=== PATIENT | male | born 1940 | race Caucasian/White ===

== ENCOUNTER 2019-03-02 20:55 | Observation (INO) | payer MEDICARE ==
[2019-03-02] MEDS ORDERED: SODIUM CHLORIDE 0.9% 1,000 ML IV STA (21:12)
--- NOTE | 2019-03-02 21:14 | ED ---
General Adult HPI - General Chief complaint: Syncope Stated complaint: Near Syncope Time Seen by Provider: 03/02/19 21:12 Source: patient Mode of arrival: EMS Limitations: no limitations - History of Present Illness Initial comments: Mr Francois is a pleasant 78-year-old gentleman who presents to the emergency department today for evaluation of near-syncope. Patient reports that he's been in his usual state of health yesterday evening drinking well he was inside and air conditioning today, this evening he decided to go outside to clean his barbecue grill. He reports he started to complain his barbecue grill and he got very lightheaded. He thought that he would walk back and side to sit down but upon reaching the door he felt much better do not feel lightheaded and decided to walk back to his barbecue grill. Patient states that he once again began feeling really lightheaded he didn't feel that he can make it to the door to get inside so he stepped reports his grass thinking that it would be safer to fall into the grass and to follow on concrete. Patient reports he then became very weak and felt the ground he did not lose consciousness. Patient reports that he laid on the ground for a short while and felt better laying down. At which time he was able to get back up and contact his family advised him he needed to come to the ER for evaluation. Patient denies any chest pain palpitations or shortness of breath. Patient reports he been standing for some period of time when this happened. It did not happen immediately upon standing. He does not have a history of syncopal events in the past. - Related Data Home Medications Medication Instructions Recorded Confirmed Vitamin B Complex 1 cap PO DAILY 04/15/14 03/02/19 glipiZIDE XL [Glucotrol XL] 5 mg PO BID 04/15/14 03/02/19 Aspirin 162 mg PO DAILY 03/02/19 03/02/19 Atenolol [Tenormin] 25 mg PO HS 03/02/19 03/02/19 Atorvastatin Calcium [Lipitor] 20 mg PO HS 03/02/19 03/02/19 Cholecalciferol (Vitamin D3) 2,000 unit PO DAILY 03/02/19 03/02/19 [Vitamin D3] Fish Oil/Dha/Epa [Fish Oil 1,200 1 cap PO DAILY 03/02/19 03/02/19 mg Fish Oil] Losartan [Cozaar] 50 mg PO DAILY 03/02/19 03/02/19 Pioglitazone [Actos] 45 mg PO DAILY 03/02/19 03/02/19 amLODIPine [Norvasc] 5 mg PO DAILY 03/02/19 03/02/19 Allergies Allergy/AdvReac Type Severity Reaction Status Date / Time metformin AdvReac Diarrhea Verified 03/02/19 23:07 Review of Systems ROS Statement: Those systems with pertinent positive or pertinent negative responses have been documented in the HPI. ROS Other: All systems not noted in ROS Statement are negative. Past Medical History Past Medical History: Coronary Artery Disease (CAD), Diabetes Mellitus, Hyperlipidemia, Hypertension History of Any Multi-Drug Resistant Organisms: None Reported Past Surgical History: Heart Catheterization With Stent, Hernia Repair Additional Past Surgical History / Comment(s): endarectomy Date of Last Stent Placement:: 2010 Past Psychological History: No Psychological Hx Reported Smoking Status: Former smoker Past Alcohol Use History: Occasional Past Drug Use History: None Reported - Past Family History Father Additional Family Medical History / Comment(s): aortic anyserusm Mother Additional Family Medical History / Comment(s): Brain anyrusm General Exam - General Exam Comments Initial Comments: Physical Exam GENERAL: Patient is well-developed and well-nourished. Patient is nontoxic and well- hydrated and is in no distress. HENT: Normocephalic, Atraumatic. EYES: PERRL, EOMI PULMONARY: Unlabored respirations. No audible rales rhonchi or wheezing was noted. CARDIOVASCULAR: Blowing holosystolic murmur ABDOMEN: Soft and nontender with normal bowel sounds. SKIN: Skin is clear with no lesions or rashes and otherwise unremarkable. : Deferred NEUROLOGIC: Patient is alert and oriented x3. Moving all extremities spontaneously MUSCULOSKELETAL: Normal extremities with adequate strength and full range of motion. No lower extremity swelling or edema. No calf tenderness. PSYCHIATRIC: Normal psychiatric evaluation Limitations: no limitations Course Vital Signs 03/02/19 03/02/19 21:06 22:36 Temperature 98.0 F 97.8 F Pulse Rate 62 64 Respiratory 20 20 Rate Blood Pressure 163/80 150/73 O2 Sat by Pulse 95 95 Oximetry EKG Findings - EKG Comments: EKG Findings:: EKG was obtained due to complaint of near-syncope, EKG obtained at 2118, rate is 66 rhythm is sinus is an incomplete right branch of block, WI 164, QRS 108, QTC is [address] elevations or depressions no evidence of acute ischemia or infarction Medical Decision Making - Medical Decision Making Patient was seen and evaluated history was obtained from the patient and my bedside This is a 78-year-old gentleman who presents with a near syncopal or possible syncopal episode given that he felt as though he was going to pass out and then ended up laying on the ground. Patient no injuries Physical exam patient does have a blowing holosystolic murmur and reports he's never told he had aortic stenosis in the past except Labs resulted with mild anemia, kidney function troponin negative Results were discussed with patient, at this time I recommend the patient be admitted to the hospital for further evaluation by cardiology patient and family are agreeable to this. Patient will be admitted to Dr Freeman per PCP preference - Lab Data Result diagrams: 03/02/19 21:05 03/02/19 21:05 Lab Results 03/02/19 03/02/19 03/02/19 Range/Units 21:05 21:05 21:05 WBC 4.7 (3.8-10.6) k/uL RBC 3.67 L (4.30-5.90) m/uL Hgb 11.1 L (13.0-17.5) gm/dL Hct 33.8 L (39.0-53.0) % MCV 92.3 (80.0-100.0) fL MCH 30.2 (25.0-35.0) pg MCHC 32.7 (31.0-37.0) g/dL RDW 15.7 H (11.5-15.5) % Plt Count 154 (150-450) k/uL Neutrophils % 68 % Lymphocytes % 17 % Monocytes % 7 % Eosinophils % 4 % Basophils % 0 % Neutrophils # 3.2 (1.3-7.7) k/uL Lymphocytes # 0.8 L (1.0-4.8) k/uL Monocytes # 0.3 (0-1.0) k/uL Eosinophils # 0.2 (0-0.7) k/uL Basophils # 0.0 (0-0.2) k/uL Hypochromasia Slight PT 12.0 (9.0-12.0) sec INR 1.1 (<1.2) APTT 28.1 (22.0-30.0) sec Sodium 141 (137-145) mmol/L Potassium 4.3 (3.5-5.1) mmol/L Chloride 103 (98-107) mmol/L Carbon Dioxide 30 (22-30) mmol/L Anion Gap 8 mmol/L BUN 26 H (9-20) mg/dL Creatinine 1.08 (0.66-1.25) mg/dL Est GFR (CKD-EPI)AfAm 77 (>60 ml/min/1.73 sqM) Est GFR (CKD-EPI)NonAf 66 (>60 ml/min/1.73 sqM) Glucose 111 H (74-99) mg/dL Calcium 9.3 (8.4-10.2) mg/dL Magnesium 1.6 (1.6-2.3) mg/dL Total Bilirubin 0.5 (0.2-1.3) mg/dL AST 17 (17-59) U/L ALT 19 L (21-72) U/L Alkaline Phosphatase 39 (38-126) U/L Troponin I (0.000-0.034) ng/mL Total Protein 7.0 (6.3-8.2) g/dL Albumin 4.3 (3.5-5.0) g/dL Urine Color Urine Appearance (Clear) Urine pH (5.0-8.0) Ur Specific [place] (1.001-1.035) Urine Protein (Negative) Urine Glucose (UA) (Negative) Urine Ketones (Negative) Urine Blood (Negative) Urine Nitrite (Negative) Urine Bilirubin (Negative) Urine Urobilinogen (<2.0) mg/dL Ur Leukocyte Esterase (Negative) 03/02/19 03/02/19 Range/Units 21:05 21:50 WBC (3.8-10.6) k/uL RBC (4.30-5.90) m/uL Hgb (13.0-17.5) gm/dL Hct (39.0-53.0) % MCV (80.0-100.0) fL MCH (25.0-35.0) pg MCHC (31.0-37.0) g/dL RDW (11.5-15.5) % Plt Count (150-450) k/uL Neutrophils % % Lymphocytes % % Monocytes % % Eosinophils % % Basophils % % Neutrophils # (1.3-7.7) k/uL Lymphocytes # (1.0-4.8) k/uL Monocytes # (0-1.0) k/uL Eosinophils # (0-0.7) k/uL Basophils # (0-0.2) k/uL Hypochromasia PT (9.0-12.0) sec INR (<1.2) APTT (22.0-30.0) sec Sodium (137-145) mmol/L Potassium (3.5-5.1) mmol/L Chloride (98-107) mmol/L Carbon Dioxide (22-30) mmol/L Anion Gap mmol/L BUN (9-20) mg/dL Creatinine (0.66-1.25) mg/dL Est GFR (CKD-EPI)AfAm (>60 ml/min/1.73 sqM) Est GFR (CKD-EPI)NonAf (>60 ml/min/1.73 sqM) Glucose (74-99) mg/dL Calcium (8.4-10.2) mg/dL Magnesium (1.6-2.3) mg/dL Total Bilirubin (0.2-1.3) mg/dL AST (17-59) U/L ALT (21-72) U/L Alkaline Phosphatase (38-126) U/L Troponin I <0.012 (0.000-0.034) ng/mL Total Protein (6.3-8.2) g/dL Albumin (3.5-5.0) g/dL Urine Color Yellow Urine Appearance Clear (Clear) Urine pH 6.5 (5.0-8.0) Ur Specific [place] 1.011 (1.001-1.035) Urine Protein Negative (Negative) Urine Glucose (UA) Negative (Negative) Urine Ketones Negative (Negative) Urine Blood Negative (Negative) Urine Nitrite Negative (Negative) Urine Bilirubin Negative (Negative) Urine Urobilinogen <2.0 (<2.0) mg/dL Ur Leukocyte Esterase Negative (Negative) Disposition Clinical Impression: Syncope, Systolic murmur Disposition: ADMITTED IP TO THIS HOSP Condition: Stable
[2019-03-02 21:32] LABS: Basophils % (A) 0 %; Eosinophils # (A) 0.2 k/uL (0-0.7); Eosinophils % (A) 4 %; HCT 33.8 % (39.0-53.0); HGB 11.1 gm/dL (13.0-17.5); Hypochromasia Slight; Lymphocytes # (A) 0.8 k/uL (1.0-4.8); Lymphocytes % (A) 17 %; MCH 30.2 pg (25.0-35.0); MCHC 32.7 g/dL (31.0-37.0); MCV 92.3 fL (80.0-100.0); Mean Platelet Volume 7.7; Monocytes # (A) 0.3 k/uL (0-1.0); Monocytes % (A) 7 %; Neutrophils # (A) 3.2 k/uL (1.3-7.7); Neutrophils % (A) 68 %; Platelet Count 154 k/uL (150-450); RBC 3.67 m/uL (4.30-5.90); RDW 15.7 % (11.5-15.5); WBC 4.7 k/uL (3.8-10.6)
[2019-03-02 21:40] LABS: INR 1.1 (<1.2); Partial Thromboplastin Time 28.1 sec (22.0-30.0)
[2019-03-02 21:43] LABS: Albumin 4.3 g/dL (3.5-5.0); Calcium 9.3 mg/dL (8.4-10.2); Magnesium 1.6 mg/dL (1.6-2.3); Potassium 4.3 mmol/L (3.5-5.1); Total Bilirubin 0.5 mg/dL (0.2-1.3)
--- NOTE | 2019-03-02 21:55 | XR ---
EXAMINATION TYPE: XR chest 2V DATE OF EXAM: 03/02/2019 COMPARISON: 04/15/2014 HISTORY: Syncope TECHNIQUE: Frontal and lateral views of the chest are obtained. FINDINGS: Heart and mediastinum are normal. There is some coarsening of interstitial markings. Costo phrenic angles are clear. There are chest leads. Bony thorax appears intact. IMPRESSION: Mild pulmonary interstitial edema is new compared to old exam and could relate to acute mild heart failure or interstitial pneumonia. Normal heart.
[2019-03-02] MEDS ORDERED: NALOXONE 0.4 MG/ML 1 ML VIAL IV PRN (22:09)
[2019-03-02 22:30] LABS: Appearance,Urine Clear (Clear); Bilirubin,Urine Negative (Negative); Blood,Urine Negative (Negative); Color,Urine Yellow; Glucose,Urine (UA) Negative (Negative); Ketones,Urine Negative (Negative); Leukocyte Esterase,Urine Negative (Negative); Nitrite,Urine Negative (Negative); PH, Urine 6.5 (5.0-8.0); Protein,Urine Negative (Negative); Specific Gravity,Urine 1.011 (1.001-1.035); Urobilinogen,Urine <2.0 mg/dL (<2.0)
[2019-03-02] MEDS: SODIUM CHLORIDE 0.9% 1,000 ML IV SCH (23:03)
[2019-03-02] MEDS ORDERED: ATORVASTATIN 20 MG TAB PO SCH (23:30)
[2019-03-02] MEDS ORDERED: ATENOLOL 25 MG TAB PO SCH (23:30)
[2019-03-03 07:29] LABS: Glucose,Whole Blood 133 mg/dL (75-99)
[2019-03-03] MEDS ORDERED: NON-FORMULARY DRUG (Fish Oil/Dha/Epa [Fish Oil 1,200 Mg Fish Oil] 1 CAP) PO SCH (09:00)
[2019-03-03 12:00] LABS: Glucose,Whole Blood 137 mg/dL (75-99)
--- NOTE | 2019-03-03 12:59 | P.CRDCN ---
History of Present Illness Consult date: 03/03/19 Consult reason: sycope (Near syncope, aortic stenosis) Chief complaint: Near syncope History of present illness: This is a 78-year-old male patient of Dr. STACY Castillo with past medical history of coronary artery disease status post stenting most recently done in 2010, hypertension, hyperlipidemia, diabetes mellitus type 2, bilateral carotid endarterectomies. 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 He walked away was going to rest for a few minutes and went back to finish his job but the dizziness returned and was worsening ended up feeling quite lightheaded and falling over to the left side was unable to keep his balance and fell down into the grass. He denies any injury, no loss of consciousness, no chest pain, no shortness of breath. Patient denies having any nausea vomiting or diarrhea. Patient states he was outside yesterday but he was not significantly active and did not feel it was very hot out. He does not drink very much fluids in the way of water. He did drink a few cups of coffee yesterday. Patient came into [facility] emergency center for evaluation and was subsequently placed in the observation unit. Through the night patient had runs of ventricular tachycardia up to 11 beats. Patient was asymptomatic. EKG reveals sinus mechanism with incomplete right bundle branch block. Echocardiogram reveals EF of 55-60% Laboratory studies: Hemoglobin 11.1, platelets 154, creatinine 1.08, BUN 26, blood sugar 111. Troponin negative on 2 draws. Urinalysis negative. Chest x-ray shows mild pulmonary interstitial edema which is new. Could correlate to heart failure or interstitial pneumonia. Normal heart. Review Of Systems: Constitutional: No fever, no chills, no night sweats. No weight change. No weakness, fatigue or lethargy. No daytime sleepiness. EENT: No headache. No blurred vision or double vision, no loss of vision. No loss of Hearing, no ringing in the ears, no dizziness. No nasal drainage or congestion. No epistaxis. No sore throat. Lungs: No shortness of breath, cough, no sputum production. No wheezing. Cardiovascular: No chest pain, no lower extremity edema. No palpitations. No paroxysmal nocturnal dyspnea. No orthopnea. Reports lightheadedness reports dizziness. No syncopal episodes. Abdominal: No abdominal pain. No nausea, vomiting. No diarrhea. No constipation. No bloody or tarry stools.. No loss of appetite. Genitourinary: No dysuria, increased frequency, urgency. No urinary retention. Musculoskeletal: No myalgias. No muscle weakness, no gait dysfunction, no frequent falls. No back pain. No neck pain. Integumentary: No wounds, no lesions. No rash or pruritus. No unusual bruising. No change in hair or nails. Neurologic: No aphasia. No facial droop. No change in mentation. No head injury. No headache. No paralysis. No paresthesia. Psychiatric: No depression. No anxiety. No mood swings. Endocrine: No abnormal blood sugars. No weight change. No excessive sweating or thirst. No cold intolerance. No weight change. Gen: This is a 78-year-old male. He is resting but appears to be comfortable and in no acute distress. HEENT: Head is atraumatic, normocephalic. Pupils equal, round. Sclerae is anicteric. NECK: Supple. No JVD. No lymphadenopathy. No thyromegaly. LUNGS: Clear to auscultation. No wheezes or rhonchi. No intercostal retract ions. HEART: Regular rate and rhythm. Soft systolic murmur. ABDOMEN: Soft. Bowel sounds are present. No masses. No tenderness. EXTREMITIES: No pedal edema. No calf tenderness. NEUROLOGICAL: Patient is awake, alert and oriented x3. Cranial nerves 2 through 12 are grossly intact. Assessment: Near syncopal episode rule out arrhythmia as patient had episodes of V. tach during the night Hypertension Hyperlipidemia Diabetes mellitus type 2 Plan: Continue cardiac monitoring. Obtain 2-D echocardiogram and Doppler study to assess cardiac structure and function. Check TSH and lipid profile. Check orthostatic vital signs. Continue aspirin 162 mg daily, atenolol 25 mg at bedtime, Norvasc 5 mg daily, Lipitor 20 g at bedtime, losartan 50 g daily. Further recommendations to follow based upon clinical course. Thank you kindly for this consultation. Nurse practitioner note has been reviewed, I agree with documented findings and plan of care. Patient was seen and examined. Past Medical History Past Medical History: Coronary Artery Disease (CAD), Diabetes Mellitus, Hyperlipidemia, Hypertension History of Any Multi-Drug Resistant Organisms: None Reported Past Surgical History: Heart Catheterization With Stent, Hernia Repair Additional Past Surgical History / Comment(s): endarectomy Past Anesthesia/Blood Transfusion Reactions: No Reported Reaction Date of Last Stent Placement:: 2010 Past Psychological History: No Psychological Hx Reported Smoking Status: Former smoker Past Alcohol Use History: Occasional Past Drug Use History: None Reported - Past Family History Father Additional Family Medical History / Comment(s): aortic anyserusm Mother Additional Family Medical History / Comment(s): Brain anyrusm Medications and Allergies Home Medications Medication Instructions Recorded Confirmed Type Vitamin B Complex 1 cap PO DAILY 04/15/14 03/02/19 History glipiZIDE XL [Glucotrol XL] 5 mg PO BID 04/15/14 03/02/19 History Aspirin 162 mg PO DAILY 03/02/19 03/02/19 History Atenolol [Tenormin] 25 mg PO HS 03/02/19 03/02/19 History Atorvastatin Calcium [Lipitor] 20 mg PO HS 03/02/19 03/02/19 History Cholecalciferol (Vitamin D3) 2,000 unit PO DAILY 03/02/19 03/02/19 History [Vitamin D3] Fish Oil/Dha/Epa [Fish Oil 1,200 1 cap PO DAILY 03/02/19 03/02/19 History mg Fish Oil] Losartan [Cozaar] 50 mg PO DAILY 03/02/19 03/02/19 History Pioglitazone [Actos] 45 mg PO DAILY 03/02/19 03/02/19 History amLODIPine [Norvasc] 5 mg PO DAILY 03/02/19 03/02/19 History Allergies Allergy/AdvReac Type Severity Reaction Status Date / Time metformin AdvReac Diarrhea Verified 03/02/19 23:07 Physical Exam Vitals: Vital Signs Temp Pulse Pulse Resp BP BP BP 03/03/19 12:23 03/03/19 12:22 170/70 03/03/19 12:00 97.2 F L 57 L 17 155/73 03/03/19 08:00 60 17 03/03/19 07:36 97.7 F 60 17 136/67 03/03/19 03:40 18 03/03/19 03:39 97.5 F L 58 L 18 132/66 03/03/19 00:00 18 03/02/19 23:03 97.4 F L 68 18 163/67 03/02/19 22:36 97.8 F 64 20 150/73 03/02/19 21:06 98.0 F 62 20 163/80 BP BP Pulse Ox 03/03/19 12:23 185/73 03/03/19 12:22 177/69 03/03/19 12:00 95 03/03/19 08:00 03/03/19 07:36 98 03/03/19 03:40 03/03/19 03:39 97 03/03/19 00:00 03/02/19 23:03 94 L 03/02/19 22:36 95 03/02/19 21:06 95 Intake and Output 03/02/19 03/03/19 03/03/19 22:59 06:59 14:59 Intake Total 1000 Output Total 300 Balance 1000 -300 Intake: Amount of Fluid Infused ( 1000 ml) Output: Urine 300 Other: Voiding Method Toilet # Voids 1 1 Weight 95.254 kg Results 03/02/19 21:05 03/02/19 21:05 Cardiac Enzymes 03/02/19 03/02/19 03/03/19 Range/Units 21:05 21:05 03:30 AST 17 (17-59) U/L Troponin I <0.012 <0.012 (0.000-0.034) ng/mL 03/03/19 Range/Units 08:48 AST (17-59) U/L Troponin I <0.012 (0.000-0.034) ng/mL Coagulation 03/02/19 Range/Units 21:05 PT 12.0 (9.0-12.0) sec APTT 28.1 (22.0-30.0) sec CBC 03/02/19 Range/Units 21:05 WBC 4.7 (3.8-10.6) k/uL RBC 3.67 L (4.30-5.90) m/uL Hgb 11.1 L (13.0-17.5) gm/dL Hct 33.8 L (39.0-53.0) % Plt Count 154 (150-450) k/uL Comprehensive Metabolic Panel 03/02/19 Range/Units 21:05 Sodium 141 (137-145) mmol/L Potassium 4.3 (3.5-5.1) mmol/L Chloride 103 (98-107) mmol/L Carbon Dioxide 30 (22-30) mmol/L BUN 26 H (9-20) mg/dL Creatinine 1.08 (0.66-1.25) mg/dL Glucose 111 H (74-99) mg/dL Calcium 9.3 (8.4-10.2) mg/dL AST 17 (17-59) U/L ALT 19 L (21-72) U/L Alkaline Phosphatase 39 (38-126) U/L Total Protein 7.0 (6.3-8.2) g/dL Albumin 4.3 (3.5-5.0) g/dL Current Medications Generic Name Dose Route Start Last Admin Trade Name Freq PRN Reason Stop Dose Admin Amlodipine Besylate 5 mg 03/03/19 09:00 Norvasc PO DAILY [facility] Aspirin 162 mg 03/03/19 09:00 Aspirin PO DAILY [facility] Atenolol 25 mg 03/02/19 23:30 03/02/19 23:43 Tenormin PO 25 mg HS AYLA Administration Atorvastatin Calcium 20 mg 03/02/19 23:30 03/02/19 23:43 Lipitor PO 20 mg HS AYLA Administration Cholecalciferol 2,000 unit 03/03/19 09:00 Vitamin D3 (25 Mcg = 1000 Iu) PO DAILY [facility] Glipizide 2.5 mg 03/03/19 09:00 Glucotrol PO BID [facility] Sodium Chloride 1,000 mls @ 75 mls/hr 03/02/19 22:15 03/02/19 23:03 Saline 0.9% IV Not Given .[id number] [facility] Losartan Potassium 50 mg 03/03/19 09:00 Cozaar PO DAILY [facility] Multivit/Ca Carb/B Cmplx/FA/Prenat 1 each 03/03/19 09:00 Nephrocaps PO DAILY [facility] Naloxone HCl 0.2 mg 03/02/19 22:09 Narcan IV Q2M PRN Opioid Reversal Pioglitazone HCl 45 mg 03/03/19 09:00 Actos PO DAILY [facility] Intake and Output 03/02/19 03/03/19 03/03/19 22:59 06:59 14:59 Intake Total 1000 Output Total 300 Balance 1000 -300 Intake: Amount of Fluid Infused ( 1000 ml) Output: Urine 300 Other: Voiding Method Toilet # Voids 1 1 Weight 95.254 kg 03/02/19 21:05 03/02/19 21:05
[2019-03-03] MEDS: CHOLECALCIFEROL 1,000 UNIT TAB PO SCH (13:06)
[2019-03-03] MEDS: PIOGLITAZONE 45 MG TAB PO SCH (13:06)
[2019-03-03] MEDS: FOLIC ACID-VIT B COMPLEX-VIT C 1 CAP PO SCH (13:06)
[2019-03-03] MEDS: LOSARTAN 50 MG TAB PO SCH (13:07)
[2019-03-03] MEDS: amLODIPine 5 MG TAB PO SCH (13:07)
[2019-03-03] MEDS: ASPIRIN 81 MG PO SCH (13:07)
[2019-03-03] MEDS: SODIUM CHLORIDE 0.9% 1,000 ML IV SCH (13:10)
--- NOTE | 2019-03-03 13:19 | ECHOF ---
Referral Reason:syncope, aortic stenosis MEASUREMENTS -------- HEIGHT: 175.3 cm WEIGHT: 95.3 kg BP: 136/67 IVSd: 0.8 cm (0.6 - 1.1) LVIDd: 5.2 cm (3.9 - 5.3) LVPWd: 1.1 cm (0.6 - 1.1) IVSs: 1.5 cm LVIDs: 3.3 cm LVPWs: 1.4 cm RVIDd: 4.3 cm (< 3.3) LAESV Index (A-L): 41.61 ml/m Ao Diam: 3.5 cm (2.0 - 3.7) LA Diam: 4.4 cm (2.7 - 3.8) AV Cusp: 2.1 cm (1.5 - 2.6) AV maxP.49 mmHg AV meanP.86 mmHg RAP: 5.00 mmHg RVSP: 44.48 mmHg FINDINGS -------- Sinus rhythm. This was a technically difficult study with suboptimal parasternal views. The left ventricular size is normal. Left ventricular wall thickness is normal. Overall left vent ricular systolic function is normal with, an EF between 65 - 70 %. Left ventricular fillimg pressur e cannot be estimated due to severe mitral annular calcification. The right ventricle is mildly enlarged. LA is severely dilated >40 ml/m2 The right atrial size is normal. Interatrial and interventricular septum intact. There is moderate aortic valve sclerosis. There is no evidence of aortic regurgitation. There is mild aortic stenosis present. Peak/mean gradient across the Aortic Valve is 21.49mmHg / 10.86mmHg. The mitral valve leaflets are moderately thickened. Severe mitral annular calcification present. Moderate mitral regurgitation is present. Kali-[id number] mitral stenosis. Mild tricuspid regurgitation present. There is mild to moderate pulmonary hypertension. The right ventricular systolic pressure, as measured by Doppler, is 44.48mmHg. There is no pulmonic regurgitation present. The aortic root size is normal. The inferior vena cava is mildly dilated. There is no pericardial effusion. Lumason used CONCLUSIONS -------- 1. Sinus rhythm. 2. This was a technically difficult study with suboptimal parasternal views. 3. The left ventricular size is normal. 4. Left ventricular wall thickness is normal. 5. Overall left ventricular systolic function is normal with, an EF between 65 - 70 %. 6. Left ventricular fillimg pressure cannot be estimated due to severe mitral annular calcification. 7. The right ventricle is mildly enlarged. 8. LA is severely dilated >40 ml/m2 9. The right atrial size is normal. 10. Lumason used 11. Interatrial and interventricular septum intact. 12. There is moderate aortic valve sclerosis. 13. There is no evidence of aortic regurgitation. 14. There is mild aortic stenosis present. 15. Peak/mean gradient across the Aortic Valve is 21.49mmHg / 10.86mmHg. 16. The mitral valve leaflets are moderately thickened. 17. Severe mitral annular calcification present. 18. Moderate mitral regurgitation is present. 19. Uhtz-pt-[id number] mitral stenosis. 20. Mild tricuspid regurgitation present. 21. There is mild to moderate pulmonary hypertension. 22. The right ventricular systolic pressure, as measured by Doppler, is 44.48mmHg. 23. There is no pulmonic regurgitation present. 24. The aortic root size is normal. 25. The inferior vena cava is mildly dilated. 26. There is no pericardial effusion. RELOCATION COUNSELOR: Taylor Santos RDCS
[2019-03-03] MEDS: CARVEDILOL 3.125 MG TAB PO SCH (16:29)
[2019-03-03] MEDS: ATORVASTATIN 20 MG TAB PO SCH (16:29)
[2019-03-03 16:30] LABS: Glucose,Whole Blood 210 mg/dL (75-99)
--- NOTE | 2019-03-03 16:42 | P.HPIM ---
History of Present Illness H&P Date: 03/03/19 Chief Complaint: Dizzy History of presenting complaint: This is a pleasant [address] Víctor Echols. Chronic stable medical conditions include coronary artery disease with stent, diabetes, hyperlipidemia, hypertension. 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 It was not too warm. It was there for about 20 minutes. [place] a bit d julio. Decided to go back in the house. And felt better came back to the grill. Had a repeat episode where he felt severely dizzy. Patient went down on the grass. Never passed out. There were 3 ladies Around the corner was 1. EMS was called out. Denied any chest pain or palpitations. No headache or change in vision. No incontinence. Patient is noted to assess some ectopics on the EKG. Admitted for the same. Cardiology was consulted. Review of systems: GEN.: Tired EYES: None HEENT: None NECK: None RESPIRATORY: None CARDIOVASCULAR: None GASTROINTESTINAL: None GENITOURINARY: None MUSCULOSKELETAL: Some pain in the joints LYMPHATICS: None HEMATOLOGICAL: None PSYCHIATRY: None NEUROLOGICAL: [As above Social history: Patient stop smoking and 96, drinks about average of 2 beers a week. . Retired Family history: Aortic aneurysm Physical examination: VITAL SIGNS: 98, 62, 20, 163/80, 95% room air GENERAL: BMI 31, laying in bed a bit tired, . EYES: Pupils equal. Conjunctiva normal. HEENT: External appearance of nose and ears normal, oral cavity grossly normal. NECK: JVD not raised; masses not palpable. HEART: First and second heart sounds are normal; no edema. LUNGS: Respiratory rate normal; clear to auscultation. ABDOMEN: Soft, nontender, liver spleen not palpable, no masses palpable. PSYCH: Alert and oriented x3; mood and affect normal. NEUROLOGICAL: Cranial nerves grossly intact; no facial asymmetry, power and s ensation grossly intact. 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 Telemetry reported some ectopics Chest x-ray film personally reviewed by me-questionable maybe chronic infiltrate on the right side 2-D echo-shows moderate aortic valve sclerosis, moderate pulmonary hypertension EF 65-70% Assessment: -This is a patient with 2 episodes of dizziness with near syncope, with patient tachycardia following down but never passed out. Telemetry he showing some PVCs. Underlying arrhythmia niece to be ruled out. Specially V. tach patient will be washed on telemetry. Cardiology was consulted. -Coronary artery disease with prior history of stent -Diabetes mellitus type 2 on oral hypoglycemic -Hyperlipidemia -Essential hypertension Plan: Cardiology cardiology was consulted. Patient put on telemetry. 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 Home me dications resumed. Care was discussed the patient . Questions were answered. No clinical evidence for pneumonia and no symptoms. Past Medical History Past Medical History: Coronary Artery Disease (CAD), Diabetes Mellitus, Hyperlipidemia, Hypertension History of Any Multi-Drug Resistant Organisms: None Reported Past Surgical History: Heart Catheterization With Stent, Hernia Repair Additional Past Surgical History / Comment(s): endarectomy Past Anesthesia/Blood Transfusion Reactions: No Reported Reaction Date of Last Stent Placement:: 2010 Past Psychological History: No Psychological Hx Reported Smoking Status: Former smoker Past Alcohol Use History: Occasional Past Drug Use History: None Reported - Past Family History Father Additional Family Medical History / Comment(s): aortic anyserusm Mother Additional Family Medical History / Comment(s): Brain anyrusm Medications and Allergies Home Medications Medication Instructions Recorded Confirmed Type Vitamin B Complex 1 cap PO DAILY 04/15/14 03/02/19 History glipiZIDE XL [Glucotrol XL] 5 mg PO BID 04/15/14 03/02/19 History Aspirin 162 mg PO DAILY 03/02/19 03/02/19 History Atenolol [Tenormin] 25 mg PO HS 03/02/19 03/02/19 History Atorvastatin Calcium [Lipitor] 20 mg PO HS 03/02/19 03/02/19 History Cholecalciferol (Vitamin D3) 2,000 unit PO DAILY 03/02/19 03/02/19 History [Vitamin D3] Fish Oil/Dha/Epa [Fish Oil 1,200 1 cap PO DAILY 03/02/19 03/02/19 History mg Fish Oil] Losartan [Cozaar] 50 mg PO DAILY 03/02/19 03/02/19 History Pioglitazone [Actos] 45 mg PO DAILY 03/02/19 03/02/19 History amLODIPine [Norvasc] 5 mg PO DAILY 03/02/19 03/02/19 History Allergies Allergy/AdvReac Type Severity Reaction Status Date / Time metformin AdvReac Diarrhea Verified 03/02/19 23:07 Physical Exam Vitals: Vital Signs Temp Pulse Pulse Resp BP BP BP 03/03/19 12:23 03/03/19 12:22 170/70 03/03/19 12:00 97.2 F L 57 L 17 155/73 03/03/19 08:00 60 17 03/03/19 07:36 97.7 F 60 17 136/67 03/03/19 03:40 18 03/03/19 03:39 97.5 F L 58 L 18 132/66 03/03/19 00:00 18 03/02/19 23:03 97.4 F L 68 18 163/67 03/02/19 22:36 97.8 F 64 20 150/73 03/02/19 21:06 98.0 F 62 20 163/80 BP BP Pulse Ox 03/03/19 12:23 185/73 03/03/19 12:22 177/69 03/03/19 12:00 95 03/03/19 08:00 03/03/19 07:36 98 03/03/19 03:40 03/03/19 03:39 97 03/03/19 00:00 03/02/19 23:03 94 L 03/02/19 22:36 95 03/02/19 21:06 95 Intake and Output 03/03/19 03/03/19 03/03/19 06:59 14:59 22:59 Output Total 1400 Balance -1400 Output: Urine 1400 Other: Voiding Method Toilet # Voids 1 4 Results CBC & Chem 7: 03/02/19 21:05 03/02/19 21:05 Labs: Abnormal Lab Results - Last 24 Hours (Table) 03/02/19 03/02/19 03/03/19 Range/Units 21:05 21:05 07:28 RBC 3.67 L (4.30-5.90) m/uL Hgb 11.1 L (13.0-17.5) gm/dL Hct 33.8 L (39.0-53.0) % RDW 15.7 H (11.5-15.5) % Lymphocytes # 0.8 L (1.0-4.8) k/uL BUN 26 H (9-20) mg/dL Glucose 111 H (74-99) mg/dL POC Glucose (mg/dL) 133 H (75-99) mg/dL ALT 19 L (21-72) U/L 03/03/19 Range/Units 11:59 RBC (4.30-5.90) m/uL Hgb (13.0-17.5) gm/dL Hct (39.0-53.0) % RDW (11.5-15.5) % Lymphocytes # (1.0-4.8) k/uL BUN (9-20) mg/dL Glucose (74-99) mg/dL POC Glucose (mg/dL) 137 H (75-99) mg/dL ALT (21-72) U/L Thrombosis Risk Factor Assmnt - Choose All That Apply Each Risk Factor Represents 3 Points: Age 75 years or older Thrombosis Risk Factor Assessment Total Risk Factor Score: 3 Thrombosis Risk Factor Assessment Level: Moderate Risk
[2019-03-03 19:49] LABS: Glucose,Whole Blood 159 mg/dL (75-99)
[2019-03-03] MEDS ORDERED: ACETAMINOPHEN TAB 325 MG TAB PO PRN (19:53)
[2019-03-04 06:58] LABS: Glucose,Whole Blood 129 mg/dL (75-99)
[2019-03-04] MEDS: ATORVASTATIN 20 MG TAB PO SCH (08:09)
[2019-03-04] MEDS: FOLIC ACID-VIT B COMPLEX-VIT C 1 CAP PO SCH (08:09)
[2019-03-04] MEDS: CHOLECALCIFEROL 1,000 UNIT TAB PO SCH (08:09)
[2019-03-04] MEDS: LOSARTAN 50 MG TAB PO SCH (08:09)
[2019-03-04] MEDS: CARVEDILOL 3.125 MG TAB PO SCH (08:10)
[2019-03-04] MEDS: amLODIPine 5 MG TAB PO SCH (08:10)
[2019-03-04] MEDS: ASPIRIN 81 MG PO SCH (08:10)
[2019-03-04] MEDS: PIOGLITAZONE 45 MG TAB PO SCH (08:10)
--- NOTE | 2019-03-04 11:41 | P.PN ---
Subjective Progress Note Date: 03/04/19 This is a 78-year-old male patient of Dr. STACY Castillo with past medical history of coronary artery disease status post stenting most recently done in 2010, hypertension, hyperlipidemia, diabetes mellitus type 2, bilateral carotid endarterectomies. 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 He walked away was going to rest for a few minutes and went back to finish his job but the dizziness returned and was worsening ended up feeling quite lightheaded and falling over to the left side was unable to keep his balance and fell down into the grass. He denies any injury, no loss of consciousness, no chest pain, no shortness of breath. Patient denies having any nausea vomiting or diarrhea. Patient states he was outside yesterday but he was not significantly active and did not feel it was very hot out. He does not drink very much fluids in the way of water. He did drink a few cups of coffee yesterday. Patient came into [facility] emergency center for evaluation and was subsequently placed in the observation unit. Through the night patient had runs of ventricular tachycardia up to 11 beats. Patient was asymptomatic. EKG reveals sinus mechanism with incomplete right bundle branch block. Echocardiogram reveals EF of 55-60% Laboratory studies: Hemoglobin 11.1, platelets 154, creatinine 1.08, BUN 26, blood sugar 111. Troponin negative on 2 draws. Urinalysis negative. Chest x-ray shows mild pulmonary interstitial edema which is new. Could correlate to heart failure or interstitial pneumonia. Normal heart. 03/04: The patient states that he has been ambulating in the hallway with no syncopal or lightheadedness dizziness symptoms. He denies any chest pain. No shortness of breath. Patient did not have any runs of V. tach during the night but occasional PVCs. Heart rate in the 60s, blood pressure 142/69, pulse ox 95% on room air. TSH 3.5-0, proBNP 1330. The patient is agreeable for discharge and follow-up with Dr. STACY Castillo on to see her Tuesday of this week. Gen: This is a 78-year-old male. He is resting in chair and in no acute distress. HEENT: Head is atraumatic, normocephalic. Pupils equal, round. Sclerae is anicteric. NECK: Supple. No JVD. No lymphadenopathy. No thyromegaly. LUNGS: Clear to auscultation. No wheezes or rhonchi. No intercostal retractions. HEART: Regular rate and rhythm. Soft systolic murmur. ABDOMEN: Soft. Bowel sounds are present. No masses. No tenderness. EXTREMITIES: No pedal edema. No calf tenderness. NEUROLOGICAL: Patient is awake, alert and oriented x3. Cranial nerves 2 through 12 are grossly intact. Assessment: Near syncopal episode rule out arrhythmia as patient had episodes of V. tach during the night Hypertension Hyperlipidemia Diabetes mellitus type 2 Plan: Continue aspirin 162 mg daily, Norvasc 5 mg daily, Lipitor 20 g at bedtime, l osartan 50 g daily. Atenolol changed to Coreg 3.125 mg twice daily. Patient is cleared for discharge from cardiology with recommendations to follow- up with Dr. STACY Castillo on Tuesday or Tuesday of this week. Patient instructed to call Tuesday morning for appointment scheduling. Thank you kindly for this consultation. Nurse practitioner note has been reviewed, I agree with documented findings and plan of care. Patient was seen and examined. Objective - Vital Signs Vital signs: Vital Signs Temp 98 F 03/04/19 08:17 Pulse 64 03/04/19 08:17 Resp 16 03/04/19 08:17 BP 142/69 03/04/19 08:17 Pulse Ox 95 03/04/19 08:17 Intake & Output 03/03/19 03/04/19 03/04/19 18:59 06:59 18:59 Intake Total 240 Output Total 1400 Balance -1400 240 Intake: Oral 240 Output: Urine 1400 Other: Voiding Method Toilet Toilet Toilet # Voids 4 1 1 - Labs CBC & Chem 7: 03/02/19 21:05 03/02/19 21:05 Labs: Abnormal Lab Results - Last 24 Hours (Table) 03/03/19 03/03/19 03/03/19 Range/Units 11:59 16:28 19:48 POC Glucose (mg/dL) 137 H 210 H 159 H (75-99) mg/dL 03/04/19 Range/Units 06:57 POC Glucose (mg/dL) 129 H (75-99) mg/dL
--- NOTE | 2019-03-04 11:55 | P.CRDCN ---
History of Present Illness History of present illness: Patient is doing well. No more dizzy spells. No more arrhythmias He had a few runs of nonsustained ventricular tachycardia He was admitted with dizziness and presyncope I changed his medication to carvedilol 3.125 mg twice a day. Blood pressure was elevated in the hospital Other medications continue unchanged Blood pressure 142/69 mmHg Normal TSH normal cardiac enzymes normal electrolytes He may go home today and follow with Dr. Castillo within the next 2-3 days for an ischemia evaluation for nonsustained ventricular tachycardia Past Medical History Past Medical History: Coronary Artery Disease (CAD), Diabetes Mellitus, Hyperlipidemia, Hypertension History of Any Multi-Drug Resistant Organisms: None Reported Past Surgical History: Heart Catheterization With Stent, Hernia Repair Additional Past Surgical History / Comment(s): endarectomy Past Anesthesia/Blood Transfusion Reactions: No Reported Reaction Date of Last Stent Placement:: 2010 Past Psychological History: No Psychological Hx Reported Smoking Status: Former smoker Past Alcohol Use History: Occasional Past Drug Use History: None Reported - Past Family History Father Additional Family Medical History / Comment(s): aortic anyserusm Mother Additional Family Medical History / Comment(s): Brain anyrusm Medications and Allergies Home Medications Medication Instructions Recorded Confirmed Type Vitamin B Complex 1 cap PO DAILY 04/15/14 03/02/19 History glipiZIDE XL [Glucotrol XL] 5 mg PO BID 04/15/14 03/02/19 History Aspirin 162 mg PO DAILY 03/02/19 03/02/19 History Atorvastatin Calcium [Lipitor] 20 mg PO HS 03/02/19 03/02/19 History Cholecalciferol (Vitamin D3) 2,000 unit PO DAILY 03/02/19 03/02/19 History [Vitamin D3] Fish Oil/Dha/Epa [Fish Oil 1,200 1 cap PO DAILY 03/02/19 03/02/19 History mg Fish Oil] Losartan [Cozaar] 50 mg PO DAILY 03/02/19 03/02/19 History Pioglitazone [Actos] 45 mg PO DAILY 03/02/19 03/02/19 History amLODIPine [Norvasc] 5 mg PO DAILY 03/02/19 03/02/19 History Carvedilol [Coreg] 3.125 mg PO BID-W/MEALS #60 tab 03/04/19 Rx Allergies Allergy/AdvReac Type Severity Reaction Status Date / Time metformin AdvReac Diarrhea Verified 03/02/19 23:07 Physical Exam Vitals: Vital Signs Temp Pulse Resp BP BP BP BP 03/04/19 08:17 98 F 64 16 142/69 03/04/19 07:56 64 18 03/04/19 04:00 97.3 F L 64 18 154/66 03/04/19 03:22 18 03/04/19 00:00 18 03/03/19 23:53 97.1 F L 65 18 152/67 03/03/19 20:00 18 03/03/19 18:56 97.5 F L 55 L 18 133/64 03/03/19 16:00 97.9 F 60 16 130/62 03/03/19 12:23 185/73 03/03/19 12:22 170/70 177/69 03/03/19 12:00 97.2 F L 57 L 17 155/73 Pulse Ox 03/04/19 08:17 95 03/04/19 07:56 03/04/19 04:00 95 03/04/19 03:22 03/04/19 00:00 03/03/19 23:53 92 L 03/03/19 20:00 03/03/19 18:56 96 03/03/19 16:00 96 03/03/19 12:23 03/03/19 12:22 03/03/19 12:00 95 Intake and Output 03/03/19 03/04/19 03/04/19 22:59 06:59 14:59 Intake Total 240 Balance 240 Intake: Oral 240 Other: Voiding Method Toilet Toilet Toilet # Voids 1 1 Results 03/02/19 21:05 03/02/19 21:05 Current Medications Generic Name Dose Route Start Last Admin Trade Name Freq PRN Reason Stop Dose Admin Acetaminophen 650 mg 03/03/19 19:53 Tylenol Tab PO Q4HR PRN Fever and/ or Mild Pain Amlodipine Besylate 5 mg 03/03/19 09:00 03/04/19 08:10 Norvasc PO 5 mg DAILY AYLA Administration Aspirin 162 mg 03/03/19 09:00 03/04/19 08:10 Aspirin PO 162 mg DAILY AYLA Administration Atorvastatin Calcium 20 mg 03/03/19 15:45 03/04/19 08:09 Lipitor PO 20 mg DAILY AYLA Administration Carvedilol 3.125 mg 03/03/19 17:30 03/04/19 08:10 Coreg PO 3.125 mg BID-W/MEALS AYLA Administration Cholecalciferol 2,000 unit 03/03/19 09:00 03/04/19 08:09 Vitamin D3 (25 Mcg = 1000 Iu) PO 2,000 unit DAILY AYLA Administration Glipizide 2.5 mg 03/03/19 09:00 03/04/19 08:09 Glucotrol PO 2.5 mg BID AYLA Administration Losartan Potassium 50 mg 03/03/19 09:00 03/04/19 08:09 Cozaar PO 50 mg DAILY AYLA Administration Multivit/Ca Carb/B Cmplx/FA/Prenat 1 each 03/03/19 09:00 03/04/19 08:09 Nephrocaps PO 1 each DAILY AYLA Administration Naloxone HCl 0.2 mg 03/02/19 22:09 Narcan IV Q2M PRN Opioid Reversal Pioglitazone HCl 45 mg 03/03/19 09:00 03/04/19 08:10 Actos PO 45 mg DAILY AYLA Administration Intake and Output 03/03/19 03/04/19 03/04/19 22:59 06:59 14:59 Intake Total 240 Balance 240 Intake: Oral 240 Other: Voiding Method Toilet Toilet Toilet # Voids 1 1 03/02/19 21:05 03/02/19 21:05
[2019-03-04 11:57] LABS: Glucose,Whole Blood 150 mg/dL (75-99)
[2019-03-04 12:33] VITALS: BP 137/70; PULSE 50; RESP 17; TEMP 97.4
--- NOTE | 2019-03-04 22:27 | P.DS ---
Providers Date of admission: 03/02/19 22:09 Expected date of discharge: 03/04/19 Attending physician: Cosme Freeman Consults: 03/02/19 22:09 Consult Physician Urgent Consulting Provider: [facility] Consult Reason/Comments: syncope, aortic stenosis Do you want consulting provider notified?: Yes Primary care physician: [facility]: Chief Complaint: Dizzy History of presenting complaint: This is a pleasant [address] Víctor Echols. Chronic stable medical conditions include coronary artery disease with stent, diabetes, hyperlipidemia, hypertension. 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 It was not too warm. It was there for about 20 minutes. [place] a bit dizzy. Decided to go back in the house. And felt better came back to the grill. Had a repeat episode where he felt severely dizzy. Patient went down on the grass. Never passed out. There were 3 ladies Around the corner was 1. EMS was called out. Denied any chest pain or palpitations. No headache or change in vision. No incontinence. Patient is noted to assess some ectopics on the EKG. Admitted for the same. Cardiology was consulted. Patient had some nonsustained V. tach. No further episodes. Did well overnight. Seen by Dr. Leyva. Denise to be discharged. Patient to follow-up with his cartilages next week. Patient up and about Consultation: Dr. Aquiles Quan from cardiology Physical examination: VITAL SIGNS: 97.4, 50, 17, 137/70, 37% room air GENERAL: BMI 31, laying in bed comfortable. EYES: Pupils equal. Conjunctiva normal. HEENT: External appearance of nose and ears normal, oral cavity grossly normal. NECK: JVD not raised; masses not palpable. HEART: First and second heart sounds are normal; no edema. LUNGS: Respiratory rate normal; clear to auscultation. ABDOMEN: Soft, nontender, liver spleen not palpable, no masses palpable. PSYCH: Alert and oriented x3; mood and affect normal. 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 Telemetry reported some ectopics Chest x-ray film personally reviewed by me-questionable maybe chronic infiltrate on the right side 2-D echo-shows moderate aortic valve sclerosis, moderate pulmonary hypertension EF 65-70% TSH normal Assessment: -. near syncope, possibly from nonsustained V. tach -Coronary artery disease with prior history of stent -Diabetes mellitus type 2 on oral hypoglycemic -Hyperlipidemia -Essential hypertension disposition: Home Patient Condition at Discharge: Stable Plan - Discharge Summary New Discharge Prescriptions: New Carvedilol [Coreg] 3.125 mg PO BID-W/MEALS #60 tab Continue Vitamin B Complex 1 cap PO DAILY glipiZIDE XL [Glucotrol XL] 5 mg PO BID Cholecalciferol (Vitamin D3) [Vitamin D3] 2,000 unit PO DAILY Aspirin 162 mg PO DAILY amLODIPine [Norvasc] 5 mg PO DAILY Pioglitazone [Actos] 45 mg PO DAILY Losartan [Cozaar] 50 mg PO DAILY Atorvastatin Calcium [Lipitor] 20 mg PO HS Fish Oil/Dha/Epa [Fish Oil 1,200 mg Fish Oil] 1 cap PO DAILY Discontinued Atenolol [Tenormin] 25 mg PO HS Discharge Medication List Vitamin B Complex 1 cap PO DAILY 04/15/14 [History] glipiZIDE XL [Glucotrol XL] 5 mg PO BID 04/15/14 [History] Aspirin 162 mg PO DAILY 03/02/19 [History] Atorvastatin Calcium [Lipitor] 20 mg PO HS 03/02/19 [History] Cholecalciferol (Vitamin D3) [Vitamin D3] 2,000 unit PO DAILY 03/02/19 [History] Fish Oil/Dha/Epa [Fish Oil 1,200 mg Fish Oil] 1 cap PO DAILY 03/02/19 [History] Losartan [Cozaar] 50 mg PO DAILY 03/02/19 [History] Pioglitazone [Actos] 45 mg PO DAILY 03/02/19 [History] amLODIPine [Norvasc] 5 mg PO DAILY 03/02/19 [History] Carvedilol [Coreg] 3.125 mg PO BID-W/MEALS #60 tab 03/04/19 [Rx] Follow up Appointment(s)/Referral(s): Veronica Castillo MD [STAFF PHYSICIAN] - 1-2 Days (Call Tuesday morning for an appointment.) Víctor Allen MD [Primary Care Provider] - 1-2 days (please call for appointment date and time,office is closed at this time) Patient Instructions/Handouts: Near Syncope (DC), Dizziness (GEN) Activity/Diet/Wound Care/Special Instructions: Fall precautions Discharge Disposition: HOME SELF-CARE
== END 2019-03-04 14:07 | disposition home or self-care (01) ==
LOC: EC 20:55 → 1SOBS 22:09
PROVIDERS: ADMIT Hospitalist; ATTEND Hospitalist
DX: R55 Syncope and collapse (principal); R42 Dizziness and giddiness; I47.2 Ventricular tachycardia; I08.3 Combined rheumatic disorders of mitral, aortic and tricuspid valves; I27.20 Pulmonary hypertension, unspecified; I25.10 Atherosclerotic heart disease of native coronary artery without angina pectoris; I10 Essential (primary) hypertension; E11.9 Type 2 diabetes mellitus without complications; D64.9 Anemia, unspecified; I45.10 Unspecified right bundle-branch block; E78.5 Hyperlipidemia, unspecified; Z79.82 Long term (current) use of aspirin; Z79.84 Long term (current) use of oral hypoglycemic drugs; Z79.899 Other long term (current) drug therapy; Z88.8 Allergy status to other drugs, medicaments and biological substances; Z95.5 Presence of coronary angioplasty implant and graft; Z87.891 Personal history of nicotine dependence; Z82.49 Family history of ischemic heart disease and other diseases of the circulatory system
CPT/HCPCS: 96360; 99285; 36415; 93005; 83880; 80053; 84443; 83735; 84484 ×2; 85025; 85610; 85730; 81003; 71046; G0378 ×3; C8929; Q9950; 93306

== ENCOUNTER 2019-03-21 06:19 | Day surgery (SDC) | payer MEDICARE ==
[2019-03-15 12:23] VITALS: BMI 31.3
[2019-03-21] MEDS ORDERED: ATORVASTATIN 80 MG TAB PO STA (06:22)
[2019-03-21] MEDS ORDERED: ALPRAZolam 0.25 MG TAB PO PRN (06:22)
[2019-03-21] MEDS ORDERED: ASPIRIN 325 MG TAB PO STA (06:22)
[2019-03-21] MEDS ORDERED: NITROGLYCERIN SL TABS 0.4 MG TAB SUBLINGUAL PRN ×2 (06:22→08:45)
[2019-03-21] MEDS ORDERED: ALPRAZolam 0.5 MG TAB PO PRN (06:22)
[2019-03-21] MEDS ORDERED: SODIUM CHLORIDE 0.9% 1,000 ML in EMPTY BAG 1 BAG IV ONE (06:22)
[2019-03-21 06:54] LABS: Glucose,Whole Blood 167 mg/dL (75-99)
[2019-03-21] MEDS ORDERED: LIDOCAINE 1% INJ 10MG/ML (20 ML MDV) ONE (07:12)
[2019-03-21] MEDS ORDERED: VERAPAMIL 2.5 MG/ML 2 ML AMP ONE (07:12)
[2019-03-21] MEDS ORDERED: MIDAZOLAM (PF) 2 MG/2 ML VIAL IV ONE (07:38)
[2019-03-21] MEDS ORDERED: LIDOCAINE 1% INJ 10MG/ML (20 ML MDV) SQ ONE (07:43)
[2019-03-21] MEDS ORDERED: HEPARIN SODIUM 1,000 UN/ML (10ML VL) ONE (07:43)
[2019-03-21] MEDS ORDERED: VERAPAMIL SYRINGE (5 MG/10 ML) INTRAARTER ONE (07:45)
[2019-03-21] MEDS ORDERED: BIVALIRUDIN BOLUS 250 MG/50 ML IV ONE (08:03)
[2019-03-21] MEDS ORDERED: BIVALIRUDIN 250 MG in SODIUM CHLORIDE 0.9% 50 ML IV ONE (08:04)
[2019-03-21] MEDS ORDERED: IOPAMIDOL-370 100ML BTL INJ ONE ×2 (08:12→08:30)
[2019-03-21] MEDS: NITROGLYCERIN 1000MCG/10ML SYRINGE IV ONE ×2 (08:21→08:28)
[2019-03-21] MEDS ORDERED: CLOPIDOGREL 75 MG TAB ONE (08:31)
[2019-03-21] MEDS ORDERED: CLOPIDOGREL 75 MG TAB PO ONE (08:34)
[2019-03-21] MEDS ORDERED: ZOLPIDEM 5 MG TAB PO PRN (08:45)
[2019-03-21] MEDS ORDERED: ATROPINE SULFATE 0.1 MG/ML 10ML SYRINGE IV PRN (08:45)
[2019-03-21] MEDS ORDERED: MAG HYDROX/AL HYDROX/SIMETH 30 ML CUP PO PRN (08:45)
[2019-03-21] MEDS ORDERED: RX INFO: IV CONTRAST WAS GIVEN 1 EACH MISC MISCELLANE PRN (08:45)
[2019-03-21] MEDS ORDERED: NON-FORMULARY DRUG (Fish Oil/Dha/Epa [Fish Oil 1,200 Mg Fish Oil] 1 CAP) PO SCH (09:00)
[2019-03-21] MEDS ORDERED: PIOGLITAZONE 45 MG TAB PO SCH (09:00)
[2019-03-21] MEDS ORDERED: NON-FORMULARY DRUG (Vitamin B Complex [Vitamin B Complex] 1 CAP) PO SCH (09:00)
[2019-03-21] MEDS ORDERED: glipiZIDE 5 MG TAB PO SCH (09:00)
[2019-03-21] MEDS ORDERED: LOSARTAN 50 MG TAB PO SCH (09:00)
[2019-03-21] MEDS ORDERED: amLODIPine 5 MG TAB PO SCH (09:00)
[2019-03-21] MEDS: SODIUM CHLORIDE 0.9% 1,000 ML IV SCH ×2 (10:12→23:21)
[2019-03-21] MEDS: CHOLECALCIFEROL 1,000 UNIT TAB PO SCH (10:56)
--- NOTE | 2019-03-21 11:39 | CC ---
CARDIAC CATHETERIZATION REPORT DATE OF SERVICE: 03/21/2019 PROCEDURE: 1. Left heart catheterization and coronary angiography. 2. PTCA and stenting of mid and distal RCA with a drug-eluting stent. PERFORMED BY: Dr. Shayna Castillo. Moderate conscious sedation time was 51 minutes. Patient was administered Versed. His oxygen saturation, hemodynamics and EKG were monitored closely. CLINICAL INFORMATION: Mr. Anthony Francois is a 78-year-old gentleman, history of type 2 diabetes, hypertension, hyperlipidemia, CAD with previous stenting of RCA and circumflex. His last stenting was of the RCA in 2010. Because of symptoms of chest discomfort and episode of syncope which was thought to be ischemic based syncope, he was advised cardiac catheterization. Rationale, risks, benefits, and options were explained. PROCEDURE NOTE: Under local anesthesia and strict aseptic precautions, a 6-T[place] introducer was placed in the right radial artery. The JR4 and JL4 catheters were used to do coronary angiography. The JL4 was somewhat short. I used a Gomez catheter to check LV pressures. LV gram was not performed. Patient had a significant stenosis in the mid RCA and distal RCA of about 80% and 70% respectively. The mid lesion was within the previous stented segment and proximal to it. He was advised intervention that was performed expeditiously. CARDIAC CATHETERIZATION FINDINGS: The left end-diastolic pressure was 13 mmHg without any gradient across the aortic valve. CORONARY ANGIOGRAPHY: RIGHT CORONARY ARTERY: Large dominant vessel that was stented in the midportion in the past. The mid segment has 80% lesion which is located before the previous stented segment and also within the stented segment. Distally before bifurcation, there is another eccentric 70% stenosis best seen in a cranial projection. The branches of RCA are free of significant disease. LEFT MAIN CORONARY ARTERY: Short patent disease-free vessel that bifurcates into LAD and circumflex. LEFT ANTERIOR DESCENDING CORONARY ARTERY: Good caliber vessel, runs all the way to the apex. It gives off septal and diagonal branches. No significant disease. LEFT POSTERIOR CIRCUMFLEX CORONARY ARTERY: This is a nondominant vessel, had a previous stent in the mid to distal portion in 1995. The stented segment is patent but proximal to it, there is about a 70% stenosis eccentric in nature. Left ventriculogram was not performed. FINAL IMPRESSION: This patient has a restenotic lesion in the mid RCA, a new lesion in the distal RCA which is a dominant vessel and a 70% lesion in the circumflex marginal which is proximal to the previous stented segment. LAD is free of significant disease. Filling pressures are normal and there is no gradient across the aortic valve. PCI PROCEDURE DETAILS: I used an ART 3.5 guide catheter to cannulate the right coronary artery. A run-through wire was used to cross the lesion. Wire was kept distally. The distal area was stented with a 2.5 caliber 12 mm Xience drug-eluting stent. The same balloon was used to pre-dilate the mid lesion. I then deployed 18 mm long 2.75 caliber Xience stent in the mid segment of RCA. This was again postdilated with a 3.0 caliber 12 mm NC Trek balloon. Excellent angiographic result without complication was achieved. Patient did not have significant symptoms or EKG changes. Excellent result was achieved. The sheath was taken out. A TR band applied as per protocol. Saturation in the fingers of the right hand was 91% same as baseline. Excellent angiographic result was achieved. Results were discussed with the patient and family. I expect he will be discharged tomorrow if he remains stable. MMODL / IJN: [id number] /
[2019-03-21 16:38] LABS: Glucose,Whole Blood 116 mg/dL (75-99)
[2019-03-21] MEDS: glipiZIDE 5 MG TAB PO SCH (17:09)
[2019-03-21] MEDS: CARVEDILOL 3.125 MG TAB PO SCH (17:10)
[2019-03-21 20:44] LABS: Glucose,Whole Blood 155 mg/dL (75-99)
[2019-03-22 06:04] LABS: Glucose,Whole Blood 149 mg/dL (75-99)
[2019-03-22] MEDS: CARVEDILOL 3.125 MG TAB PO SCH (06:30)
[2019-03-22] MEDS: glipiZIDE 5 MG TAB PO SCH (06:30)
[2019-03-22 06:48] LABS: Anisocytosis Slight; Basophils % (A) 0 %; Eosinophils # (A) 0.3 k/uL (0-0.7); Eosinophils % (A) 5 %; HCT 36.4 % (39.0-53.0); HGB 11.6 gm/dL (13.0-17.5); Hypochromasia Slight; Lymphocytes # (A) 0.8 k/uL (1.0-4.8); Lymphocytes % (A) 14 %; MCH 30.3 pg (25.0-35.0); MCHC 31.9 g/dL (31.0-37.0); MCV 94.9 fL (80.0-100.0); Mean Platelet Volume 7.6; Monocytes # (A) 0.3 k/uL (0-1.0); Monocytes % (A) 5 %; Neutrophils # (A) 4.1 k/uL (1.3-7.7); Neutrophils % (A) 74 %; Platelet Count 174 k/uL (150-450); RBC 3.84 m/uL (4.30-5.90); RDW 16.9 % (11.5-15.5); WBC 5.6 k/uL (3.8-10.6)
[2019-03-22 06:54] LABS: Calcium 9.7 mg/dL (8.4-10.2); Potassium 4.4 mmol/L (3.5-5.1)
[2019-03-22 08:55] VITALS: BP 134/61; PULSE 59; RESP 18; TEMP 97.9
[2019-03-22] MEDS: CHOLECALCIFEROL 1,000 UNIT TAB PO SCH (08:55)
[2019-03-22] MEDS ORDERED: PIOGLITAZONE 15 MG TAB PO SCH (09:00)
[2019-03-22] MEDS ORDERED: amLODIPine 5 MG TAB PO SCH (09:00)
[2019-03-22] MEDS ORDERED: CLOPIDOGREL 75 MG TAB PO SCH (09:00)
[2019-03-22] MEDS ORDERED: LOSARTAN 50 MG TAB PO SCH (09:00)
[2019-03-22] MEDS ORDERED: ASPIRIN 81 MG PO SCH (09:00)
--- NOTE | 2019-03-22 11:06 | DS ---
DISCHARGE SUMMARY DATE OF ADMISSION: 03/21/2019 DATE OF DISCHARGE: 03/22/2019 DIAGNOSES: 1. Unstable angina. 2. Hypertension. 3. Type 2 diabetes. 4. Hyperlipidemia. PROCEDURES PERFORMED: Left heart catheterization and coronary angiography. I performed PTCA and stenting of 2 areas in the RCA with a drug-eluting stent with excellent result. CLINICAL: Mr. Anthony Francois was admitted to the hospital for cardiac cath because of an episode of syncope with concern that he may be having short runs of nonsustained VT related to ischemia. Cardiac cath revealed two areas of disease in RCA. This was addressed with stenting with excellent angiographic result. Postprocedure course was uneventful. He is doing well. Right radial site is clean and dry with a good pulse. Vitals are stable. His EKG is unremarkable. It reveals a sinus rhythm without any acute changes. LABORATORY DATA: Revealed normal renal function and no other significant abnormalities. Blood pressure is 130/70, pulse rate is 64 per minute. No JVD or carotid bruit. S1, S2 heard normally, short systolic murmur noted. Lungs are clear. Abdomen and lower extremity exam unchanged. Plan is to discharge the patient. I gave him discharge instructions regarding activity, diet and medications. He understands all details and will follow through and I will see him on Tuesday in the office, to call me sooner for a question, concern, or problem. MMODL / IJN: [id number] /
[2019-03-22] MEDS ORDERED: ATORVASTATIN 80 MG TAB PO SCH (21:00)
== END 2019-03-22 11:42 | disposition home or self-care (01) ==
LOC: CATHCVL 06:19 → 3SCARD 08:31 → CATHCVL 03-22 11:42
PROVIDERS: ATTEND Internal Medicine Interventional Cardiology
DX: I25.110 Atherosclerotic heart disease of native coronary artery with unstable angina pectoris (principal); T82.855A Stenosis of coronary artery stent, initial encounter; I10 Essential (primary) hypertension; E78.5 Hyperlipidemia, unspecified; E11.9 Type 2 diabetes mellitus without complications; Z95.5 Presence of coronary angioplasty implant and graft; E78.00 Pure hypercholesterolemia, unspecified; I77.9 Disorder of arteries and arterioles, unspecified; Z79.84 Long term (current) use of oral hypoglycemic drugs; Z79.82 Long term (current) use of aspirin; Z79.899 Other long term (current) drug therapy; Z88.8 Allergy status to other drugs, medicaments and biological substances
CPT/HCPCS: 93458; 80048; 85025; C9600; C1887; C1725; C1769 ×2; C1874; C1894; J2001; J0583; Q9967; J2250

== ENCOUNTER → 2019-04-09 | Outpatient (CLI) | payer MEDICARE ==
[2019-04-09 08:42] LABS: HCT 35.3 % (39.0-53.0); HGB 11.5 gm/dL (13.0-17.5); MCH 30.1 pg (25.0-35.0); MCHC 32.6 g/dL (31.0-37.0); MCV 92.4 fL (80.0-100.0); Mean Platelet Volume 8.5; Platelet Count 136 k/uL (150-450); RBC 3.82 m/uL (4.30-5.90); RDW 15.5 % (11.5-15.5); WBC 5.2 k/uL (3.8-10.6)
[2019-04-09 09:10] LABS: Magnesium 1.5 mg/dL (1.6-2.3); Potassium 4.2 mmol/L (3.5-5.1)
== END ==
LOC: LABPAT 08:28
PROVIDERS: ATTEND Internal Medicine Interventional Cardiology
DX: Z01.812 Encounter for preprocedural laboratory examination (principal); I25.10 Atherosclerotic heart disease of native coronary artery without angina pectoris
CPT/HCPCS: 36415; 80051; 82565; 82947; 83735; 84520; 85027

== ENCOUNTER 2019-04-16 09:24 | Day surgery (SDC) | payer MEDICARE ==
[~2019-04-16 09:24] MED LIST: ALPRAZolam 0.25 MG TAB PO PRN; ALPRAZolam 0.5 MG TAB PO PRN; ASPIRIN 325 MG TAB PO STA; ATORVASTATIN 80 MG TAB PO STA; NITROGLYCERIN SL TABS 0.4 MG TAB SUBLINGUAL PRN; SODIUM CHLORIDE 0.9% 1,000 ML in EMPTY BAG 1 BAG IV ONE
[2019-04-16 09:56] LABS: Glucose,Whole Blood 169 mg/dL (75-99)
[2019-04-16] MEDS: MIDAZOLAM (PF) 2 MG/2 ML VIAL IV ONE ×2 (11:06→11:21)
[2019-04-16] MEDS ORDERED: LIDOCAINE 1% INJ 10MG/ML (20 ML MDV) SQ ONE (11:21)
[2019-04-16] MEDS: VERAPAMIL SYRINGE (5 MG/10 ML) INTRAARTER ONE ×3 (11:27→12:25)
[2019-04-16] MEDS ORDERED: BIVALIRUDIN BOLUS 250 MG/50 ML IV ONE (11:36)
[2019-04-16] MEDS ORDERED: BIVALIRUDIN 250 MG in SODIUM CHLORIDE 0.9% 50 ML IV ONE (11:37)
[2019-04-16] MEDS: NITROGLYCERIN 1000MCG/10ML SYRINGE INTRACORON ONE ×2 (11:38→12:21)
[2019-04-16] MEDS ORDERED: IOPAMIDOL-370 100ML BTL INJ ONE ×2 (11:59→12:26)
[2019-04-16] MEDS ORDERED: CLOPIDOGREL 75 MG TAB PO ONE (12:31)
[2019-04-16] MEDS ORDERED: RX INFO: IV CONTRAST WAS GIVEN 1 EACH MISC MISCELLANE PRN (12:41)
[2019-04-16] MEDS ORDERED: ZOLPIDEM 5 MG TAB PO PRN (12:41)
[2019-04-16] MEDS ORDERED: ATROPINE SULFATE 0.1 MG/ML 10ML SYRINGE IV PRN (12:41)
[2019-04-16] MEDS ORDERED: MAG HYDROX/AL HYDROX/SIMETH 30 ML CUP PO PRN (12:41)
[2019-04-16] MEDS ORDERED: amLODIPine 5 MG TAB PO STA (15:15)
[2019-04-16] MEDS ORDERED: NITROGLYCERIN SL TABS 0.4 MG TAB SUBLINGUAL STA (15:18)
[2019-04-16] MEDS ORDERED: amLODIPine 5 MG TAB ONE (15:18)
[2019-04-16] MEDS ORDERED: LOSARTAN 50 MG TAB PO STA (16:11)
[2019-04-16] MEDS: SODIUM CHLORIDE 0.9% 1,000 ML IV SCH (18:00)
[2019-04-16] MEDS: glipiZIDE 5 MG TAB PO SCH (18:00)
[2019-04-16] MEDS: CARVEDILOL 3.125 MG TAB PO SCH (18:00)
[2019-04-16 18:01] LABS: Glucose,Whole Blood 264 mg/dL (75-99)
[2019-04-16 18:17] VITALS: BMI 30.4
--- NOTE | 2019-04-16 19:04 | PTCA ---
PERCUTANEOUSTRANS CORORONARY ANGIOGRAPHY DATE OF SERVICE: 04/16/2019 PROCEDURE: Percutaneous transluminal coronary angioplasty and stenting of mid circumflex coronary artery. A technically difficult procedure because of extreme angulation of circumflex vessel coming off from the left main. PERFORMED BY: Dr. Shayna Castillo. Moderate conscious sedation time was 67 minutes. Patient was administered Versed. His oxygen saturation, hemodynamics and EKG were monitored closely. CLINICAL INFORMATION: Mr. Anthony Francois is a 78-year-old gentleman with a known history of CAD who underwent stenting of RCA and circumflex way back in 1995 and has had multiple interventions of the RCA. As recently as March 21 of this year I performed stenting of RCA in the distal and mid portion with excellent results. He was advised to come back for elective PCI of circumflex in the mid portion, which was a nondominant circumflex with a 75% to 80% stenosis, eccentric in nature. Risks, benefits, options and rationale were explained. PROCEDURE NOTE: Under local anesthesia and strict aseptic precautions, a 6-Estonian introducer was placed in the right radial artery. I used a standard right Sly catheter and performed selective coronary angiography of the RCA and noted that the previously stented RCA was widely patent with excellent flow. I then turned my attention to the left system. I used a JL4 guide catheter and a run-through wire. I was unable to get the wire into the circumflex because of more than 90-degree angulation of the circumflex as it came off from the left main. I tried a Voda 3.5 and Voda 4.0. After multiple attempts with a Voda 3.5 and a very steep curve on the wire, I was able to get into the LAD. It took some time to be able to achieve this. Patient received Angiomax bolus and infusion. He was already on aspirin and Plavix and he received additional 225 mg of Plavix orally. I used a 2.5 caliber 15 mm long NC Trek to pre-dilate the lesion at 12 atmospheres. Patient did not have chest pain or EKG changes. I then deployed a 2.5 caliber 15 mm long Xience stent at 11 atmospheres. Excellent angiographic result without complication was achieved. The sheath was taken out and TR band applied as per protocol. Saturation in the fingers of the right hand was 94%. Results were discussed with the patient and family. He will be discharged tomorrow if he remains stable. MMODL / IJN: [id number] /
[2019-04-16] MEDS ORDERED: ATORVASTATIN 80 MG TAB PO SCH (21:00)
[2019-04-16] MEDS ORDERED: amLODIPine 5 MG TAB PO SCH (21:00)
[2019-04-16 21:11] LABS: Glucose,Whole Blood 229 mg/dL (75-99)
[2019-04-17] MEDS: SODIUM CHLORIDE 0.9% 1,000 ML IV SCH (05:13)
[2019-04-17 06:07] LABS: Glucose,Whole Blood 133 mg/dL (75-99)
[2019-04-17] MEDS: CARVEDILOL 3.125 MG TAB PO SCH (06:50)
[2019-04-17] MEDS: glipiZIDE 5 MG TAB PO SCH (06:50)
[2019-04-17 07:33] LABS: Basophils % (A) 0 %; Eosinophils # (A) 0.3 k/uL (0-0.7); Eosinophils % (A) 6 %; HCT 31.1 % (39.0-53.0); HGB 10.2 gm/dL (13.0-17.5); Lymphocytes # (A) 0.5 k/uL (1.0-4.8); Lymphocytes % (A) 11 %; MCH 30.2 pg (25.0-35.0); MCHC 32.8 g/dL (31.0-37.0); MCV 92.2 fL (80.0-100.0); Mean Platelet Volume 7.4; Monocytes # (A) 0.3 k/uL (0-1.0); Monocytes % (A) 6 %; Neutrophils # (A) 3.3 k/uL (1.3-7.7); Neutrophils % (A) 74 %; Platelet Count 125 k/uL (150-450); RBC 3.37 m/uL (4.30-5.90); RDW 15.7 % (11.5-15.5); WBC 4.5 k/uL (3.8-10.6)
[2019-04-17 07:53] LABS: Calcium 8.9 mg/dL (8.4-10.2); Potassium 4.4 mmol/L (3.5-5.1)
--- NOTE | 2019-04-17 08:00 | DS ---
DISCHARGE SUMMARY DATE OF ADMISSION: 04/16/2019. DATE OF DISCHARGE: 04/17/2019. DIAGNOSES: 1. Unstable angina. 2. Hypertension. 3. Type 2 diabetes. 4. Hyperlipidemia. 5. Coronary artery disease with history of multivessel PCI. 6. Status post right carotid endarterectomy. Mr. Francois was admitted to the hospital yesterday for elective PCI of circumflex. About 3 weeks ago, he underwent stenting of mid and distal RCA with a good result. He has had previous stenting of circumflex performed in 1995. He underwent coronary angiography from the right radial approach and noted that the RCA was widely patent that was stented 3 weeks ago. I performed stenting of the circumflex in the proximal/midportion of circumflex marginal with a drug-eluting stent. Excellent angiographic result was achieved. This was a technically difficult procedure with the acute angulation of circumflex as it came off from the left main. This morning he is doing well asymptomatic, ambulating. Blood pressure is 118/70, pulse rate is about 66 per minute. No JVD or carotid bruit. S1, S2 heard normally, short systolic murmur is audible at the base unchanged. Lungs are clear. Abdomen and lower extremities exam is unchanged. Right radial site is clean and dry with a good pulse. He will be discharged today and I will see him in the office on . Discharge instructions regarding activity, diet, medications, specifically dual antiplatelet therapy, statins and beta blockers were given. I will see the patient in the office this . MMODL / IJN: [id number] /
[2019-04-17 08:26] VITALS: BP 134/65; PULSE 69; RESP 16; TEMP 97.7
[2019-04-17] MEDS ORDERED: NON-FORMULARY DRUG (Fish Oil/Dha/Epa [Fish Oil 1,200 Mg Fish Oil] 1 CAP) PO SCH (09:00)
[2019-04-17] MEDS ORDERED: ALLOPURINOL 100 MG TAB PO SCH (09:00)
[2019-04-17] MEDS ORDERED: CLOPIDOGREL 75 MG TAB PO SCH (09:00)
[2019-04-17] MEDS ORDERED: PIOGLITAZONE 15 MG TAB PO SCH (09:00)
[2019-04-17] MEDS ORDERED: NON-FORMULARY DRUG (Vitamin B Complex [Vitamin B Complex] 1 CAP) PO SCH (09:00)
[2019-04-17] MEDS ORDERED: LOSARTAN 50 MG TAB PO SCH (09:00)
[2019-04-17] MEDS ORDERED: CHOLECALCIFEROL 1,000 UNIT TAB PO SCH (09:00)
[2019-04-17] MEDS ORDERED: ASPIRIN 81 MG PO SCH (09:00)
== END 2019-04-17 08:45 | disposition home or self-care (01) ==
LOC: CATHCVL 09:24 → 3SCARD 16:56 → CATHCVL 04-17 08:45
PROVIDERS: ATTEND Internal Medicine Interventional Cardiology
DX: I25.110 Atherosclerotic heart disease of native coronary artery with unstable angina pectoris (principal); I10 Essential (primary) hypertension; Z72.0 Tobacco use; E78.5 Hyperlipidemia, unspecified; E78.00 Pure hypercholesterolemia, unspecified; E11.9 Type 2 diabetes mellitus without complications; Z95.5 Presence of coronary angioplasty implant and graft; Z79.84 Long term (current) use of oral hypoglycemic drugs; Z79.02 Long term (current) use of antithrombotics/antiplatelets; Z79.82 Long term (current) use of aspirin; Z79.899 Other long term (current) drug therapy; Z88.8 Allergy status to other drugs, medicaments and biological substances
CPT/HCPCS: 80048; 85025; C9600; C1769 ×7; C1887 ×3; C1725; C1894 ×3; C1874; J2001; J0583; Q9967; J2250

== ENCOUNTER 2019-04-19 19:00 | Emergency (ER) | payer MEDICARE ==
[2019-04-19] MEDS ORDERED: IBUPROFEN 600 MG TAB PO STA (19:26)
[2019-04-19] MEDS ORDERED: ACETAMINOPHEN TAB 500 MG TAB PO STA (19:26)
[2019-04-19] MEDS ORDERED: SODIUM CHLORIDE 0.9% 1,000 ML IV STA ×2 (19:26)
--- NOTE | 2019-04-19 19:28 | ED ---
Dizziness HPI - General Chief Complaint: Dizziness Stated Complaint: Dizziness Time Seen by Provider: 04/19/19 19:26 Source: patient, RN notes reviewed, old records reviewed Mode of arrival: ambulatory Limitations: no limitations - History of Present Illness Initial Comments: This is a 78-year-old male the ER for evaluation. Patient resents today for e valuation of dizziness and weakness. Patient is 4 days out of stent placement, he has been doing okay at home until today with follow-up he felt very dizzy lightheaded. Patient admits to some mildly diminished appetite but no chest pain or shortness of breath currently. No recent cough or congestion, denies any new rashes no dysuria no nausea vomiting or diarrhea. Patient is noted to have fever today MD Complaint: dizziness, lightheadedness -: hour(s) Timing: gradual onset Description: lightheadedness History of Same: No History of Trauma: No Severity: moderate Improves With: nothing Worsens With: movement, exertion Associated Symptoms: weakness - Related Data Home Medications Medication Instructions Recorded Confirmed Vitamin B Complex 1 cap PO DAILY 04/15/14 04/19/19 Aspirin 81 mg PO DAILY 03/02/19 04/19/19 Cholecalciferol (Vitamin D3) 2,000 unit PO DAILY 03/02/19 04/19/19 [Vitamin D3] Fish Oil/Dha/Epa [Fish Oil 1,200 1 cap PO DAILY 03/02/19 04/19/19 mg Fish Oil] Losartan [Cozaar] 50 mg PO DAILY 03/02/19 04/19/19 amLODIPine [Norvasc] 5 mg PO HS 03/02/19 04/19/19 Allopurinol [Zyloprim] 100 mg PO DAILY 04/05/19 04/19/19 Atorvastatin [Lipitor] 40 mg PO HS 04/05/19 04/19/19 glipiZIDE [Glucotrol] 5 mg PO AC-BID 04/05/19 04/19/19 Previous Rx's Medication Instructions Recorded Carvedilol [Coreg] 3.125 mg PO BID-W/MEALS #60 tab 03/04/19 Clopidogrel [Plavix] 75 mg PO DAILY #90 tab 03/22/19 Pioglitazone [Actos] 15 mg PO DAILY #90 tab 03/22/19 Allergies Allergy/AdvReac Type Severity Reaction Status Date / Time metformin AdvReac Diarrhea Verified 04/19/19 19:56 Review of Systems ROS Statement: Those systems with pertinent positive or pertinent negative responses have been documented in the HPI. ROS Other: All systems not noted in ROS Statement are negative. Past Medical History Past Medical History: Coronary Artery Disease (CAD), Diabetes Mellitus, Hyperlipidemia, Hypertension Additional Past Medical History / Comment(s): gout History of Any Multi-Drug Resistant Organisms: None Reported Past Surgical History: Heart Catheterization With Stent, Hernia Repair Additional Past Surgical History / Comment(s): ROZ CAROTID ENDARTERECTOMY,ROZ CATARACTS. COLONOSCOPY. Stent x3 Past Anesthesia/Blood Transfusion Reactions: No Reported Reaction Date of Last Stent Placement:: 03/21/19 Past Psychological History: No Psychological Hx Reported Smoking Status: Former smoker Past Alcohol Use History: Occasional Past Drug Use History: None Reported - Past Family History Father Additional Family Medical History / Comment(s): aortic anyserusm Mother Additional Family Medical History / Comment(s): Brain anyrusm General Exam Limitations: no limitations General appearance: alert, in no apparent distress Head exam: Present: atraumatic, normocephalic, normal inspection Eye exam: Present: normal appearance, PERRL, EOMI. Absent: scleral icterus, conjunctival injection, periorbital swelling ENT exam: Present: normal exam, mucous membranes moist Neck exam: Present: normal inspection. Absent: tenderness, meningismus, lymphadenopathy Respiratory exam: Present: normal lung sounds bilaterally. Absent: respiratory distress, wheezes, rales, rhonchi, stridor Cardiovascular Exam: Present: regular rate, normal rhythm, normal heart sounds. Absent: systolic murmur, diastolic murmur, rubs, gallop, clicks GI/Abdominal exam: Present: soft, normal bowel sounds. Absent: distended, tenderness, guarding, rebound, rigid Extremities exam: Present: normal inspection, full ROM, normal capillary refill. Absent: tenderness, pedal edema, joint swelling, calf tenderness Back exam: Present: normal inspection Neurological exam: Present: alert, oriented X3, CN II-XII intact Psychiatric exam: Present: normal affect, normal mood Skin exam: Present: warm, dry, intact, normal color. Absent: rash Course Vital Signs 04/19/19 04/19/19 04/19/19 19:12 19:30 19:45 Temperature 101.2 F H 101.9 F H 101.9 F H Pulse Rate 91 91 81 Respiratory 18 20 18 Rate Blood Pressure 153/72 154/81 145/74 O2 Sat by Pulse 94 L 95 95 Oximetry 04/19/19 04/19/19 04/19/19 20:00 20:15 20:53 Temperature 101.5 F H 99.7 F H 99.4 F Pulse Rate 91 74 71 Respiratory 18 16 16 Rate Blood Pressure 153/81 147/71 145/71 O2 Sat by Pulse 95 96 95 Oximetry 04/19/19 21:33 Temperature 98.4 F Pulse Rate 74 Respiratory 16 Rate Blood Pressure 119/69 O2 Sat by Pulse 94 L Oximetry - Reevaluation(s) Reevaluation #1: 04/19/19 19:28 Medical record is reviewed Reevaluation #2: 04/19/19 20:45 Patient symptoms are significantly improved here in the ER with hydration fever control fevers negative currently. Reevaluation #3: 04/19/19 20:45 Patient given IV antibiotics here in the ER. Patient now is in hospital at this time we'll await blood culture results at home Reevaluation #4: 04/19/19 21:02 Lab values are reviewed, patient does have mildly elevated troponin 0.6 history of recent stent placement, no chest pain no shortness of breath. Spoke with Dr. Inman regarding troponin elevation, patient without chest pain or shortness of breath, Dr. Inman not concerned. Okay for patient to follow-up EKG Findings - EKG Comments: EKG Findings:: EKG shows sinus rhythm rate of 82, MA 174, QRS 106, QTc 467 Medical Decision Making - Medical Decision Making 78 male the ER for evaluation patient presents today for evaluation of fever weakness and dizziness. No specific source of fever is found currently. Patient given a few days of antibiotics to await blood cultures. Patient does not want stay in the hospital for IV antibiotics for evaluation currently. Patient will be discharged home - Lab Data Result diagrams: 04/19/19 20:05 04/19/19 20:05 Lab Results 04/19/19 04/19/19 04/19/19 Range/Units 20:05 20:05 20:05 WBC 4.5 (3.8-10.6) k/uL RBC 3.70 L (4.30-5.90) m/uL Hgb 11.2 L (13.0-17.5) gm/dL Hct 33.8 L (39.0-53.0) % MCV 91.4 (80.0-100.0) fL MCH 30.3 (25.0-35.0) pg MCHC 33.1 (31.0-37.0) g/dL RDW 16.8 H (11.5-15.5) % Plt Count 135 L (150-450) k/uL Neutrophils % 84 % Lymphocytes % 8 % Monocytes % 6 % Eosinophils % 1 % Basophils % 0 % Neutrophils # 3.8 (1.3-7.7) k/uL Lymphocytes # 0.4 L (1.0-4.8) k/uL Monocytes # 0.3 (0-1.0) k/uL Eosinophils # 0.0 (0-0.7) k/uL Basophils # 0.0 (0-0.2) k/uL Anisocytosis Slight PT (9.0-12.0) sec INR (<1.2) APTT (22.0-30.0) sec Sodium 140 (137-145) mmol/L Potassium 4.0 (3.5-5.1) mmol/L Chloride 103 (98-107) mmol/L Carbon Dioxide 24 (22-30) mmol/L Anion Gap 13 mmol/L BUN 25 H (9-20) mg/dL Creatinine 1.20 (0.66-1.25) mg/dL Est GFR (CKD-EPI)AfAm 68 (>60 ml/min/1.73 sqM) Est GFR (CKD-EPI)NonAf 59 (>60 ml/min/1.73 sqM) Glucose 109 H (74-99) mg/dL Plasma Lactic Acid Riccardo 1.1 (0.7-2.0) mmol/L Calcium 9.7 (8.4-10.2) mg/dL Phosphorus 2.9 (2.5-4.5) mg/dL Magnesium 1.4 L (1.6-2.3) mg/dL Total Bilirubin 1.0 (0.2-1.3) mg/dL AST 34 (17-59) U/L ALT 39 (21-72) U/L Alkaline Phosphatase 45 (38-126) U/L Creatine Kinase 160 (55-170) U/L Troponin I (0.000-0.034) ng/mL Total Protein 7.8 (6.3-8.2) g/dL Albumin 4.7 (3.5-5.0) g/dL Urine Color Urine Appearance (Clear) Urine pH (5.0-8.0) Ur Specific Llewellyn (1.001-1.035) Urine Protein (Negative) Urine Glucose (UA) (Negative) Urine Ketones (Negative) Urine Blood (Negative) Urine Nitrite (Negative) Urine Bilirubin (Negative) Urine Urobilinogen (<2.0) mg/dL Ur Leukocyte Esterase (Negative) 04/19/19 04/19/19 04/19/19 Range/Units 20:05 20:05 20:05 WBC (3.8-10.6) k/uL RBC (4.30-5.90) m/uL Hgb (13.0-17.5) gm/dL Hct (39.0-53.0) % MCV (80.0-100.0) fL MCH (25.0-35.0) pg MCHC (31.0-37.0) g/dL RDW (11.5-15.5) % Plt Count (150-450) k/uL Neutrophils % % Lymphocytes % % Monocytes % % Eosinophils % % Basophils % % Neutrophils # (1.3-7.7) k/uL Lymphocytes # (1.0-4.8) k/uL Monocytes # (0-1.0) k/uL Eosinophils # (0-0.7) k/uL Basophils # (0-0.2) k/uL Anisocytosis PT 12.0 (9.0-12.0) sec INR 1.2 H (<1.2) APTT 29.2 (22.0-30.0) sec Sodium (137-145) mmol/L Potassium (3.5-5.1) mmol/L Chloride (98-107) mmol/L Carbon Dioxide (22-30) mmol/L Anion Gap mmol/L BUN (9-20) mg/dL Creatinine (0.66-1.25) mg/dL Est GFR (CKD-EPI)AfAm (>60 ml/min/1.73 sqM) Est GFR (CKD-EPI)NonAf (>60 ml/min/1.73 sqM) Glucose (74-99) mg/dL Plasma Lactic Acid Riccardo (0.7-2.0) mmol/L Calcium (8.4-10.2) mg/dL Phosphorus (2.5-4.5) mg/dL Magnesium (1.6-2.3) mg/dL Total Bilirubin (0.2-1.3) mg/dL AST (17-59) U/L ALT (21-72) U/L Alkaline Phosphatase (38-126) U/L Creatine Kinase (55-170) U/L Troponin I 0.630 H* (0.000-0.034) ng/mL Total Protein (6.3-8.2) g/dL Albumin (3.5-5.0) g/dL Urine Color Yellow Urine Appearance Clear (Clear) Urine pH 7.5 (5.0-8.0) Ur Specific Llewellyn 1.020 (1.001-1.035) Urine Protein Trace H (Negative) Urine Glucose (UA) Negative (Negative) Urine Ketones Negative (Negative) Urine Blood Negative (Negative) Urine Nitrite Negative (Negative) Urine Bilirubin Negative (Negative) Urine Urobilinogen 2.0 (<2.0) mg/dL Ur Leukocyte Esterase Negative (Negative) - Radiology Data Radiology results: report reviewed (Chest x-rays negative for acute disease), image reviewed Disposition Clinical Impression: Febrile illness Disposition: HOME SELF-CARE Condition: Fair Instructions (If sedation given, give patient instructions): Fever in Adults (ED) Is patient prescribed a controlled substance at d/c from ED?: No Referrals: Víctor Allen MD [Primary Care Provider] - 1-2 days
[2019-04-19 20:30] LABS: Anisocytosis Slight; Basophils % (A) 0 %; Eosinophils % (A) 1 %; HCT 33.8 % (39.0-53.0); HGB 11.2 gm/dL (13.0-17.5); Lymphocytes # (A) 0.4 k/uL (1.0-4.8); Lymphocytes % (A) 8 %; MCH 30.3 pg (25.0-35.0); MCHC 33.1 g/dL (31.0-37.0); MCV 91.4 fL (80.0-100.0); Mean Platelet Volume 8.1; Monocytes # (A) 0.3 k/uL (0-1.0); Monocytes % (A) 6 %; Neutrophils # (A) 3.8 k/uL (1.3-7.7); Neutrophils % (A) 84 %; Platelet Count 135 k/uL (150-450); RDW 16.8 % (11.5-15.5); WBC 4.5 k/uL (3.8-10.6)
[2019-04-19 20:34] LABS: Appearance,Urine Clear (Clear); Bilirubin,Urine Negative (Negative); Blood,Urine Negative (Negative); Color,Urine Yellow; Glucose,Urine (UA) Negative (Negative); Ketones,Urine Negative (Negative); Leukocyte Esterase,Urine Negative (Negative); Nitrite,Urine Negative (Negative); PH, Urine 7.5 (5.0-8.0); Protein,Urine Trace (Negative)
--- NOTE | 2019-04-19 20:35 | XR ---
EXAMINATION TYPE: XR chest 2V DATE OF EXAM: 04/19/2019 COMPARISON: 03/02/2019 HISTORY: Dizziness and weakness TECHNIQUE: Frontal and lateral views of the chest are obtained. FINDINGS: Heart is normal. Lungs are clear of infiltrate. Facet aorta is atheromatous. There are nayeli st leads. There are no hilar masses. Bony thorax is intact. There is some pleural scarring at the lung apices. IMPRESSION: No active cardiopulmonary disease. No change.
[2019-04-19 20:38] LABS: Albumin 4.7 g/dL (3.5-5.0); Calcium 9.7 mg/dL (8.4-10.2); Magnesium 1.4 mg/dL (1.6-2.3); Phosphorus 2.9 mg/dL (2.5-4.5); Total Protein 7.8 g/dL (6.3-8.2)
[2019-04-19 20:40] LABS: INR 1.2 (<1.2); Partial Thromboplastin Time 29.2 sec (22.0-30.0)
[2019-04-19] MEDS ORDERED: CEPHALEXIN 500MG STARTER PACK 4 CAP BTL PO STA (20:42)
[2019-04-19] MEDS ORDERED: cefTRIAXone IN SWFI 1,000 MG/10 ML SYRINGE IVP STA (20:42)
[2019-04-19] MEDS ORDERED: MAGNESIUM OXIDE 400 MG TAB PO STA (20:42)
[2019-04-19 20:53] VITALS: RESP 16
[2019-04-19 21:34] VITALS: BP 119/69; PULSE 74; TEMP 98.4
== END 2019-04-19 21:30 | disposition home or self-care (01) ==
LOC: EC 19:00
DX: R50.9 Fever, unspecified (principal); R53.1 Weakness; R42 Dizziness and giddiness; R63.8 Other symptoms and signs concerning food and fluid intake; I25.10 Atherosclerotic heart disease of native coronary artery without angina pectoris; E11.9 Type 2 diabetes mellitus without complications; E78.5 Hyperlipidemia, unspecified; I10 Essential (primary) hypertension; M10.9 Gout, unspecified; Z87.891 Personal history of nicotine dependence; Z88.8 Allergy status to other drugs, medicaments and biological substances; Z79.82 Long term (current) use of aspirin; Z79.84 Long term (current) use of oral hypoglycemic drugs; Z79.899 Other long term (current) drug therapy; Z95.5 Presence of coronary angioplasty implant and graft; Z82.0 Family history of epilepsy and other diseases of the nervous system
CPT/HCPCS: 36415; 80053; 82550; 83605; 83735; 84100; 84484; 85025; 85610; 85730; 81003; 87040; 87086; 71046; 99284; 96374; 96361; J0696

== ENCOUNTER 2019-04-21 18:01 | Inpatient (IN) | payer MEDICARE ==
--- NOTE | 2019-04-21 18:47 | ED ---
General Adult HPI - General Chief complaint: Fever Stated complaint: fever Time Seen by Provider: 04/21/19 18:10 Source: patient, RN notes reviewed, old records reviewed Mode of arrival: wheelchair Limitations: no limitations - History of Present Illness Initial comments: 78-year-old male patient past medical history significant for coronary artery disease, status post stent placement on 04/16 presents to ED with chief complaint of chills. Patient was seen on 04/19 for the same complaints, at that time had a negative workup and was discharged. Patient was reportedly administered Rocephin and Keflex. Patient returns to ER today with the same complaints. Denies any pain. Denies any chest pain shortness of breath abdominal pain, nausea vomiting diarrhea. Patient states that he feels as if he is persistently cold, he then puts on more clothing and then he starts to run a fever. Denies other complaints. Systemic: Pt denies fatigue, rash. Pt denies weakness, night sweats, weight loss. Neuro: Pt denies headache, visual disturbances, syncope or pre-syncope. HEENT: Pt denies ocular discharge or irritation, otalgia, rhinorrhea, pharyngitis or notable lymphadenopathy. Cardiopulmonary: Pt denies chest pain, SOB, heart palpitations, dyspnea on exertion. Abdominal/GI: Pt denies abdominal pain, n/v/d. : Pt denies dysuria, burning w/ urination, frequency/urgency. Denies new onset urinary or bowel incontinence. MSK: Pt denies myalgia, loss of strength or function in extremities. Neuro: Pt denies new onset weakness, paresthesias. - Related Data Home Medications Medication Instructions Recorded Confirmed Vitamin B Complex 1 cap PO DAILY 04/15/14 04/21/19 Aspirin 81 mg PO DAILY 03/02/19 04/21/19 Cholecalciferol (Vitamin D3) 2,000 unit PO DAILY 03/02/19 04/21/19 [Vitamin D3] Fish Oil/Dha/Epa [Fish Oil 1,200 1 cap PO DAILY 03/02/19 04/21/19 mg Fish Oil] Losartan [Cozaar] 50 mg PO DAILY 03/02/19 04/21/19 amLODIPine [Norvasc] 5 mg PO HS 03/02/19 04/21/19 Allopurinol [Zyloprim] 100 mg PO DAILY 04/05/19 04/21/19 Atorvastatin [Lipitor] 40 mg PO HS 04/05/19 04/21/19 glipiZIDE [Glucotrol] 5 mg PO AC-BID 04/05/19 04/21/19 Cephalexin [Keflex] 500 mg PO QID 04/21/19 04/21/19 Previous Rx's Medication Instructions Recorded Carvedilol [Coreg] 3.125 mg PO BID-W/MEALS #60 tab 03/04/19 Clopidogrel [Plavix] 75 mg PO DAILY #90 tab 03/22/19 Pioglitazone [Actos] 15 mg PO DAILY #90 tab 03/22/19 Allergies Allergy/AdvReac Type Severity Reaction Status Date / Time metformin AdvReac Diarrhea Verified 04/21/19 18:46 Review of Systems ROS Statement: Those systems with pertinent positive or pertinent negative responses have been documented in the HPI. ROS Other: All systems not noted in ROS Statement are negative. Past Medical History Past Medical History: Coronary Artery Disease (CAD), Diabetes Mellitus, Hyperlipidemia, Hypertension Additional Past Medical History / Comment(s): gout History of Any Multi-Drug Resistant Organisms: None Reported Past Surgical History: Heart Catheterization With Stent, Hernia Repair Additional Past Surgical History / Comment(s): ROZ CAROTID ENDARTERECTOMY,ROZ CATARACTS. COLONOSCOPY. Stent x3 Past Anesthesia/Blood Transfusion Reactions: No Reported Reaction Date of Last Stent Placement:: 03/21/19 Past Psychological History: No Psychological Hx Reported Smoking Status: Former smoker Past Alcohol Use History: Occasional Past Drug Use History: None Reported - Past Family History Father Additional Family Medical History / Comment(s): aortic anyserusm Mother Additional Family Medical History / Comment(s): Brain anyrusm General Exam - General Exam Comments Initial Comments: Constitutional: NAD, AOX3, Pt has pleasant affect. HEENT: NC/AT, trachea midline, neck supple, no lymphadenopathy. Posterior pharynx non erythematous, without exudates. External ears appear normal, without discharge. Mucous membranes moist. Eyes PERRLA, EOM intact. There is no scleral icterus. No pallor noted. Cardiopulmonary: RRR, no murmurs, rubs or gallops, no JVD noted. Lungs CTAB in anterior and posterior bhandari. No peripheral edema. Abdominal exam: Abdomen soft and non-distended. Abdomen non-tender to palpation in all 4 quadrants. Bowel sounds active in LLQ. No hepatosplenomegaly. No ecchymosis Neuro: CN II-XII grossly intact. No nuchal rigidity. No raccon eyes, no wood sign, no hemotympanum. No cervical spinal tenderness. MSK: No posterior calf tenderness bilaterally, homans sign negative bilaterally. Posterior tibialis and radial pulse +2 bilaterally. Sensation intact in upper and lower extremities. Full active ROM in upper and lower extremities, 5/5 stregnth. Limitations: no limitations Course Vital Signs 04/21/19 04/21/19 18:05 20:23 Temperature 97.8 F Pulse Rate 81 86 Respiratory 20 18 Rate Blood Pressure 156/68 153/91 O2 Sat by Pulse 97 98 Oximetry Medical Decision Making - Medical Decision Making 78-year-old male patient past medical history significant for coronary artery disease, status post stent placement on 04/16 presents to ED with chief complaint of chills. Patient was seen on 04/19 for the same complaints, at that time had a negative workup and was discharged. Patient was reportedly administered Rocephin and Keflex. Patient returns to ER today with the same complaints. Denies any pain. Denies any chest pain shortness of breath abdominal pain, nausea vomiting diarrhea. Patient states that he feels as if he is persistently cold, he then puts on more clothing and then he starts to run a fever. Denies other complaints. Patient vital signs stable, afebrile. Physical exam did not display acute pathology. Laboratory investigations revealed neutropenia 2.6 about history. Coagulation studies a normal limits. Blood chemistries noncompressive. Troponin 0.394, trending down, likely secondary to stent placement. Patient experiencing any chest pain. UA negative. Chest could not be acute process. EKG not concerning for acute ischemia. Patient will be started on broad-spectrum antibiotics, admitted for further evaluation. Troponins will be trended. Case discussed with Dr. Traore. - Lab Data Result diagrams: 04/21/19 18:45 04/21/19 18:45 Lab Results 04/21/19 04/21/19 04/21/19 Range/Units 18:45 18:45 18:45 WBC 2.6 L (3.8-10.6) k/uL RBC 3.92 L (4.30-5.90) m/uL Hgb 11.7 L (13.0-17.5) gm/dL Hct 35.3 L (39.0-53.0) % MCV 90.0 (80.0-100.0) fL MCH 29.8 (25.0-35.0) pg MCHC 33.1 (31.0-37.0) g/dL RDW 17.1 H (11.5-15.5) % Plt Count 108 L (150-450) k/uL Neutrophils % 83 % Lymphocytes % 10 % Monocytes % 4 % Eosinophils % 1 % Basophils % 0 % Neutrophils # 2.2 (1.3-7.7) k/uL Lymphocytes # 0.3 L (1.0-4.8) k/uL Monocytes # 0.1 (0-1.0) k/uL Eosinophils # 0.0 (0-0.7) k/uL Basophils # 0.0 (0-0.2) k/uL Anisocytosis Slight PT (9.0-12.0) sec INR (<1.2) APTT (22.0-30.0) sec Sodium 137 (137-145) mmol/L Potassium 3.9 (3.5-5.1) mmol/L Chloride 102 (98-107) mmol/L Carbon Dioxide 25 (22-30) mmol/L Anion Gap 10 mmol/L BUN 25 H (9-20) mg/dL Creatinine 1.21 (0.66-1.25) mg/dL Est GFR (CKD-EPI)AfAm 67 (>60 ml/min/1.73 sqM) Est GFR (CKD-EPI)NonAf 58 (>60 ml/min/1.73 sqM) Glucose 121 H (74-99) mg/dL Plasma Lactic Acid Riccardo 1.3 (0.7-2.0) mmol/L Calcium 9.2 (8.4-10.2) mg/dL Total Bilirubin 1.2 (0.2-1.3) mg/dL AST 55 (17-59) U/L ALT 47 (21-72) U/L Alkaline Phosphatase 47 (38-126) U/L Troponin I (0.000-0.034) ng/mL Total Protein 7.7 (6.3-8.2) g/dL Albumin 4.5 (3.5-5.0) g/dL Urine Color Urine Appearance (Clear) Urine pH (5.0-8.0) Ur Specific Nicasio (1.001-1.035) Urine Protein (Negative) Urine Glucose (UA) (Negative) Urine Ketones (Negative) Urine Blood (Negative) Urine Nitrite (Negative) Urine Bilirubin (Negative) Urine Urobilinogen (<2.0) mg/dL Ur Leukocyte Esterase (Negative) Urine RBC (0-5) /hpf Urine WBC (0-5) /hpf Ur Squamous Epith Cells (0-4) /hpf Urine Mucus (None) /hpf 04/21/19 04/21/19 04/21/19 Range/Units 18:45 18:45 18:56 WBC (3.8-10.6) k/uL RBC (4.30-5.90) m/uL Hgb (13.0-17.5) gm/dL Hct (39.0-53.0) % MCV (80.0-100.0) fL MCH (25.0-35.0) pg MCHC (31.0-37.0) g/dL RDW (11.5-15.5) % Plt Count (150-450) k/uL Neutrophils % % Lymphocytes % % Monocytes % % Eosinophils % % Basophils % % Neutrophils # (1.3-7.7) k/uL Lymphocytes # (1.0-4.8) k/uL Monocytes # (0-1.0) k/uL Eosinophils # (0-0.7) k/uL Basophils # (0-0.2) k/uL Anisocytosis PT 11.5 (9.0-12.0) sec INR 1.1 (<1.2) APTT 29.7 (22.0-30.0) sec Sodium (137-145) mmol/L Potassium (3.5-5.1) mmol/L Chloride (98-107) mmol/L Carbon Dioxide (22-30) mmol/L Anion Gap mmol/L BUN (9-20) mg/dL Creatinine (0.66-1.25) mg/dL Est GFR (CKD-EPI)AfAm (>60 ml/min/1.73 sqM) Est GFR (CKD-EPI)NonAf (>60 ml/min/1.73 sqM) Glucose (74-99) mg/dL Plasma Lactic Acid Riccardo (0.7-2.0) mmol/L Calcium (8.4-10.2) mg/dL Total Bilirubin (0.2-1.3) mg/dL AST (17-59) U/L ALT (21-72) U/L Alkaline Phosphatase (38-126) U/L Troponin I 0.394 H* (0.000-0.034) ng/mL Total Protein (6.3-8.2) g/dL Albumin (3.5-5.0) g/dL Urine Color Yellow Urine Appearance Cloudy (Clear) Urine pH 5.5 (5.0-8.0) Ur Specific Nicasio 1.020 (1.001-1.035) Urine Protein 1+ H (Negative) Urine Glucose (UA) Negative (Negative) Urine Ketones Negative (Negative) Urine Blood Small H (Negative) Urine Nitrite Negative (Negative) Urine Bilirubin Negative (Negative) Urine Urobilinogen <2.0 (<2.0) mg/dL Ur Leukocyte Esterase Negative (Negative) Urine RBC 3 (0-5) /hpf Urine WBC 4 (0-5) /hpf Ur Squamous Epith Cells <1 (0-4) /hpf Urine Mucus Rare H (None) /hpf - EKG Data -: EKG Interpreted by Me (and Dr. Traore ) EKG Comments: Ventricular rate 81, OK interval 172, QRS 108, QTC is QTC 388/450. Normal sensation, including liberal matchbox, borderline EKG. Disposition Clinical Impression: Febrile neutropenia Disposition: ADMITTED IP TO THIS HOSP Condition: Serious Is patient prescribed a controlled substance at d/c from ED?: No Referrals: Víctor Allen MD [Primary Care Provider] - 1-2 days
[2019-04-21 19:09] LABS: Appearance,Urine Cloudy (Clear); Bilirubin,Urine Negative (Negative); Blood,Urine Small (Negative); Color,Urine Yellow; Glucose,Urine (UA) Negative (Negative); Ketones,Urine Negative (Negative); Leukocyte Esterase,Urine Negative (Negative); Mucus,Urine Rare /hpf; Nitrite,Urine Negative (Negative); PH, Urine 5.5 (5.0-8.0); Protein,Urine 1+ (Negative); RBC,Urine 3 /hpf (0-5); Squamous Epithelial Cell,Urine <1 /hpf (0-4); Urobilinogen,Urine <2.0 mg/dL (<2.0); WBC,Urine 4 /hpf (0-5)
[2019-04-21 19:10] LABS: Anisocytosis Slight; Basophils % (A) 0 %; Eosinophils % (A) 1 %; HCT 35.3 % (39.0-53.0); HGB 11.7 gm/dL (13.0-17.5); Lymphocytes # (A) 0.3 k/uL (1.0-4.8); Lymphocytes % (A) 10 %; MCH 29.8 pg (25.0-35.0); MCHC 33.1 g/dL (31.0-37.0); Mean Platelet Volume 7.8; Monocytes # (A) 0.1 k/uL (0-1.0); Monocytes % (A) 4 %; Neutrophils # (A) 2.2 k/uL (1.3-7.7); Neutrophils % (A) 83 %; Platelet Count 108 k/uL (150-450); RBC 3.92 m/uL (4.30-5.90); RDW 17.1 % (11.5-15.5); WBC 2.6 k/uL (3.8-10.6)
[2019-04-21 19:14] LABS: INR 1.1 (<1.2); Partial Thromboplastin Time 29.7 sec (22.0-30.0); Prothrombin Time 11.5 sec (9.0-12.0)
[2019-04-21 19:18] LABS: Albumin 4.5 g/dL (3.5-5.0); Calcium 9.2 mg/dL (8.4-10.2); Potassium 3.9 mmol/L (3.5-5.1); Total Bilirubin 1.2 mg/dL (0.2-1.3); Total Protein 7.7 g/dL (6.3-8.2)
[2019-04-21] MEDS ORDERED: PIPERACILLIN-TAZOBACTAM 3.375 GM in SODIUM CHLORIDE 0.9% 100 ML IVPB STA (20:45)
[2019-04-21] MEDS ORDERED: NITROGLYCERIN SL TABS 0.4 MG TAB SUBLINGUAL PRN (20:46)
--- NOTE | 2019-04-21 21:51 | XR ---
EXAMINATION TYPE: XR chest 2V DATE OF EXAM: 04/21/2019 COMPARISON: Chest radiograph 04/19/2019 HISTORY: Fever TECHNIQUE: Frontal and lateral views of the chest are obtained. FINDINGS: There is no focal air space opacity, pleural effusion, or pneumothorax seen. The cardiac silhouette size is within normal limits. The osseous structures are intact. IMPRESSION: No acute cardiopulmonary process.
[2019-04-22] MEDS: PIPERACILLIN-TAZOBACTAM 3.375 GM in SODIUM CHLORIDE 0.9% 100 ML IVPB SCH ×3 (05:12→20:14)
[2019-04-22 06:48] LABS: Cholesterol 110 mg/dL (<200); HDL Cholesterol 20 mg/dL (40-60); LDL Cholesterol,Calculated 53 mg/dL (0-99); Triglycerides 186 mg/dL (<150)
[2019-04-22] MEDS ORDERED: ASPIRIN 325 MG TAB PO SCH (09:00)
[2019-04-22] MEDS: CLOPIDOGREL 75 MG TAB PO SCH (11:51)
[2019-04-22] MEDS: LOSARTAN 50 MG TAB PO SCH (11:51)
[2019-04-22] MEDS: CARVEDILOL 3.125 MG TAB PO SCH ×2 (11:51→17:30)
[2019-04-22 12:22] LABS: Anisocytosis Slight; HCT 29.4 % (39.0-53.0); MCHC 33.9 g/dL (31.0-37.0); MCV 91.5 fL (80.0-100.0); Mean Platelet Volume 8.6; RBC 3.21 m/uL (4.30-5.90); RDW 16.6 % (11.5-15.5); WBC 2.1 k/uL (3.8-10.6)
[2019-04-22 12:35] LABS: Calcium 8.6 mg/dL (8.4-10.2); Potassium 3.7 mmol/L (3.5-5.1)
[2019-04-22 12:36] LABS: Platelet Count 95 k/uL (150-450)
[2019-04-22] MEDS: PIOGLITAZONE 15 MG TAB PO SCH (12:36)
[2019-04-22 12:41] LABS: Band Neutrophils % 11 %; Lymphocytes # (M) 0.19 k/uL (1.0-4.8); Monocytes # (M) 0.32 k/uL (0-1.0); Myelocytes # (M) 0.02 k/uL (0); Myelocytes % 1 %; Neutrophils % (M) 64 %; Nucleated Red Blood Cells 0 /100 WBC (0-0); Total Cells Counted 100
[2019-04-22] MEDS ORDERED: CEPHALEXIN 500 MG CAP PO SCH (13:00)
[2019-04-22] MEDS: glipiZIDE 5 MG TAB PO SCH (17:30)
[2019-04-22] MEDS: amLODIPine 5 MG TAB PO SCH (20:14)
[2019-04-22] MEDS: ATORVASTATIN 40 MG TAB PO SCH (20:14)
--- NOTE | 2019-04-22 20:29 | P.HPIM ---
History of Present Illness H&P Date: 04/22/19 Chief Complaint: Fever chills History of presenting complaint: This is a very pleasant 78-year-old patient of Dr. Víctor Echols. Chronic stable medical conditions include diabetes, hypertension, hyperlipidemia, gout. Just over a week ago patient had a stent/coronary placement Dr. STACY Castillo. Patient presented with started having fevers at home recorded up to 102. Patient's even got a new thermometer to check of the same. Patient denies any respiratory symptoms. The access site in the right wrist is healing well. No urinary symptoms. Patient is feeling weak tired rundown and decided to come in. Patient was empirically put on IV Zosyn. An infectious workup was initiated. Patient's had no documented fever in the hospital. Review of systems: GEN.: Fever weak and tired EYES: None HEENT: None NECK: None RESPIRATORY: None CARDIOVASCULAR: None GASTROINTESTINAL: None GENITOURINARY: None MUSCULOSKELETAL: None LYMPHATICS: None HEMATOLOGICAL: None PSYCHIATRY: None NEUROLOGICAL: None Social history: Smoked a pack a day for 40 years stopped in 1995. Alcohol occasionally. . Family history: Aortic aneurysm Physical examination: VITAL SIGNS: 97.8, 81, 20, 156/68, 97% room air GENERAL: BMI 31.1, laying in bed a bit tired. EYES: Pupils equal. Conjunctiva normal. HEENT: External appearance of nose and ears normal, oral cavity grossly normal. NECK: JVD not raised; masses not palpable. HEART: First and second heart sounds are normal; no edema. LUNGS: Respiratory rate normal; clear to auscultation. ABDOMEN: Soft, nontender, liver spleen not palpable, no masses palpable. PSYCH: Alert and oriented x3; mood and affect normal. NEUROLOGICAL: Cranial nerves grossly intact; no facial asymmetry, power and sensation grossly intact. LYMPHATICS: No lymph nodes palpable in the axilla and neck INVESTIGATIONS, reviewed in the clinical context: White count 2.6, hemoglobin 11.7, platelets 108, decreased lymphocytes 0.3 Troponin 0.3, 0.3, 0.3 Bun 25 creatinine 1.21 UA SHEENT protein 1+ otherwise negative EKG tracing personally reviewed by me-unremarkable sinus rhythm Chest x-ray film personally reviewed by me-no obvious infiltrates Assessment: -This is a patient who presents with fevers from home. None documented here. Patient does not have any respiratory urinary symptoms. No evidence of infection of the cardiac catheterization access site on the right wrist. She did have a headache catheterization week ago patient may have been having bacteremia. -Mild pancytopenia, with leukopenia in the setting of fever need to rule out underlying bone marrow abnormality/early bone marrow disorder -We will check for viral teeters including Francisco-Negron virus and cytomegalovirus. -Diabetes mellitus type 2 -Essential hypertension -Hyperlipidemia line- -Coronary artery disease with stent a week ago Plan: Patient empirically put on IV Zosyn. Blood cultures are pending. Hematology consult was done. We'll send off serology for EBV and CMV. Care was discussed with the patient. Questions were answered. ID and hematology were also consulted. Care was discussed at length with the patient. Questions were answered. Past Medical History Past Medical History: Coronary Artery Disease (CAD), Diabetes Mellitus, Hyperlipidemia, Hypertension Additional Past Medical History / Comment(s): gout History of Any Multi-Drug Resistant Organisms: None Reported Past Surgical History: Heart Catheterization With Stent, Hernia Repair Additional Past Surgical History / Comment(s): ROZ CAROTID ENDARTERECTOMY,ROZ CATARACTS. COLONOSCOPY. Stent x3 Past Anesthesia/Blood Transfusion Reactions: No Reported Reaction Date of Last Stent Placement:: 04/16/2019 Past Psychological History: No Psychological Hx Reported Smoking Status: Former smoker Past Alcohol Use History: Occasional Additional Past Alcohol Use History / Comment(s): QUIT SMOKING IN 1995, smoked 1ppd from teens Past Drug Use History: None Reported - Past Family History Father Additional Family Medical History / Comment(s): aortic anyserusm Mother Additional Family Medical History / Comment(s): Brain anyrusm Medications and Allergies Home Medications Medication Instructions Recorded Confirmed Type Vitamin B Complex 1 cap PO DAILY 04/15/14 04/21/19 History Aspirin 81 mg PO DAILY 03/02/19 04/21/19 History Cholecalciferol (Vitamin D3) 2,000 unit PO DAILY 03/02/19 04/21/19 History [Vitamin D3] Fish Oil/Dha/Epa [Fish Oil 1,200 1 cap PO DAILY 03/02/19 04/21/19 History mg Fish Oil] Losartan [Cozaar] 50 mg PO DAILY 03/02/19 04/21/19 History amLODIPine [Norvasc] 5 mg PO HS 03/02/19 04/21/19 History Carvedilol [Coreg] 3.125 mg PO BID-W/MEALS #60 tab 03/04/19 04/21/19 Rx Clopidogrel [Plavix] 75 mg PO DAILY #90 tab 03/22/19 04/21/19 Rx Pioglitazone [Actos] 15 mg PO DAILY #90 tab 03/22/19 04/21/19 Rx Allopurinol [Zyloprim] 100 mg PO DAILY 04/05/19 04/21/19 History Atorvastatin [Lipitor] 40 mg PO HS 04/05/19 04/21/19 History glipiZIDE [Glucotrol] 5 mg PO AC-BID 04/05/19 04/21/19 History Cephalexin [Keflex] 500 mg PO QID 04/21/19 04/21/19 History Allergies Allergy/AdvReac Type Severity Reaction Status Date / Time metformin AdvReac Diarrhea Verified 04/21/19 18:46 Physical Exam Vitals: Vital Signs Temp Pulse Pulse Resp BP BP Pulse Ox 04/22/19 09:26 98.4 F 75 18 135/64 96 04/22/19 04:00 98.2 F 74 16 130/63 94 L 04/22/19 03:18 18 04/22/19 00:00 98.4 F 74 16 135/61 98 04/21/19 22:58 98.4 F 74 18 132/60 97 04/21/19 22:15 97.8 F 82 16 122/70 98 04/21/19 22:14 97.8 F 82 16 122/70 98 04/21/19 20:23 86 18 153/91 98 04/21/19 18:05 97.8 F 81 20 156/68 97 Intake and Output 04/21/19 04/22/19 04/22/19 22:59 06:59 14:59 Intake Total 300 240 Balance 300 240 Intake: Intake, IV Titration 200 Amount Piperacillin-Tazobactam 3 200 .375 gm In Sodium Chloride 0.9% 100 ml @ 200 mls/hr IVPB ONCE STA Rx#:[id number] Oral 100 240 Other: Voiding Method Toilet Urinal # Voids 1 Weight 95.254 kg 95.5 kg Results CBC & Chem 7: 04/22/19 06:19 04/22/19 06:19 Labs: Abnormal Lab Results - Last 24 Hours (Table) 04/21/19 04/21/19 04/21/19 Range/Units 18:45 18:45 18:45 WBC 2.6 L (3.8-10.6) k/uL RBC 3.92 L (4.30-5.90) m/uL Hgb 11.7 L (13.0-17.5) gm/dL Hct 35.3 L (39.0-53.0) % RDW 17.1 H (11.5-15.5) % Plt Count 108 L (150-450) k/uL Lymphocytes # 0.3 L (1.0-4.8) k/uL BUN 25 H (9-20) mg/dL Glucose 121 H (74-99) mg/dL Troponin I 0.394 H* (0.000-0.034) ng/mL Triglycerides (<150) mg/dL HDL Cholesterol (40-60) mg/dL Urine Protein (Negative) Urine Blood (Negative) Urine Mucus (None) /hpf 04/21/19 04/22/19 04/22/19 Range/Units 18:56 01:08 06:19 WBC (3.8-10.6) k/uL RBC (4.30-5.90) m/uL Hgb (13.0-17.5) gm/dL Hct (39.0-53.0) % RDW (11.5-15.5) % Plt Count (150-450) k/uL Lymphocytes # (1.0-4.8) k/uL BUN (9-20) mg/dL Glucose (74-99) mg/dL Troponin I 0.387 H* 0.341 H* (0.000-0.034) ng/mL Triglycerides (<150) mg/dL HDL Cholesterol (40-60) mg/dL Urine Protein 1+ H (Negative) Urine Blood Small H (Negative) Urine Mucus Rare H (None) /hpf 04/22/19 Range/Units 06:19 WBC (3.8-10.6) k/uL RBC (4.30-5.90) m/uL Hgb (13.0-17.5) gm/dL Hct (39.0-53.0) % RDW (11.5-15.5) % Plt Count (150-450) k/uL Lymphocytes # (1.0-4.8) k/uL BUN (9-20) mg/dL Glucose (74-99) mg/dL Troponin I (0.000-0.034) ng/mL Triglycerides 186 H (<150) mg/dL HDL Cholesterol 20 L (40-60) mg/dL Urine Protein (Negative) Urine Blood (Negative) Urine Mucus (None) /hpf Microbiology - Last 24 Hours (Table) 04/21/19 18:56 Urine Culture - Preliminary Urine,Clean Catch Thrombosis Risk Factor Assmnt - Choose All That Apply Any of the Below Risk Factors Present?: Yes Each Factor Represents 1 point: Obesity (BMI >25), Swollen legs (current) Other Risk Factors: Yes Each Risk Factor Represents 3 Points: Age 75 years or older Other congenital or acquired thrombophilia - If yes, enter type in comment: No Thrombosis Risk Factor Assessment Total Risk Factor Score: 5 Thrombosis Risk Factor Assessment Level: High Risk
--- NOTE | 2019-04-23 00:14 | CONS ---
CONSULTATION CHIEF COMPLAINT: Coronary artery disease. HISTORY OF PRESENT ILLNESS: This is a 78-year-old gentleman with history of coronary artery disease status post multivessel angioplasty, most recent one was on 04/16/2019 when he had stenting of the circumflex coronary artery. He presented to hospital. He thought that he had fever at home, came to the ER and in the ER did not really have any fever documented. The patient was in the emergency room on April 19 and at that time, he was given Rocephin and was sent home. He comes back in with symptoms of fever and is admitted to hospital. The main problem is that he has pancytopenia with a drop in his white cell count, platelet count and even the RBC count had gradually come down. The only new medication he is on Plavix. It is unclear if this is in relation to that. At the time of my evaluation, patient appears comfortable at rest and is free of symptoms. His EKG shows sinus rhythm with nonspecific ST-T wave changes. He had troponins that are mildly elevated at 0.3, 0.3 and 0.3 and creatinine is mildly elevated at 1.2. The troponin could be due from the recent angioplasty. The patient does not have any acute coronary syndrome. PAST MEDICAL HISTORY: Significant for coronary artery disease, status post multivessel angioplasty, hypertension, diabetes, dyslipidemia. CURRENT MEDICATIONS: Include Glucotrol, Norvasc, Actos, Cozaar, Plavix, Keflex, Coreg, Lipitor aspirin and Zyloprim. ALLERGIES: TO METFORMIN. FAMILY HISTORY: Negative for premature coronary artery disease. SOCIAL HISTORY: Negative for current smoking, EtOH abuse, or drug abuse. REVIEW OF SYSTEMS: HEENT is unremarkable. CARDIAC as described above. RESPIRATORY: Negative. GASTROINTESTINAL: Negative. GENITOURINARY: Negative. ALLERGY/IMMUNOLOGY: Negative. SKIN: Unremarkable. ENDOCRINE: Unremarkable. DERM: Negative. CONSTITUTIONAL negative. ONCOLOGICAL negative. Rest of the system review is not relevant. EXAM: Comfortable at rest. Vital signs are stable. There is no jugular venous distention. Carotid upstroke is normal. There is no bruit. Chest exam reveals good air entry bilaterally. Heart exam reveals first and second heart sounds. No gallop. No murmur. No rub. Abdomen is soft, nontender. Exam of extremities did not reveal any edema. Peripheral pulses are felt. LABS: Labs are abnormal as described above. ASSESSMENT: 1. Coronary artery disease status post multivessel angioplasty. 2. Pancytopenia, primarily leukopenia and thrombocytopenia. 3. Hypertension. 4. Diabetes. PLAN: I will ask Dr. Schmidt to evaluate the patient as the white cell count continues to drop. It was 4.5, 3 days ago and it is down to 2.1. If it is related to Plavix, then we might have to switch him to Brilinta. MMENL / IJN: [id number] /
[2019-04-23] MEDS: PIPERACILLIN-TAZOBACTAM 3.375 GM in SODIUM CHLORIDE 0.9% 100 ML IVPB SCH ×3 (05:34→20:34)
[2019-04-23 06:23] LABS: Anisocytosis Slight; HCT 27.3 % (39.0-53.0); HGB 9.3 gm/dL (13.0-17.5); MCH 30.6 pg (25.0-35.0); Mean Platelet Volume 9.2; RBC 3.03 m/uL (4.30-5.90); RDW 16.1 % (11.5-15.5); WBC 2.3 k/uL (3.8-10.6)
[2019-04-23 06:27] LABS: Platelet Count 81 k/uL (150-450)
[2019-04-23 06:41] LABS: Calcium 8.6 mg/dL (8.4-10.2); Potassium 3.7 mmol/L (3.5-5.1)
[2019-04-23] MEDS: CARVEDILOL 3.125 MG TAB PO SCH ×2 (06:41→17:39)
[2019-04-23] MEDS: glipiZIDE 5 MG TAB PO SCH ×2 (06:41→17:39)
[2019-04-23 06:47] LABS: Band Neutrophils % 2 %; Lymphocytes # (M) 0.44 k/uL (1.0-4.8); Monocytes # (M) 0.44 k/uL (0-1.0); Neutrophils % (M) 60 %; Nucleated Red Blood Cells 0 /100 WBC (0-0); Total Cells Counted 100
--- NOTE | 2019-04-23 08:48 | P.CONS ---
History of Present Illness - Reason for Consult Consult date: 04/22/19 Fever Requesting physician: Cosme Freeman - Chief Complaint Fever of 10 2F x one day - History of Present Illness Patient is a 78-year-old male who recently did have a cardiac catheter through the right wrist approach would a week ago patient did have stent placed and did well for the last 2 days the patient started feeling weak and lethargic no energy and he did have a fever of 102F at home, for the patient presented to [facility] ER the patient currently denies having any URI symptoms or any chest pain or shortness of breath very minimal cough or sputum no nausea no vomiting or abdominal pain had no diarrhea no urinary symptoms currently with no pain swelling at the right wrist area no leg swelling or any joint swelling patient subsequently was evaluated by the ER physician he did have a UA that was negative to 6 was negative for any consolidation patient did have mild leukopenia patient was started on Zosyn and admitted to the hospital infectious disease was consulted for further recommendation regarding his fever and antibiotic therapy Review of Systems Positive points has been mentioned in HPI rest of the systems are negative Past Medical History Past Medical History: Coronary Artery Disease (CAD), Diabetes Mellitus, Hyperlipidemia, Hypertension Additional Past Medical History / Comment(s): gout History of Any Multi-Drug Resistant Organisms: None Reported Past Surgical History: Heart Catheterization With Stent, Hernia Repair Additional Past Surgical History / Comment(s): ROZ CAROTID ENDARTERECTOMY,ROZ CATARACTS. COLONOSCOPY. Stent x3 Past Anesthesia/Blood Transfusion Reactions: No Reported Reaction Date of Last Stent Placement:: 04/16/2019 Past Psychological History: No Psychological Hx Reported Smoking Status: Former smoker Past Alcohol Use History: Occasional Additional Past Alcohol Use History / Comment(s): QUIT SMOKING IN 1995, smoked 1ppd from teens Past Drug Use History: None Reported - Past Family History Father Additional Family Medical History / Comment(s): aortic anyserusm Mother Additional Family Medical History / Comment(s): Brain anyrusm Medications and Allergies Home Medications Medication Instructions Recorded Confirmed Type Vitamin B Complex 1 cap PO DAILY 04/15/14 04/21/19 History Aspirin 81 mg PO DAILY 03/02/19 04/21/19 History Cholecalciferol (Vitamin D3) 2,000 unit PO DAILY 03/02/19 04/21/19 History [Vitamin D3] Fish Oil/Dha/Epa [Fish Oil 1,200 1 cap PO DAILY 03/02/19 04/21/19 History mg Fish Oil] Losartan [Cozaar] 50 mg PO DAILY 03/02/19 04/21/19 History amLODIPine [Norvasc] 5 mg PO HS 03/02/19 04/21/19 History Carvedilol [Coreg] 3.125 mg PO BID-W/MEALS #60 tab 03/04/19 04/21/19 Rx Clopidogrel [Plavix] 75 mg PO DAILY #90 tab 03/22/19 04/21/19 Rx Pioglitazone [Actos] 15 mg PO DAILY #90 tab 03/22/19 04/21/19 Rx Allopurinol [Zyloprim] 100 mg PO DAILY 04/05/19 04/21/19 History Atorvastatin [Lipitor] 40 mg PO HS 04/05/19 04/21/19 History glipiZIDE [Glucotrol] 5 mg PO AC-BID 04/05/19 04/21/19 History Cephalexin [Keflex] 500 mg PO QID 04/21/19 04/21/19 History Allergies Allergy/AdvReac Type Severity Reaction Status Date / Time metformin AdvReac Diarrhea Verified 04/21/19 18:46 Physical Exam Vitals: Vital Signs Temp Pulse Pulse Resp BP BP Pulse Ox 04/22/19 12:00 98.3 F 74 20 133/58 96 04/22/19 09:26 98.4 F 75 18 135/64 96 04/22/19 04:00 98.2 F 74 16 130/63 94 L 04/22/19 03:18 18 04/22/19 00:00 98.4 F 74 16 135/61 98 04/21/19 22:58 98.4 F 74 18 132/60 97 04/21/19 22:15 97.8 F 82 16 122/70 98 04/21/19 22:14 97.8 F 82 16 122/70 98 04/21/19 20:23 86 18 153/91 98 04/21/19 18:05 97.8 F 81 20 156/68 97 Intake and Output 04/21/19 04/22/19 04/22/19 22:59 06:59 14:59 Intake Total 300 1140 Balance 300 1140 Intake: Intake, IV Titration 200 Amount Piperacillin-Tazobactam 3 200 .375 gm In Sodium Chloride 0.9% 100 ml @ 200 mls/hr IVPB ONCE STA Rx#:[id number] Oral 100 1140 Other: Voiding Method Toilet Toilet Urinal # Voids 1 1 Weight 95.254 kg 95.5 kg GENERAL DESCRIPTION: Elderly male lying in bed, no distress. No tachypnea or accessory muscle of respiration use. HEENT: Shows Pallor , no scleral icterus. Oral mucous membrane is dry. No pharyngeal erythema or thrush NECK: Trachea central, no thyromegaly. LUNGS: Unlabored breathing. Clear to auscultation anteriorly. No wheeze or crackle. HEART: S1, S2, regular rate and rhythm. No loud murmur ABDOMEN: Soft, no tenderness , guarding or rigidity, no organomegaly EXTREMITIES: No edema of feet. SKIN: No rash, no masses palpable. NEUROLOGICAL: The patient is awake, alert, oriented x3, mood and affect normal. Results CBC & Chem 7: 04/23/19 05:59 04/23/19 05:59 Labs: Abnormal Lab Results - Last 24 Hours (Table) 04/21/19 04/21/19 04/21/19 Range/Units 18:45 18:45 18:45 WBC 2.6 L (3.8-10.6) k/uL RBC 3.92 L (4.30-5.90) m/uL Hgb 11.7 L (13.0-17.5) gm/dL Hct 35.3 L (39.0-53.0) % RDW 17.1 H (11.5-15.5) % Plt Count 108 L (150-450) k/uL Lymphocytes # 0.3 L (1.0-4.8) k/uL Lymphocytes # (Manual) (1.0-4.8) k/uL Myelocytes # (Manual) (0) k/uL BUN 25 H (9-20) mg/dL Glucose 121 H (74-99) mg/dL Troponin I 0.394 H* (0.000-0.034) ng/mL Triglycerides (<150) mg/dL HDL Cholesterol (40-60) mg/dL Urine Protein (Negative) Urine Blood (Negative) Urine Mucus (None) /hpf 04/21/19 04/22/19 04/22/19 Range/Units 18:56 01:08 06:19 WBC (3.8-10.6) k/uL RBC (4.30-5.90) m/uL Hgb (13.0-17.5) gm/dL Hct (39.0-53.0) % RDW (11.5-15.5) % Plt Count (150-450) k/uL Lymphocytes # (1.0-4.8) k/uL Lymphocytes # (Manual) (1.0-4.8) k/uL Myelocytes # (Manual) (0) k/uL BUN (9-20) mg/dL Glucose (74-99) mg/dL Troponin I 0.387 H* 0.341 H* (0.000-0.034) ng/mL Triglycerides (<150) mg/dL HDL Cholesterol (40-60) mg/dL Urine Protein 1+ H (Negative) Urine Blood Small H (Negative) Urine Mucus Rare H (None) /hpf 04/22/19 04/22/19 04/22/19 Range/Units 06:19 06:19 06:19 WBC 2.1 L (3.8-10.6) k/uL RBC 3.21 L (4.30-5.90) m/uL Hgb 10.0 L D (13.0-17.5) gm/dL Hct 29.4 L (39.0-53.0) % RDW 16.6 H (11.5-15.5) % Plt Count 95 L (150-450) k/uL Lymphocytes # (1.0-4.8) k/uL Lymphocytes # (Manual) 0.19 L (1.0-4.8) k/uL Myelocytes # (Manual) 0.02 H (0) k/uL BUN 24 H (9-20) mg/dL Glucose 72 L (74-99) mg/dL Troponin I (0.000-0.034) ng/mL Triglycerides 186 H (<150) mg/dL HDL Cholesterol 20 L (40-60) mg/dL Urine Protein (Negative) Urine Blood (Negative) Urine Mucus (None) /hpf Microbiology - Last 24 Hours (Table) 04/21/19 18:56 Urine Culture - Preliminary Urine,Clean Catch Assessment and Plan Assessment: 1-patient with a fever of 102F at home in this patient currently with no other localizing signs and symptoms of infection the patient her right wrist currently with no evidence of any cellulitis with concern for possible viral syndrome or could be related to underlying hematological disorder as the patient did have evidence of pancytopenia, with clinical suspicion is low for underlying jaun terial infection (1) Febrile illness Current Visit: No Status: Acute Code(s): R50.9 - FEVER, UNSPECIFIED SNOMED Code(s): 750189397 Plan: 1-we will obtain parvovirus serology, EBV and see me has already been requested by primary 2-await hematology evaluation 3-continue with the empiric Zosyn until the cultures are finalized we will follow on clinical condition and culture to further adjust medication if needed Thank you for this consultation will follow this patient along with you Time with Patient: Greater than 30
[2019-04-23] MEDS ORDERED: NON-FORMULARY DRUG (Fish Oil/Dha/Epa [Fish Oil 1,200 Mg Fish Oil] 1 CAP) PO SCH (09:00)
[2019-04-23] MEDS ORDERED: NON-FORMULARY DRUG (Vitamin B Complex [Vitamin B Complex] 1 CAP) PO SCH (09:00)
[2019-04-23] MEDS: LOSARTAN 50 MG TAB PO SCH (09:55)
[2019-04-23] MEDS: ASPIRIN 81 MG PO SCH (09:55)
[2019-04-23] MEDS: PIOGLITAZONE 15 MG TAB PO SCH (09:55)
[2019-04-23] MEDS: CLOPIDOGREL 75 MG TAB PO SCH (09:55)
[2019-04-23] MEDS: CHOLECALCIFEROL 1,000 UNIT TAB PO SCH (09:55)
[2019-04-23] MEDS: ALLOPURINOL 100 MG TAB PO SCH (10:10)
--- NOTE | 2019-04-23 11:05 | P.CONS ---
History of Present Illness - Reason for Consult Consult date: 04/23/19 Pancytopenia - History of Present Illness The patient is a 78-year-old white male with multiple medical problems. He was in the hospital on 04/16/19 when he had cardiac catheterization with stent placement. He subsequently developed fever at home of 102, with associated weakness and dizziness. He was seen in the emergency room for the same complains on 04/19/19 and discharged on Keflex after receiving IV Rocephin. On this presentation he was noted to have low WBC in the 2000 range, as well as slightly low platelet counts in the 120-1:30 range. He was therefore admitted further management. WBC persisted in the 2000 range, platelets dropping further to 98. Consult was therefore placed for further evaluation and recommendations. Review of labs indicates that the drop in WBC is new this admission. Was normal on 04/19/19. He has had mild anemia previously, in 11-12 range. Platelet counts have been mildly low in the 130 range from 04/09/19 onwards, but not before. He denied any prior history of blood related problems of malignancy. No history of any case of alcohol use of chronic liver disease. He is on allopurinol now for several months. Review of Systems Constitutional: Reports chills, Reports fever Eyes: denies blurred vision, denies pain Ears: deny: decreased hearing, ear discharge, earache, tinnitus Ears, nose, mouth and throat: Denies headache, Denies sore throat Cardiovascular: Reports as per HPI, Reports dyspnea on exertion Respiratory: Reports dyspnea Gastrointestinal: Denies abdominal pain, Denies diarrhea, Denies nausea, Denies vomiting Genitourinary: Reports as per HPI Musculoskeletal: Denies myalgias Integumentary: Denies pruritus, Denies rash Neurological: Reports weakness, Denies numbness Psychiatric: Denies anxiety, Denies depression Endocrine: Denies fatigue, Denies weight change Hematologic/Lymphatic: Reports as per HPI Past Medical History Past Medical History: Coronary Artery Disease (CAD), Diabetes Mellitus, Hype rlipidemia, Hypertension Additional Past Medical History / Comment(s): gout History of Any Multi-Drug Resistant Organisms: None Reported Past Surgical History: Heart Catheterization With Stent, Hernia Repair Additional Past Surgical History / Comment(s): ROZ CAROTID ENDARTERECTOMY,ROZ CATARACTS. COLONOSCOPY. Stent x3 Past Anesthesia/Blood Transfusion Reactions: No Reported Reaction Date of Last Stent Placement:: 04/16/2019 Past Psychological History: No Psychological Hx Reported Smoking Status: Former smoker Past Alcohol Use History: Occasional Additional Past Alcohol Use History / Comment(s): QUIT SMOKING IN 1995, smoked 1ppd from teens Past Drug Use History: None Reported - Past Family History Father Additional Family Medical History / Comment(s): aortic anyserusm Mother Additional Family Medical History / Comment(s): Brain anyrusm Medications and Allergies Home Medications Medication Instructions Recorded Confirmed Type Vitamin B Complex 1 cap PO DAILY 04/15/14 04/21/19 History Aspirin 81 mg PO DAILY 03/02/19 04/21/19 History Cholecalciferol (Vitamin D3) 2,000 unit PO DAILY 03/02/19 04/21/19 History [Vitamin D3] Fish Oil/Dha/Epa [Fish Oil 1,200 1 cap PO DAILY 03/02/19 04/21/19 History mg Fish Oil] Losartan [Cozaar] 50 mg PO DAILY 03/02/19 04/21/19 History amLODIPine [Norvasc] 5 mg PO HS 03/02/19 04/21/19 History Carvedilol [Coreg] 3.125 mg PO BID-W/MEALS #60 tab 03/04/19 04/21/19 Rx Clopidogrel [Plavix] 75 mg PO DAILY #90 tab 03/22/19 04/21/19 Rx Pioglitazone [Actos] 15 mg PO DAILY #90 tab 03/22/19 04/21/19 Rx Allopurinol [Zyloprim] 100 mg PO DAILY 04/05/19 04/21/19 History Atorvastatin [Lipitor] 40 mg PO HS 04/05/19 04/21/19 History glipiZIDE [Glucotrol] 5 mg PO AC-BID 04/05/19 04/21/19 History Cephalexin [Keflex] 500 mg PO QID 04/21/19 04/21/19 History Allergies Allergy/AdvReac Type Severity Reaction Status Date / Time metformin AdvReac Diarrhea Verified 04/21/19 18:46 Physical Exam Vitals: Vital Signs Temp Pulse Pulse Resp BP BP Pulse Ox 04/22/19 20:00 99.4 F 76 18 129/67 95 04/22/19 15:51 98.3 F 77 18 127/60 96 04/22/19 12:00 98.3 F 74 20 133/58 96 04/22/19 09:26 98.4 F 75 18 135/64 96 04/22/19 04:00 98.2 F 74 16 130/63 94 L 04/22/19 03:18 18 04/22/19 00:00 98.4 F 74 16 135/61 98 04/21/19 22:58 98.4 F 74 18 132/60 97 04/21/19 22:15 97.8 F 82 16 122/70 98 04/21/19 22:14 97.8 F 82 16 122/70 98 Intake and Output 04/22/19 04/22/19 04/22/19 06:59 14:59 22:59 Intake Total 300 1140 240 Output Total 200 Balance 300 1140 40 Intake: Intake, IV Titration 200 Amount Piperacillin-Tazobactam 3 200 .375 gm In Sodium Chloride 0.9% 100 ml @ 200 mls/hr IVPB ONCE STA Rx#:[id number] Oral 100 1140 240 Output: Urine 200 Other: Voiding Method Toilet Toilet Toilet Urinal # Voids 1 1 Weight 95.5 kg - Constitutional General appearance: no acute distress - EENT Eyes: EOMI, PERRLA ENT: hearing grossly normal, normal oropharynx - Neck Neck: no lymphadenopathy Thyroid: bilateral: normal size - Respiratory Respiratory: bilateral: CTA - Cardiovascular Rhythm: regular Heart sounds: normal: S1, S2 - Gastrointestinal General gastrointestinal: normal bowel sounds, soft - Integumentary Integumentary: normal - Neurologic Neurologic: CNII-XII intact - Musculoskeletal Musculoskeletal: strength equal bilaterally - Psychiatric Psychiatric: A&O x's 3, appropriate affect Results CBC & Chem 7: 04/23/19 05:59 04/23/19 05:59 Labs: Abnormal Lab Results - Last 24 Hours (Table) 04/22/19 04/22/19 04/22/19 Range/Units 01:08 06:19 06:19 WBC (3.8-10.6) k/uL RBC (4.30-5.90) m/uL Hgb (13.0-17.5) gm/dL Hct (39.0-53.0) % RDW (11.5-15.5) % Plt Count (150-450) k/uL Lymphocytes # (Manual) (1.0-4.8) k/uL Myelocytes # (Manual) (0) k/uL BUN (9-20) mg/dL Glucose (74-99) mg/dL Troponin I 0.387 H* 0.341 H* (0.000-0.034) ng/mL Triglycerides 186 H (<150) mg/dL HDL Cholesterol 20 L (40-60) mg/dL 04/22/19 04/22/19 Range/Units 06:19 06:19 WBC 2.1 L (3.8-10.6) k/uL RBC 3.21 L (4.30-5.90) m/uL Hgb 10.0 L D (13.0-17.5) gm/dL Hct 29.4 L (39.0-53.0) % RDW 16.6 H (11.5-15.5) % Plt Count 95 L (150-450) k/uL Lymphocytes # (Manual) 0.19 L (1.0-4.8) k/uL Myelocytes # (Manual) 0.02 H (0) k/uL BUN 24 H (9-20) mg/dL Glucose 72 L (74-99) mg/dL Troponin I (0.000-0.034) ng/mL Triglycerides (<150) mg/dL HDL Cholesterol (40-60) mg/dL Microbiology - Last 24 Hours (Table) 04/21/19 18:45 Blood Culture - Preliminary Blood No Growth after 24 hours 04/21/19 18:56 Urine Culture - Preliminary Urine,Clean Catch Comments: Echocardiogram report reviewed from 03/09. Ejection fraction normal. The atrial enlargement noted. At least moderate mitral regurg, with [id number] mitral stenosis. Mild aortic stenosis Chest x-ray: report reviewed Assessment and Plan (1) Pancytopenia Narrative/Plan: This is new and has developed fairly acutely. The patient has had a mild anemia somewhat chronically with some drop noted this admission. However the low WBC and platelets are a new finding for him. Given the acuity of this finding developing, as well as his symptoms of fever, marrow suppression by infection, likely viral is most probable. Medication effect from beta-lactam, specifically Keflex is also possibility. The patient did have some mild pancytopenia prior to starting Keflex, but that can occur in someone on allopurinol. - Therefore at this time a primary bone marrow disease is less likely. - Pancytopenia workup will be ordered, including ultrasound of the liver and spleen to rule out occult liver disease - All counts are in a safe range in no acute intervention is required to increase counts - Case discussed in detail with cardiology. There concern was if this finding could be due to his new cardiac meds, specifically Plavix after his recent stent placement, as well as increase in his Lipitor. Those would not be typically associated with blood abnormalities. Therefore at this time there is no indication to modify his cardiac regimen. Current Visit: Yes Status: Acute Code(s): D61.818 - OTHER PANCYTOPENIA SNOMED Code(s): 035581107 (2) Febrile neutropenia Narrative/Plan: The patient technically does not have febrile neutropenia as his ANC is greater than 1000. He has been afebrile since his hospitalization. The patient is on antibiotics. Defer to ID and admitting service for further management Current Visit: Yes Status: Acute Code(s): D70.9 - NEUTROPENIA, UNSPECIFIED; R50.81 - FEVER PRESENTING WITH CONDITIONS CLASSIFIED ELSEWHERE SNOMED Code(s): 541104465 (3) Coronary artery disease Narrative/Plan: The patient is status post recent stent placement and is on Plavix. As long as platelet counts are above 50,000, anti-platelet therapy can be continued Current Visit: Yes Status: Acute Code(s): I25.10 - ATHSCL HEART DISEASE OF [place] CORONARY ARTERY W/O ANG PCTRS SNOMED Code(s): 12036627 Plan: From our standpoint the patient can be discharged whenever felt to be stable for the same by the admitting service and ID. We will follow-up as an outpatient. If counts are not recovering within a few weeks, or deteriorating, a bone marrow will be performed as an outpatient
[2019-04-23 11:20] LABS: Reticulocyte % 1.2 % (0.5-2.0)
--- NOTE | 2019-04-23 11:44 | PN ---
PROGRESS NOTE This is a 78-year-old gentleman who was admitted to hospital with fever and pancytopenia. He has had recent multiple angioplasties and is currently on aspirin and Plavix. He is tolerating them well and there are no issues. [employer] Consultant had been consulted because of the progressively worsening white cell count and thrombocytopenia. This morning the platelet count had dropped to 81 from 95 yesterday[address] I have asked Dr[address] Schmidt the lens grinder to see the patient, which he did yesterday and he felt that his Plavix is not responsible for the pancytopenia and he had no issues with discontinuing the aspirin and Plavix. It is unclear if the patient has an infection or not. She is currently receiving Zosyn. There is an ID doctor and hospitalist currently managing these issues. From cardiac standpoint patient is doing well. The patient is currently on aspirin, Norvasc, Lipitor, Coreg, Plavix, Cozaar. ALLERGIC TO METFORMIN. EXAM: Comfortable at rest. Vital signs are stable. Chest exam reveals good air entry bilaterally. Heart exam reveals first and second heart sounds. No gallop. Exam of extremities did not reveal any edema. Peripheral pulses are felt. ASSESSMENT: 1. Coronary artery disease, status post angioplasty. 2. Pancytopenia. PLAN: Continue current cardiac medications. [employer] Consultant on board for the issues with the counts. MMODL / IJN: [id number] /
--- NOTE | 2019-04-23 15:03 | P.PN ---
Progress Note - Text Progress Note Date: 04/23/19 Chief Complaint: Fever chills Interval history: This is a very pleasant 78-year-old patient of Dr. Víctor Echols. Chronic stable medical conditions include diabetes, hypertension, hyperlipidemia, gout. Just over a week ago patient had a stent/coronary placement Dr. STACY Castillo. Patient presented with started having fevers at home recorded up to 102. Patient's even got a new thermometer to check of the same. Patient denies any respiratory symptoms. The access site in the right wrist is healing well. No urinary symptoms. Patient is feeling weak tired rundown and decided to come in. Patient was empirically put on IV Zosyn. An infectious workup was initiated. Patient's had no documented fever in the hospital. Today-remains afebrile. Feels well. On IV Zosyn. Seen by hematology. Not for any further intervention at the present time. and family the bedside Review of systems: Was done for constitutional, cardiovascular, GI, pulmonary. relevant finding as above Active Medications Allopurinol (Zyloprim) 100 mg PO DAILY [facility] Last Admin: 04/23/19 10:10 Dose: 100 mg Documented by: Amlodipine Besylate (Norvasc) 5 mg PO HS [facility] Last Admin: 04/22/19 20:14 Dose: 5 mg Documented by: Aspirin (Aspirin) 81 mg PO DAILY [facility] Last Admin: 04/23/19 09:55 Dose: 81 mg Documented by: Atorvastatin Calcium (Lipitor) 40 mg PO HS [facility] Last Admin: 04/22/19 20:14 Dose: 40 mg Documented by: Carvedilol (Coreg) 3.125 mg PO BID-W/MEALS [facility] Last Admin: 04/23/19 06:41 Dose: 3.125 mg Documented by: Cholecalciferol (Vitamin D3 (25 Mcg = 1000 Iu)) 2,000 unit PO DAILY [facility] Last Admin: 04/23/19 09:55 Dose: 2,000 unit Documented by: Clopidogrel Bisulfate (Plavix) 75 mg PO DAILY [facility] Last Admin: 04/23/19 09:55 Dose: 75 mg Documented by: Glipizide (Glucotrol) 5 mg PO AC-BID [facility] Last Admin: 04/23/19 06:41 Dose: 5 mg Documented by: Piperacillin Sod/Tazobactam (Sod 3.375 gm/ Sodium Chloride) 100 mls @ 25 mls/hr IVPB Q8H [facility] Last Admin: 04/23/19 14:44 Dose: 25 mls/hr Documented by: Losartan Potassium (Cozaar) 50 mg PO DAILY [facility] Last Admin: 04/23/19 09:55 Dose: 50 mg Documented by: Nitroglycerin (Nitrostat) 0.4 mg SUBLINGUAL Q5M PRN PRN Reason: Chest Pain Pioglitazone HCl (Actos) 15 mg PO DAILY [facility] Last Admin: 04/23/19 09:55 Dose: 15 mg Documented by: Physical examination: VITAL SIGNS: 98, 67, 18, 120/57, 94% room air GENERAL: Sitting up in a chair, looking comfortable. EYES: Pupils equal. Conjunctiva normal. HEENT: External appearance of nose and ears normal, oral cavity grossly normal. NECK: JVD not raised; masses not palpable. HEART: First and second heart sounds are normal; no edema. LUNGS: Respiratory rate normal; clear to auscultation. ABDOMEN: Soft, nontender, liver spleen not palpable, no masses palpable. PSYCH: Alert and oriented x3; mood and affect normal. INVESTIGATIONS, reviewed in the clinical context: White count 2.3 hemoglobin 9.3 platelets 81 Admission tests: White count 2.6, hemoglobin 11.7, platelets 108, decreased lymphocytes 0.3 Troponin 0.3, 0.3, 0.3 Bun 25 creatinine 1.21 UA SHEENT protein 1+ otherwise negative EKG tracing personally reviewed by me-unremarkable sinus rhythm Chest x-ray film personally reviewed by me-no obvious infiltrates Assessment: -This is a patient who presents with fevers from home. None documented here. Patient does not have any respiratory urinary symptoms. No evidence of infection of the cardiac catheterization access site on the right wrist. She did have a headache catheterization week ago patient may have been having bacteremia. -Mild pancytopenia, with leukopenia in the setting of fever need to rule out underlying bone marrow abnormality/early bone marrow disorder -We will check for viral teeters including Francisco-Negron virus and cytomegalovirus. -Diabetes mellitus type 2 -Essential hypertension -Hyperlipidemia line- -Coronary artery disease with stent a week ago Plan: Patient clinically looking better. Per hematology no further interventions present time. We'll make sure patient's cultures are negative by tomorrow and if okay with ID we'll discharge patient home tomorrow. Discussed with the patient and family.
[2019-04-23] MEDS: ATORVASTATIN 40 MG TAB PO SCH (20:34)
[2019-04-23] MEDS: amLODIPine 5 MG TAB PO SCH (20:34)
--- NOTE | 2019-04-24 03:08 | PN ---
PROGRESS NOTE DATE OF SERVICE: 04/23/2019 REASON FOR FOLLOWUP: Fever. INTERVAL HISTORY: The patient is currently afebrile. The patient has been breathing comfortably. Denies having any chest pain or shortness of breath. Very minimal cough. No nausea, no vomiting. No abdominal pain, no diarrhea. PHYSICAL EXAMINATION: Blood pressure is 106/55 with a pulse of 73, temperature 98.5. He is 95% on room air. General description is an elderly male up in the bed in no distress. Respiratory system: Unlabored breathing, clear to auscultation anteriorly. Heart S1, S2. Regular rate and rhythm. Abdomen soft, no tenderness. Extremities reveal no edema of the feet. LAB: Hemoglobin 9.8, white count 2.3. BUN of 23, creatinine 1.08. DIAGNOSTIC IMPRESSION AND PLAN: Patient admitted to the hospital with a fever. We will wait for the viral workup. So far culture has been negative. On empiric Zosyn. Family at the bedside. Questions were answered. MMODL / IJN: [id number] /
[2019-04-24] MEDS: glipiZIDE 5 MG TAB PO SCH (05:18)
[2019-04-24] MEDS: CARVEDILOL 3.125 MG TAB PO SCH (05:18)
[2019-04-24] MEDS: PIPERACILLIN-TAZOBACTAM 3.375 GM in SODIUM CHLORIDE 0.9% 100 ML IVPB SCH (05:18)
[2019-04-24 06:00] LABS: Anisocytosis Slight; Basophils % (A) 0 %; Eosinophils # (A) 0.1 k/uL (0-0.7); Eosinophils % (A) 5 %; HCT 28.6 % (39.0-53.0); HGB 9.4 gm/dL (13.0-17.5); Lymphocytes # (A) 0.5 k/uL (1.0-4.8); Lymphocytes % (A) 18 %; MCH 29.9 pg (25.0-35.0); MCHC 32.9 g/dL (31.0-37.0); MCV 90.7 fL (80.0-100.0); Mean Platelet Volume 9.1; Monocytes # (A) 0.2 k/uL (0-1.0); Monocytes % (A) 9 %; Neutrophils # (A) 1.7 k/uL (1.3-7.7); Neutrophils % (A) 64 %; RBC 3.15 m/uL (4.30-5.90); WBC 2.7 k/uL (3.8-10.6)
[2019-04-24 06:04] LABS: Platelet Count 90 k/uL (150-450)
--- NOTE | 2019-04-24 08:25 | US ---
EXAMINATION TYPE: US abdomen limited DATE OF EXAM: 04/24/2019 COMPARISON: NONE CLINICAL HISTORY: 78-year-old male Pancytopenia, possible chronic liver disease, . TECHNIQUE: Multiple sonographic images of the right upper quadrant are obtained. FINDINGS: EXAM MEASUREMENTS: Liver Length: 15.3 cm Gallbladder Wall: 0.6 mm CBD: 0.5 cm Right Kidney: 11.8 x 5.7 x 4.7 cm Spleen: 13.6 cm Pancreas: visualized portions wnl. Suboptimal visualization of the pancreatic tail secondary to shad owing from bowel gas. Liver: Normal size with overall homogeneous appearance. No focal lesion seen. Gallbladder: multiple stones with shadowing. There is no abnormal distention, wall thickening, or pe richolecystic fluid. Evidence for sonographic Rojas's sign: No CBD: wnl Right Kidney: lower pole cyst measures 3.7 x 3.2 x 3.4 cm. Spleen: 13.6 cm, upper limits of normal in size. IMPRESSION: 1. Cholelithiasis without ancillary findings of acute cholecystitis. 2. No biliary ductal dilatation. 3. Overall homogeneous ultrasound appearance of the liver. 4. Borderline sized spleen at 13.6 cm.
[2019-04-24 08:38] VITALS: RESP 16
[2019-04-24] MEDS: ALLOPURINOL 100 MG TAB PO SCH (09:30)
[2019-04-24] MEDS: CLOPIDOGREL 75 MG TAB PO SCH (09:30)
[2019-04-24] MEDS: LOSARTAN 50 MG TAB PO SCH (09:31)
[2019-04-24] MEDS: CHOLECALCIFEROL 1,000 UNIT TAB PO SCH (09:31)
[2019-04-24] MEDS: PIOGLITAZONE 15 MG TAB PO SCH (09:31)
[2019-04-24] MEDS: ASPIRIN 81 MG PO SCH (09:32)
[2019-04-24 12:03] LABS: Iron Saturation 15.65 (15.00-50.00); Protein, Total 5.4 g/dL (6.2-8.2); Rheumatoid Factor 8 IU/mL (0-15)
[2019-04-24 12:56] LABS: EBV-EA (IgG) <0.2 AI; EBV-EBNA(IgG) >8.0 AI
[2019-04-24 13:14] VITALS: BP 114/58; PULSE 54; TEMP 97.4
--- NOTE | 2019-04-24 14:55 | P.PN ---
Subjective Progress Note Date: 04/24/19 This is a 78-year-old gentleman admitted to the hospital with fever and pancytopenia. He had recent multiple angioplasties and is currently on dual antiplatelet therapy in the form of aspirin and Plavix. He's tolerating them well and there are no issues. Hematology consultation was requested because of progressively worsening white blood cell count and thrombocytopenia. This mornings platelet count is 90, hemoglobin is 9.4. Overall the patient states he feels well, no complaints this morning. Hemodynamically he is stable. Objective - Vital Signs Vital signs: Vital Signs Temp 97.4 F L 04/24/19 12:35 Pulse 54 L 04/24/19 12:35 Resp 16 04/24/19 12:35 BP 114/58 04/24/19 12:35 Pulse Ox 97 04/24/19 12:35 Intake & Output 04/23/19 04/24/19 04/24/19 18:59 06:59 18:59 Intake Total 1030 330 Output Total 400 800 500 Balance 630 -800 -170 Weight 93.3 kg Intake: IV 100 Piperacillin-Tazobactam 3 100 .375 gm In Sodium Chloride 0.9% 100 ml @ 25 mls/hr IVPB Q8H AYLA Rx#: [id number] Intake, IV Titration 100 Amount Piperacillin-Tazobactam 3 100 .375 gm In Sodium Chloride 0.9% 100 ml @ 25 mls/hr IVPB Q8H AYLA Rx#: [id number] Oral 930 230 Output: Urine 400 800 500 Other: # Voids 1 - Exam PHYSICAL EXAMINATION: GENERAL: 78-year-old gentleman in no acute distress at the time of my examination HEENT: Head is atraumatic, normocephalic. Pupils equal, round. Sclera anicteric. Conjunctiva are clear. Mucous membranes of the mouth are moist. Neck is supple. There is no elevated jugular venous pressure. No carotid bruit is heard. HEART EXAMINATION: [eart S1, S2 normal. No murmur or gallop heard.] CHEST EXAMINATION:[Lungs are clear to auscultation and precussion. No chest wall tenderness is noted on palpation or with deep breathing.] ABDOMEN: [Soft, nontender. Bowel sounds are heard. No organomegaly noted] EXTREMITIES:[2+ peripheral pulses with no evidence of peripheral edema and no calf tenderness noted] NEUROLOGIC [atient is awake, alert and oriented 3 . - Labs CBC & Chem 7: 04/24/19 05:37 04/23/19 05:59 Labs: Abnormal Lab Results - Last 24 Hours (Table) 04/21/19 04/22/19 04/24/19 Range/Units 18:45 06:19 05:37 WBC (3.8-10.6) k/uL RBC (4.30-5.90) m/uL Hgb (13.0-17.5) gm/dL Hct (39.0-53.0) % RDW (11.5-15.5) % Plt Count (150-450) k/uL Lymphocytes # (1.0-4.8) k/uL Iron 41 L (65-175) ug/dL Total Protein (PEP) 5.4 L (6.2-8.2) g/dL Procalcitonin 0.18 H (0.02-0.09) ng/mL Free [place] LC, Quant 3.41 H (0.33-1.94) mg/dL EBV Capsid Ag IgG Intrp POSITIVE H (NEGATIVE) EBV Nuc Ag IgG Interp POSITIVE H (NEGATIVE) 04/24/19 Range/Units 05:37 WBC 2.7 L (3.8-10.6) k/uL RBC 3.15 L (4.30-5.90) m/uL Hgb 9.4 L (13.0-17.5) gm/dL Hct 28.6 L (39.0-53.0) % RDW 16.0 H (11.5-15.5) % Plt Count 90 L (150-450) k/uL Lymphocytes # 0.5 L (1.0-4.8) k/uL Iron (65-175) ug/dL Total Protein (PEP) (6.2-8.2) g/dL Procalcitonin (0.02-0.09) ng/mL Free [place] LC, Quant (0.33-1.94) mg/dL EBV Capsid Ag IgG Intrp (NEGATIVE) EBV Nuc Ag IgG Interp (NEGATIVE) Microbiology - Last 24 Hours (Table) 04/21/19 18:45 Blood Culture - Preliminary Blood No Growth after 48 hours Assessment and Plan Plan: Assessment and plan #1 fevers #2 pancytopenia with leukopenia #3 recent stent placements #4 hyperlipidemia #5 diabetes #6 hypertension Plan From cardiology's perspective, we will recommend to continue the patient on the dual antiplatelet therapy along with the rest of the medications. DNP note has been reviewed, I agree with a documented findings and plan of care. Patient was seen and examined.
--- NOTE | 2019-04-24 16:03 | PN ---
PROGRESS NOTE DATE OF SERVICE: 04/24/2019. REASON FOR FOLLOWUP: Fever, possible viral syndrome. INTERVAL HISTORY: The patient is currently afebrile. The patient has been breathing comfortably. The patient denies having any chest pain or shortness of breath or cough. No nausea, vomiting, abdominal pain or any diarrhea. PHYSICAL EXAMINATION: Blood pressure is 114/58 with a pulse of 54, temperature 97.4. He is 97% on room air. General description is an elderly male up in the chair in no distress. RESPIRATORY SYSTEM: Unlabored breathing. Clear to auscultation. No wheeze or crackle. HEART: S1, S2. Regular rate and rhythm. ABDOMEN: Soft. No tenderness. LABS: Hemoglobin 9.4, white count 2.7. So far viral serology has come back negative. DIAGNOSTIC IMPRESSION AND PLAN: Patient with fever, possibly viral syndrome. The patient has been afebrile throughout his hospital stay here, with all cultures negative. No need for any systemic antibiotic therapy. Questions and concerns were answered. MMODL / IJN: [id number] /
--- NOTE | 2019-04-25 00:09 | P.DS ---
Providers Date of admission: 04/24/19 10:39 Expected date of discharge: 04/25/19 Attending physician: Cosme Freeman Consults: 04/21/19 20:46 Consult Physician Urgent Consulting Provider: Desmond Kerr Consult Reason/Comments: recent stent placement, elevated troponin, febrile neutropenia Do you want consulting provider notified?: Yes 04/21/19 20:50 Consult Physician Urgent Consulting Provider: Naveen Pineda Consult Reason/Comments: pyrexia, recent PCI, neutropenia Do you want consulting provider notified?: Yes, Notify in am 04/22/19 13:08 Consult Physician Urgent Consulting Provider: King Schmidt Consult Reason/Comments: neutropenia and thrombocytopenia, new to patient Do you want consulting provider notified?: Yes Primary care physician: Víctor Allen [facility] Course: Chief Complaint: Fever chills Hospital course: This is a very pleasant 78-year-old patient of Dr. Víctor Echols. Chronic stable medical conditions include diabetes, hypertension, hyperlipidemia, gout. Just over a week ago patient had a stent/coronary placement Dr. STACY Castillo. Patient presented with started having fevers at home recorded up to 102. Patient's even got a new thermometer to check of the same. Patient denies any respiratory symptoms. The access site in the right wrist is healing well. No urinary symptoms. Patient is feeling weak tired rundown and decided to come in. Patient was empirically put on IV Zosyn. An infectious workup was initiated. Patient's had no documented fever in the hospital. Infection workup came back to be negative. Discussed with Dr. Baker today from ID. We'll complete a short course of antibiotic. Patient also seen by Dr. Schmidt from hematology. No further workup at the present time. Abdominal ultrasound did show gallstones and borderline splenomegaly. Patient had no abdominal pain. Results were discussed with the patient. Otherwise patient doing well back to his baseline. Follow with Dr. Schmidt in the office. Discussion and discharge planning more than 35 minutes Consultation: Dr. Boston from ID Dr. Tan from cardiology Dr. Schmidt from hematology Physical examination: VITAL SIGNS: 97.4, 54, 16, 114/58, 97% room air GENERAL: Sitting up in a chair, comfortable. EYES: Pupils equal. Conjunctiva normal. HEENT: External appearance of nose and ears normal, oral cavity grossly normal. NECK: JVD not raised; masses not palpable. HEART: First and second heart sounds are normal; no edema. LUNGS: Respiratory rate normal; clear to auscultation. ABDOMEN: Soft, nontender, liver spleen not palpable, no masses palpable. PSYCH: Alert and oriented x3; mood and affect normal. INVESTIGATIONS, reviewed in the clinical context: White count 2.7 hemoglobin 9.4 platelets 90 Admission tests: White count 2.6, hemoglobin 11.7, platelets 108, decreased lymphocytes 0.3 Troponin 0.3, 0.3, 0.3 Bun 25 creatinine 1.21 UA SHEENT protein 1+ otherwise negative EKG tracing personally reviewed by me-unremarkable sinus rhythm Chest x-ray film personally reviewed by me-no obvious infiltrates EBV IgG antibody positive CMV both IgM and IgG negative Assessment: -Fever possibly viral with no other cause of present determined. -Mild pancytopenia, for further outpatient workup -Diabetes mellitus type 2 -Essential hypertension -Hyperlipidemia line- -Coronary artery disease with stent a week ago Disposition: Home Patient Condition at Discharge: Stable Plan - Discharge Summary New Discharge Prescriptions: New Amoxicillin/Potassium Clav [Augmentin 875-125 Tablet] 1 tab PO BID 3 Days #6 tab Continue Vitamin B Complex 1 cap PO DAILY Cholecalciferol (Vitamin D3) [Vitamin D3] 2,000 unit PO DAILY Aspirin 81 mg PO DAILY amLODIPine [Norvasc] 5 mg PO HS Losartan [Cozaar] 50 mg PO DAILY Fish Oil/Dha/Epa [Fish Oil 1,200 mg Fish Oil] 1 cap PO DAILY Carvedilol [Coreg] 3.125 mg PO BID-W/MEALS #60 tab Pioglitazone [Actos] 15 mg PO DAILY #90 tab Clopidogrel [Plavix] 75 mg PO DAILY #90 tab Atorvastatin [Lipitor] 40 mg PO HS Allopurinol [Zyloprim] 100 mg PO DAILY glipiZIDE [Glucotrol] 5 mg PO AC-BID Discontinued Cephalexin [Keflex] 500 mg PO QID Discharge Medication List Vitamin B Complex 1 cap PO DAILY 04/15/14 [History] Aspirin 81 mg PO DAILY 03/02/19 [History] Cholecalciferol (Vitamin D3) [Vitamin D3] 2,000 unit PO DAILY 03/02/19 [History] Fish Oil/Dha/Epa [Fish Oil 1,200 mg Fish Oil] 1 cap PO DAILY 03/02/19 [History] Losartan [Cozaar] 50 mg PO DAILY 03/02/19 [History] amLODIPine [Norvasc] 5 mg PO HS 03/02/19 [History] Carvedilol [Coreg] 3.125 mg PO BID-W/MEALS #60 tab 03/04/19 [Rx] Clopidogrel [Plavix] 75 mg PO DAILY #90 tab 03/22/19 [Rx] Pioglitazone [Actos] 15 mg PO DAILY #90 tab 03/22/19 [Rx] Allopurinol [Zyloprim] 100 mg PO DAILY 04/05/19 [History] Atorvastatin [Lipitor] 40 mg PO HS 04/05/19 [History] glipiZIDE [Glucotrol] 5 mg PO AC-BID 04/05/19 [History] Amoxicillin/Potassium Clav [Augmentin 875-125 Tablet] 1 tab PO BID 3 Days #6 tab 04/24/19 [Rx] Follow up Appointment(s)/Referral(s): King Schmidt MD [STAFF PHYSICIAN] - 2 Weeks (Blood doctor, please repeat blood work and follow up with Dr. Schmidt outpatient. Office will call to schedule.) Veronica Castillo MD [STAFF PHYSICIAN] - 05/02/19 9:30 am Víctor Allen MD [Primary Care Provider] - 04/25/19 8:15 am (Please keep previous follow up appointment. ) Ambulatory/Diagnostic Orders: Complete Blood Count w/diff [LAB.AMB] Time Frame: 3 Days, Location: None Selected Comprehensive Metabolic Panel [LAB.AMB] Time Frame: 3 Days, Location: None Selected Patient Instructions/Handouts: Chest Pain (DC), Neutropenia (DC) Discharge Disposition: HOME SELF-CARE
[2019-04-25 14:14] LABS: Albumin 2.97 g/dL (3.80-4.90); Gamma Globulin 0.71 g/dL (0.70-1.50)
[2019-04-26 10:16] LABS: Parvovirus B-19 IgG Antibodies 0.43 INDEX (<=0.90); Parvovirus B-19 IgM Antibodies 0.2 INDEX (<=0.90)
== END 2019-04-24 14:39 | disposition home or self-care (01) | DRG 866 ==
LOC: EC 18:01 → 3SCARD 20:50 → OBSVTOIN 04-24 10:39
PROVIDERS: ADMIT Hospitalist; ATTEND Hospitalist
DX: B34.9 Viral infection, unspecified (principal); D61.818 Other pancytopenia; E11.9 Type 2 diabetes mellitus without complications; R16.1 Splenomegaly, not elsewhere classified; E78.5 Hyperlipidemia, unspecified; I10 Essential (primary) hypertension; I25.10 Atherosclerotic heart disease of native coronary artery without angina pectoris; K80.20 Calculus of gallbladder without cholecystitis without obstruction; M10.9 Gout, unspecified; Z79.02 Long term (current) use of antithrombotics/antiplatelets; Z79.82 Long term (current) use of aspirin; Z79.84 Long term (current) use of oral hypoglycemic drugs; Z79.899 Other long term (current) drug therapy; Z87.891 Personal history of nicotine dependence; Z88.8 Allergy status to other drugs, medicaments and biological substances; Z95.5 Presence of coronary angioplasty implant and graft; Z98.42 Cataract extraction status, left eye; Z98.41 Cataract extraction status, right eye; Z96.1 Presence of intraocular lens; Z82.49 Family history of ischemic heart disease and other diseases of the circulatory system
CPT/HCPCS: 36415; 71046; 76705; 80048; 80053; 80061; 81001; 82607; 82728; 82747; 83540; 83550; 83605; 83883; 83921; 84145; 84165; 84484; 85025; 85045; 85610; 85652; 85730; 86038; 86334; 86431; 86644; 86645; 86663; 86664; 86665; 86747; 87040; 87086; 93005; 96365; 99285

== ENCOUNTER → 2019-05-18 | Outpatient (CLI) | payer MEDICARE ==
--- NOTE | 2019-05-18 10:16 | US ---
EXAMINATION TYPE: US abdomen complete DATE OF EXAM: 05/18/2019 COMPARISON: NONE CLINICAL HISTORY: D50.0 Anemia, R10.13 Abd pain. abn BUN and creat, no symptoms EXAM MEASUREMENTS: Liver Length: 16.1 cm Gallbladder Wall: 0.2 cm CBD: 0.5 cm Spleen: 13.5 cm Right Kidney: 10.9 x 4.4 x 5.6 cm Left Kidney: 13.7 x 4.0 x 6.0 cm Pancreas: wnl in its visualized portions. Liver: wnl Gallbladder: multiple stones with no wall thickening Evidence for sonographic Rojas's sign: no CBD: wnl Spleen: wnl Right Kidney: 3.7cm inferior pole cyst , there is increased through transmission, imperceptible wall , appearance is anechoic Left Kidney: wnl Upper IVC: wnl Abd Aorta: wnl The liver is homogenous. The intrahepatic portion of the IVC and proximal abdominal aorta are within normal limits. There are gallstones, multiple echogenic foci within the gallbladder dependent porti on. Common bile duct is unremarkable. The visualized portions of the pancreas are homogenous. The s pleen is enlarged. Kidneys show normal cortical medullary differentiation and are free of hydronephr osis. IMPRESSION: Splenomegaly. Cholelithiasis. Simple cyst inferior pole right kidney.
== END | disposition home or self-care (01) ==
LOC: RADUSMAIN 07:43
PROVIDERS: ATTEND Internal Medicine Hematology & Oncology
DX: K80.20 Calculus of gallbladder without cholecystitis without obstruction (principal); N20.0 Calculus of kidney; R16.1 Splenomegaly, not elsewhere classified; Z88.8 Allergy status to other drugs, medicaments and biological substances; D50.0 Iron deficiency anemia secondary to blood loss (chronic)
CPT/HCPCS: 76700

== ENCOUNTER 2019-10-05 08:33 | Inpatient (IN) | payer MEDICARE ==
[2019-10-05] MEDS ORDERED: SODIUM CHLORIDE 0.9% 1,000 ML IV STA (09:07)
--- NOTE | 2019-10-05 09:15 | ED ---
General Adult HPI - General Chief complaint: Nausea/Vomiting/Diarrhea Stated complaint: V/N/D Time Seen by Provider: 10/05/19 08:45 Source: patient, family, RN notes reviewed, old records reviewed Mode of arrival: wheelchair Limitations: no limitations - History of Present Illness Initial comments: This is a 79-year-old male who presents emergency Department with a past medical history significant for Clostridium difficile. Patient states this occurred in June and he hasn't had any issues since. Patient comes in today because he started having diarrhea about a week ago and he states it has not gotten any better over the week. Patient states a few days ago he was having quite a bit of suprapubic abdominal pain but he no longer is having the pain. Patient denies any fever chills. Patient denies any nausea or vomiting. Patient denies any chest pain difficulty breathing. Patient denies any blood in the stool. Patient states in some ways this is very similar to the C. diff he had before. - Related Data Home Medications Medication Instructions Recorded Confirmed Vitamin B Complex 1 cap PO DAILY 04/15/14 10/05/19 Aspirin 81 mg PO DAILY 03/02/19 10/05/19 Cholecalciferol (Vitamin D3) 2,000 unit PO DAILY 03/02/19 10/05/19 [Vitamin D3] Fish Oil/Dha/Epa [Fish Oil 1,200 1 cap PO DAILY 03/02/19 10/05/19 mg Fish Oil] Losartan [Cozaar] 50 mg PO DAILY 03/02/19 10/05/19 amLODIPine [Norvasc] 5 mg PO HS 03/02/19 10/05/19 Allopurinol [Zyloprim] 100 mg PO DAILY 04/05/19 10/05/19 Atorvastatin [Lipitor] 40 mg PO HS 04/05/19 10/05/19 L.acidoph,Paracasei, B.lactis 1 cap PO DAILY 10/05/19 10/05/19 [Probiotic] Pioglitazone [Actos] 45 mg PO DAILY 10/05/19 10/05/19 Ticagrelor [Brilinta] 90 mg PO BID 10/05/19 10/05/19 glipiZIDE XL [Glucotrol Xl] 5 mg PO BID 10/05/19 10/05/19 Previous Rx's Medication Instructions Recorded Carvedilol [Coreg] 3.125 mg PO BID-W/MEALS #60 tab 03/04/19 Allergies Allergy/AdvReac Type Severity Reaction Status Date / Time metformin AdvReac Diarrhea Verified 10/05/19 09:58 Review of Systems ROS Statement: Those systems with pertinent positive or pertinent negative responses have been documented in the HPI. ROS Other: All systems not noted in ROS Statement are negative. Past Medical History Past Medical History: Coronary Artery Disease (CAD), Diabetes Mellitus, Hyperlipidemia, Hypertension Additional Past Medical History / Comment(s): gout History of Any Multi-Drug Resistant Organisms: C-DIFF Date of last positivie culture/infection: stool MDRO Source:: 06/2019 Past Surgical History: Heart Catheterization With Stent, Hernia Repair Additional Past Surgical History / Comment(s): ROZ CAROTID ENDARTERECTOMY,ROZ CATARACTS. COLONOSCOPY. Stent x3 Past Anesthesia/Blood Transfusion Reactions: No Reported Reaction Date of Last Stent Placement:: 04/16/2019 Past Psychological History: No Psychological Hx Reported Smoking Status: Former smoker Past Alcohol Use History: Occasional Past Drug Use History: None Reported - Past Family History Father Additional Family Medical History / Comment(s): aortic anyserusm Mother Additional Family Medical History / Comment(s): Brain anyrusm General Exam - General Exam Comments Initial Comments: GENERAL: Patient is well-developed and well-nourished. Patient is nontoxic and well- hydrated and is in mild distress. ENT: Neck is soft and supple. No significant lymphadenopathy is noted. Oropharynx is clear. Moist mucous membranes. Neck has full range of motion without eliciting any pain. EYES: The sclera were anicteric and conjunctiva were pink and moist. Extraocular movements were intact and pupils were equal round and reactive to light. Eyelids were unremarkable. PULMONARY: Unlabored respirations. Good breath sounds bilaterally. No audible rales rhonchi or wheezing was noted. CARDIOVASCULAR: There is a regular rate and rhythm without any murmurs gallops or rubs. ABDOMEN: Soft and nontender with normal bowel sounds. SKIN: Skin is clear with no lesions or rashes and otherwise unremarkable. NEUROLOGIC: Patient is alert and oriented x3. Cranial nerves II through XII are grossly intact. Motor and sensory are also intact. Normal speech, volume and content. Symmetrical smile. MUSCULOSKELETAL: Normal extremities with adequate strength and full range of motion. No lower extremity swelling or edema. No calf tenderness. LYMPHATICS: No significant lymphadenopathy is noted PSYCHIATRIC: Normal psychiatric evaluation. Limitations: no limitations Course Vital Signs 10/05/19 08:44 Temperature 98 F Pulse Rate 67 Respiratory 18 Rate Blood Pressure 125/64 O2 Sat by Pulse 98 Oximetry Medical Decision Making - Lab Data Result diagrams: 10/05/19 09:15 10/05/19 09:15 Lab Results 10/05/19 10/05/19 Range/Units 09:15 09:15 WBC 12.5 H (3.8-10.6) k/uL RBC 3.71 L (4.30-5.90) m/uL Hgb 11.0 L (13.0-17.5) gm/dL Hct 33.7 L (39.0-53.0) % MCV 90.9 (80.0-100.0) fL MCH 29.6 (25.0-35.0) pg MCHC 32.6 (31.0-37.0) g/dL RDW 14.9 (11.5-15.5) % Plt Count 201 (150-450) k/uL Neutrophils % 90 % Lymphocytes % 4 % Monocytes % 4 % Eosinophils % 0 % Basophils % 0 % Neutrophils # 11.2 H (1.3-7.7) k/uL Lymphocytes # 0.4 L (1.0-4.8) k/uL Monocytes # 0.5 (0-1.0) k/uL Eosinophils # 0.0 (0-0.7) k/uL Basophils # 0.0 (0-0.2) k/uL Sodium 135 L (137-145) mmol/L Potassium 3.4 L (3.5-5.1) mmol/L Chloride 102 (98-107) mmol/L Carbon Dioxide 19 L (22-30) mmol/L Anion Gap 14 mmol/L BUN 37 H (9-20) mg/dL Creatinine 2.18 H (0.66-1.25) mg/dL Est GFR (CKD-EPI)AfAm 33 (>60 ml/min/1.73 sqM) Est GFR (CKD-EPI)NonAf 28 (>60 ml/min/1.73 sqM) Glucose 63 L (74-99) mg/dL Calcium 8.7 (8.4-10.2) mg/dL Total Bilirubin 1.0 (0.2-1.3) mg/dL AST 24 (17-59) U/L ALT 18 (4-49) U/L Alkaline Phosphatase 45 (38-126) U/L Total Protein 6.5 (6.3-8.2) g/dL Albumin 3.7 (3.5-5.0) g/dL Amylase 35 (30-110) U/L Lipase 50 (23-300) U/L Disposition Clinical Impression: Diarrhea, Renal insufficiency Disposition: ADMITTED IP TO THIS HOSP Referrals: Víctor Allen MD [Primary Care Provider] - 1-2 days Time of Disposition: 11:27
[2019-10-05 09:28] LABS: Basophils % (A) 0 %; Eosinophils % (A) 0 %; HCT 33.7 % (39.0-53.0); Lymphocytes # (A) 0.4 k/uL (1.0-4.8); Lymphocytes % (A) 4 %; MCH 29.6 pg (25.0-35.0); MCHC 32.6 g/dL (31.0-37.0); MCV 90.9 fL (80.0-100.0); Mean Platelet Volume 8.8; Monocytes # (A) 0.5 k/uL (0-1.0); Monocytes % (A) 4 %; Neutrophils # (A) 11.2 k/uL (1.3-7.7); Neutrophils % (A) 90 %; Platelet Count 201 k/uL (150-450); RBC 3.71 m/uL (4.30-5.90); RDW 14.9 % (11.5-15.5); WBC 12.5 k/uL (3.8-10.6)
[2019-10-05 09:40] LABS: Albumin 3.7 g/dL (3.5-5.0); Calcium 8.7 mg/dL (8.4-10.2); Potassium 3.4 mmol/L (3.5-5.1); Total Protein 6.5 g/dL (6.3-8.2)
--- NOTE | 2019-10-05 09:46 | XR ---
EXAMINATION TYPE: XR KUB DATE OF EXAM: 10/05/2019 9:41 AM CLINICAL HISTORY: Abdominal pain TECHNIQUE: Single upright image of the abdomen is obtained. COMPARISON: None. FINDINGS: Multiple air-fluid levels are seen within mildly dilated small bowel loops measuring up to 3.1 cm. Air is seen within the colon. Lung bases are well aerated. Levoscoliosis of lumbar spine is s een with diffuse osseous demineralization. No pneumoperitoneum. IMPRESSION: Air-fluid levels within very mildly dilated small bowel. Small bowel ileus or early small bowel obstr uction could be considered.
[2019-10-05] MEDS ORDERED: SODIUM CHLORIDE 0.9% 1,000 ML IV ONE (11:27)
[2019-10-05] MEDS ORDERED: DIPHENOX-ATROP 2.5-0.025 MG 1 EACH TAB PO PRN (11:28)
[2019-10-05] MEDS ORDERED: DIPHENOX-ATROP 2.5-0.025 MG 1 EACH TAB PO STA (11:28)
[2019-10-05 11:35] LABS: Appearance,Urine Clear (Clear); Bilirubin,Urine Negative (Negative); Blood,Urine Negative (Negative); Color,Urine Yellow; Glucose,Urine (UA) Negative (Negative); Ketones,Urine Negative (Negative); Leukocyte Esterase,Urine Negative (Negative); Nitrite,Urine Negative (Negative); Protein,Urine Trace (Negative); Urobilinogen,Urine <2.0 mg/dL (<2.0)
[2019-10-05 13:33] LABS: Glucose,Whole Blood 57 mg/dL (75-99)
[2019-10-05 15:17] LABS: Glucose,Whole Blood 124 mg/dL (75-99)
[2019-10-05 17:36] LABS: Glucose,Whole Blood 72 mg/dL (75-99)
[2019-10-05] MEDS: IOPAMIDOL CONTRAST (ORAL USE) VIAL PO PRN ×2 (18:12→19:15)
[2019-10-05] MEDS: D5W WITH KCL 20 MEQ/L 1,000 ML IV SCH (18:25)
--- NOTE | 2019-10-05 18:41 | XR ---
EXAMINATION TYPE: XR chest 1V portable DATE OF EXAM: 10/05/2019 COMPARISON: 04/21/2019 HISTORY: Chest pain TECHNIQUE: FINDINGS: Heart and mediastinum are normal. Lungs are clear. Diaphragm is normal. Bony thorax is inta ct. Pulmonary vascularity is normal. Thoracic aorta is atheromatous. IMPRESSION: No active cardiopulmonary disease. Normal heart. No change.
[2019-10-05] MEDS ORDERED: ALPRAZolam 0.25 MG TAB PO PRN (18:58)
[2019-10-05] MEDS ORDERED: HYDROcodone/APAP 5-325MG 1 EACH TAB PO PRN (18:58)
[2019-10-05] MEDS ORDERED: ACETAMINOPHEN TAB 500 MG TAB PO PRN (18:58)
[2019-10-05 20:47] LABS: Glucose,Whole Blood 106 mg/dL (75-99)
--- NOTE | 2019-10-05 20:49 | CT ---
EXAMINATION TYPE: CT abdomen pelvis wo con DATE OF EXAM: 10/05/2019 COMPARISON: None HISTORY: abdominal pain CT DLP: 769.8 mGycm Automated exposure control for dose reduction was used. Multiple axial sections were obtained from the diaphragm to the floor the pelvis with oral contrast o nly. Lung bases are clear. There is no pleural effusion. Liver spleen pancreas appear normal. Bile ducts are not dilated. There are small calcified gallstones . Stomach is intact. There is no adrenal mass. Kidneys have normal size and contour. There is no hydron ephrosis. There is no retroperitoneal adenopathy. Bladder distends smoothly. There is no inguinal her oscar. There are multiple sigmoid diverticula. There is mild fat stranding around the proximal sigmoid colon . Appendix is partly seen and appears normal. There is no evidence of a bowel obstruction. There is f luid in the large bowel down to the rectum. There is no ascites. There is no sign of free air. There are spondylotic changes in the lumbar spine. There is no compression fracture. Bony pelvis is i ntact. IMPRESSION: There are some inflammatory changes in the proximal sigmoid colon consistent with mild diverticulitis . Large bowel fluid levels consistent with diarrhea. Inflammatory
[2019-10-05] MEDS: HEPARIN SODIUM,PORCINE 5,000 UNIT/ML 1 ML VIAL SQ SCH (21:11)
[2019-10-05] MEDS: amLODIPine 5 MG TAB PO SCH (21:11)
[2019-10-05] MEDS: TICAGRELOR 90 MG TAB PO SCH (21:11)
--- NOTE | 2019-10-05 21:11 | HP ---
HISTORY AND PHYSICAL DATE OF SERVICE: 10/05/2019 CHIEF COMPLAINT: Abdominal pain and diarrhea. HISTORY OF PRESENT ILLNESS: This 79-year-old gentleman with a past medical history of multiple medical problems such as history of CAD, history of diabetes, hypertension, history of gout, C difficile colitis, history of CAD/stent being followed by Dr. Allen in the outpatient setting, not feeling well over the past 1 week. The patient had multiple episodes of diarrhea, up to 4-5 times moderate quantity. The patient also had abdominal cramping especially in the lower part and the patient came to [facility] and was admitted for further evaluation and treatment. Creatinine is elevated indicating acute renal failure. A plain x-ray abdomen which was done in the ER which was reviewed by me showed air-fluid levels with possibly ileus. There is no history of fever, rigors. No history of headache, loss of consciousness or seizures. No chest pain, palpitations, hematochezia or melena at this time. PAST MEDICAL HISTORY: History of CAD, diabetes, hypertension, gout disease, C difficile, diarrhea. MEDICATIONS: 1. Vitamin B complex 1 p.o. daily. 2. Brilinta 90 mg b.i.d. 3. Actos 45 mg. 4. Probiotic 1 p.o. daily. 5. Norvasc 5 mg q.h.s. 6. Cozaar 50 mg p.o. daily. 7. Fish oil 1 p.o. daily. 8. Vitamin D3 2000 daily. 9. Coreg 3.125 p.o. b.i.d. 10.Lipitor 40 mg at bedtime. 11.Aspirin 81 mg p.o. daily. 12.Glucotrol 5 mg p.o. b.i.d. 13.Zyloprim 100 mg p.o. daily. ALLERGIES: METFORMIN. FAMILY HISTORY: History of aortic aneurysm in the family. SOCIAL HISTORY: Previous history of smoking. Occasional alcohol intake. REVIEW OF SYSTEMS: ENT: No diminished vision. No diminished hearing. CARDIOVASCULAR: No angina or palpitations. RESPIRATION as mentioned earlier. GASTROINTESTINAL: As mentioned earlier. no dysuria. Nervous system: No numbness or weakness. ALLERGY/IMMUNOLOGY: No asthma or hayfever. MUSCULOSKELETAL as mentioned earlier. HEMATOLOGY: No history of anemia. ENDOCRINE: History of diabetes and hypothyroidism. CONSTITUTIONAL: As mentioned earlier. DERMATOLOGY: Negative. RHEUMATOLOGY: As mentioned earlier. PSYCHIATRIC: As mentioned earlier. PHYSICAL EXAMINATION: Alert and oriented times three. Pulse 74, blood pressure 140/69, respirations 16, temperature 97.8, pulse ox 97% on room air. HEENT: Conjunctivae normal. Oral mucosa moist. Neck is no jugular venous distention. No carotid bruit. No lymph node enlargement. Cardiovascular system: S1, S2 muffled. No S3, no S4. RESPIRATORY: Breath sounds diminished in the bases. A few rhonchi. No crackles. ABDOMEN: Soft, nontender. No mass palpable. LEGS: No edema. No swelling. NERVOUS SYSTEM: Higher functions as mentioned earlier. Moves all 4 limbs. No focal motor or sensory deficits. LYMPHATICS: No lymph nodes palpable in the neck, axillae or groin. SKIN: No ulcer, rash or bleeding. JOINTS: No active deforming arthropathy. ABDOMEN: Soft mild diffuse discomfort. Bowel sounds present. LAB STUDIES: WBC 12.2, hemoglobin 11. Sodium 130. Potassium 4.5, creatinine 2.18, glucose 63 and 57. ASSESSMENT: 1. Subacute diarrhea with severe dehydration. Possibly infective in origin. 2. Acute renal failure with acute prerenal renal failure and tubular necrosis. 3. Hyponatremia. 4. Hypokalemia. 5. Mild metabolic acidosis. 6. Hypoglycemia possibly from diminished p.o. intake. 7. Increased WBC. 8. Anemia, normocytic. 9. Ileus abdominal ileus, possibly secondary to diarrhea. 10.History of coronary artery disease. 11.Diabetes mellitus type 2. 12.Hypertension. 13.History of gout. 14.History of C difficile colitis. 15.History of coronary artery disease, stent. 16.History of bilateral carotid endarterectomy and bilateral cataracts. 17.Remote history of nicotine dependence. 18.FULL CODE with instructions. RECOMMENDATIONS AND DISCUSSION: This 79-year-old gentleman who presented with multiple complex medical issues, we will monitor the patient closely, continue the current medications, management and symptomatic treatment. Because of intensity of diarrhea at this time, I recommend n.p.o. except medications and continue to monitor and once the diarrhea is controlled, we will advance the diet. Gastroenterology consultation. Otherwise, continue the IV fluids. Monitor creatinine closely. Continue the medications. Avoid nephrotoxic medications. Monitor lytes closely. The patient also had hypoglycemia. I recommend IV fluids and D5 water with 20 mEq KCl at 200 mL/hour. Otherwise, overall prognosis guarded. DVT prophylaxis. Incentive spirometry. Discussed with the patient and family at the bedside, the son and further recommendations to follow. CAROLEE / IJN: [id number] /
[2019-10-06 07:04] LABS: Basophils % (A) 0 %; Eosinophils # (A) 0.1 k/uL (0-0.7); Eosinophils % (A) 1 %; HCT 29.9 % (39.0-53.0); HGB 9.8 gm/dL (13.0-17.5); Lymphocytes # (A) 0.4 k/uL (1.0-4.8); Lymphocytes % (A) 5 %; MCH 29.9 pg (25.0-35.0); MCHC 32.9 g/dL (31.0-37.0); Mean Platelet Volume 8.3; Monocytes # (A) 0.4 k/uL (0-1.0); Monocytes % (A) 4 %; Neutrophils % (A) 87 %; Platelet Count 186 k/uL (150-450); RBC 3.29 m/uL (4.30-5.90); RDW 14.8 % (11.5-15.5); WBC 8.1 k/uL (3.8-10.6)
[2019-10-06 07:15] LABS: Calcium 8.2 mg/dL (8.4-10.2); Potassium 3.5 mmol/L (3.5-5.1)
[2019-10-06 07:18] LABS: Glucose,Whole Blood 132 mg/dL (75-99)
[2019-10-06] MEDS ORDERED: NON FORMULARY DRUG (Vitamin B Complex [Vitamin B Complex] 1 CAP) PO SCH (09:00)
[2019-10-06] MEDS: LOSARTAN 50 MG TAB PO SCH (09:04)
[2019-10-06] MEDS: HEPARIN SODIUM,PORCINE 5,000 UNIT/ML 1 ML VIAL SQ SCH ×2 (09:04→20:42)
[2019-10-06] MEDS: PANTOPRAZOLE 40 MG TABLET PO SCH (09:05)
[2019-10-06] MEDS: ASPIRIN 81 MG PO SCH (09:05)
[2019-10-06] MEDS: ALLOPURINOL 100 MG TAB PO SCH (09:05)
[2019-10-06] MEDS: D5W WITH KCL 20 MEQ/L 1,000 ML IV SCH ×2 (09:05→17:45)
[2019-10-06] MEDS: TICAGRELOR 90 MG TAB PO SCH ×2 (09:05→20:42)
[2019-10-06] MEDS: CARVEDILOL 3.125 MG TAB PO SCH ×2 (09:05→17:45)
[2019-10-06] MEDS: LACTOBACILLUS ACIDOPH & BULGAR 1 EACH PACKET PO SCH (09:05)
[2019-10-06 11:28] LABS: Glucose,Whole Blood 159 mg/dL (75-99)
[2019-10-06] MEDS: metroNIDAZOLE-NS PMX 500 MG in SALINE 1 100ML.BAG IVPB SCH ×2 (18:36→23:29)
[2019-10-06] MEDS: LEVOFLOXACIN 500MG-D5W PMX 500 MG in DEXTROSE/WATER 1 100ML.BAG IVPB SCH (20:24)
[2019-10-06 20:39] LABS: Glucose,Whole Blood 144 mg/dL (75-99)
[2019-10-06] MEDS: amLODIPine 5 MG TAB PO SCH (20:42)
--- NOTE | 2019-10-07 00:25 | PN ---
PROGRESS NOTE DATE OF SERVICE: 10/06/2019 This 79-year-old gentleman admitted with acute diarrhea, also had abdominal discomfort also. Patient had multiple episodes of moderate to severe large amount of stools yesterday. The patient also had multiple evaluations including showed anemia and some renal failure possibly secondary to dehydration. Stool lactoferrin was positive. Stool Giardia and Cryptosporidium spores also was negative. The patient also underwent a CT scan of the abdomen and pelvis which showed some inflammatory changes in the proximal sigmoid colon consistent with mild diverticulitis with large bowel fluid levels are consistent with diarrhea. The patient being closely monitored at this time. There is no history of fever, rigors or chills. No history of headache, loss of consciousness, seizures. PAST MEDICAL HISTORY: Noted. CURRENT MEDICATIONS: Reviewed and include: 1. Tylenol p.r.n. 2. Coffeen 5 mg p.r.n. 3. Zyloprim 100 mg daily. 4. Xanax 0.25 t.i.d. 5. Norvasc 5 mg daily. 6. Aspirin 81 mg. 7. Coreg 3.125 b.i.d. 8. Lomotil. 9. Heparin 5000 subcu b.i.d. 10.Lactinex 1 p.o. b.i.d. 11.Cozaar 50 mg. 12.Protonix 40 mg. 13.Brilinta. PHYSICAL EXAMINATION: Patient is alert, oriented x3. Pulse is 69. Blood pressure 170/64, respirations 16, temperature 97.8, pulse ox 97% on room air. HEENT: Conjunctivae normal. Oral mucosa moist. NECK is no jugular venous distention. No carotid bruit. No lymph node enlargement. Cardiovascular system: S1, S2 muffled. RESPIRATORY: Breath sounds diminished in the bases. No rhonchi. No crackles. ABDOMEN: Soft. Mild diffuse discomfort on palpation. Mild distention also present. LEGS: No edema. No swelling. NERVOUS SYSTEM: Higher functions as mentioned earlier. Moves all four limbs. No focal motor or sensory deficits. LYMPHATICS: No lymph nodes palpable in the neck, axilla or groin. SKIN: No ulcer, rashes or bleeding. JOINTS: No active deforming arthropathy. LABS: WBC 8.2, hemoglobin 9.8, sodium 132. Stool lactoferrin is positive. ASSESSMENT: 1. Subacute diarrhea with severe dehydration, possibly infective in origin. 2. Mild sigmoid of proximal sigmoid diverticulitis. 3. Acute renal failure with acute tubular necrosis secondary to prerenal factors. 4. Hyponatremia, hypovolemic. 5. Hypokalemia. 6. Mild metabolic acidosis present on admission. 7. Hypoglycemia possibly from diminished p.o. intake. 8. Increased WBC. 9. Anemia, normocytic. 10.Abdominal ileus, possibly secondary to diarrhea. 11.History of coronary artery disease. 12.History of coronary artery disease. 13.Diabetes mellitus type 2. 14.Hypertension. 15.History of gout. 16.History of C difficile colitis. 17.History of coronary artery disease/stent. 18.History of bilateral carotid endarterectomies and bilateral cataracts. 19.Remote history of nicotine dependence. 20.FULL CODE with instructions. RECOMMENDATIONS AND DISCUSSION: In this 79-year-old gentleman who presented with multiple complex medical issues, we will monitor the patient closely, continue the current medications, management and symptomatic treatment. The patient continues to have diarrhea at this time. The initial testing is negative. I would recommend course of Levaquin and Flagyl. Otherwise, we will consult Gastroenterology also because of the lack of diarrhea. Add Questran to the current regimen. Continue to monitor. Prognosis guarded. Further recommendations to follow. MMODL / IJN: [id number] /
[2019-10-07] MEDS: D5W WITH KCL 20 MEQ/L 1,000 ML IV SCH ×2 (04:28→17:58)
[2019-10-07 07:00] LABS: Glucose,Whole Blood 177 mg/dL (75-99)
[2019-10-07 07:01] LABS: Basophils % (A) 0 %; Eosinophils % (A) 0 %; HCT 28.8 % (39.0-53.0); HGB 9.4 gm/dL (13.0-17.5); Lymphocytes # (A) 0.4 k/uL (1.0-4.8); Lymphocytes % (A) 4 %; MCH 29.6 pg (25.0-35.0); MCHC 32.6 g/dL (31.0-37.0); MCV 90.9 fL (80.0-100.0); Mean Platelet Volume 8.1; Monocytes # (A) 0.4 k/uL (0-1.0); Monocytes % (A) 4 %; Neutrophils # (A) 9.1 k/uL (1.3-7.7); Neutrophils % (A) 90 %; Platelet Count 187 k/uL (150-450); RBC 3.17 m/uL (4.30-5.90); RDW 14.6 % (11.5-15.5); WBC 10.1 k/uL (3.8-10.6)
[2019-10-07 07:16] LABS: Calcium 8.3 mg/dL (8.4-10.2)
[2019-10-07] MEDS: metroNIDAZOLE-NS PMX 500 MG in SALINE 1 100ML.BAG IVPB SCH ×2 (09:07→17:59)
[2019-10-07] MEDS: CHOLESTYRAMINE (WITH SUGAR) 4 GM PACKET PO SCH ×3 (09:07→17:59)
[2019-10-07] MEDS: HEPARIN SODIUM,PORCINE 5,000 UNIT/ML 1 ML VIAL SQ SCH ×2 (09:08→22:14)
[2019-10-07] MEDS: ALLOPURINOL 100 MG TAB PO SCH (09:08)
[2019-10-07] MEDS: LACTOBACILLUS ACIDOPH & BULGAR 1 EACH PACKET PO SCH (09:08)
[2019-10-07] MEDS: CARVEDILOL 3.125 MG TAB PO SCH ×2 (09:08→17:58)
[2019-10-07] MEDS: LOSARTAN 50 MG TAB PO SCH (09:08)
[2019-10-07] MEDS: TICAGRELOR 90 MG TAB PO SCH ×2 (09:08→22:15)
[2019-10-07] MEDS: PANTOPRAZOLE 40 MG TABLET PO SCH (09:08)
[2019-10-07] MEDS: ASPIRIN 81 MG PO SCH (09:08)
[2019-10-07 11:46] LABS: Glucose,Whole Blood 188 mg/dL (75-99)
--- NOTE | 2019-10-07 16:59 | PN ---
PROGRESS NOTE DATE OF SERVICE: 10/07/2019 This 79-year-old gentleman admitted with subacute diarrhea also had possible sigmoid diverticulitis. The patient is being closely monitored. Patient is still having multiple episodes of diarrhea. The patient has been followed by Dr. Pryor, gastroenterology. PAST MEDICAL HISTORY: Reviewed. REVIEW OF SYSTEMS: CARDIOVASCULAR SYSTEM: No angina. RESPIRATORY: As mentioned earlier. GI: As mentioned earlier. : No dysuria. NERVOUS SYSTEM: No numbness or weakness. ALLERGY: No asthma, hay fever. MUSCULOSKELETAL: As mentioned earlier. HEMATOLOGY: No history of anemia. ENDOCRINE: As mentioned earlier. NEPHROLOGY: As mentioned earlier. CURRENT MEDICATIONS: 1. Tylenol p.r.n. 2. Medanales 5 mg q.6h p.r.n. 3. Zyloprim 100 mg p.o. daily. 4. Xanax 0.5 t.i.d. 5. Norvasc 5 mg p.o. at bedtime. 6. Aspirin 81 mg daily. 7. Coreg 3.125 mg b.i.d. 8. Questran 4 g p.o. t.i.d. 9. Lomotil. 10.Heparin b.i.d. 11.Lactinex 1 tablet p.o. with breakfast. 12.Levaquin 500 mg IV daily. 13.Cozaar 50 mg p.o. 14.Flagyl 500 mg IV q.8h. 15.Protonix. 16.Brilinta 90 mg p.o. b.i.d. PHYSICAL EXAMINATION: Patient is alert, oriented x3. Pulse 65, blood pressure 130/70, respirations 16, temperature 98.1, pulse ox 97% on room air. HEENT: Conjunctivae normal. Oral mucosa moist. NECK: No jugular venous distention. No lymph node enlargement. CARDIOVASCULAR: S1, S2. RESPIRATORY: Diminished breath sounds at the bases. A few scattered rhonchi, no crackles. ABDOMEN: Soft. Mild diffuse discomfort. No guarding, no rigidity. No masses palpable. LEGS: No edema, no swelling. NERVOUS SYSTEM: No focal deficits. LAB STUDIES: WBC 10.2, hemoglobin 9.4, sodium 132, potassium 4, creatinine is 1.35. ASSESSMENT: 1. Subacute diarrhea with severe dehydration, possibly infective in origin. 2. Mild proximal sigmoid diverticulitis. 3. Acute renal failure from acute tubular necrosis and prerenal factors. 4. Hyponatremia, hypovolemic. 5. Hypokalemia. 6. Mild metabolic acidosis, present on admission. 7. Hypoglycemia possibly secondary to diminished p.o. intake. 8. Increased WBC. 9. Anemia, normocytic. 10.Abdominal ileus, possibly secondary to diarrhea. 11.History of coronary artery disease. 12.Diabetes mellitus type 2. 13.Hypertension. 14.History of gout. 15.History of Clostridium difficile colitis. 16.History of coronary artery disease, stent. 17.History of bilateral carotid endarterectomies and bilateral cataracts. 18.Remote history of nicotine dependence. 19.FULL CODE. RECOMMENDATIONS AND DISCUSSION: This 79-year-old gentleman who presented with multiple complex medical issues, we will monitor the patient closely, continue the current management and symptomatic treatment. Otherwise, continue the empiric antibiotics. The patient is currently on clear liquids. We will continue to monitor. If the patient is not feeling better consider endoscopies by Dr. Pryor. Otherwise, prognosis guarded. Further recommendations to follow. MMODL / IJN: [id number] /
[2019-10-07 17:13] LABS: Glucose,Whole Blood 151 mg/dL (75-99)
--- NOTE | 2019-10-07 18:42 | P.CONS ---
History of Present Illness - Reason for Consult Consult date: 10/07/19 Diarrhea Requesting physician: Zulema Maxwell - Chief Complaint Diarrhea - History of Present Illness 79-year-old male with a medical history significant for hypertension, diabetes mellitus, hyperlipidemia and coronary artery disease status post stent placement in the past and currently on anticoagulation therapy as well as a previous episode of Clostridium difficile colitis presents to the hospital with complaints of diarrhea. The patient previously had been diagnosed with Clostridium difficile colitis in 06/2019. He reports treatment with vancomycin 250 mg for which she was compliant with therapy and had improvement in his diarrhea. He states that he has had approximately 1 week of loose bowel movements. The patient reports multiple frequent loose bowel movements daily, more than he could count, with associated urgency with bowel movements. He denies any hematochezia or melena. The patient had associated lower abdominal cramping with the episode. Denies any fevers, chills, nausea or vomiting. His last colonoscopy was approximately 8 years ago at which time he reports polyps were removed. He had been scheduled for repeat colonoscopy in 06/2019 however this was postponed as the patient had coronary artery stent placement in 03/2019 and has to remain on anticoagulation therapy. Laboratory evaluation on presentation significant for hemoglobin stable at 9.4 from 9.8, WBC 10.1, platelet count 187,000, total bilirubin 1, alkaline phosphatase 45, AST 24 and ALT 18 with EIA testing for Clostridium difficile negative and stool testing for lactoferrin positive computed tomography scan of the abdomen with changes suggestive of mild diverticulitis with fluid levels consistent with diarrhea. Review of Systems REVIEW OF SYSTEMS: CONSTITUTIONAL: Denies any fevers, chills, weight change or fatigue. CARDIOVASCULAR: Denies any chest pain, palpitations high or low blood pressures RESPIRATORY: Denies any shortness of breath, hemoptysis or cough. GENITOURINARY: No dysuria or hematuria. MUSCULOSKELETAL: No weakness reported. SKIN: Denies any new rashes or lesions, jaundice or pallor. PSYCHIATRIC: Denies any depression or anxiety. NEUROLOGY: Denies headache, denies any new focal deficits. EARS/NOSE/THROAT: No recent hearing change, congestion, nasal discharge or sore throat. EYES: No pain in eyes, discharge or change in vision. GASTROINTESTINAL: As per HPI. Past Medical History Past Medical History: Coronary Artery Disease (CAD), Diabetes Mellitus, Hyperlipidemia, Hypertension Additional Past Medical History / Comment(s): gout History of Any Multi-Drug Resistant Organisms: C-DIFF Year Discovered:: stool MDRO Source:: 06/2019 Past Surgical History: Heart Catheterization With Stent, Hernia Repair Additional Past Surgical History / Comment(s): ROZ CAROTID ENDARTERECTOMY,ROZ CATARACTS. COLONOSCOPY. Stent x3 Past Anesthesia/Blood Transfusion Reactions: No Reported Reaction Date of Last Stent Placement:: 04/16/2019 Past Psychological History: No Psychological Hx Reported Smoking Status: Former smoker Past Alcohol Use History: Occasional Additional Past Alcohol Use History / Comment(s): QUIT SMOKING IN 1995, smoked 1ppd from teens Past Drug Use History: None Reported - Past Family History Father Additional Family Medical History / Comment(s): aortic anyserusm Mother Additional Family Medical History / Comment(s): Brain anyrusm Medications and Allergies Home Medications Medication Instructions Recorded Confirmed Type Vitamin B Complex 1 cap PO DAILY 04/15/14 10/05/19 History Aspirin 81 mg PO DAILY 03/02/19 10/05/19 History Cholecalciferol (Vitamin D3) 2,000 unit PO DAILY 03/02/19 10/05/19 History [Vitamin D3] Fish Oil/Dha/Epa [Fish Oil 1,200 1 cap PO DAILY 03/02/19 10/05/19 History mg Fish Oil] Losartan [Cozaar] 50 mg PO DAILY 03/02/19 10/05/19 History amLODIPine [Norvasc] 5 mg PO HS 03/02/19 10/05/19 History Carvedilol [Coreg] 3.125 mg PO BID-W/MEALS #60 tab 03/04/19 10/05/19 Rx Allopurinol [Zyloprim] 100 mg PO DAILY 04/05/19 10/05/19 History Atorvastatin [Lipitor] 40 mg PO HS 04/05/19 10/05/19 History L.acidoph,Paracasei, B.lactis 1 cap PO DAILY 10/05/19 10/05/19 History [Probiotic] Pioglitazone [Actos] 45 mg PO DAILY 10/05/19 10/05/19 History Ticagrelor [Brilinta] 90 mg PO BID 10/05/19 10/05/19 History glipiZIDE XL [Glucotrol Xl] 5 mg PO BID 10/05/19 10/05/19 History Allergies Allergy/AdvReac Type Severity Reaction Status Date / Time metformin AdvReac Diarrhea Verified 10/05/19 09:58 Physical Exam Vitals: Vital Signs Temp Pulse Pulse Resp BP BP Pulse Ox 10/07/19 08:05 97 16 10/07/19 07:00 98.4 F 97 16 128/64 97 10/07/19 02:13 98.0 F 80 18 129/67 97 10/06/19 19:43 98.2 F 73 16 132/61 96 10/06/19 15:00 97.8 F 69 16 117/65 97 Intake and Output 10/06/19 10/07/19 10/07/19 22:59 06:59 14:59 Intake Total 0 Balance 0 Intake: Oral 0 Other: Voiding Method Toilet # Voids 2 # Bowel Movements 4 On physical examination, patient appears comfortable in no apparent distress. HEAD: Normocephalic, atraumatic. EYES: No scleral icterus. No conjunctival injection. MOUTH: No lesions, tongue midline. NECK: Trachea midline, no gross abnormalities. CHEST: Clear to auscultation with no wheezing or rhonchi appreciated. HEART: Regular rate and rhythm. ABDOMEN: Soft, nontender to palpation. Bowel sounds are positive. No organomegaly. No guarding or rigidity. EXTREMITIES: No pedal edema. SKIN: No rashes, no jaundice. NEUROLOGIC: Alert and oriented x3. No focal deficits. Results CBC & Chem 7: 10/07/19 05:42 10/07/19 05:42 Labs: Abnormal Lab Results - Last 24 Hours (Table) 10/05/19 10/06/19 10/06/19 Range/Units 21:22 11:23 20:38 RBC (4.30-5.90) m/uL Hgb (13.0-17.5) gm/dL Hct (39.0-53.0) % Neutrophils # (1.3-7.7) k/uL Lymphocytes # (1.0-4.8) k/uL Sodium (137-145) mmol/L Carbon Dioxide (22-30) mmol/L BUN (9-20) mg/dL Creatinine (0.66-1.25) mg/dL Glucose (74-99) mg/dL POC Glucose (mg/dL) 159 H 144 H (75-99) mg/dL Calcium (8.4-10.2) mg/dL Stool Lactoferrin POSITIVE H (NEGATIVE) 10/07/19 10/07/19 10/07/19 Range/Units 05:42 05:42 06:59 RBC 3.17 L (4.30-5.90) m/uL Hgb 9.4 L (13.0-17.5) gm/dL Hct 28.8 L (39.0-53.0) % Neutrophils # 9.1 H (1.3-7.7) k/uL Lymphocytes # 0.4 L (1.0-4.8) k/uL Sodium 132 L (137-145) mmol/L Carbon Dioxide 20 L (22-30) mmol/L BUN 23 H (9-20) mg/dL Creatinine 1.35 H (0.66-1.25) mg/dL Glucose 149 H (74-99) mg/dL POC Glucose (mg/dL) 177 H (75-99) mg/dL Calcium 8.3 L (8.4-10.2) mg/dL Stool Lactoferrin (NEGATIVE) Assessment and Plan (1) Diarrhea Narrative/Plan: Pleasant 79-year-old male who presented to the hospital with complaints of frequent loose bowel movements and abdominal cramping. He has a history of Clostridium difficile colitis treated in 06/2019. EIA testing for C. diff toxin was negative. Lactoferrin was found to be positive. No significant leukocytosis. He had been reporting frequent loose bowel movements with urgency without blood per rectum or melena. He had no problems since receiving treat ment with vancomycin in June. Last colonoscopy 8 years ago significant for polypectomy, he had been scheduled for colonoscopy which was postponed due to anticoagulation therapy in the setting of cardiac stent placement in March 2019. Computed tomography scan of the abdomen was essentially negative, however there was some inflammation in the sigmoid colon suggestive of mild diverticulitis. Currently on antibiotic therapy. Unknown etiology, may be related to viral or bacterial gastroenteritis, diverticulitis, dietary intolerances, functional bowel disorder, or other etiology. Current Visit: Yes Status: Acute Code(s): R19.7 - DIARRHEA, UNSPECIFIED SNOMED Code(s): 94175646 (2) History of adenomatous polyp of colon Current Visit: Yes Status: Acute Code(s): Z86.010 - PERSONAL HISTORY OF COLONIC POLYPS SNOMED Code(s): 327753265 (3) History of Clostridium difficile colitis Current Visit: Yes Status: Acute Code(s): Z86.19 - PERSONAL HISTORY OF OTHER INFECTIOUS AND PARASITIC DISEASES SNOMED Code(s): 743827512 Plan: Supportive care Clear liquid diet initiated, advance to low fiber/low lactose diet as tolerated PCR for Clostridium difficile ordered EIA for Clostridium difficile toxin negative Continue probiotic Continue cholestyramine Continue Lomotil as needed for diarrhea Stool studies reviewed Continue antibiotic therapy with levofloxacin and Flagyl Patient will need colonoscopy in the outpatient setting once anticoagulation therapy can be safely held Thank you for allowing us to participate in the care of the patient we will continue to follow
[2019-10-07 20:13] LABS: Glucose,Whole Blood 210 mg/dL (75-99)
[2019-10-07] MEDS: LEVOFLOXACIN 500MG-D5W PMX 500 MG in DEXTROSE/WATER 1 100ML.BAG IVPB SCH (20:24)
[2019-10-07] MEDS: amLODIPine 5 MG TAB PO SCH (22:15)
[2019-10-08] MEDS: metroNIDAZOLE-NS PMX 500 MG in SALINE 1 100ML.BAG IVPB SCH ×3 (00:42→16:49)
[2019-10-08] MEDS: D5W WITH KCL 20 MEQ/L 1,000 ML IV SCH ×3 (05:15→17:30)
[2019-10-08 06:59] LABS: Glucose,Whole Blood 204 mg/dL (75-99)
[2019-10-08 07:43] LABS: Basophils % (A) 0 %; Eosinophils # (A) 0.1 k/uL (0-0.7); Eosinophils % (A) 1 %; HCT 29.7 % (39.0-53.0); HGB 9.6 gm/dL (13.0-17.5); Lymphocytes # (A) 0.4 k/uL (1.0-4.8); Lymphocytes % (A) 6 %; MCH 29.5 pg (25.0-35.0); MCHC 32.5 g/dL (31.0-37.0); MCV 90.9 fL (80.0-100.0); Mean Platelet Volume 7.9; Monocytes # (A) 0.2 k/uL (0-1.0); Monocytes % (A) 4 %; Neutrophils # (A) 5.3 k/uL (1.3-7.7); Neutrophils % (A) 87 %; Platelet Count 193 k/uL (150-450); RBC 3.26 m/uL (4.30-5.90); RDW 14.6 % (11.5-15.5); WBC 6.1 k/uL (3.8-10.6)
[2019-10-08 08:09] LABS: Calcium 8.7 mg/dL (8.4-10.2); Potassium 4.3 mmol/L (3.5-5.1)
[2019-10-08] MEDS: TICAGRELOR 90 MG TAB PO SCH ×2 (09:14→22:25)
[2019-10-08] MEDS: ASPIRIN 81 MG PO SCH (09:14)
[2019-10-08] MEDS: PANTOPRAZOLE 40 MG TABLET PO SCH (09:14)
[2019-10-08] MEDS: CARVEDILOL 3.125 MG TAB PO SCH ×2 (09:14→16:49)
[2019-10-08] MEDS: ALLOPURINOL 100 MG TAB PO SCH (09:14)
[2019-10-08] MEDS: LACTOBACILLUS ACIDOPH & BULGAR 1 EACH PACKET PO SCH (09:15)
[2019-10-08] MEDS: HEPARIN SODIUM,PORCINE 5,000 UNIT/ML 1 ML VIAL SQ SCH ×2 (09:15→22:25)
[2019-10-08] MEDS: LOSARTAN 50 MG TAB PO SCH (09:15)
[2019-10-08] MEDS: CHOLESTYRAMINE (WITH SUGAR) 4 GM PACKET PO SCH ×3 (10:47→18:55)
[2019-10-08 12:05] LABS: Glucose,Whole Blood 201 mg/dL (75-99)
[2019-10-08 17:02] LABS: Glucose,Whole Blood 206 mg/dL (75-99)
--- NOTE | 2019-10-08 17:11 | PN ---
PROGRESS NOTE DATE OF SERVICE: 10/08/2019 The patient is a 79-year-old pleasant white male with history of recurrent C diff colitis, admitted to the hospital because of acute onset of severe diarrhea of one week duration. He was having about 7-8 loose watery bowel movements daily with no blood or mucus in the stool, had cramping lower abdominal discomfort and rectal urgency. He had C difficile colitis on 3 different occasions starting from April of 2019 to June of 2019, treated with vancomycin and follows with Dr. Pineda. During this hospitalization, initial C difficile toxin was negative. However, C diff for PCR was reported as positive and, hence, Dr. Pineda has been consulted who will be evaluating the patient soon. In the meantime, patient is feeling better. He has had only one bowel movement today and he has no abdominal pain. PHYSICAL EXAMINATION: Appears comfortable, no apparent distress. Vital signs are stable. Blood pressure is 104/61, pulse 62, temperature 98.1. HEENT: Examination unremarkable. Conjunctivae are pink, sclerae anicteric. Oral cavity no lesions. No JVD or lymph node enlargement. CHEST: Clear to auscultation. HEART: Regular rate and rhythm. ABDOMEN: Soft. Bowel sounds are positive. No organomegaly. EXTREMITIES: No pedal edema. SKIN: No rashes. NEURO: He is alert and oriented x3. No focal deficits. LABS: From today WBC 6.1, hemoglobin 9.6, platelets normal. Basic metabolic panel is within normal limits. Stool C difficile toxin was negative, but C diff PCR was positive. IMPRESSION: History of recurrent Clostridium difficile colitis with documented 3 episodes late part of last year, was treated with vancomycin and did well, now has recurrent diarrhea for the last 1 week duration. Initial C difficile toxin is negative, but C diff on PCR was positive. Presently on Flagyl as well as Questran and this morning the diarrhea has significantly improved. In fact, he had only one bowel movement today. Presently Dr. Pineda has been consulted also to evaluate this further. Last colonoscopy was 8 years ago. RECOMMENDATIONS: 1. Continue with Questran. 2. Continue with Flagyl for now. 3. We will await recommendations from Dr. Pineda. 4. Since the diarrhea has improved, we will not plan on any endoscopic intervention at this time, but I did suggest to the patient that since his last colonoscopy was 8 years ago, we will consider doing this on outpatient basis. Will follow with you closely. Thank you for this consultation. MMODL / IJN: [id number] /
[2019-10-08] MEDS: INSULIN ASPART (NovoLOG) 100 UNIT/ML VIAL SQ SCH ×2 (17:30→22:25)
[2019-10-08] MEDS: VANCOMYCIN ORAL SOLUTION 250 MG/5 ML BOTTLE PO SCH (18:55)
[2019-10-08] MEDS: LEVOFLOXACIN 500MG-D5W PMX 500 MG in DEXTROSE/WATER 1 100ML.BAG IVPB SCH (19:41)
[2019-10-08 19:59] VITALS: RESP 18
[2019-10-08 20:30] LABS: Glucose,Whole Blood 184 mg/dL (75-99)
--- NOTE | 2019-10-08 21:35 | PN ---
PROGRESS NOTE DATE OF SERVICE: 10/08/2019 This 79-year-old gentleman who was admitted with subacute diarrhea is on empiric antibiotics also. No chest pain. No palpitations. No fever. Dr. Pryor is following the patient closely. No chest pain. No palpitations. No fever. On exam alert, oriented x3. Dr. Pineda is following the patient for history of C difficile. The most recent Clostridium difficile is positive. PAST MEDICAL HISTORY: Past medical history is reviewed. EXAM: Alert and oriented x3. The pulse is 62. Blood pressure 118/50, respirations 16, temperature 97.2, pulse ox 98% on room air. HEENT: Conjunctivae normal. NECK: No JVD. CARDIOVASCULAR: S1, S2 muffled. RESPIRATORY SYSTEM: Breath sounds diminished at the bases. A few scattered rhonchi and crackles. ABDOMEN is soft, nontender. LEGS are no edema. No swelling. CENTRAL NERVOUS SYSTEM: No focal deficits. LABS: WBC 6.2, hemoglobin 9.6, sodium 135. ASSESSMENT: 1. Subacute diarrhea with severe dehydration, possibly infective and acute C difficile colitis. 2. Mild proximal sigmoid diverticulitis. 3. Acute renal failure from acute tubular necrosis and prerenal factors and dehydration. 4. Hyponatremia, hypovolemic. 5. Hypokalemia. 6. Mild metabolic acidosis present on admission. 7. Hypoglycemia possibly secondary to diminished p.o. intake. 8. Increased WBC. 9. Anemia, normocytic. 10.Abdominal ileus, possibly secondary to diarrhea. 11.History of coronary artery disease. 12.Diabetes mellitus type 2. 13.Hypertension. 14.History of gout. 15.History of C difficile colitis. 16.History of coronary artery disease/stent. 17.History of bilateral carotid endarterectomies and bilateral cataracts. 18.Remote history of nicotine dependence. 19.FULL CODE. RECOMMENDATIONS AND DISCUSSION: Recommend to continue current medication, continue with symptomatic treatment. Otherwise, at this time, I would repeat labs and continue with current medications. I would also recommend add the addition of vancomycin to the current regimen. Further recommendations to follow. MMODL / IJN: [id number] /
[2019-10-08] MEDS: amLODIPine 5 MG TAB PO SCH (22:25)
--- NOTE | 2019-10-08 23:44 | P.CONS ---
History of Present Illness - Reason for Consult Consult date: 10/08/19 C. diff colitis Requesting physician: Mindy Adam - Chief Complaint Diarrhea 1 week - History of Present Illness Patient is a 79-year-old male with a past medical history significant for C. diff colitis in this patient presented to the hospital on 10/05/2019 with chief complaints of diarrhea of one week duration, patient currently does not episode of C. diff was back in June though I do not see any documentation in his electronic medical record and the last time I saw him was back in April or fever which was thought to be related to viral syndrome and no antibiotics were given to the patient, patient denies any exposure to antibiotics on the [facility] 2 months, he started having diarrhea about a week ago and did have 7-8 episodes of loose stools per day. Denies having any blood or mucus in the stools no significant abdominal pain and some nausea but no vomiting denies high-grade fever with these symptoms the patient presented to hospital on a rrival to the ER the patient was afebrile and remained to be afebrile he did have elevated white count [id number] on admission subsequently normalized CT of abdominal pelvis was done with teachers mild changes of diverticulitis sigmoid colon area, patient stool lactoferrin was positive, stool for C. diff colitis that was negative the patient has been treated with the Flagyl and Levaquin Questran and Lomotil, patient stool for C. diff PCR came back positive today, vancomycin was added infection disease was consulted for further management of his antibiotic therapy Review of Systems Positive point has been mentioned in the HPI rest of the systems are negative Past Medical History Past Medical History: Coronary Artery Disease (CAD), Diabetes Mellitus, Hyperlipidemia, Hypertension Additional Past Medical History / Comment(s): gout History of Any Multi-Drug Resistant Organisms: C-DIFF Year Discovered:: stool MDRO Source:: 06/2019 Past Surgical History: Heart Catheterization With Stent, Hernia Repair Additional Past Surgical History / Comment(s): ROZ CAROTID ENDARTERECTOMY,ROZ CATARACTS. COLONOSCOPY. Stent x3 Past Anesthesia/Blood Transfusion Reactions: No Reported Reaction Date of Last Stent Placement:: 04/16/2019 Past Psychological History: No Psychological Hx Reported Smoking Status: Former smoker Past Alcohol Use History: Occasional Additional Past Alcohol Use History / Comment(s): QUIT SMOKING IN 1995, smoked 1 ppd from teens Past Drug Use History: None Reported - Past Family History Father Additional Family Medical History / Comment(s): aortic anyserusm Mother Additional Family Medical History / Comment(s): Brain anyrusm Medications and Allergies Home Medications Medication Instructions Recorded Confirmed Type Vitamin B Complex 1 cap PO DAILY 04/15/14 10/05/19 History Aspirin 81 mg PO DAILY 03/02/19 10/05/19 History Cholecalciferol (Vitamin D3) 2,000 unit PO DAILY 03/02/19 10/05/19 History [Vitamin D3] Fish Oil/Dha/Epa [Fish Oil 1,200 1 cap PO DAILY 03/02/19 10/05/19 History mg Fish Oil] Losartan [Cozaar] 50 mg PO DAILY 03/02/19 10/05/19 History amLODIPine [Norvasc] 5 mg PO HS 03/02/19 10/05/19 History Carvedilol [Coreg] 3.125 mg PO BID-W/MEALS #60 tab 03/04/19 10/05/19 Rx Allopurinol [Zyloprim] 100 mg PO DAILY 04/05/19 10/05/19 History Atorvastatin [Lipitor] 40 mg PO HS 04/05/19 10/05/19 History L.acidoph,Paracasei, B.lactis 1 cap PO DAILY 10/05/19 10/05/19 History [Probiotic] Pioglitazone [Actos] 45 mg PO DAILY 10/05/19 10/05/19 History Ticagrelor [Brilinta] 90 mg PO BID 10/05/19 10/05/19 History glipiZIDE XL [Glucotrol Xl] 5 mg PO BID 10/05/19 10/05/19 History Allergies Allergy/AdvReac Type Severity Reaction Status Date / Time metformin AdvReac Diarrhea Verified 10/05/19 09:58 Physical Exam Vitals: Vital Signs Temp Pulse Resp BP Pulse Ox 10/08/19 15:00 97.6 F 62 16 118/56 98 10/08/19 07:00 97.6 F 60 16 104/61 98 10/08/19 02:15 98.2 F 66 18 118/72 97 10/07/19 20:29 97.7 F 61 18 106/63 98 Intake and Output 10/08/19 10/08/19 10/08/19 06:59 14:59 22:59 Intake Total 800 Balance 800 Intake: IV 800 D5w with KCl 20 Meq/l 1, 800 000 ml @ 100 mls/hr IV . Q10H [facility] Rx#:[id number] GENERAL DESCRIPTION: Elderly male up in the chair, no distress. No tachypnea or accessory muscle of respiration use. HEENT: Shows Pallor , no scleral icterus. Oral mucous membrane is dry. No pharyngeal erythema or thrush NECK: Trachea central, no thyromegaly. LUNGS: Unlabored breathing. Clear to auscultation anteriorly. No wheeze or crackle. HEART: S1, S2, regular rate and rhythm. No loud murmur ABDOMEN: Soft, no tenderness , guarding or rigidity, no organomegaly EXTREMITIES: No edema of feet. SKIN: No rash, no masses palpable. NEUROLOGICAL: The patient is awake, alert, oriented x3, mood and affect normal. Results CBC & Chem 7: 10/08/19 07:07 10/08/19 07:07 Labs: Abnormal Lab Results - Last 24 Hours (Table) 10/07/19 10/07/19 10/08/19 Range/Units 17:10 20:11 06:54 RBC (4.30-5.90) m/uL Hgb (13.0-17.5) gm/dL Hct (39.0-53.0) % Lymphocytes # (1.0-4.8) k/uL Sodium (137-145) mmol/L Carbon Dioxide (22-30) mmol/L Glucose (74-99) mg/dL POC Glucose (mg/dL) 151 H 210 H 204 H (75-99) mg/dL 10/08/19 10/08/19 10/08/19 Range/Units 07:07 07:07 12:02 RBC 3.26 L (4.30-5.90) m/uL Hgb 9.6 L (13.0-17.5) gm/dL Hct 29.7 L (39.0-53.0) % Lymphocytes # 0.4 L (1.0-4.8) k/uL Sodium 135 L (137-145) mmol/L Carbon Dioxide 21 L (22-30) mmol/L Glucose 185 H (74-99) mg/dL POC Glucose (mg/dL) 201 H (75-99) mg/dL 10/08/19 Range/Units 16:57 RBC (4.30-5.90) m/uL Hgb (13.0-17.5) gm/dL Hct (39.0-53.0) % Lymphocytes # (1.0-4.8) k/uL Sodium (137-145) mmol/L Carbon Dioxide (22-30) mmol/L Glucose (74-99) mg/dL POC Glucose (mg/dL) 206 H (75-99) mg/dL Microbiology - Last 24 Hours (Table) 10/05/19 21:22 Stool Culture - Preliminary Stool Assessment and Plan Assessment: 1-patient presented to the hospital with significant diarrhea or vomiting. Patient in this patient who did have a history of C. diff colitis, likely representing C. diff colitis clinically doubt diverticulitis in this patient with no fever or abdominal pain (1) C. difficile colitis Current Visit: Yes Status: Acute Code(s): A04.72 - ENTEROCOLITIS D/T CLOSTRIDIUM DIFFICILE, NOT SPCF RECUR SNOMED Code(s): 121418768 Plan: 1-discontinue Levaquin and Flagyl and Lomotil 2-vancomycin 250 by mouth every 6 hours and Questran to continue 3-gentle IV fluid 4-advised to increase his probiotic and yogurt intake We will follow on clinical condition and cultures to further adjust medication if needed Thank you for this consultation will follow this patient with you Time with Patient: Greater than 30
[2019-10-09] MEDS: VANCOMYCIN ORAL SOLUTION 250 MG/5 ML BOTTLE PO SCH ×3 (00:51→12:10)
[2019-10-09] MEDS: D5W WITH KCL 20 MEQ/L 1,000 ML IV SCH ×2 (05:00→05:02)
[2019-10-09 07:33] LABS: Glucose,Whole Blood 197 mg/dL (75-99)
[2019-10-09 07:34] LABS: Basophils % (A) 0 %; Eosinophils # (A) 0.1 k/uL (0-0.7); Eosinophils % (A) 1 %; HCT 33.5 % (39.0-53.0); HGB 10.8 gm/dL (13.0-17.5); Hypochromasia Slight; Lymphocytes # (A) 0.4 k/uL (1.0-4.8); Lymphocytes % (A) 6 %; MCH 29.5 pg (25.0-35.0); MCHC 32.2 g/dL (31.0-37.0); MCV 91.8 fL (80.0-100.0); Mean Platelet Volume 7.9; Monocytes # (A) 0.2 k/uL (0-1.0); Monocytes % (A) 4 %; Neutrophils # (A) 5.4 k/uL (1.3-7.7); Neutrophils % (A) 86 %; Platelet Count 239 k/uL (150-450); RBC 3.65 m/uL (4.30-5.90); RDW 14.5 % (11.5-15.5); WBC 6.2 k/uL (3.8-10.6)
[2019-10-09] MEDS: PANTOPRAZOLE 40 MG TABLET PO SCH (07:48)
[2019-10-09] MEDS: INSULIN ASPART (NovoLOG) 100 UNIT/ML VIAL SQ SCH ×2 (07:48→12:10)
[2019-10-09] MEDS: CARVEDILOL 3.125 MG TAB PO SCH (07:48)
[2019-10-09] MEDS: LACTOBACILLUS ACIDOPH & BULGAR 1 EACH PACKET PO SCH (07:48)
[2019-10-09 07:55] LABS: Calcium 9.2 mg/dL (8.4-10.2); Potassium 4.6 mmol/L (3.5-5.1)
[2019-10-09] MEDS: CHOLESTYRAMINE (WITH SUGAR) 4 GM PACKET PO SCH (09:11)
[2019-10-09] MEDS: ALLOPURINOL 100 MG TAB PO SCH (09:11)
[2019-10-09] MEDS: TICAGRELOR 90 MG TAB PO SCH (09:12)
[2019-10-09] MEDS: LOSARTAN 50 MG TAB PO SCH (09:12)
[2019-10-09] MEDS: ASPIRIN 81 MG PO SCH (09:12)
[2019-10-09] MEDS: HEPARIN SODIUM,PORCINE 5,000 UNIT/ML 1 ML VIAL SQ SCH (09:14)
[2019-10-09 10:17] VITALS: BP 131/70; PULSE 61; TEMP 97.5
[2019-10-09 11:47] LABS: Glucose,Whole Blood 230 mg/dL (75-99)
--- NOTE | 2019-10-09 16:21 | PN ---
PROGRESS NOTE DATE OF SERVICE: 10/09/2019. REASON FOR FOLLOWUP: Diarrhea, likely C difficile colitis. INTERVAL HISTORY: The patient is currently afebrile, has been breathing comfortably. Patient's diarrhea frequency has decreased and slightly forming up. No new abdominal pain. No nausea, no vomiting. No chest pain, shortness of breath or cough. Overall feeling better. PHYSICAL EXAMINATION: Blood pressure 131/70 with a pulse of 61, temperature 97.5. He is 97% on room air General description is an elderly male up in the chair in no distress. RESPIRATORY SYSTEM: Unlabored breathing. Clear to auscultation anteriorly. HEART: S1, S2. Regular rate and rhythm. ABDOMEN: Soft. No tenderness. LABS: Hemoglobin is 10.8, white count 6.2, BUN of 13, creatinine 1.01. DIAGNOSTIC IMPRESSION AND PLAN: Patient admitted to hospital with significant diarrhea with stool for Clostridium difficile positive, likely representing active Clostridium difficile colitis. Patient clinically responded to oral vancomycin; to continue. Avoid Questran at the same time. Patient has been advised to increase his probiotic and yogurt intake with close outpatient followup. Prescription sent to the pharmacy. MMODL / CELINAN: [id number] /
--- NOTE | 2019-10-09 17:12 | PN ---
PROGRESS NOTE DATE OF DICTATION: 10/09/2019 The patient is a 79-year-old pleasant white male admitted to the hospital with acute onset of diarrhea for the last 3 days' duration. C difficile toxin was negative, but C difficile PCR was positive. He was started on vancomycin yesterday by Dr. Pineda and remains on Questran. He feels much better. No more diarrhea. He had one bowel movement today. Feeling much better. PHYSICAL EXAMINATION: Appears comfortable. No apparent distress. VITAL SIGNS: Stable. Blood pressure is 132/70, pulse rate 61, temperature 97.5. HEENT examination unremarkable. Conjunctivae pink. Sclerae anicteric. Oral cavity no lesions. NECK: No JVD or lymph node enlargement. CHEST: Clear to auscultation. HEART: Regular rate and rhythm. ABDOMEN: Soft. Bowel sounds are positive. No organomegaly. EXTREMITIES: No pedal edema. SKIN: No rashes. NEUROLOGIC: Alert and oriented x3. No focal deficits. LABS: Labs from today show WBC 6.2, hemoglobin 10.8, platelets normal. Basic metabolic panel is within normal limits. IMPRESSION: Acute recurrent Clostridium difficile colitis, this being the fourth episode, on oral vancomycin and Questran and doing much better. RECOMMENDATIONS: 1. Continue with oral vancomycin 250 mg 4 times daily. 2. Continue Questran 1 packet twice daily. 3. Recommend a stool transplant at this time and will discuss with Dr. Pineda. 4. Thank you for this consultation. MMODL / IJN: [id number] /
--- NOTE | 2019-10-10 09:02 | P.DS ---
Providers Date of admission: 10/05/19 11:28 Expected date of discharge: 10/09/19 Attending physician: Cosme Freeman Consults: 10/06/19 18:03 Consult Physician Routine Consulting Provider: Jama Pryor Consult Reason/Comments: diarrhea Do you want consulting provider notified?: Yes 10/08/19 10:56 Consult Physician Routine Consulting Provider: Naveen Pineda Consult Reason/Comments: diarrhea, hx of C-diff, detected cdiff PCR, known to pt Do you want consulting provider notified?: Yes [facility] Course: Final diagnosis Subacute diarrhea with severe dehydration, possibly infective and acute C. difficile colitis Mild proximal sigmoid diverticulitis Acute renal failure from acute tubular necrosis and prerenal factors and dehydration Hyponatremia, hypovolemic hypokalemia mild metabolic acidosis on a present on admission Hypoglycemia possibly secondary to diminished by mouth intake Increased WBC anemia, normocytic abdominal ileus, possibly secondary to diarrhea history of coronary artery disease Diabetes mellitus type 2 Hypertension History of gout History of C. difficile colitis History of coronary artery disease/stent History of bilateral carotid endarterectomies and bilateral cataracts Remote history of nicotine dependence Full code Discharge disposition Patient is being discharged in a stable condition with guarded prognosis to home and will follow-up with Dr. Allen in the outpatient setting upon discharge. Patient will also be following up with Dr. Pineda in the wound clinic in 1-2 weeks. Patient will follow-up with GI Dr. Adam in about 4 weeks. Patient will continue on a short course of oral antibiotics in the form of vancomycin for the next 2 weeks. Total time taken is 35 minutes. History of present illness This is a 79-year-old female who was recently admitted with subacute diarrhea was being closely monitored. Patient C. diff PCR was found to be positive and patient was started on vancomycin with improvement in diarrhea. Patient will continue with this in the outpatient setting for 2 weeks. Patient will be following up with Dr. Allen upon discharge along with Dr. Pineda in the outpatient setting in 1-2 weeks. Currently patient's condition is stable and is ready for discharge today. No reports of chest pain, shortness of breath, or palpitations. Patient is afebrile. Patient is tolerating diet with no reports of nausea or vomiting. Patient would like to go home today. On exam vital signs are stable. Temp is 97.9 F, pulse is 75, respirations are 18, blood pressure is 119/72, oxygen saturation is 98% on room air. Cardio S1, S2 are muffled. Respiratory system shows diminished breath sounds at the bases with no wheezing or rhonchi noted. Abdomen is soft and nontender. Nervous system shows no focal deficits. Please refer to medication reconciliation sheet for a list of medications. Patient Condition at Discharge: Stable Plan - Discharge Summary New Discharge Prescriptions: New Cholestyramine (with Sugar) [Questran Packet] 4 gm PO TID BETWEEN MEALS #21 packet Vancomycin Oral Solution 250 mg PO Q6HR #240 ml Pantoprazole [Protonix] 40 mg PO AC-BRKFST 7 Days #7 tablet. Continue Vitamin B Complex 1 cap PO DAILY Cholecalciferol (Vitamin D3) [Vitamin D3] 2,000 unit PO DAILY Aspirin 81 mg PO DAILY amLODIPine [Norvasc] 5 mg PO HS Losartan [Cozaar] 50 mg PO DAILY Fish Oil/Dha/Epa [Fish Oil 1,200 mg Fish Oil] 1 cap PO DAILY Carvedilol [Coreg] 3.125 mg PO BID-W/MEALS #60 tab Atorvastatin [Lipitor] 40 mg PO HS Allopurinol [Zyloprim] 100 mg PO DAILY Ticagrelor [Brilinta] 90 mg PO BID Pioglitazone [Actos] 45 mg PO DAILY glipiZIDE XL [Glucotrol XL] 5 mg PO BID L.acidoph,Paracasei, B.lactis [Probiotic] 1 cap PO DAILY Discharge Medication List Vitamin B Complex 1 cap PO DAILY 04/15/14 [History] Aspirin 81 mg PO DAILY 03/02/19 [History] Cholecalciferol (Vitamin D3) [Vitamin D3] 2,000 unit PO DAILY 03/02/19 [History] Fish Oil/Dha/Epa [Fish Oil 1,200 mg Fish Oil] 1 cap PO DAILY 03/02/19 [History] Losartan [Cozaar] 50 mg PO DAILY 03/02/19 [History] amLODIPine [Norvasc] 5 mg PO HS 03/02/19 [History] Carvedilol [Coreg] 3.125 mg PO BID-W/MEALS #60 tab 03/04/19 [Rx] Allopurinol [Zyloprim] 100 mg PO DAILY 04/05/19 [History] Atorvastatin [Lipitor] 40 mg PO HS 04/05/19 [History] L.acidoph,Paracasei, B.lactis [Probiotic] 1 cap PO DAILY 10/05/19 [History] Pioglitazone [Actos] 45 mg PO DAILY 10/05/19 [History] Ticagrelor [Brilinta] 90 mg PO BID 10/05/19 [History] glipiZIDE XL [Glucotrol XL] 5 mg PO BID 10/05/19 [History] Cholestyramine (with Sugar) [Questran Packet] 4 gm PO TID BETWEEN MEALS #21 packet 10/09/19 [Rx] Pantoprazole [Protonix] 40 mg PO AC-BRKFST 7 Days #7 tablet.dr 10/09/19 [Rx] Vancomycin Oral Solution 250 mg PO Q6HR #240 ml 10/09/19 [Rx] Follow up Appointment(s)/Referral(s): Mindy Adam MD [STAFF PHYSICIAN] - 4 Weeks (Hospital follow up office will contact you if anything changes.) Víctor Allen MD [Primary Care Provider] - 10/16/19 2:00 pm Naveen Pineda MD [STAFF PHYSICIAN] - 10/23/19 11:00 am Ambulatory/Diagnostic Orders: Basic Metabolic Panel [LAB.AMB] Time Frame: 2 Days, Location: None Selected Patient Instructions/Handouts: C Diff (Clostridium Difficile) Infection (DC), Impaired Kidney Function (DC) Activity/Diet/Wound Care/Special Instructions: Activity Limited until follow-up Follow-up with primary care provider upon discharge Follow-up with GI in 4 weeks Continue current diet Continue with antibiotics until finished Do not take Questran/Cholestyramine at the same time as your Vancomycin (antibiotic) take about 3 hours apart. Also hold Questran when diarrhea stops (this medication can cause constipation). Discharge Disposition: HOME SELF-CARE
== END 2019-10-09 16:47 | disposition home or self-care (01) | DRG 371 ==
LOC: EC 08:33 → 4SSUR 11:28
PROVIDERS: ADMIT Hospitalist; ATTEND Hospitalist
DX: A04.71 Enterocolitis due to Clostridium difficile, recurrent (principal); N17.0 Acute kidney failure with tubular necrosis; E87.1 Hypo-osmolality and hyponatremia; E87.2 Acidosis; K56.7 Ileus, unspecified; K57.32 Diverticulitis of large intestine without perforation or abscess without bleeding; E11.649 Type 2 diabetes mellitus with hypoglycemia without coma; D64.9 Anemia, unspecified; E78.5 Hyperlipidemia, unspecified; E86.0 Dehydration; E86.1 Hypovolemia; E87.6 Hypokalemia; I10 Essential (primary) hypertension; I25.10 Atherosclerotic heart disease of native coronary artery without angina pectoris; M10.9 Gout, unspecified; Z79.02 Long term (current) use of antithrombotics/antiplatelets; Z79.82 Long term (current) use of aspirin; Z79.84 Long term (current) use of oral hypoglycemic drugs; Z79.899 Other long term (current) drug therapy; Z86.010 Personal history of colon polyps; Z86.19 Personal history of other infectious and parasitic diseases; Z87.891 Personal history of nicotine dependence; Z95.5 Presence of coronary angioplasty implant and graft; Z88.8 Allergy status to other drugs, medicaments and biological substances; Z98.42 Cataract extraction status, left eye; Z98.41 Cataract extraction status, right eye; Z96.1 Presence of intraocular lens; Z82.49 Family history of ischemic heart disease and other diseases of the circulatory system
CPT/HCPCS: 36415; 71045; 74018; 74176; 80048; 80053; 81003; 82150; 83630; 83690; 85025; 87045; 87046; 87324; 87328; 87329; 87493; 96360; 96361; 99285

== ENCOUNTER → 2020-05-12 | Outpatient (CLI) | payer MEDICARE ==
[2020-05-12 12:26] LABS: Basophils % (A) 0 %; Eosinophils # (A) 0.1 k/uL (0-0.7); Eosinophils % (A) 4 %; HCT 35.3 % (39.0-53.0); Hypochromasia Slight; Lymphocytes # (A) 0.5 k/uL (1.0-4.8); Lymphocytes % (A) 13 %; MCH 29.4 pg (25.0-35.0); MCHC 31.2 g/dL (31.0-37.0); MCV 94.3 fL (80.0-100.0); Mean Platelet Volume 7.9; Monocytes # (A) 0.3 k/uL (0-1.0); Monocytes % (A) 8 %; Neutrophils % (A) 73 %; Platelet Count 166 k/uL (150-450); RBC 3.75 m/uL (4.30-5.90); RDW 15.4 % (11.5-15.5); WBC 4.1 k/uL (3.8-10.6)
[2020-05-12 19:48] LABS: % Iron Saturation 13.71 (15.00-50.00)
[2020-05-12 19:56] LABS: Ferritin 43.8 ng/mL (22.0-322.0)
== END | disposition home or self-care (01) ==
LOC: LABWHC1 11:14
PROVIDERS: ATTEND Internal Medicine
DX: D50.9 Iron deficiency anemia, unspecified (principal)
CPT/HCPCS: 36415; 82728; 83540; 83550; 85025

== ENCOUNTER 2020-05-17 06:48 | Emergency (ER) | payer MEDICARE ==
[2020-05-17 06:56] VITALS: TEMP 97.9
[2020-05-17] MEDS ORDERED: SODIUM CHLORIDE 0.9% 1,000 ML IV STA (07:08)
--- NOTE | 2020-05-17 07:19 | ED ---
Abdominal Pain HPI <Naresh Renee - Last Filed: 05/17/20 08:58> - General Source: patient, family, RN notes reviewed Mode of arrival: wheelchair Limitations: no limitations <Noble Osborne - Last Filed: 05/17/20 09:00> - General Chief Complaint: Abdominal Pain Stated Complaint: ABD PAIN Time Seen by Provider: 05/17/20 06:57 - History of Present Illness Initial Comments: 79-year-old male presents emergency Department chief complaint of right lower quadrant abdominal pain. Patient states that pain started late last night has wax and wane but has become more progressive. Patient states he has no co mplaint of nausea, vomiting, diarrhea, constipation, dysuria, hematuria. Denies any melena hematochezia. No hematemesis or coffee-ground emesis. Patient's had no prior abdominal surgeries. He has known gallstones but states pain is in his lower abdomen. Patient denies any chest pain, shortness breath denies fevers or chills. (Noble Osborne) - Related Data Home Medications Medication Instructions Recorded Confirmed Vitamin B Complex 1 cap PO DAILY 04/15/14 05/17/20 Aspirin 81 mg PO DAILY 03/02/19 05/17/20 Cholecalciferol (Vitamin D3) 2,000 unit PO DAILY 03/02/19 05/17/20 [Vitamin D3] Fish Oil/Dha/Epa [Fish Oil 1,200 1 cap PO DAILY 03/02/19 05/17/20 mg Fish Oil] Losartan [Cozaar] 50 mg PO DAILY 03/02/19 05/17/20 amLODIPine [Norvasc] 5 mg PO HS 03/02/19 05/17/20 Allopurinol [Zyloprim] 100 mg PO DAILY 04/05/19 05/17/20 L.acidoph,Paracasei, B.lactis 1 cap PO DAILY 10/05/19 05/17/20 [Probiotic] Pioglitazone [Actos] 45 mg PO DAILY 10/05/19 05/17/20 glipiZIDE XL [Glucotrol XL] 5 mg PO BID 10/05/19 05/17/20 Atorvastatin [Lipitor] 40 mg PO HS 05/17/20 05/17/20 Previous Rx's Medication Instructions Recorded carvediloL [Coreg] 3.125 mg PO BID-W/MEALS #60 tab 03/04/19 Ciprofloxacin HCl [Cipro] 500 mg PO Q12HR #20 tablet 05/17/20 metroNIDAZOLE [Flagyl] 500 mg PO TID #30 tab 05/17/20 Allergies Allergy/AdvReac Type Severity Reaction Status Date / Time metformin AdvReac Diarrhea Verified 05/17/20 08:36 Review of Systems ROS Other: All systems not noted in ROS Statement are negative. <Naresh Renee - Last Filed: 05/17/20 08:58> ROS Other: All systems not noted in ROS Statement are negative. <Noble Osborne - Last Filed: 05/17/20 09:00> ROS Statement: Those systems with pertinent positive or pertinent negative responses have been documented in the HPI. Past Medical History Past Medical History: Coronary Artery Disease (CAD), Diabetes Mellitus, Hyperlipidemia, Hypertension Additional Past Medical History / Comment(s): gout History of Any Multi-Drug Resistant Organisms: C-DIFF Date of last positivie culture/infection: stool MDRO Source:: 06/2019 Past Surgical History: Heart Catheterization With Stent, Hernia Repair Additional Past Surgical History / Comment(s): ROZ CAROTID ENDARTERECTOMY,ROZ CATARACTS. COLONOSCOPY. Stent x3 Past Anesthesia/Blood Transfusion Reactions: No Reported Reaction Date of Last Stent Placement:: 04/16/2019 Past Psychological History: No Psychological Hx Reported Smoking Status: Never smoker Past Alcohol Use History: Occasional Past Drug Use History: None Reported - Past Family History Father Additional Family Medical History / Comment(s): aortic anyserusm Mother Additional Family Medical History / Comment(s): Brain anyrusm <Noble Osborne - Last Filed: 05/17/20 09:00> General Exam Limitations: no limitations General appearance: alert, in no apparent distress Head exam: Present: atraumatic, normocephalic, normal inspection Neck exam: Present: normal inspection, full ROM. Absent: tenderness, meningismus, lymphadenopathy Respiratory exam: Present: normal lung sounds bilaterally. Absent: respiratory distress, wheezes, rales, rhonchi, stridor Cardiovascular Exam: Present: regular rate, normal rhythm, normal heart sounds. Absent: systolic murmur, diastolic murmur, rubs, gallop, clicks GI/Abdominal exam: Present: soft, tenderness (Mild to moderate right lower), normal bowel sounds. Absent: distended, guarding, rebound, rigid Back exam: Absent: CVA tenderness (R), CVA tenderness (L) Neurological exam: Present: alert, oriented X3 Skin exam: Present: warm, dry, intact, normal color. Absent: rash <Noble Osborne - Last Filed: 05/17/20 09:00> Course <Naresh Renee - Last Filed: 05/17/20 08:58> Vital Signs 05/17/20 06:52 Temperature 97.9 F Pulse Rate 77 Respiratory 20 Rate Blood Pressure 157/85 O2 Sat by Pulse 97 Oximetry - Reevaluation(s) Reevaluation #1: 05/17/20 08:58 PA supervision: I proceeded [id number] evaluation patient did present with complaints of right sided lower abdominal pain. No fevers chills or sweats imaging studies to show evidence of diverticulitis, uncomplicated. I did examine the patient he is nontender to palpation over the abdomen he was offered admission he would further go home. He will be placed on appropriate antibiotics. Return parameters were discussed. I do agree with the assessment and plan. (Naresh Renee) Medical Decision Making - Lab Data Result diagrams: 05/17/20 07:19 05/17/20 07:19 <VíctorNaresh - Last Filed: 05/17/20 08:58> - Lab Data Result diagrams: 05/17/20 07:19 05/17/20 07:19 <Noble Osborne - Last Filed: 05/17/20 09:00> - Medical Decision Making 79 presented for abdominal pain labs, vitals were reviewed. Nursing for abnormality. CT shows evidence of diverticulitis. Patient offered admission p [facility] states he is comfortable discharged with oral antibiotics. We discussed return parameters. Patient with close follow-up. (Noble Osborne) - Lab Data Lab Results 05/17/20 05/17/20 05/17/20 Range/Units 07:19 07:19 07:19 WBC 7.3 (3.8-10.6) k/uL RBC 3.71 L (4.30-5.90) m/uL Hgb 10.9 L (13.0-17.5) gm/dL Hct 33.9 L (39.0-53.0) % MCV 91.4 (80.0-100.0) fL MCH 29.5 (25.0-35.0) pg MCHC 32.2 (31.0-37.0) g/dL RDW 15.4 (11.5-15.5) % Plt Count 139 L (150-450) k/uL Neutrophils % 83 % Lymphocytes % 7 % Monocytes % 6 % Eosinophils % 3 % Basophils % 0 % Neutrophils # 6.1 (1.3-7.7) k/uL Lymphocytes # 0.5 L (1.0-4.8) k/uL Monocytes # 0.4 (0-1.0) k/uL Eosinophils # 0.2 (0-0.7) k/uL Basophils # 0.0 (0-0.2) k/uL Sodium 138 (137-145) mmol/L Potassium 4.5 (3.5-5.1) mmol/L Chloride 105 (98-107) mmol/L Carbon Dioxide 24 (22-30) mmol/L Anion Gap 9 mmol/L BUN 28 H (9-20) mg/dL Creatinine 1.08 (0.66-1.25) mg/dL Est GFR (CKD-EPI)AfAm 76 (>60 ml/min/1.73 sqM) Est GFR (CKD-EPI)NonAf 66 (>60 ml/min/1.73 sqM) Glucose 165 H (74-99) mg/dL Plasma Lactic Acid Riccardo (0.7-2.0) mmol/L Calcium 9.4 (8.4-10.2) mg/dL Total Bilirubin 0.7 (0.2-1.3) mg/dL AST 22 (17-59) U/L ALT 19 (4-49) U/L Alkaline Phosphatase 49 (38-126) U/L Total Protein 7.3 (6.3-8.2) g/dL Albumin 4.5 (3.5-5.0) g/dL Amylase 47 (30-110) U/L Lipase 48 (23-300) U/L Urine Color Light Yellow Urine Appearance Clear (Clear) Urine pH 5.5 (5.0-8.0) Ur Specific [place] 1.013 (1.001-1.035) Urine Protein Negative (Negative) Urine Glucose (UA) Negative (Negative) Urine Ketones Negative (Negative) Urine Blood Negative (Negative) Urine Nitrite Negative (Negative) Urine Bilirubin Negative (Negative) Urine Urobilinogen <2.0 (<2.0) mg/dL Ur Leukocyte Esterase Negative (Negative) 05/17/20 Range/Units 07:19 WBC (3.8-10.6) k/uL RBC (4.30-5.90) m/uL Hgb (13.0-17.5) gm/dL Hct (39.0-53.0) % MCV (80.0-100.0) fL MCH (25.0-35.0) pg MCHC (31.0-37.0) g/dL RDW (11.5-15.5) % Plt Count (150-450) k/uL Neutrophils % % Lymphocytes % % Monocytes % % Eosinophils % % Basophils % % Neutrophils # (1.3-7.7) k/uL Lymphocytes # (1.0-4.8) k/uL Monocytes # (0-1.0) k/uL Eosinophils # (0-0.7) k/uL Basophils # (0-0.2) k/uL Sodium (137-145) mmol/L Potassium (3.5-5.1) mmol/L Chloride (98-107) mmol/L Carbon Dioxide (22-30) mmol/L Anion Gap mmol/L BUN (9-20) mg/dL Creatinine (0.66-1.25) mg/dL Est GFR (CKD-EPI)AfAm (>60 ml/min/1.73 sqM) Est GFR (CKD-EPI)NonAf (>60 ml/min/1.73 sqM) Glucose (74-99) mg/dL Plasma Lactic Acid Riccardo 0.9 (0.7-2.0) mmol/L Calcium (8.4-10.2) mg/dL Total Bilirubin (0.2-1.3) mg/dL AST (17-59) U/L ALT (4-49) U/L Alkaline Phosphatase (38-126) U/L Total Protein (6.3-8.2) g/dL Albumin (3.5-5.0) g/dL Amylase (30-110) U/L Lipase (23-300) U/L Urine Color Urine Appearance (Clear) Urine pH (5.0-8.0) Ur Specific [place] (1.001-1.035) Urine Protein (Negative) Urine Glucose (UA) (Negative) Urine Ketones (Negative) Urine Blood (Negative) Urine Nitrite (Negative) Urine Bilirubin (Negative) Urine Urobilinogen (<2.0) mg/dL Ur Leukocyte Esterase (Negative) Disposition <Naresh Renee - Last Filed: 05/17/20 08:58> Is patient prescribed a controlled substance at d/c from ED?: No Time of Disposition: 09:00 <Noble Osborne - Last Filed: 05/17/20 09:00> Clinical Impression: Diverticulitis Disposition: HOME SELF-CARE Condition: Stable Instructions (If sedation given, give patient instructions): Diverticulitis (ED), Diverticulitis Diet (ED) Additional Instructions: Please return to the Emergency Department if symptoms worsen or any other concerns. Prescriptions: Ciprofloxacin HCl [Cipro] 500 mg PO Q12HR #20 tablet metroNIDAZOLE [Flagyl] 500 mg PO TID #30 tab Referrals: Víctor Allen MD [Primary Care Provider] - 1-2 days
[2020-05-17 07:33] LABS: Basophils % (A) 0 %; Eosinophils # (A) 0.2 k/uL (0-0.7); Eosinophils % (A) 3 %; HCT 33.9 % (39.0-53.0); HGB 10.9 gm/dL (13.0-17.5); Lymphocytes # (A) 0.5 k/uL (1.0-4.8); Lymphocytes % (A) 7 %; MCH 29.5 pg (25.0-35.0); MCHC 32.2 g/dL (31.0-37.0); MCV 91.4 fL (80.0-100.0); Mean Platelet Volume 7.8; Monocytes # (A) 0.4 k/uL (0-1.0); Monocytes % (A) 6 %; Neutrophils # (A) 6.1 k/uL (1.3-7.7); Neutrophils % (A) 83 %; Platelet Count 139 k/uL (150-450); RBC 3.71 m/uL (4.30-5.90); RDW 15.4 % (11.5-15.5); WBC 7.3 k/uL (3.8-10.6)
[2020-05-17 07:36] LABS: Appearance,Urine Clear (Clear); Bilirubin,Urine Negative (Negative); Blood,Urine Negative (Negative); Color,Urine Light Yellow; Glucose,Urine (UA) Negative (Negative); Ketones,Urine Negative (Negative); Leukocyte Esterase,Urine Negative (Negative); Nitrite,Urine Negative (Negative); PH, Urine 5.5 (5.0-8.0); Protein,Urine Negative (Negative); Specific Gravity,Urine 1.013 (1.001-1.035); Urobilinogen,Urine <2.0 mg/dL (<2.0)
[2020-05-17 07:47] LABS: Albumin 4.5 g/dL (3.5-5.0); Calcium 9.4 mg/dL (8.4-10.2); Potassium 4.5 mmol/L (3.5-5.1); Total Bilirubin 0.7 mg/dL (0.2-1.3); Total Protein 7.3 g/dL (6.3-8.2)
--- NOTE | 2020-05-17 08:44 | CT ---
EXAMINATION TYPE: CT abdomen pelvis w con DATE OF EXAM: 05/17/2020 COMPARISON: CT abdomen and pelvis October 05, 2019 HISTORY: RLQ pain CT DLP: 1327.2 mGycm, Automated Exposure Control for Dose Reduction was Utilized. CONTRAST: CT scan of the abdomen and pelvis is performed without oral but with IV Contrast, patient injected wi th 100 ml mL of Isovue 300. FINDINGS: LUNG BASES: There is redemonstration of suspected right coronary artery stent. There is dense calcifi cation at level of mitral annulus redemonstrated. LIVER/GB: Multiple small dependent gallstones. PANCREAS: No significant abnormality is seen. SPLEEN: No significant abnormality is seen. ADRENALS: No significant abnormality is seen. KIDNEYS: Symmetric cortical measuring uptake and excretion without hydronephrosis seen bilaterally. T here is 3.2 cm simple appearing thin-walled cyst anteriorly lower pole of the right kidney. Occasiona l smaller thin-walled cyst noted bilaterally. BOWEL: Evaluation of bowel suboptimal secondary to lack of enteric contrast. Stomach poorly distended and thus suboptimally evaluated. No suspicious small or large bowel dilatation. Sigmoid colonic dive rticula with moderate ill-defined fluid and fat stranding proximal to mid sigmoid colon level anterio r upper to mid pelvis just left of midline consistent with acute diverticulitis. No well-formed fluid collection or drainable abscess noted. No free air is seen. Poor distention of the lumen at this lev el with moderate to severe wall thickening similar to prior study. PROSTATE/SEMINAL VESICLES: No gross abnormality seen. LYMPH NODES: No greater than 1cm abdominal or pelvic lymph nodes are appreciated. OSSEOUS STRUCTURES: Spine is straightened. Grade 1 retrolisthesis L2 on L3 and L3-L4. Moderate disc s pace narrowing and vacuum disc phenomenon at these levels. Slight scoliotic curvature. OTHER: Moderate calcified plaque in ectatic abdominal aorta. No greater than 3.0 cm AAA IMPRESSION: There is new fairly moderate uncomplicated acute proximal to mid sigmoid diverticulitis i n the mid pelvis central to left aspect anteriorly. Inflammatory changes more prominent than prior CT . Advise colonoscopy follow-up after treatment to rule out underlying mass at this level if has not b een performed in last 3 years.
[2020-05-17 09:08] VITALS: BP 149/62; PULSE 68; RESP 19
== END 2020-05-17 09:11 | disposition home or self-care (01) ==
LOC: EC 06:48
DX: K57.32 Diverticulitis of large intestine without perforation or abscess without bleeding (principal); I10 Essential (primary) hypertension; E11.9 Type 2 diabetes mellitus without complications; E78.5 Hyperlipidemia, unspecified; I25.10 Atherosclerotic heart disease of native coronary artery without angina pectoris; M10.9 Gout, unspecified; Z79.899 Other long term (current) drug therapy; Z79.84 Long term (current) use of oral hypoglycemic drugs; Z79.82 Long term (current) use of aspirin; Z88.8 Allergy status to other drugs, medicaments and biological substances
CPT/HCPCS: 36415; 80053; 82150; 83605; 83690; 85025; 81003; 74177; 99284; 96360; 96361; Q9967

== ENCOUNTER 2020-06-26 06:45 | Day surgery (SDC) | payer MEDICARE ==
[2020-06-24 11:34] VITALS: BMI 31.9
[~2020-06-26 06:45] MED LIST changes: -ALPRAZolam 0.25 MG TAB PO PRN; -ALPRAZolam 0.5 MG TAB PO PRN; -ASPIRIN 325 MG TAB PO STA; -ATORVASTATIN 80 MG TAB PO STA; +LACTATED RINGERS 1,000 ML IV SCH; -NITROGLYCERIN SL TABS 0.4 MG TAB SUBLINGUAL PRN; -SODIUM CHLORIDE 0.9% 1,000 ML in EMPTY BAG 1 BAG IV ONE
[2020-06-26] MEDS ORDERED: LIDOCAINE 1% INJ 10MG/ML (20 ML MDV) ONE (07:29)
[2020-06-26] MEDS ORDERED: PROPOFOL 10 MG/ML 20 ML VIAL IV ONE (07:29)
[2020-06-26] MEDS ORDERED: fentaNYL (PF) 50 MCG/ML 2 ML AMP ONE (07:29)
[2020-06-26 07:32] LABS: Glucose,Whole Blood 101 mg/dL (75-99)
--- NOTE | 2020-06-26 08:09 | P.PCN ---
Date of Procedure: 06/26/20 Description of Procedure: Brief history: Patient is a pleasant 79-year-old male presenting for outpatient EGD and colonoscopy for evaluation of iron deficiency anemia. Patient previously on anticoagulation which she has completed after cardiac stent placement. He denies any signs or symptoms of bleeding. He was noted to be anemic with an iron deficiency anemia and has been started on iron supplementation. Last colonoscopy approximately 10 years ago. Procedure performed: Esophagogastroduodenoscopy with biopsy Colonoscopy Estimated blood loss: Minimal. Preoperative diagnosis: Iron deficiency anemia, last colonoscopy approximately 10 years ago Anesthesia: MAC Procedure: After informed consent was obtained from the patient was brought into the endoscopy unit and IV sedation was administered by anesthesia under continuous monitoring. Initially upper endoscopy was done. The Olympus GF 190 video endoscope was inserted into the mouth and esophagus intubated without any difficulty and was gradually advanced into the stomach and duodenum and carefully examined. The bulb and second part of the duodenum appeared normal, except for some mild erythema suggestive of mild duodenitis with biopsies taken. There is also a benign stricture however this was able to be traversed with the endoscope. The scope was then withdrawn into the stomach adequately insufflated with air and upon careful examination the antrum and body, cardia and fundus appeared normal, except for some mild punctate erythema in the antrum and body suggestive of mild gastritis biopsy taken. The scope was then withdrawn into the esophagus. The GE junction was located at 37 cm to the incisors and biopsied. A small 1 cm hiatal hernia was noted. It appeared regular with no erythema erosions or ulcerations. Rest of the esophagus appeared normal. Patient tolerated the procedure well. At this time the patient continued to remain sedation. Initial digital rectal examination was normal. Olympus CF 190 video colonoscope was then inserted into the rectum and gradually advanced to the cecum without any difficulty. Careful examination was performed as the scope was gradually being withdrawn. The prep was excellent. The cecum, ascending colon, transverse colon, descending colon, sigmoid colon and rectum appeared normal. Normal appearing terminal ileum. Multiple small and large mouth diverticula in the left colon. Retroflexion was performed in the rectum and no lesions were noted, low-grade internal hemorrhoids. Patient tolerated the procedure well. Impression: 1. Mild gastritis. Mild duodenitis. Biopsies of the duodenum, antrum and body and GE junction. 2. Moderate left colonic diverticulosis. Internal hemorrhoids. Recommendations: Findings of this examination were discussed with the patient as well as his son. Okay to resume diet. Okay to resume medications. Avoid NSAID use. Continue iron supplementation discussed in clinic. Follow-up in the GI clinic as scheduled.
[2020-06-26 08:41] VITALS: BP 129/67; PULSE 55; RESP 16; TEMP 98.2
== END 2020-06-26 09:10 | disposition home or self-care (01) ==
LOC: ORWHC2ENDO 06:45
PROVIDERS: ATTEND Internal Medicine
DX: K29.50 Unspecified chronic gastritis without bleeding (principal); K20.90 Esophagitis, unspecified without bleeding; K44.9 Diaphragmatic hernia without obstruction or gangrene; K57.30 Diverticulosis of large intestine without perforation or abscess without bleeding; K29.80 Duodenitis without bleeding; K64.8 Other hemorrhoids; D50.9 Iron deficiency anemia, unspecified; Z95.5 Presence of coronary angioplasty implant and graft; E11.9 Type 2 diabetes mellitus without complications; Z79.84 Long term (current) use of oral hypoglycemic drugs; Z79.82 Long term (current) use of aspirin; Z79.899 Other long term (current) drug therapy; Z98.890 Other specified postprocedural states; Z88.8 Allergy status to other drugs, medicaments and biological substances
CPT/HCPCS: 88305; 45378; 43239; J2001; J3010; J2704

== ENCOUNTER → 2020-10-09 | Outpatient (CLI) | payer MEDICARE ==
[2020-10-09 23:02] LABS: Basophils # (A) 0.02 X 10*3/uL (0.00-0.10); Basophils % (A) 0.4 %; Eosinophils # (A) 0.22 X 10*3/uL (0.04-0.35); Eosinophils % (A) 4.3 %; HCT 34.9 % (39.6-50.0); Lymphocytes # (A) 1.08 X 10*3/uL (0.90-5.00); Lymphocytes % (A) 20.9 %; MCH 30.8 pg (27.0-32.0); MCHC 31.5 g/dL (32.0-37.0); MCV 97.8 fL (80.0-97.0); Mean Platelet Volume 10.3 fL (9.5-12.2); Monocytes # (A) 0.53 X 10*3/uL (0.20-1.00); Monocytes % (A) 10.3 %; Neutrophils # (A) 3.31 X 10*3/uL (1.80-7.70); Neutrophils % (A) 63.9 %; Platelet Count 175 X 10*3/uL (140-440); RBC 3.57 X 10*6/uL (4.40-5.60); RDW 14.9 % (11.5-14.5); WBC 5.17 X 10*3/uL (4.50-10.00)
[2020-10-10 00:16] LABS: % Iron Saturation 22.57 (15.00-50.00)
[2020-10-10 00:25] LABS: Ferritin 60.1 ng/mL (22.0-322.0)
== END | disposition home or self-care (01) ==
LOC: LABWHC1 14:33
PROVIDERS: ATTEND Internal Medicine
DX: D50.9 Iron deficiency anemia, unspecified (principal)
CPT/HCPCS: 36415; 82728; 83540; 83550; 85025

== ENCOUNTER 2022-09-20 12:36 | Inpatient (IN) | payer MEDICARE ==
[2022-09-20] MEDS ORDERED: NITROGLYCERIN OINT 1 INCH/GM PACKET TOPICAL STA (13:05)
[2022-09-20] MEDS ORDERED: ASPIRIN 81 MG PO STA (13:05)
[2022-09-20 13:17] LABS: Basophils % (A) 0 %; Eosinophils # (A) 0.2 k/uL (0-0.7); Eosinophils % (A) 5 %; HCT 34.9 % (39.0-53.0); HGB 11.3 gm/dL (13.0-17.5); Lymphocytes # (A) 0.7 k/uL (1.0-4.8); Lymphocytes % (A) 18 %; MCHC 32.5 g/dL (31.0-37.0); MCV 92.1 fL (80.0-100.0); Mean Platelet Volume 8.4; Monocytes # (A) 0.2 k/uL (0-1.0); Monocytes % (A) 5 %; Neutrophils # (A) 2.8 k/uL (1.3-7.7); Neutrophils % (A) 69 %; Platelet Count 145 k/uL (150-450); RBC 3.79 m/uL (4.30-5.90); RDW 15.2 % (11.5-15.5); WBC 4.1 k/uL (3.8-10.6)
--- NOTE | 2022-09-20 13:25 | XR ---
EXAMINATION TYPE: XR chest 2V DATE OF EXAM: 09/20/2022 1:15 PM COMPARISON: Chest radiographs from 10/05/2019. TECHNIQUE: XR chest 2V Frontal and lateral views of the chest. CLINICAL INDICATION:Male, 82 years old with history of Chest Pain; FINDINGS: Lungs/Pleura: There is no evidence of pleural effusion, focal consolidation, or pneumothorax. Pulmonary vascularity: Unremarkable. Heart/mediastinum: Cardiomediastinal silhouette is unremarkable. Atherosclerotic calcifications are seen in the aorta. Musculoskeletal: No acute osseous pathology. IMPRESSION: No acute cardiopulmonary disease/process.
[2022-09-20 13:26] LABS: INR 1.2 (<1.2); Partial Thromboplastin Time 28.7 sec (22.0-30.0)
--- NOTE | 2022-09-20 13:39 | ED ---
General Adult HPI - General Chief complaint: Chest Pain Stated complaint: Chest pain Time Seen by Provider: 09/20/22 12:40 Source: patient, RN notes reviewed, old records reviewed Mode of arrival: wheelchair Limitations: no limitations - History of Present Illness Initial comments: This is an 82-year-old male presents emergency Department with a past medical history significant for multiple stent placement high blood pressure high cholesterol and congestive heart failure. Patient states she also was a smoker in the past but has quit. Patient denies any palpitations per patient denies any fever chills or cough. Patient denies abdominal pain patient has nausea vomiting or diarrhea. Patient states the pain is pressure sensation and nitroglycerin twice is medical only his first episode of significant pain was on Tuesday and again on Tuesday. Patient states he woke up today and started having chest pain again and he thought he needed to come in because it reminds him the chest pain he had when he has had stents placed in the past. - Related Data Home Medications Medication Instructions Recorded Confirmed Vitamin B Complex 1 cap PO DAILY 04/15/14 09/20/22 Aspirin 81 mg PO DAILY 03/02/19 09/20/22 Fish Oil/Dha/Epa [Fish Oil 1,200 1 cap PO DAILY 03/02/19 09/20/22 mg Fish Oil] Losartan [Cozaar] 50 mg PO DAILY 03/02/19 09/20/22 amLODIPine [Norvasc] 5 mg PO HS 03/02/19 09/20/22 allopurinoL [Zyloprim] 100 mg PO DAILY 04/05/19 09/20/22 Pioglitazone [Actos] 45 mg PO DAILY 10/05/19 09/20/22 glipiZIDE XL [Glucotrol XL] 5 mg PO BID 10/05/19 09/20/22 Atorvastatin [Lipitor] 40 mg PO HS 05/17/20 09/20/22 carvediloL [Coreg] 3.125 mg PO BID 06/24/20 09/20/22 Cholecalciferol [Vitamin D3 (25 50 mcg PO DAILY 09/20/22 09/20/22 Mcg = 1000 Iu)] Lactobacillus Acidophilus 1 cap PO DAILY 09/20/22 09/20/22 [Acidophilus Probiotic] Allergies Allergy/AdvReac Type Severity Reaction Status Date / Time metformin AdvReac Diarrhea Verified 09/20/22 13:53 Review of Systems ROS Statement: Those systems with pertinent positive or pertinent negative responses have been documented in the HPI. ROS Other: All systems not noted in ROS Statement are negative. Past Medical History Past Medical History: Coronary Artery Disease (CAD), Diabetes Mellitus, Hyperlipidemia, Hypertension Additional Past Medical History / Comment(s): gout, hx c-diff (Jun 2019)., postitive blood stool. History of Any Multi-Drug Resistant Organisms: None Reported Date of last positivie culture/infection: stool MDRO Source:: 06/2019 Past Surgical History: Heart Catheterization With Stent, Hernia Repair Additional Past Surgical History / Comment(s): ROZ CAROTID ENDARTERECTOMY,ROZ CATARACTS. COLONOSCOPY. Stent x3 Past Anesthesia/Blood Transfusion Reactions: No Reported Reaction Date of Last Stent Placement:: 04/16/2019 Past Psychological History: No Psychological Hx Reported Smoking Status: Former smoker Past Alcohol Use History: Occasional Past Drug Use History: None Reported - Past Family History Father Additional Family Medical History / Comment(s): aortic aneurysm Mother Additional Family Medical History / Comment(s): Brain aneurysm General Exam - General Exam Comments Initial Comments: GENERAL: Patient is well-developed and well-nourished. Patient is nontoxic and well- hydrated and is in mild distress. ENT: Neck is soft and supple. No significant lymphadenopathy is noted. Oropharynx is clear. Moist mucous membranes. Neck has full range of motion without eliciting any pain. EYES: The sclera were anicteric and conjunctiva were pink and moist. Extraocular movements were intact and pupils were equal round and reactive to light. Eyelids were unremarkable. PULMONARY: Unlabored respirations. Good breath sounds bilaterally. No audible rales rhonchi or wheezing was noted. CARDIOVASCULAR: There is a regular rate and rhythm without any murmurs gallops or rubs. ABDOMEN: Soft and nontender with normal bowel sounds. SKIN: Skin is clear with no lesions or rashes and otherwise unremarkable. NEUROLOGIC: Patient is alert and oriented x3. Cranial nerves II through XII are grossly intact. Motor and sensory are also intact. Normal speech, volume and content. Symmetrical smile. MUSCULOSKELETAL: Normal extremities with adequate strength and full range of motion. No lower extremity swelling or edema. No calf tenderness. LYMPHATICS: No significant lymphadenopathy is noted PSYCHIATRIC: Normal psychiatric evaluation. Limitations: no limitations Course Vital Signs 09/20/22 09/20/22 09/20/22 12:38 12:54 15:00 Temperature 98 F Pulse Rate 85 54 L Respiratory 16 16 Rate Blood Pressure 210/85 171/76 O2 Sat by Pulse 98 98 97 Oximetry Medical Decision Making - Medical Decision Making EKG is interpreted by myself it shows a sinus bradycardia 54 bpm [place] interval is 189 tresses 117 QT interval is 463 QTC is 449. Patient's EKG shows no ST segment patient depression. Was pt. sent in by a medical professional or institution (, ALEXANDRA, RECORDS CLERK, urgent care, hospital, or snf...) When possible be specific @ -No Did you speak to anyone other than the patient for history (EMS, parent, family, police, friend...)? What history was obtained from this source @ -No Did you review nursing and triage notes (agree or disagree)? Why? @ -I reviewed and agree with nursing and triage notes Were old charts reviewed (outside hosp., previous admission, EMS record, old EKG, old radiological studies, urgent care reports/EKG's, snf records)? Report findings @ -I looked at prior EKGs in prior labs to compare to today's visit Differential Diagnosis (chest pain, altered mental status, abdominal pain women, abdominal pain men, vaginal bleeding, weakness, fever, dyspnea, syncope, headache, dizziness, GI bleed, back pain, seizure, CVA, palpatations, mental health)? @ -Differential Chest Pain: Stable Angina, Unstable Angina, STEMI, NSTEMI Aortic Dissection, Pneumothorax, Musculoskeletal, Esophageal Spasm GERD, Cholecystitis, Pancreatitis, Zoster, this is not meant to be an all-inclusive list. EKG interpreted by me (3pts min.). @ -As above X-rays interpreted by me (1pt min.). @ -Chest x-ray was interpreted by myself as no acute abnormalities. CT interpreted by me (1pt min.). @ -None done U/S interpreted by me (1pt. min.). @ -None done What testing was considered but not performed or refused? (CT, X-rays, U/S, labs)? Why? @ -None What meds were considered but not given or refused? Why? @ -None Did you discuss the management of the patient with other professionals (professionals i.e. , ALEXANDRA, RECORDS CLERK, lab, RT, psych nurse, geriatric social work professor, software implementation project manager, teacher, school services officer, piano case and bench assembler)? Give summary @ -No Was smoking cessation discussed for >3mins.? @ -No Was critical care preformed (if so, how long)? @ -35 minutes. Patient was placed on heparin after the patient was initially given Nitropaste and aspirin. I also continued aspirin and Nitropaste and heparin on the floor. Were there social determinants of health that impacted care today? How? (Homelessness, low income, unemployed, alcoholism, drug addiction, transportation, low edu. Level, literacy, decrease access to med. care, [facility], rehab)? @ -No Was there de-escalation of care discussed even if they declined (Discuss DNR or withdrawal of care, Hospice)? DNR status @ -No What co-morbidities impacted this encounter? (DM, HTN, Smoking, COPD, CAD, Cancer, CVA, ARF, Chemo, Hep., AIDS, mental health diagnosis, sleep apnea, morbid obesity)? @ -Patient has a history of coronary artery disease was obviously could predispose him to an NH Was patient admitted / discharged? Hospital course, mention meds given and route, prescriptions, significant lab abnormalities, going to OR and other pertinent info. @ -Patient will be admitted for unstable angina. I spoke with some physicians he agreed to admit the patient admitted the patient wrote admitting orders consult cardiology started the patient on aspirin and Nitropaste and heparin. I continue those on the floor as well. Undiagnosed new problem with uncertain prognosis? @ -No Drug Therapy requiring intensive monitoring for toxicity (Heparin, Nitro, Insulin, Cardizem)? @ -No Were any procedures done? @ -No Diagnosis/symptom? @ -Unstable angina Acute, or Chronic, or Acute on Chronic? @ -Acute Uncomplicated (without systemic symptoms) or Complicated (systemic symptoms)? @ -Complicated Side effects of treatment? @ -No Exacerbation, Progression, or Severe Exacerbation? @ -Severe exacerbation Poses a threat to life or bodily function? How? (Chest pain, USA, NH, pneumonia, PE, COPD, DKA, ARF, appy, cholecystitis, CVA, Diverticulitis, Homicidal, Suicidal, threat to staff... and all critical care pts) @ -Yes this could lead to end organ dysfunction this turns out to be a myocardial infarction - Lab Data Result diagrams: 09/20/22 13:09 09/20/22 13:09 Lab Results 09/20/22 09/20/22 09/20/22 Range/Units 13:09 13:09 13:09 WBC 4.1 (3.8-10.6) k/uL RBC 3.79 L (4.30-5.90) m/uL Hgb 11.3 L (13.0-17.5) gm/dL Hct 34.9 L (39.0-53.0) % MCV 92.1 (80.0-100.0) fL MCH 30.0 (25.0-35.0) pg MCHC 32.5 (31.0-37.0) g/dL RDW 15.2 (11.5-15.5) % Plt Count 145 L (150-450) k/uL MPV 8.4 Neutrophils % 69 % Lymphocytes % 18 % Monocytes % 5 % Eosinophils % 5 % Basophils % 0 % Neutrophils # 2.8 (1.3-7.7) k/uL Lymphocytes # 0.7 L (1.0-4.8) k/uL Monocytes # 0.2 (0-1.0) k/uL Eosinophils # 0.2 (0-0.7) k/uL Basophils # 0.0 (0-0.2) k/uL PT 12.0 (9.0-12.0) sec INR 1.2 H (<1.2) APTT 28.7 (22.0-30.0) sec Sodium 139 (137-145) mmol/L Potassium 4.3 (3.5-5.1) mmol/L Chloride 105 (98-107) mmol/L Carbon Dioxide 29 (22-30) mmol/L Anion Gap 5 mmol/L BUN 21 H (9-20) mg/dL Creatinine 0.98 (0.66-1.25) mg/dL Est GFR (CKD-EPI)AfAm 85 (>60 ml/min/1.73 sqM) Est GFR (CKD-EPI)NonAf 73 (>60 ml/min/1.73 sqM) Glucose 111 H (74-99) mg/dL Calcium 9.4 (8.4-10.2) mg/dL Magnesium 1.5 L (1.6-2.3) mg/dL Total Bilirubin 0.8 (0.2-1.3) mg/dL AST 23 (17-59) U/L ALT 21 (4-49) U/L Alkaline Phosphatase 48 (38-126) U/L Troponin I (0.000-0.034) ng/mL Total Protein 7.4 (6.3-8.2) g/dL Albumin 4.5 (3.5-5.0) g/dL 09/20/22 Range/Units 13:09 WBC (3.8-10.6) k/uL RBC (4.30-5.90) m/uL Hgb (13.0-17.5) gm/dL Hct (39.0-53.0) % MCV (80.0-100.0) fL MCH (25.0-35.0) pg MCHC (31.0-37.0) g/dL RDW (11.5-15.5) % Plt Count (150-450) k/uL MPV Neutrophils % % Lymphocytes % % Monocytes % % Eosinophils % % Basophils % % Neutrophils # (1.3-7.7) k/uL Lymphocytes # (1.0-4.8) k/uL Monocytes # (0-1.0) k/uL Eosinophils # (0-0.7) k/uL Basophils # (0-0.2) k/uL PT (9.0-12.0) sec INR (<1.2) APTT (22.0-30.0) sec Sodium (137-145) mmol/L Potassium (3.5-5.1) mmol/L Chloride (98-107) mmol/L Carbon Dioxide (22-30) mmol/L Anion Gap mmol/L BUN (9-20) mg/dL Creatinine (0.66-1.25) mg/dL Est GFR (CKD-EPI)AfAm (>60 ml/min/1.73 sqM) Est GFR (CKD-EPI)NonAf (>60 ml/min/1.73 sqM) Glucose (74-99) mg/dL Calcium (8.4-10.2) mg/dL Magnesium (1.6-2.3) mg/dL Total Bilirubin (0.2-1.3) mg/dL AST (17-59) U/L ALT (4-49) U/L Alkaline Phosphatase (38-126) U/L Troponin I <0.012 (0.000-0.034) ng/mL Total Protein (6.3-8.2) g/dL Albumin (3.5-5.0) g/dL Critical Care Time Critical Care Time: Yes Total Critical Care Time: 35 Disposition Clinical Impression: Unstable angina pectoris Disposition: ADMITTED IP TO THIS HOSP Referrals: None,Stated [Primary Care Provider] - 1-2 days Time of Disposition: 12:55
[2022-09-20 13:43] LABS: Albumin 4.5 g/dL (3.5-5.0); Calcium 9.4 mg/dL (8.4-10.2); Magnesium 1.5 mg/dL (1.6-2.3); Potassium 4.3 mmol/L (3.5-5.1); Total Bilirubin 0.8 mg/dL (0.2-1.3); Total Protein 7.4 g/dL (6.3-8.2)
[2022-09-20] MEDS ORDERED: MAGNESIUM SULFATE-D5W PMX 1 GM in DEXTROSE/WATER 1 100ML.BAG IVPB ONE (13:54)
[2022-09-20] MEDS ORDERED: HEPARIN SODIUM 1,000 UN/ML (10ML VL) IV ONE (15:09)
[2022-09-20] MEDS ORDERED: NITROGLYCERIN SL TABS 0.4 MG TAB SUBLINGUAL PRN (15:10)
[2022-09-20] MEDS ORDERED: HEPARIN SOD,PORK IN 0.45% NACL 25,000 UNIT in 0.45% NACL 1 250ML.BAG IV SCH (15:15)
[2022-09-20] MEDS: NITROGLYCERIN OINT 1 INCH/GM PACKET TOPICAL SCH ×2 (18:46→23:00)
--- NOTE | 2022-09-20 19:10 | P.HPIM ---
History of Present Illness this is a pleasant 82 yo m with past medical history of Coronary Artery Disease s/p stent , Diabetes Mellitus, Hyperlipidemia, Hypertension, gout, hx c-diff (Jun 2019)., presents with chest heaviness, on the left side radiating to the back about 4/10 in severity currently by the time i saw the pt his chest pain has resolved as 0/10 his chest pain has been going on for three day, over the last two days it showed some improvement when he took nitro pills no sob , no exertion dyspnea ,no coughing he abdominal pain ,no vomiting , no diarrhea no dysuria, no change in frequency no headache, no dizziness,no weakness or numbness she denies smoking, alcohol or illicit drug vitals are stable and pt is afebrile cbc is unremarkable except for mild anemia with hb of 11.3 and low platelet count at 145k inr 1.2 bmp and liver enz are unremarkable troponin are negative 0.012 x2 cxr: no acute process ekg: sinus bradycardia at54 with no significant st-t changes Review of Systems CONSTITUTIONAL: No fever, no malaise, HEENT: No recent visual problems or hearing problems. Denied any sore throat. CARDIOVASCULAR: No orthopnea, PND, no palpitations, no syncope. PULMONARY: No shortness of breath, no cough, no hemoptysis. GASTROINTESTINAL: No diarrhea, no nausea,. Normoactive bowel sounds. NEUROLOGICAL: No headaches, no weakness, no numbness. HEMATOLOGICAL: Denies any bleeding or petechiae. GENITOURINARY: Denies any change in urine frequency, or urgency. MUSCULOSKELETAL/RHEUMATOLOGICAL: Denies any joint pain, swelling, or any muscle pain. ENDOCRINE: Denies any polyuria or polydipsia. Past Medical History Past Medical History: Coronary Artery Disease (CAD), Diabetes Mellitus, Hyperlipidemia, Hypertension Additional Past Medical History / Comment(s): gout, hx c-diff (Jun 2019)., postitive blood stool. History of Any Multi-Drug Resistant Organisms: None Reported Date of last positivie culture/infection: stool MDRO Source:: 06/2019 Past Surgical History: Heart Catheterization With Stent, Hernia Repair Additional Past Surgical History / Comment(s): ROZ CAROTID ENDARTERECTOMY,ROZ CATARACTS. COLONOSCOPY. Stent x3 Past Anesthesia/Blood Transfusion Reactions: No Reported Reaction Date of Last Stent Placement:: 04/16/2019 Past Psychological History: No Psychological Hx Reported Smoking Status: Former smoker Past Alcohol Use History: Occasional Past Drug Use History: None Reported - Past Family History Father Additional Family Medical History / Comment(s): aortic aneurysm Mother Additional Family Medical History / Comment(s): Brain aneurysm Medications and Allergies Home Medications Medication Instructions Recorded Confirmed Type Vitamin B Complex 1 cap PO DAILY 04/15/14 09/20/22 History Aspirin 81 mg PO DAILY 03/02/19 09/20/22 History Fish Oil/Dha/Epa [Fish Oil 1,200 1 cap PO DAILY 03/02/19 09/20/22 History mg Fish Oil] Losartan [Cozaar] 50 mg PO DAILY 03/02/19 09/20/22 History amLODIPine [Norvasc] 5 mg PO HS 03/02/19 09/20/22 History allopurinoL [Zyloprim] 100 mg PO DAILY 04/05/19 09/20/22 History Pioglitazone [Actos] 45 mg PO DAILY 10/05/19 09/20/22 History glipiZIDE XL [Glucotrol XL] 5 mg PO BID 10/05/19 09/20/22 History Atorvastatin [Lipitor] 40 mg PO HS 05/17/20 09/20/22 History carvediloL [Coreg] 3.125 mg PO BID 06/24/20 09/20/22 History Cholecalciferol [Vitamin D3 (25 50 mcg PO DAILY 09/20/22 09/20/22 History Mcg = 1000 Iu)] Lactobacillus Acidophilus 1 cap PO DAILY 09/20/22 09/20/22 History [Acidophilus Probiotic] Allergies Allergy/AdvReac Type Severity Reaction Status Date / Time metformin AdvReac Diarrhea Verified 09/20/22 13:53 Physical Exam Vitals: Vital Signs Temp Pulse Resp BP Pulse Ox 09/20/22 18:00 61 16 171/73 96 09/20/22 17:00 59 L 14 182/75 98 09/20/22 16:00 57 L 12 176/78 98 09/20/22 15:30 56 L 16 168/77 97 09/20/22 15:00 54 L 16 171/76 97 09/20/22 12:54 98 09/20/22 12:38 98 F 85 16 210/85 98 Intake and Output 09/20/22 09/20/22 09/20/22 06:59 14:59 22:59 Other: Weight 97.522 kg GENERAL: The patient is alert and oriented x3, not in any acute distress. Well developed, well nourished. HEENT: Pupils are round and equally reacting to light. EOMI. No scleral icterus. No conjunctival pallor. Normocephalic, atraumatic. No pharyngeal erythema. No thyromegaly. CARDIOVASCULAR: S1 and S2 present. No murmurs, rubs, or gallops. PULMONARY: Chest is clear to auscultation, no wheezing or crackles. ABDOMEN: Soft, no tenderness, no rebound tenderness, no guarding, nondistended, normoactive bowel sounds. No palpable organomegaly. MUSCULOSKELETAL: No joint swelling or deformity. EXTREMITIES: No cyanosis, clubbing, or pedal edema. NEUROLOGICAL: Gross neurological examination did not reveal any focal deficits. SKIN: No rashes. no petechiae. Results CBC & Chem 7: 09/20/22 13:09 09/20/22 13:09 Labs: Abnormal Lab Results - Last 24 Hours (Table) 09/20/22 09/20/22 09/20/22 Range/Units 13:09 13:09 13:09 RBC 3.79 L (4.30-5.90) m/uL Hgb 11.3 L (13.0-17.5) gm/dL Hct 34.9 L (39.0-53.0) % Plt Count 145 L (150-450) k/uL Lymphocytes # 0.7 L (1.0-4.8) k/uL INR 1.2 H (<1.2) BUN 21 H (9-20) mg/dL Glucose 111 H (74-99) mg/dL Magnesium 1.5 L (1.6-2.3) mg/dL Assessment and Plan Assessment: chest pain /heaviness, rule out cardiac causes history of Coronary Artery Disease s/p stent mild anemia, f/u as outpt Diabetes Mellitus Hyperlipidemia Hypertension h/o gout h/o c-diff Plan: c/w aspirin c/w heparin drip started in emergency room cardiology consult labs and medication were reviewed.. Continue same treatment. Continue with symptomatic treatment. Resume home medication. Monitor labs and vitals. DVT and GI prophylaxis. Further recommendations as per clinical course of the patient DVT prophylaxis: heparin GI Prophylaxis: Ppi PT/OT: Pending Prognosis is guarded
[2022-09-20] MEDS ORDERED: amLODIPine 5 MG TAB PO SCH ×2 (21:00→23:15)
[2022-09-20] MEDS: FAMOTIDINE 20 MG/2 ML VIAL IV SCH (22:06)
[2022-09-20] MEDS: carvediloL 3.125 MG TAB PO SCH (22:06)
[2022-09-20] MEDS: ATORVASTATIN 40 MG TAB PO SCH (22:06)
[2022-09-20] MEDS: glipiZIDE 5 MG TAB PO SCH (22:58)
[2022-09-20 22:59] LABS: Glucose,Whole Blood 109 mg/dL (70-110)
[2022-09-20] MEDS ORDERED: hydrALAZINE HCL 20 MG/ML 1 ML VIAL IVP PRN (23:06)
[2022-09-20] MEDS ORDERED: LOSARTAN 50 MG TAB PO STA (23:08)
[2022-09-21] MEDS: NITROGLYCERIN OINT 1 INCH/GM PACKET TOPICAL SCH (05:25)
[2022-09-21 06:43] LABS: Glucose,Whole Blood 119 mg/dL (70-110)
[2022-09-21] MEDS: glipiZIDE 5 MG TAB PO SCH ×2 (06:43→17:40)
[2022-09-21] MEDS: carvediloL 3.125 MG TAB PO SCH ×2 (06:43→17:40)
[2022-09-21] MEDS: hydroCHLOROthiazide 25 MG TAB PO SCH (08:53)
[2022-09-21] MEDS: allopurinoL 100 MG TAB PO SCH (08:53)
[2022-09-21] MEDS: ASPIRIN 81 MG PO SCH (08:53)
[2022-09-21] MEDS: amLODIPine 5 MG TAB PO SCH (08:54)
[2022-09-21] MEDS: PIOGLITAZONE 45 MG TAB PO SCH (08:54)
[2022-09-21] MEDS: LOSARTAN 50 MG TAB PO SCH (08:54)
[2022-09-21] MEDS: CHOLECALCIFEROL 25 MCG (1000 IU) TABLET PO SCH (08:54)
[2022-09-21] MEDS: FAMOTIDINE 20 MG/2 ML VIAL IV SCH (08:55)
[2022-09-21] MEDS ORDERED: ASPIRIN 325 MG TAB PO SCH (09:00)
[2022-09-21 09:16] LABS: Basophils # (A) 0.02 X 10*3/uL (0.00-0.10); Basophils % (A) 0.5 %; Eosinophils # (A) 0.24 X 10*3/uL (0.04-0.35); Eosinophils % (A) 5.6 %; HCT 31.9 % (39.6-50.0); HGB 9.9 g/dL (13.0-17.0); Immature Grans, Automated 0.5 %; Lymphocytes # (A) 0.91 X 10*3/uL (0.90-5.00); Lymphocytes % (A) 21.3 %; MCV 96.7 fL (80.0-97.0); Mean Platelet Volume 10.2 fL (9.5-12.2); Monocytes % (A) 11.7 %; NRBC Per 100 WBC 0 /100 WBCS (0.0-0.0); Neutrophils # (A) 2.58 X 10*3/uL (1.80-7.70); Neutrophils % (A) 60.4 %; Platelet Count 131 X 10*3/uL (140-440); RDW 15.6 % (11.5-14.5); WBC 4.27 X 10*3/uL (4.50-10.00)
--- NOTE | 2022-09-21 09:17 | P.CRDCN ---
History of Present Illness History of present illness: HISTORY OF PRESENT ILLNESS: This is a 82-year-old male with a past medical history significant for aortic stenosis, hypertension, hyperlipidemia, diabetes, and coronary artery disease with previous PCI of circumflex and RCA. Patient follows in the office with Dr. Castillo. We have been asked to see the patient in consultation for chest pain. Patient examined at the bedside. Patient states on Tuesday morning he woke up and was having chest heaviness. He is adamant that he was not having pain, just chest heaviness. He states he took a nitro and the heaviness went away. He states on Tuesday when he woke up the pain returned so he took another nitro and the pain went away. He states he continued with his day and was doing well until Tuesday night when the pain returned. He states the pain is nonexertional and can just happen when he is sitting down. The patient was found to have significantly elevated blood pressures upon arrival to the emergency room with a systolic greater than 200. Patient's blood pressures have since improved. The patient denies any further episodes of chest pain or pressure. * EKG reveals sinus bradycardia with no signs of acute ischemia * Chest xray no acute cardiopulmonary disease or process * Laboratory data: WBC 4.1. Hemoglobin 11.3. Platelet count 145. Sodium 139. Potassium 4.3. BUN 21. Creatinine 0.98. Troponin negative 3. * Current home cardiac medications include amlodipine 5 mg at night, carvedilol 3.125 mg twice a day, losartan 50 mg daily, Lipitor 40 mg at night, and aspirin 81 mg daily * Most recent echocardiogram obtained in August 2021 revealing ejection fraction 55%, moderate MR, moderate TR, moderate aortic stenosis * Patient underwent Lexiscan stress test in September 2020 which was negative for ischemia * Cardiac catheterization history: February 2019 with stenting of the mid circumflex with a very difficult tortuous lesion drug-eluting stent used. Restenotic lesion in the mid RCA with new lesion in the distal RCA. LAD free of significant disease. Circumflex has 70% stenosis. No gradient across the aortic valve. REVIEW OF SYSTEMS: At the time of my exam: CONSTITUTIONAL: Denies fever or chills. HEENT: Denies blurred vision, vision changes, or eye pain. Denies hemoptysis CARDIOVASCULAR: Denies chest pain. Denies orthopnea. Denies PND. Denies palpitations RESPIRATORY: Denies shortness of breath. GASTROINTESTINAL: Denies abdominal pain. Denies nausea or vomiting. HEMATOLOGIC: Denies bleeding disorders. GENITOURINARY: Denies any blood in urine. SKIN: Denies pruitis. Denies rash. PHYSICAL EXAM: VITAL SIGNS: Reviewed. GENERAL: Well-developed in no acute distress. HEENT: Head is normocephalic. Pupils are equal, round. Sclerae anicteric. Mucous membranes of the mouth are moist. Neck supple. No JVD or thyromegaly LUNGS: Respirations even and unlabored. Lungs essentially clear to auscultation bilaterally. HEART: Regular rate and rhythm. S1 and S2 heard. Systolic murmur noted ABDOMEN: Soft. Nondistended. Nontender. EXTREMITIES: Normal range of motion. No clubbing or cyanosis. Peripheral pulses intact. No lower extremity edema NEUROLOGIC: Awake and alert. Oriented x 3. ASSESSMENT: Chest pain, troponins negative 3 Hypertensive emergency Hyperlipidemia Moderate aortic stenosis Coronary artery disease with previous PCI of circumflex and RCA Diabetes Carotid stenosis with previous right carotid endarterectomy, 2010 PLAN: An acute coronary event has been ruled out Obtain 2-D echo to assess cardiac structure and function Add hydrochlorothiazide 25 mg daily Continue to monitor blood pressures Further recommendations pending patient's course Nurse practitioner note has been reviewed by physician. Signing provider agrees with the documented findings, assessment, and plan of care. Past Medical History Past Medical History: Coronary Artery Disease (CAD), Diabetes Mellitus, Hyperlipidemia, Hypertension Additional Past Medical History / Comment(s): gout, hx c-diff (Jun 2019)., postitive blood stool. History of Any Multi-Drug Resistant Organisms: None Reported Date of last positivie culture/infection: stool MDRO Source:: 06/2019 Past Surgical History: Heart Catheterization With Stent, Hernia Repair Additional Past Surgical History / Comment(s): ROZ CAROTID ENDARTERECTOMY,ROZ CATARACTS. COLONOSCOPY. Stent x3 Past Anesthesia/Blood Transfusion Reactions: No Reported Reaction Date of Last Stent Placement:: 04/16/2019 Past Psychological History: No Psychological Hx Reported Smoking Status: Former smoker Past Alcohol Use History: Occasional Additional Past Alcohol Use History / Comment(s): QUIT SMOKING IN 1995, smoked 1ppd from teens Past Drug Use History: None Reported - Past Family History Father Additional Family Medical History / Comment(s): aortic aneurysm Mother Additional Family Medical History / Comment(s): Brain aneurysm Medications and Allergies Home Medications Medication Instructions Recorded Confirmed Type Vitamin B Complex 1 cap PO DAILY 04/15/14 09/20/22 History Aspirin 81 mg PO DAILY 03/02/19 09/20/22 History Fish Oil/Dha/Epa [Fish Oil 1,200 1 cap PO DAILY 03/02/19 09/20/22 History mg Fish Oil] Losartan [Cozaar] 50 mg PO DAILY 03/02/19 09/20/22 History amLODIPine [Norvasc] 5 mg PO HS 03/02/19 09/20/22 History allopurinoL [Zyloprim] 100 mg PO DAILY 04/05/19 09/20/22 History Pioglitazone [Actos] 45 mg PO DAILY 10/05/19 09/20/22 History glipiZIDE XL [Glucotrol XL] 5 mg PO BID 10/05/19 09/20/22 History Atorvastatin [Lipitor] 40 mg PO HS 05/17/20 09/20/22 History carvediloL [Coreg] 3.125 mg PO BID 06/24/20 09/20/22 History Cholecalciferol [Vitamin D3 (25 50 mcg PO DAILY 09/20/22 09/20/22 History Mcg = 1000 Iu)] Lactobacillus Acidophilus 1 cap PO DAILY 09/20/22 09/20/22 History [Acidophilus Probiotic] Allergies Allergy/AdvReac Type Severity Reaction Status Date / Time metformin AdvReac Diarrhea Verified 09/20/22 13:53 Physical Exam Vitals: Vital Signs Temp Pulse Pulse Resp BP BP Pulse Ox 09/21/22 07:00 98 F 55 L 18 129/61 95 09/21/22 03:40 98.7 F 52 L 17 128/64 95 09/20/22 23:48 120/66 09/20/22 22:03 97.9 F 56 L 18 179/81 98 09/20/22 18:00 61 16 171/73 96 09/20/22 17:00 59 L 14 182/75 98 09/20/22 16:00 57 L 12 176/78 98 09/20/22 15:30 56 L 16 168/77 97 09/20/22 15:00 54 L 16 171/76 97 09/20/22 12:54 98 09/20/22 12:38 98 F 85 16 210/85 98 Intake and Output 09/20/22 09/21/22 09/21/22 22:59 06:59 14:59 Intake Total 68.641 71.989 Balance 68.641 71.989 Intake: Intake, IV Titration 68.641 71.989 Amount Heparin Sod,Pork in 0.45% 68.641 71.989 NaCl 25,000 unit In 0.45 % NaCl 1 250ml.bag @ 10.3 UNITS/KG/HR 10.045 mls/ hr IV .Q24H [facility] Rx#: [id number] Other: Voiding Method Toilet # Voids 1 3 Weight 97.522 kg Results 09/20/22 13:09 09/20/22 13:09 Cardiac Enzymes 09/20/22 09/20/22 09/20/22 Range/Units 13:09 13:09 15:53 AST 23 (17-59) U/L Troponin I <0.012 <0.012 (0.000-0.034) ng/mL 09/20/22 Range/Units 19:05 AST (17-59) U/L Troponin I 0.012 (0.000-0.034) ng/mL Coagulation 09/20/22 09/20/22 09/21/22 Range/Units 13:09 22:27 05:16 PT 12.0 (9.0-12.0) sec APTT 28.7 64.2 H 61.6 H (22.0-30.0) sec CBC 09/20/22 Range/Units 13:09 WBC 4.1 (3.8-10.6) k/uL RBC 3.79 L (4.30-5.90) m/uL Hgb 11.3 L (13.0-17.5) gm/dL Hct 34.9 L (39.0-53.0) % Plt Count 145 L (150-450) k/uL Comprehensive Metabolic Panel 09/20/22 Range/Units 13:09 Sodium 139 (137-145) mmol/L Potassium 4.3 (3.5-5.1) mmol/L Chloride 105 (98-107) mmol/L Carbon Dioxide 29 (22-30) mmol/L BUN 21 H (9-20) mg/dL Creatinine 0.98 (0.66-1.25) mg/dL Glucose 111 H (74-99) mg/dL Calcium 9.4 (8.4-10.2) mg/dL AST 23 (17-59) U/L ALT 21 (4-49) U/L Alkaline Phosphatase 48 (38-126) U/L Total Protein 7.4 (6.3-8.2) g/dL Albumin 4.5 (3.5-5.0) g/dL Current Medications Generic Name Dose Route Start Last Admin Trade Name Freq PRN Reason Stop Dose Admin Allopurinol 100 mg 09/21/22 09:00 Allopurinol 100 Mg Tab PO DAILY [facility] Amlodipine Besylate 5 mg 09/21/22 09:00 Amlodipine 5 Mg Tab PO DAILY [facility] Aspirin 325 mg 09/21/22 09:00 Aspirin 325 Mg Tab PO DAILY [facility] Atorvastatin Calcium 40 mg 09/20/22 21:00 09/20/22 22:06 Atorvastatin 40 Mg Tab PO 40 mg HS [facility] Administration Carvedilol 3.125 mg 09/20/22 21:00 09/21/22 06:43 Carvedilol 3.125 Mg Tab PO 3.125 mg AC-BID [facility] Administration Cholecalciferol 50 mcg 09/21/22 09:00 Cholecalciferol 25 Mcg (1000 Iu) Tablet PO DAILY [facility] Famotidine 20 mg 09/20/22 21:00 09/20/22 22:06 Famotidine 20 Mg/2 Ml Vial IV 20 mg Q12HR [facility] Administration Glipizide 5 mg 09/20/22 21:00 09/21/22 06:43 Glipizide 5 Mg Tab PO 5 mg AC-BID [facility] Administration Hydralazine HCl 10 mg 09/20/22 23:06 Hydralazine Hcl 20 Mg/Ml 1 Ml Vial IVP Q6HR PRN Blood Pressure - High Heparin Sodium/Sodium Chloride 250 mls @ 10.045 mls/hr 09/20/22 15:15 09/21/22 05:55 25,000 unit/ Sodium Chloride IV 10.3 units/kg/hr .Q24H [facility] 10.045 mls/hr Titration Protocol 10.3 UNITS/KG/HR Losartan Potassium 50 mg 09/21/22 09:00 Losartan 50 Mg Tab PO DAILY [facility] Nitroglycerin 0.4 mg 09/20/22 15:10 Nitroglycerin Sl Tabs 0.4 Mg Tab SUBLINGUAL Q5M PRN Chest Pain Nitroglycerin 1 inch 09/20/22 18:00 09/21/22 05:25 Nitroglycerin Oint 1 Inch/Gm Packet TOPICAL Not Given Q6HR [facility] Pioglitazone HCl 45 mg 09/21/22 09:00 Pioglitazone 45 Mg Tab PO DAILY [facility] Intake and Output 09/20/22 09/21/22 09/21/22 22:59 06:59 14:59 Intake Total 68.641 71.989 Balance 68.641 71.989 Intake: Intake, IV Titration 68.641 71.989 Amount Heparin Sod,Pork in 0.45% 68.641 71.989 NaCl 25,000 unit In 0.45 % NaCl 1 250ml.bag @ 10.3 UNITS/KG/HR 10.045 mls/ hr IV .Q24H [facility] Rx#: [id number] Other: Voiding Method Toilet # Voids 1 3 Weight 97.522 kg 09/20/22 13:09 09/20/22 13:09
[2022-09-21 10:35] LABS: Chol/HDL Ratio 4.11 Ratio; LDL Cholesterol,Calculated 68.2 mg/dL (0.0-131.0)
[2022-09-21] MEDS: ATORVASTATIN 40 MG TAB PO SCH (21:33)
[2022-09-21] MEDS: FAMOTIDINE 20 MG TAB PO SCH (21:33)
--- NOTE | 2022-09-21 21:49 | P.PN ---
Subjective this is a pleasant 82 yo m with past medical history of Coronary Artery Disease s/p stent , Diabetes Mellitus, Hyperlipidemia, Hypertension, gout, hx c-diff (Jun 2019)., presents with chest heaviness, on the left side radiating to the back about 4/10 in severity currently by the time i saw the pt his chest pain has resolved as 0/10 his chest pain has been going on for three day, over the last two days it showed some improvement when he took nitro pills no sob , no exertion dyspnea ,no coughing he abdominal pain ,no vomiting , no diarrhea no dysuria, no change in frequency no headache, no dizziness,no weakness or numbness she denies smoking, alcohol or illicit drug vitals are stable and pt is afebrile cbc is unremarkable except for mild anemia with hb of 11.3 and low platelet count at 145k inr 1.2 bmp and liver enz are unremarkable troponin are negative 0.012 x2 cxr: no acute process ekg: sinus bradycardia at54 with [address] significant st-t changes 09/21/2022 patient with no chest pain Blood pressure is better controlled after adding hydrochlorothiazide to the regiment Echocardiogram is pending He has mild pancytopenia with hemoglobin 9.9, WBCs 4.2 and platelet count 131. We will check B12 and folate Hemoglobin A1c is 7.3, patient is on Actos and glipizide 5 mg twice a day We'll keep monitoring for now. Instructional Design Manager Objective - Vital Signs Vital signs: Vital Signs Temp 98.2 F 09/21/22 14:00 Pulse 55 L 09/21/22 14:00 Resp 18 09/21/22 14:00 BP 148/68 09/21/22 14:00 Pulse Ox 97 09/21/22 14:00 FiO2 Intake & Output 09/20/22 09/21/22 09/21/22 18:59 06:59 18:59 Intake Total 140.630 Balance 140.630 Weight 97.522 kg 97.522 kg Intake: Intake, IV Titration 140.630 Amount Heparin Sod,Pork in 0.45% 140.630 NaCl 25,000 unit In 0.45 % NaCl 1 250ml.bag @ 10.3 UNITS/KG/HR 10.045 mls/ hr IV .Q24H [facility] Rx#: [id number] Other: Voiding Method Toilet # Voids 3 1 - Exam GENERAL: The patient is alert and oriented x3, not in any acute distress. Well developed, well nourished. HEENT: Pupils are round and equally reacting to light. EOMI. No scleral icterus. No conjunctival pallor. Normocephalic, atraumatic. No pharyngeal erythema. No thyromegaly. CARDIOVASCULAR: S1 and S2 present. No murmurs, rubs, or gallops. PULMONARY: Chest is clear to auscultation, no wheezing or crackles. ABDOMEN: Soft, nontender, nondistended, normoactive bowel sounds. No palpable organomegaly. MUSCULOSKELETAL: No joint swelling or deformity. EXTREMITIES: No cyanosis, clubbing, or pedal edema. NEUROLOGICAL: Gross neurological examination did not reveal any focal deficits. SKIN: No rashes. no petechiae. - Labs CBC & Chem 7: 09/21/22 05:16 09/20/22 13:09 Labs: Abnormal Lab Results - Last 24 Hours (Table) 09/20/22 09/21/22 09/21/22 Range/Units 22:27 05:16 05:16 WBC 4.27 L (4.50-10.00) X 10*3/uL RBC 3.30 L (4.40-5.60) X 10*6/uL Hgb 9.9 L (13.0-17.0) g/dL Hct 31.9 L (39.6-50.0) % MCHC 31.0 L (32.0-37.0) g/dL RDW 15.6 H (11.5-14.5) % Plt Count 131 L (140-440) X 10*3/uL APTT 64.2 H (22.0-30.0) sec POC Glucose (mg/dL) (70-110) mg/dL Hemoglobin A1c 7.3 H (0.0-6.0) % HDL Cholesterol (40.00-60.00) mg/dL 09/21/22 09/21/22 09/21/22 Range/Units 05:16 05:16 06:42 WBC (4.50-10.00) X 10*3/uL RBC (4.40-5.60) X 10*6/uL Hgb (13.0-17.0) g/dL Hct (39.6-50.0) % MCHC (32.0-37.0) g/dL RDW (11.5-14.5) % Plt Count (140-440) X 10*3/uL APTT 61.6 H (22.0-30.0) sec POC Glucose (mg/dL) 119 H (70-110) mg/dL Hemoglobin A1c (0.0-6.0) % HDL Cholesterol 31.40 L (40.00-60.00) mg/dL Assessment and Plan Assessment: chest pain /heaviness, rule out cardiac causes history of Coronary Artery Disease s/p stent mild anemia, f/u as outpt Diabetes Mellitus Hyperlipidemia Hypertension h/o gout h/o c-diff Plan: c/w aspirin c/w heparin drip started in emergency room cardiology consult labs and medication were reviewed.. Continue same treatment. Continue with symptomatic treatment. Resume home medication. Monitor labs and vitals. DVT and GI prophylaxis. Further recommendations as per clinical course of the patient DVT prophylaxis: heparin GI Prophylaxis: Ppi PT/OT: Pending Prognosis is guarded
[2022-09-22 02:19] VITALS: RESP 14
[2022-09-22] MEDS: carvediloL 3.125 MG TAB PO SCH (05:57)
[2022-09-22] MEDS: glipiZIDE 5 MG TAB PO SCH (05:57)
[2022-09-22 07:15] VITALS: BP 166/62; PULSE 54; TEMP 97.4
[2022-09-22] MEDS: CHOLECALCIFEROL 25 MCG (1000 IU) TABLET PO SCH (08:39)
[2022-09-22] MEDS: LOSARTAN 50 MG TAB PO SCH (08:41)
[2022-09-22] MEDS: allopurinoL 100 MG TAB PO SCH (08:42)
[2022-09-22] MEDS: hydroCHLOROthiazide 25 MG TAB PO SCH (08:42)
[2022-09-22] MEDS: FAMOTIDINE 20 MG TAB PO SCH (08:42)
[2022-09-22] MEDS: ASPIRIN 81 MG PO SCH (08:42)
[2022-09-22] MEDS: amLODIPine 5 MG TAB PO SCH (08:42)
[2022-09-22] MEDS: PIOGLITAZONE 45 MG TAB PO SCH (08:42)
--- NOTE | 2022-09-22 10:32 | P.PN ---
Subjective Progress Note Date: 09/22/22 HISTORY OF PRESENT ILLNESS: This is a 82-year-old male with a past medical history significant for aortic stenosis, hypertension, hyperlipidemia, diabetes, and coronary artery disease with previous PCI of circumflex and RCA. Patient follows in the office with Dr. Castillo. We have been asked to see the patient in consultation for chest pain. Patient examined at the bedside. Patient states on Tuesday morning he woke up and was having chest heaviness. He is adamant that he was not having pain, just chest heaviness. He states he took a nitro and the heaviness went away. He states on Tuesday morning when he woke up the pain returned so he took another nitro and the pain went away. He states he continued with his day and was doing well until Tuesday night when the pain returned. He states the pain is nonexertional and can just happen when he is sitting down. The patient was found to have significantly elevated blood pressures upon arrival to the emergency room with a systolic greater than 200. Patient's blood pressures have since improved. The patient denies any further episodes of chest pain or pressure. * EKG reveals sinus bradycardia with no signs of acute ischemia * Chest xray no acute cardiopulmonary disease or process * Laboratory data: WBC 4.1. Hemoglobin 11.3. Platelet count 145. Sodium 139. Potassium 4.3. BUN 21. Creatinine 0.98. Troponin negative 3. * Current home cardiac medications include amlodipine 5 mg at night, carvedilol 3.125 mg twice a day, losartan 50 mg daily, Lipitor 40 mg at night, and aspirin 81 mg daily * Most recent echocardiogram obtained in August 2021 revealing ejection fraction 55%, moderate MR, moderate TR, moderate aortic stenosis * Patient underwent Lexiscan stress test in September 2020 which was negative for ischemia * Cardiac catheterization history: February 2019 with stenting of the mid circumflex with a very difficult tortuous lesion drug-eluting stent used. Restenotic lesion in the mid RCA with new lesion in the distal RCA. LAD free of significant disease. Circumflex has 70% stenosis. No gradient across the aortic valve. 09/22/2022 Patient examined this morning at the bedside. Patient denies any further episodes of chest pain or pressure. He denies shortness of breath. Blood pre ssures have improved. PHYSICAL EXAM: VITAL SIGNS: Reviewed. GENERAL: Well-developed in no acute distress. HEENT: Head is normocephalic. Pupils are equal, round. Sclerae anicteric. Mucous membranes of the mouth are moist. Neck supple. No JVD or thyromegaly LUNGS: Respirations even and unlabored. Lungs essentially clear to auscultation bilaterally. HEART: Regular rate and rhythm. S1 and S2 heard. Systolic murmur noted ABDOMEN: Soft. Nondistended. Nontender. EXTREMITIES: Normal range of motion. No clubbing or cyanosis. Peripheral pulses intact. No lower extremity edema NEUROLOGIC: Awake and alert. Oriented x 3. ASSESSMENT: Chest pain, troponins negative 3 Hypertensive emergency Hyperlipidemia Moderate aortic stenosis Coronary artery disease with previous PCI of circumflex and RCA Diabetes Carotid stenosis with previous right carotid endarterectomy, 2010 PLAN: 2-D echo ordered. Await results Continue current cardiac medications Patient is stable for discharge home today from a cardiac standpoint He is to follow up on an outpatient basis with Dr. Castillo Nurse practitioner note has been reviewed by physician. Signing provider agrees with the documented findings, assessment, and plan of care. Objective - Vital Signs Vital signs: Vital Signs Temp 97.4 F L 09/22/22 07:14 Pulse 54 L 09/22/22 07:14 Resp 14 09/22/22 07:14 BP 166/62 09/22/22 07:14 Pulse Ox 100 09/22/22 07:14 FiO2 Intake & Output 09/21/22 09/22/22 09/22/22 18:59 06:59 18:59 Intake Total 240 Balance 240 Intake: Oral 240 Other: Voiding Method Toilet Toilet # Voids 1 1 - Labs CBC & Chem 7: 09/21/22 05:16 09/20/22 13:09 Labs: Abnormal Lab Results - Last 24 Hours (Table) 09/21/22 Range/Units 05:16 HDL Cholesterol 31.40 L (40.00-60.00) mg/dL
[2022-09-22 10:34] LABS: Basophils # (A) 0.01 X 10*3/uL (0.00-0.10); Basophils % (A) 0.2 %; Eosinophils % (A) 4.3 %; HCT 32.8 % (39.6-50.0); Immature Grans, Automated 0.2 %; Lymphocytes # (A) 0.72 X 10*3/uL (0.90-5.00); Lymphocytes % (A) 15.3 %; MCH 29.6 pg (27.0-32.0); MCHC 30.5 g/dL (32.0-37.0); Mean Platelet Volume 10.2 fL (9.5-12.2); Monocytes # (A) 0.48 X 10*3/uL (0.20-1.00); Monocytes % (A) 10.2 %; NRBC Per 100 WBC 0 /100 WBCS (0.0-0.0); Neutrophils # (A) 3.28 X 10*3/uL (1.80-7.70); Neutrophils % (A) 69.8 %; Platelet Count 137 X 10*3/uL (140-440); RBC 3.38 X 10*6/uL (4.40-5.60); RDW 15.7 % (11.5-14.5)
[2022-09-22] MEDS ORDERED: FOLIC ACID 1 MG TAB PO SCH (13:30)
[2022-09-22] MEDS ORDERED: CYANOCOBALAMIN 1,000 MCG/ML 1 ML VIAL IM ONE (14:00)
--- NOTE | 2022-09-22 16:25 | CA ---
Transthoracic Echo Report Name: Anthony Francois Age: 82 Gender: M : 1940 Exam Date: 09/21/2022 11:32 Exam Location: [place] [facility] Ht (in): 69 Wt (lb): 215 Ordering Physician: Jabier Sousa MD Attending/Referring Phys: [id number], Merry Assistant [employer] Manager Taylor Santos RDCS Procedure CPT: Indications: Rule out heart disease Cardiac Hx: Technical Quality: Fair Contrast 1: Total Dose (mL): Contrast 2: Total Dose (mL): MEASUREMENTS (Male / Female) Normal Values 2D ECHO LV Diastolic Diameter PLAX 5.3 cm 4.2 - 5.9 / 3.9 - 5.3 cm LV Systolic Diameter PLAX 4.5 cm IVS Diastolic Thickness 1.5 cm 0.6 - 1.0 / 0.6 - 0.9 cm LVPW Diastolic Thickness 1.5 cm 0.6 - 1.0 / 0.6 - 0.9 cm LV Relative Wall Thickness 0.6 RV Internal Dim ED PLAX 3.8 cm LVOT Diameter 1.5 cm LA Volume 64.8 cm??? 18 - 58 / 22 - 52 cm??? M-MODE Aortic Root Diameter MM 3.2 cm LA Systolic Diameter MM 4.7 cm LA Ao Ratio MM 1.5 DOPPLER AV Peak Velocity 259.3 cm/s AV Peak Gradient 26.9 mmHg AV Mean Velocity 188.7 cm/s AV Mean Gradient 15.6 mmHg AV Velocity Time Integral 71.2 cm LVOT Peak Velocity 74.4 cm/s LVOT Peak Gradient 2.2 mmHg LVOT Velocity Time Integral 21.0 cm LVOT Stroke Volume 37.6 cm??? LVOT Stroke Volume Index 17.7 ml/m??? LVOT Cardiac Index 1175.4 cm???/min???m??? AV Area Cont Eq vti 0.5 cm??? AV Area Cont Eq pk 0.5 cm??? MV Area PHT 2.0 cm??? Mitral E Point Velocity 191.3 cm/s Mitral A Point Velocity 107.6 cm/s Mitral E to A Ratio 1.8 MV Deceleration Time 378.7 ms MV E' Velocity 5.0 cm/s Mitral E to MV E' Ratio 38.3 TR Peak Velocity 269.9 cm/s TR Peak Gradient 29.1 mmHg Right Ventricular Systolic Press 34.1 mmHg FINDINGS Left Ventricle Moderately increased septal wall thickness. Normal left ventricular systolic function with no obvious regional wall motion abnormalities. Left ventricular cavity size normal. Left ventricular ejection fraction is estimated at 55-60 %. Right Ventricle Mild right ventricular dilatation. Right ventricular systolic pressure within normal limits. Right Atrium Right atrium not well visualized. Left Atrium Mildly increased left atrial volume. Mildly increased left atrial area. Mitral Valve Mitral valve thickened. Severe mitral annular calcification. Mild mitral stenosis. Mild mitral regurgitation. Aortic Valve Mild aortic stenosis with a peak gradient of 27 mmHg and a mean gradient of 16 mmHg. Tricuspid Valve Mild tricuspid regurgitation. Pulmonic Valve Trace pulmonic regurgitation. Pericardium No pericardial effusion. Aorta Normal size aortic root and proximal ascending aorta. CONCLUSIONS Normal LV function Aortic sclerosis with mild to moderate aortic stenosis Severe mitral annular calcification. Mild mitral stenosis Previewed by: Dr. Javier Gaytan MD (Electronically Signed) Final Date: 22 September 2022 16:24
--- NOTE | 2022-09-22 21:25 | P.DS ---
Providers Date of admission: 09/21/22 14:32 Attending physician: Jabier Sousa MD Consults: 09/20/22 15:10 Consult Physician Urgent Consulting Provider: [facility] Consult Reason/Comments: Unstable angina Do you want consulting provider notified?: Yes Primary care physician: Stated None Hospital Course: Diagnoses: chest pain /heaviness, rule out cardiac causes history of Coronary Artery Disease s/p stent mild pancytopenia mostly secondary to vitamin B12 deficiency, f/u as outpt Vitamin B12 low normal, received IM vitamin B12 injection 1 and prescribed oral replacement therapy upon discharge with recommendation to check level outpatient and he agrees Diabetes Mellitus Hyperlipidemia Hypertension h/o gout h/o c-diff Hospital course: this is a pleasant 82 yo m with past medical history of Coronary Artery Disease s/p stent , Diabetes Mellitus, Hyperlipidemia, Hypertension, gout, hx c-diff (Jun 2019)., presents with chest heaviness, on the left side radiating to the back about 4/10 in severity currently by the time i saw the pt his chest pain has resolved as 0/10 Patient evaluated by joint cutter troponin 3 were negative.Echocardiogram showed normal LV function with [id number] aortic stenosis Patient remains asymptomatic, no other new symptoms Patient was cleared for discharge by joint cutter Vitamin B12 is low to normal and he has evidence of mild pancytopenia, vitamin B12 replacement provided for the patient with recommendation to the patient and his son to check his level as an outpatient with his doctor and he agrees Problems and management plan were discussed with the patient and he verbalized understanding and acceptance Patient was found stable and can be discharged home in guarded prognosis however he needs follow-up as an outpatient. Patient was instructed to follow up with PCP within one week and patient agrees. Patient states that he will choose the PCP further this provided for him and he will call and make appointment as instructed Patient was instructed to follow up with joint cutter Dr. Castillo in one week and he agrees with the appointments made for him on 09/30 Physical exam Gen: patient is a AAOx3, no distress CVS: S1-S2, RRR, no murmur Lungs: B/L CTA, no wheezing Abdomen: soft, no distention, no tenderness, positive bowel sounds Extremity: no leg edema or induration Time spent more than 35 minutes Patient Condition at Discharge: Fair Plan - Discharge Summary New Discharge Prescriptions: New Folic Acid 1 mg PO DAILY #20 tab Cyanocobalamin [Vitamin B-12] 1,000 mcg PO DAILY #60 tab hydroCHLOROthiazide [Hydrodiuril] 25 mg PO DAILY #30 tab Continue Vitamin B Complex 1 cap PO DAILY Aspirin 81 mg PO DAILY amLODIPine [Norvasc] 5 mg PO HS Losartan [Cozaar] 50 mg PO DAILY Fish Oil/Dha/Epa [Fish Oil 1,200 mg Fish Oil] 1 cap PO DAILY allopurinoL [Zyloprim] 100 mg PO DAILY Pioglitazone [Actos] 45 mg PO DAILY glipiZIDE XL [Glucotrol XL] 5 mg PO BID Atorvastatin [Lipitor] 40 mg PO HS carvediloL [Coreg] 3.125 mg PO BID Cholecalciferol [Vitamin D3 (25 Mcg = 1000 Iu)] 50 mcg PO DAILY Lactobacillus Acidophilus [Acidophilus Probiotic] 1 cap PO DAILY Discharge Medication List Vitamin B Complex 1 cap PO DAILY 04/15/14 [History] Aspirin 81 mg PO DAILY 03/02/19 [History] Fish Oil/Dha/Epa [Fish Oil 1,200 mg Fish Oil] 1 cap PO DAILY 03/02/19 [History] Losartan [Cozaar] 50 mg PO DAILY 03/02/19 [History] amLODIPine [Norvasc] 5 mg PO HS 03/02/19 [History] allopurinoL [Zyloprim] 100 mg PO DAILY 04/05/19 [History] Pioglitazone [Actos] 45 mg PO DAILY 10/05/19 [History] glipiZIDE XL [Glucotrol XL] 5 mg PO BID 10/05/19 [History] Atorvastatin [Lipitor] 40 mg PO HS 05/17/20 [History] carvediloL [Coreg] 3.125 mg PO BID 06/24/20 [History] Cholecalciferol [Vitamin D3 (25 Mcg = 1000 Iu)] 50 mcg PO DAILY 09/20/22 [History] Lactobacillus Acidophilus [Acidophilus Probiotic] 1 cap PO DAILY 09/20/22 [History] Cyanocobalamin [Vitamin B-12] 1,000 mcg PO DAILY #60 tab 09/22/22 [Rx] Folic Acid 1 mg PO DAILY #20 tab 09/22/22 [Rx] hydroCHLOROthiazide [Hydrodiuril] 25 mg PO DAILY #30 tab 09/22/22 [Rx] Follow up Appointment(s)/Referral(s): Veronica Castillo MD [STAFF PHYSICIAN] - 10/05/22 2:15 pm (Appointment made at the [facility] ) None,Stated [Primary Care Provider] - 1-2 days Patient Instructions/Handouts: Angina (DC), Chronic Hypertension (DC) Activity/Diet/Wound Care/Special Instructions: [facility] Primary Care Physicians Francis Otto MD Specialty:Family Medicine [address] [place] [address] Angelika Velasquez NP Specialty:Family Medicine 5312 [place] [address] Marti Bailey NP Specialty:Family Medicine Nurse Practitioner [address] [place] [address] Berta Vieira [facility] Specialty:Family Medicine [address] [place] [address] Jose Connors MD Specialty: Internal Medicine 1201 [facility], [address] [place] [address] Luiz Figueroa DO Specialty:Adult Ventilating Equipment Installer [address] [address] Tulio Oliveros MD Specialty: Internal Medicine [address] [place] [address] Ashley Oates Specialty:Family Medicine [address] [place] [address] Chidi Rosario MD Specialty:Family Medicine [address] [place] [address] Víctor Allen MD Specialty: Internal Medicine [address] [place] [address] Stephanie Gu MD Specialty:Family Medicine [address] [place] [address] Thony Alves DO Specialty:Family Medicine [address] [facility], [address] [place] [address] Behzad Bryan MD, [facility] Specialty: Family Medicine [address], [address] [place] [address] Tip Auguste MD Specialty:Family Medicine 1217 [facility], [address] [place] [address] Tip Yan DO Specialty: Family Medicine [address] [place] [address] Rafal Russell MD Specialty:Family Medicine 3350 [place] [address] Tarik Ervin MD Specialty: Internal Medicine [address] [place] [address] Ml Casanova DO Specialty:Family Medicine 117 [place] [address] Kaylee Gibbs [facility]- Specialty: Internal Medicine 26[address] [place] [address] Josiane Interiano MD Specialty: Internal Medicine, Pediatrics [address] [place] [address] Michael Hooks MD Specialty:Family Medicine [address] [place] [address] Сергей Virk MD [facility] Specialty: Internal Medicine 2425 [facility] [place] [address] Chidi Garza DO Specialty: Family Medicine [address] [place] [address] Gus Montenegro MD Specialty:Family Medicine [address] [facility], [place] [address] Aniya Hernandes MD Specialty: Internal Medicine 1201 [facility], [address] [place] [address] Milagros Osorio [facility]- Specialty:Nurse Practitioner 5[address] [place] [address] Letty Claudio NP Specialty:Family Medicine Nurse Practitioner [address] [place] [address] Susy Harley PA-C Specialty:Family Medicine [address] [place] [address] Bernardo Grande DO Specialty:Family Medicine 53[address] [facility] [place] [address] Rafal Srinivasan MD Specialty: Internal Medicine [address] [place] [address] Wendy JuradoP-C [facility] Provider Specialty: Family Medicine 1163 [place] [address] Lalo Uribe MD Specialty: Internal Medicine [address] [place] [address] Merlin Garcia Tiarra [facility] Provider Specialty: Family Medicine 1216 [place] [address] Ciarra Van NP Specialty: Family Medicine Nurse Practitioner [address] [place] [address] Magalys Amaro MD Specialty: Family Medicine [address] [place] [address] Frances Becker MD Specialty:Family Medicine 5[address] [place] [address] Wendy Maldonado MD [facility] Provider Specialty:Family Medicine [address] [place] [address] Yamilet Gill-BC Specialty: Internal Medicine Nurse Practitioner [address] [place] [address] Serafin Tabor DO Specialty: Family Medicine [address] [place] [address] Noble Boudreaux DO Specialty:Family Medicine [address] [place] [address] Berta Blanco DO Specialty: Family Medicine [address] [place] [address] Rfaal Yeung MD Specialty:Family Medicine 111[address] [facility], [address] [place] [address] Axel Duran MD Specialty:Family Medicine [address] [facility] [place] [address] Emile Jacobs MD Specialty:Family Medicine [address] [place] [address] Amanda Peterson DO Specialty: Family Medicine [address] [place] [address] Naresh Hendricks MD Specialty:Family Medicine [address] [place] [address] Sona Jean DO Specialty:Family Medicine 2425 [facility] [address] [place] [address] Nba Mcconnell MD Specialty:Family Medicine Sub-Specialty:Gerontology, Sports Medicine [address] [place] [address] Kimberlyn Andrade NP Specialty:Family Medicine 2425 [facility] [place] [address] Ryan Mills MD Specialty: Family Medicine [address] [place] [address], [place] [address] Tami Mills DO Specialty:Family Medicine Sub-Specialty:Vasectomies, Laser [address] [place] [address], [place] [address] Kathy Lloyd DO Specialty: Family Medicine 1280 [facility] [address], [place] [address] Yamilet Poe [employer] Specialty: Family Medicine [facility] [address]85 [place] [address] Víctor Awad DO Specialty:Family Medicine Sub-Specialty:Pediatrics, Sports Medicine, Women's Medicine, Cryotherapy, Simple Surgeries, Synvisc Injections 5312 [place] [address] Royal Pa DO Specialty:Family Medicine Sub-Specialty:Geriatrics [address] [place] [address] Vicente Hector Specialty:Family Medicine [address] [place] [address] Yamilet Kendrick PA-C [address] [place] [address] Porfirio Haley DO Specialty: Family Medicine [address] [place] [address] Ernie Correia MD Specialty:Family Medicine Sub-Specialty:Wound Care, Family Care [address] [facility], [address] [place] [address] Chelsea Tolentino MD Specialty:Family Medicine 1011 [place] [address] Heather Singh MD Specialty:Family Medicine 3436 [place] [address] [facility] ([facility]) 30[address] [facility], [address] [place] [address] Luiz Grover DO [facility] Provider Specialty: Internal Medicine 5979 [place] [address] Jacqueline Judd Specialty:Family Medicine [address] [place] [address] 34[address] [place] [address] Discharge Disposition: HOME SELF-CARE
[2022-09-23] MEDS ORDERED: CYANOCOBALAMIN 500 MCG TAB PO SCH (09:00)
== END 2022-09-22 14:38 | disposition home or self-care (01) | DRG 313 ==
LOC: EC 12:36 → 6NMEDSUR 15:11 → OBSVTOIN 09-21 14:32
PROVIDERS: ADMIT Internal Medicine; ATTEND Internal Medicine
DX: R07.9 Chest pain, unspecified (principal); D61.818 Other pancytopenia; I16.1 Hypertensive emergency; M10.9 Gout, unspecified; I25.10 Atherosclerotic heart disease of native coronary artery without angina pectoris; I08.3 Combined rheumatic disorders of mitral, aortic and tricuspid valves; E11.9 Type 2 diabetes mellitus without complications; Z79.84 Long term (current) use of oral hypoglycemic drugs; E78.00 Pure hypercholesterolemia, unspecified; Z95.5 Presence of coronary angioplasty implant and graft; E53.8 Deficiency of other specified B group vitamins; I11.0 Hypertensive heart disease with heart failure; I50.9 Heart failure, unspecified; Z79.82 Long term (current) use of aspirin; Z79.899 Other long term (current) drug therapy; Z87.891 Personal history of nicotine dependence; Z88.8 Allergy status to other drugs, medicaments and biological substances; Z86.19 Personal history of other infectious and parasitic diseases
CPT/HCPCS: 36415; 71046; 80053; 80061; 82607; 82746; 83036; 83735; 84484; 85025; 85610; 85730; 93005; 93306; 94760; 96365; 96366; 96367; 96375; 99291

== ENCOUNTER 2023-02-03 13:04 | Inpatient (IN) | payer MEDICARE ==
--- NOTE | 2023-02-03 13:29 | ED ---
General Adult HPI - General Chief complaint: Fall Stated complaint: Fall Time Seen by Provider: 02/03/23 13:10 Source: patient, EMS, RN notes reviewed, old records reviewed Mode of arrival: EMS Limitations: no limitations - History of Present Illness Initial comments: This is a 82-year-old male who presents to the emergency department stating that he fell but he doesn't remember that he fell. Patient states that he was picking up his at the [employer] and was walking out of the car when he next he knows he woke up on the ground. Patient states he had no chest pain difficulty breathing or shortness of breath at any time. Patient denies feeling at all off this morning prior to the event. Patient states currently he feels fine now except he has a little bit of lower abdominal pain and mild headache. Patient denies being on any blood thinners. Patient denies any upper back pain patient denies any chest pain or abdominal pain patient denies any extremity pain - Related Data Home Medications Medication Instructions Recorded Confirmed Vitamin B Complex 1 cap PO DAILY 04/15/14 09/20/22 Aspirin 81 mg PO DAILY 03/02/19 09/20/22 Fish Oil/Dha/Epa [Fish Oil 1,200 1 cap PO DAILY 03/02/19 09/20/22 mg Fish Oil] Losartan [Cozaar] 50 mg PO DAILY 03/02/19 09/20/22 amLODIPine [Norvasc] 5 mg PO HS 03/02/19 09/20/22 allopurinoL [Zyloprim] 100 mg PO DAILY 04/05/19 09/20/22 Pioglitazone [Actos] 45 mg PO DAILY 10/05/19 09/20/22 glipiZIDE XL [Glucotrol XL] 5 mg PO BID 10/05/19 09/20/22 Atorvastatin [Lipitor] 40 mg PO HS 05/17/20 09/20/22 carvediloL [Coreg] 3.125 mg PO BID 06/24/20 09/20/22 Cholecalciferol [Vitamin D3 (25 50 mcg PO DAILY 09/20/22 09/20/22 Mcg = 1000 Iu)] Lactobacillus Acidophilus 1 cap PO DAILY 09/20/22 09/20/22 [Acidophilus Probiotic] Previous Rx's Medication Instructions Recorded Cyanocobalamin [Vitamin B-12] 1,000 mcg PO DAILY #60 tab 09/22/22 Folic Acid 1 mg PO DAILY #20 tab 09/22/22 hydroCHLOROthiazide [Hydrodiuril] 25 mg PO DAILY #30 tab 09/22/22 Allergies Allergy/AdvReac Type Severity Reaction Status Date / Time metformin AdvReac Diarrhea Verified 02/03/23 13:13 Review of Systems ROS Statement: Those systems with pertinent positive or pertinent negative responses have been documented in the HPI. ROS Other: All systems not noted in ROS Statement are negative. Past Medical History Past Medical History: Coronary Artery Disease (CAD), Diabetes Mellitus, Hyperlipidemia, Hypertension Additional Past Medical History / Comment(s): gout, hx c-diff (Jun 2019)., postitive blood stool. History of Any Multi-Drug Resistant Organisms: C-DIFF Date of last positivie culture/infection: stool MDRO Source:: 06/2019 Past Surgical History: Heart Catheterization With Stent, Hernia Repair Additional Past Surgical History / Comment(s): ROZ CAROTID ENDARTERECTOMY,ROZ CATARACTS. COLONOSCOPY. Stent x3 Past Anesthesia/Blood Transfusion Reactions: No Reported Reaction Date of Last Stent Placement:: 04/16/2019 Past Psychological History: No Psychological Hx Reported Smoking Status: Former smoker Past Alcohol Use History: Occasional Past Drug Use History: None Reported - Past Family History Father Additional Family Medical History / Comment(s): aortic aneurysm Mother Additional Family Medical History / Comment(s): Brain aneurysm General Exam - General Exam Comments Initial Comments: GENERAL: Patient is well-developed and well-nourished. Patient is nontoxic and well- hydrated and is in mild distress. ENT: Neck is soft and supple. No significant lymphadenopathy is noted. Oropharynx is clear. Moist mucous membranes. Neck has full range of motion without eliciting any pain. EYES: The sclera were anicteric and conjunctiva were pink and moist. Extraocular movements were intact and pupils were equal round and reactive to light. Eyelids were unremarkable. PULMONARY: Unlabored respirations. Good breath sounds bilaterally. No audible rales rhonchi or wheezing was noted. CARDIOVASCULAR: There is a regular rate and rhythm without any murmurs gallops or rubs. ABDOMEN: Soft and nontender with normal bowel sounds. SKIN: Very superficial abrasion the occipital region of the scalp NEUROLOGIC: Patient is alert and oriented x3. Cranial nerves II through XII are grossly intact. Motor and sensory are also intact. Normal speech, volume and content. Symmetrical smile. MUSCULOSKELETAL: Normal extremities with adequate strength and full range of motion. Patient is slight tenderness in the lumbosacral region LYMPHATICS: No significant lymphadenopathy is noted PSYCHIATRIC: Normal psychiatric evaluation. Limitations: no limitations Course Vital Signs 02/03/23 13:07 Temperature 97.8 F Pulse Rate 60 Respiratory 16 Rate Blood Pressure 173/70 O2 Sat by Pulse 98 Oximetry Medical Decision Making - Medical Decision Making EKG was interpreted by myself shows a sinus rhythm at 60 bpm OK interval 280 QRSs 166 QT interval 499 QTC is 500. Patient has a left bundle branch block. Was pt. sent in by a medical professional or institution (, PA, [employer]URFACER, urgent care, hospital, or [facility]...) When possible be specific @ -No Did you speak to anyone other than the patient for history (EMS, parent, family, police, friend...)? What history was obtained from this source @ -All the history because the patient did not remember what happened Did you review nursing and triage notes (agree or disagree)? Why? @ -I reviewed and agree with nursing and triage notes Were old charts reviewed (outside hosp., previous admission, EMS record, old EKG, old radiological studies, urgent care reports/EKG's, [facility] records)? Report findings @ -No old charts were reviewed Differential Diagnosis (chest pain, altered mental status, abdominal pain women, abdominal pain men, vaginal bleeding, weakness, fever, dyspnea, syncope, headache, dizziness, GI bleed, back pain, seizure, CVA, palpatations, mental health, musculoskeletal)? @ -Differential Syncope: Valvular disease, hypertrophic cardiomyopathy, pulmonary embolism, tamponade, tachycardia, bradycardia, PR, hypovolemia, hemorrhage, dissection, anemia, intracranial hemorrhage, seizure, hypoglycemia, carbon monoxide poisoning, this is not meant to be an all-inclusive list. EKG interpreted by me (3pts min.). @ -As above X-rays interpreted by me (1pt min.). @ -Chest x-ray showed no acute abnormalities. Lumbosacral spine x-ray showed no acute normalities. CT interpreted by me (1pt min.). @ -CT of the brain and C-spine showed no acute abnormalities U/S interpreted by me (1pt. min.). @ -None done What testing was considered but not performed or refused? (CT, X-rays, U/S, labs)? Why? @ -None What meds were considered but not given or refused? Why? @ -None Did you discuss the management of the patient with other professionals (professionals i.e. , PA, [employer]URFACER, lab, RT, psych nurse, family welfare social work professor, hot wort settler, teacher, crime prevention police officer, high risk case manager)? Give summary @ -Spoke with Dr. Allison he agreed to admit the patient I also spoke with Dr. Clayton he agreed to be on consult. Was smoking cessation discussed for >3mins.? @ -No Was critical care preformed (if so, how long)? @ -No Were there social determinants of health that impacted care today? How? (Homelessness, low income, unemployed, alcoholism, drug addiction, transportation, low edu. Level, literacy, decrease access to med. care, halfway, rehab)? @ -No Was there de-escalation of care discussed even if they declined (Discuss DNR or withdrawal of care, Hospice)? DNR status @ -No What co-morbidities impacted this encounter? (DM, HTN, Smoking, COPD, CAD, Cancer, CVA, ARF, Chemo, Hep., AIDS, mental health diagnosis, sleep apnea, morbid obesity)? @ -None Was patient admitted / discharged? Hospital course, mention meds given and route, prescriptions, significant lab abnormalities, going to OR and other pertinent info. @ -Patient came in after he had fallen back and hit his head and was awake but not responding to his for about 15 minutes she stated. Patient does not remember the event patient states he does not remember having any symptoms prior to or after the fall. Patient had CAT scan of the head and neck showed no acute normalities. Patient had a chest x-ray of the chest and lumbosacral spine and showed no acute normalities. I spoke with Dr. Allison he was willing to admit the patient as a trauma patient and consult Dr. Clayton. Undiagnosed new problem with uncertain prognosis? @ -No Drug Therapy requiring intensive monitoring for toxicity (Heparin, Nitro, In sulin, Cardizem)? @ -No Were any procedures done? @ -No Diagnosis/symptom? @ -Blunt head trauma Acute, or Chronic, or Acute on Chronic? @ -Acute Uncomplicated (without systemic symptoms) or Complicated (systemic symptoms)? @ -Complicated Side effects of treatment? @ -No Exacerbation, Progression, or Severe Exacerbation? @ -No Poses a threat to life or bodily function? How? (Chest pain, USA, PR, pneumonia, PE, COPD, DKA, ARF, appy, cholecystitis, CVA, Diverticulitis, Homicidal, Suicidal, threat to staff... and all critical care pts) @ -Yes this could lead to an intracranial hemorrhage and potential morbidity mortality Diagnosis/symptom? @ -Syncope Acute, or Chronic, or Acute on Chronic? @ -Acute Uncomplicated (without systemic symptoms) or Complicated (systemic symptoms)? @ -Complicated Side effects of treatment? @ -none Exacerbation, Progression, or Severe Exacerbation] @ -no Poses a threat to life or bodily function? @ -Yesterday this could have been caused by an arrhythmia and possible lead 2 - Lab Data Result diagrams: 02/03/23 13:14 02/03/23 13:14 Lab Results 02/03/23 02/03/23 02/03/23 Range/Units 13:14 13:14 13:14 WBC 4.1 (3.8-10.6) k/uL RBC 3.70 L (4.30-5.90) m/uL Hgb 11.6 L (13.0-17.5) gm/dL Hct 35.1 L (39.0-53.0) % MCV 94.6 (80.0-100.0) fL MCH 31.2 (25.0-35.0) pg MCHC 33.0 (31.0-37.0) g/dL RDW 15.3 (11.5-15.5) % Plt Count 115 L (150-450) k/uL MPV 7.6 Neutrophils % 73 % Lymphocytes % 15 % Monocytes % 6 % Eosinophils % 3 % Basophils % 0 % Neutrophils # 3.0 (1.3-7.7) k/uL Lymphocytes # 0.6 L (1.0-4.8) k/uL Monocytes # 0.3 (0-1.0) k/uL Eosinophils # 0.1 (0-0.7) k/uL Basophils # 0.0 (0-0.2) k/uL PT 11.9 (9.0-12.0) sec INR 1.2 H (<1.2) APTT 25.4 (22.0-30.0) sec Sodium 136 L (137-145) mmol/L Potassium 4.3 (3.5-5.1) mmol/L Chloride 103 (98-107) mmol/L Carbon Dioxide 27 (22-30) mmol/L Anion Gap 6 mmol/L BUN 34 H (9-20) mg/dL Creatinine 1.26 H (0.66-1.25) mg/dL Est GFR (CKD-EPI)AfAm 62 (>60 ml/min/1.73 sqM) Est GFR (CKD-EPI)NonAf 54 (>60 ml/min/1.73 sqM) Glucose 116 H (74-99) mg/dL Calcium 8.8 (8.4-10.2) mg/dL Magnesium 1.5 L (1.6-2.3) mg/dL Total Bilirubin 0.8 (0.2-1.3) mg/dL AST 22 (17-59) U/L ALT 18 (4-49) U/L Alkaline Phosphatase 41 (38-126) U/L Troponin I (0.000-0.034) ng/mL Total Protein 6.5 (6.3-8.2) g/dL Albumin 3.8 (3.5-5.0) g/dL 02/03/23 Range/Units 13:14 WBC (3.8-10.6) k/uL RBC (4.30-5.90) m/uL Hgb (13.0-17.5) gm/dL Hct (39.0-53.0) % MCV (80.0-100.0) fL MCH (25.0-35.0) pg MCHC (31.0-37.0) g/dL RDW (11.5-15.5) % Plt Count (150-450) k/uL MPV Neutrophils % % Lymphocytes % % Monocytes % % Eosinophils % % Basophils % % Neutrophils # (1.3-7.7) k/uL Lymphocytes # (1.0-4.8) k/uL Monocytes # (0-1.0) k/uL Eosinophils # (0-0.7) k/uL Basophils # (0-0.2) k/uL PT (9.0-12.0) sec INR (<1.2) APTT (22.0-30.0) sec Sodium (137-145) mmol/L Potassium (3.5-5.1) mmol/L Chloride (98-107) mmol/L Carbon Dioxide (22-30) mmol/L Anion Gap mmol/L BUN (9-20) mg/dL Creatinine (0.66-1.25) mg/dL Est GFR (CKD-EPI)AfAm (>60 ml/min/1.73 sqM) Est GFR (CKD-EPI)NonAf (>60 ml/min/1.73 sqM) Glucose (74-99) mg/dL Calcium (8.4-10.2) mg/dL Magnesium (1.6-2.3) mg/dL Total Bilirubin (0.2-1.3) mg/dL AST (17-59) U/L ALT (4-49) U/L Alkaline Phosphatase (38-126) U/L Troponin I <0.012 (0.000-0.034) ng/mL Total Protein (6.3-8.2) g/dL Albumin (3.5-5.0) g/dL Disposition Clinical Impression: Fall, Syncope Disposition: ADMITTED IP TO THIS HOSP Referrals: Shanae Allison MD [Primary Care Provider] - 1-2 days Time of Disposition: 15:47
[2023-02-03 13:34] LABS: Basophils % (A) 0 %; Eosinophils # (A) 0.1 k/uL (0-0.7); Eosinophils % (A) 3 %; HCT 35.1 % (39.0-53.0); HGB 11.6 gm/dL (13.0-17.5); Lymphocytes # (A) 0.6 k/uL (1.0-4.8); Lymphocytes % (A) 15 %; MCH 31.2 pg (25.0-35.0); MCV 94.6 fL (80.0-100.0); Mean Platelet Volume 7.6; Monocytes # (A) 0.3 k/uL (0-1.0); Monocytes % (A) 6 %; Neutrophils % (A) 73 %; Platelet Count 115 k/uL (150-450); RDW 15.3 % (11.5-15.5); WBC 4.1 k/uL (3.8-10.6)
[2023-02-03 13:49] LABS: INR 1.2 (<1.2); Partial Thromboplastin Time 25.4 sec (22.0-30.0); Prothrombin Time 11.9 sec (9.0-12.0)
[2023-02-03 13:51] LABS: ALT 18 U/L (4-49); AST 22 U/L (17-59); African American GFR (CKD) 62 (>60 ml/min/1.73 sqM); Albumin 3.8 g/dL (3.5-5.0); Alkaline Phosphatase 41 U/L (38-126); Anion Gap 6 mmol/L; Blood Urea Nitrogen 34 mg/dL (9-20); Calcium 8.8 mg/dL (8.4-10.2); Carbon Dioxide 27 mmol/L (22-30); Chloride 103 mmol/L (98-107); Glucose 116 mg/dL (74-99); Magnesium 1.5 mg/dL (1.6-2.3); Non-African American GFR(CKD) 54 (>60 ml/min/1.73 sqM); Potassium 4.3 mmol/L (3.5-5.1); Sodium 136 mmol/L (137-145); Total Bilirubin 0.8 mg/dL (0.2-1.3); Total Protein 6.5 g/dL (6.3-8.2)
--- NOTE | 2023-02-03 14:23 | CT ---
EXAMINATION TYPE: CT brain cspine wo con CT DLP: 1587.7 mGycm, Automated exposure control for dose reduction was used. DATE OF EXAM: 02/03/2023 2:12 PM COMPARISON: CT brain 04/15/2014. CLINICAL INDICATION:Male, 82 years old with history of Trauma; TECHNIQUE: Brain: Multiple axial CT images of the brain were obtained without IV contrast. Cspine: Axial CT images from the skull base to the inferior aspect of T2 we obtained without intraven ous contrast. Coronal and sagittal reformatted images were also reviewed. FINDINGS: Brain: Extra-axial spaces: No abnormal extra-axial fluid collections. Ventricular system: Within normal limits Cerebral parenchyma: Cerebral atrophy. No acute intraparenchymal hemorrhage or mass effect. 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 Remote appearing infarct within the left fronta l lobe and left mancera radiata and left posterior parietal lobe. The remaining corona-white junction is well differentiated. Scattered hypoattenuating areas are seen within the white matter. Calcificatio n within the right frontal lobe. Nonspecific calcification within the bilateral basal ganglia. Cerebellum: Unremarkable. Mass effect: No evidence of midline shift. Intracranial vasculature: Atherosclerotic calcifications of the intracranial vessels. Soft tissues: Left posterior parietal small scalp hematoma. Calvarium/osseous structures: No depressed skull fracture. Paranasal sinuses and mastoid air cells: The mastoid air cells are clear. Mild mucosal thickening of the sphenoid sinus. Visualized orbits: Bilateral aphakia Cervical spine: Fracture: None. Osseous structures: Multilevel degenerative disc disease changes with endplate spurring and disc oste ophyte complex's. Multilevel facet arthropathy. Vertebral alignment: Degenerative grade 1 anterolisthesis of C2 on C3, C4 and C5. Spinal canal/Neural Foramina: Disc osteophyte complexes at C3-C4 with at least mild spinal canal sten osis. Facet joint uncovertebral joint arthropathy scattered throughout the cervical spine with varyin g degrees of neural foraminal stenosis. Neck soft tissues: Prevertebral soft tissues are within normal limits. Other: The airway is patent. Intralobular septal thickening of the visualized bilateral upper lobes. Bilateral carotid bulb calcifications with left greater than right. IMPRESSION: 1. No acute intracranial process. 2. Nonspecific white matter changes, likely secondary to chronic small vessel ischemic disease. 3. Remote ischemic injuries to the bilateral parietal lobes, left frontal lobe, and left mancera radia ta. 4. Small left posterior parietal scalp hematoma. 5. No evidence of cervical spine fracture. 6. Mild to moderate multilevel degenerative disc disease.
--- NOTE | 2023-02-03 15:04 | XR ---
EXAMINATION TYPE: XR chest 2V DATE OF EXAM: 02/03/2023 3:00 PM COMPARISON: Chest radiographs from 09/20/2022 TECHNIQUE: XR chest 2V Frontal and lateral views of the chest. CLINICAL INDICATION:Male, 82 years old with history of Chest Pain; FINDINGS: Lungs/Pleura: There is no evidence of pleural effusion, focal consolidation, or pneumothorax. Chroni c senescent parenchymal change. Inflation. Pulmonary vascularity: Unremarkable. Heart/mediastinum: Cardiomediastinal silhouette is unremarkable. Atherosclerotic calcifications are seen in the aorta. Musculoskeletal: No acute osseous pathology. IMPRESSION: 1. No acute cardiopulmonary disease/process. 2. COPD changes.
--- NOTE | 2023-02-03 15:06 | XR ---
EXAMINATION TYPE: XR lumbosacral spine min 4V DATE OF EXAM: 02/03/2023 3:00 PM INDICATION: Patient age:Male; 82 years old; Reason for study: Fall; [facility]. COMPARISON: CT abdomen pelvis 05/17/2020 TECHNIQUE: Frontal, lateral , bilateral oblique and coned in L5-S1 lateral views of the spine. FINDINGS: There are 5 lumbar type vertebral bodies identified. No evidence of any acute osseous patho logy. No evidence of loss of vertebral body height is seen. Mild multilevel degenerative disc diseas e with disc space narrowing, endplate process, and anterior osteophytosis. Mild levoscoliotic curvatu re of the lumbar spine with apex at L3. Mild retrolisthesis of L3 on L4. Multilevel facet arthropathy . Atherosclerotic calcification of the aorta. IMPRESSION: 1. No acute process. 2. Mild to moderate degenerative disc disease and facet arthropathy of the lumbar spine.
[2023-02-03] MEDS ORDERED: traMADol 50 MG TAB PO PRN (18:00)
[2023-02-03] MEDS ORDERED: NALOXONE 0.4 MG/ML 1 ML VIAL IV PRN (18:00)
[2023-02-03] MEDS ORDERED: ONDANSETRON 4 MG/2 ML VIAL IVP PRN (18:00)
[2023-02-03] MEDS ORDERED: ACETAMINOPHEN TAB 325 MG TAB PO PRN (18:00)
[2023-02-03] MEDS ORDERED: LACTATED RINGERS 1,000 ML IV ONE (18:00)
[2023-02-03] MEDS: FAMOTIDINE 20 MG TAB PO SCH (20:19)
[2023-02-03 20:45] LABS: Glucose,Whole Blood 180 mg/dL (70-110)
[2023-02-03] MEDS: HEPARIN SODIUM,PORCINE/PF 5,000 UNIT/0.5 ML SYRINGE SQ SCH (23:41)
[2023-02-04 07:38] LABS: Basophils % (A) 0 %; Eosinophils # (A) 0.1 k/uL (0-0.7); Eosinophils % (A) 3 %; HCT 38.6 % (39.0-53.0); HGB 12.3 gm/dL (13.0-17.5); Hypochromasia Slight; Lymphocytes # (A) 0.7 k/uL (1.0-4.8); Lymphocytes % (A) 13 %; MCH 30.5 pg (25.0-35.0); MCHC 31.9 g/dL (31.0-37.0); MCV 95.7 fL (80.0-100.0); Mean Platelet Volume 7.9; Monocytes # (A) 0.3 k/uL (0-1.0); Monocytes % (A) 6 %; Neutrophils # (A) 4.1 k/uL (1.3-7.7); Neutrophils % (A) 77 %; Platelet Count 150 k/uL (150-450); RBC 4.03 m/uL (4.30-5.90); RDW 15.4 % (11.5-15.5); WBC 5.3 k/uL (3.8-10.6)
[2023-02-04] MEDS: HEPARIN SODIUM,PORCINE/PF 5,000 UNIT/0.5 ML SYRINGE SQ SCH ×3 (07:51→23:15)
[2023-02-04] MEDS: FAMOTIDINE 20 MG TAB PO SCH ×2 (07:51→20:34)
[2023-02-04 07:58] LABS: African American GFR (CKD) 66 (>60 ml/min/1.73 sqM); Anion Gap 7 mmol/L; Blood Urea Nitrogen 29 mg/dL (9-20); Calcium 9.6 mg/dL (8.4-10.2); Carbon Dioxide 28 mmol/L (22-30); Chloride 104 mmol/L (98-107); Glucose 96 mg/dL (74-99); Non-African American GFR(CKD) 57 (>60 ml/min/1.73 sqM); Potassium 4.1 mmol/L (3.5-5.1); Sodium 139 mmol/L (137-145)
[2023-02-04] MEDS ORDERED: DEXTROSE 50% SYRINGE 50 ML IVP PRN ×2 (08:08)
--- NOTE | 2023-02-04 08:30 | P.HPIM ---
History of Present Illness REVIEW OF SYSTEMS: CONSTITUTIONAL: No fever, no malaise, no fatigue. HEENT: No recent visual problems or hearing problems. Denied any sore throat. CARDIOVASCULAR: No chest pain, orthopnea, PND, no palpitations, no syncope. PULMONARY: No shortness of breath, no cough, no hemoptysis. GASTROINTESTINAL: No diarrhea, no nausea, no vomiting, no abdominal pain. NEUROLOGICAL: No headaches, no weakness, no numbness. HEMATOLOGICAL: Denies any bleeding or petechiae. GENITOURINARY: Denies any burning micturition, frequency, or urgency. MUSCULOSKELETAL/RHEUMATOLOGICAL: Denies any joint pain, swelling, or any muscle pain. ENDOCRINE: Denies any polyuria or polydipsia. The rest of the 14-point review of systems is negative. PHYSICAL EXAMINATION: GENERAL: The patient is alert and oriented x3, not in any acute distress. Well developed, well nourished. HEENT: Pupils are round and equally reacting to light. EOMI. No scleral icterus. No conjunctival pallor. Normocephalic, atraumatic. No pharyngeal erythema. No thyromegaly. CARDIOVASCULAR: S1 and S2 present. No murmurs, rubs, or gallops. PULMONARY: Chest is clear to auscultation, no wheezing or crackles. ABDOMEN: Soft, nontender, nondistended, normoactive bowel sounds. No palpable organomegaly. MUSCULOSKELETAL: No joint swelling or deformity. EXTREMITIES: No cyanosis, clubbing, or pedal edema. NEUROLOGICAL: Gross neurological examination did not reveal any focal deficits. SKIN: No rashes. Assessment and plan DVT prophylaxis: Past Medical History Past Medical History: Coronary Artery Disease (CAD), Diabetes Mellitus, Hyperlipidemia, Hypertension Additional Past Medical History / Comment(s): gout, hx c-diff (Jun 2019)., postitive blood stool. History of Any Multi-Drug Resistant Organisms: C-DIFF Date of last positivie culture/infection: stool MDRO Source:: 06/2019 Past Surgical History: Heart Catheterization With Stent, Hernia Repair Additional Past Surgical History / Comment(s): RZO CAROTID ENDARTERECTOMY,ROZ CATARACTS. COLONOSCOPY. Stent x3 Past Anesthesia/Blood Transfusion Reactions: No Reported Reaction Date of Last Stent Placement:: 04/16/2019 Past Psychological History: No Psychological Hx Reported Smoking Status: Former smoker Past Alcohol Use History: Occasional Additional Past Alcohol Use History / Comment(s): QUIT SMOKING IN 1995, smoked 1ppd from teens Past Drug Use History: None Reported - Past Family History Father Additional Family Medical History / Comment(s): aortic aneurysm Mother Additional Family Medical History / Comment(s): Brain aneurysm Medications and Allergies Home Medications Medication Instructions Recorded Confirmed Type Vitamin B Complex 1 cap PO DAILY 04/15/14 02/03/23 History Losartan [Cozaar] 50 mg PO DAILY 03/02/19 02/03/23 History amLODIPine [Norvasc] 5 mg PO HS 03/02/19 02/03/23 History allopurinoL [Zyloprim] 100 mg PO DAILY 04/05/19 02/03/23 History Pioglitazone [Actos] 45 mg PO DAILY 10/05/19 02/03/23 History glipiZIDE XL [Glucotrol XL] 5 mg PO BID 10/05/19 02/03/23 History Atorvastatin [Lipitor] 40 mg PO HS 05/17/20 02/03/23 History carvediloL [Coreg] 3.125 mg PO BID 06/24/20 02/03/23 History Folic Acid 1 mg PO DAILY #20 tab 09/22/22 02/03/23 Rx Empagliflozin [Jardiance] 10 mg PO DAILY 02/03/23 02/03/23 History Vitamin A 2,400 mcg PO DAILY 02/03/23 02/03/23 History Vitamin E (Dl,Tocopheryl Acet) 400 unit PO DAILY 02/03/23 02/03/23 History [Vitamin E (400 Iu = 180 mg)] Allergies Allergy/AdvReac Type Severity Reaction Status Date / Time metformin AdvReac Diarrhea Verified 02/03/23 17:12 Physical Exam Vitals: Vital Signs Temp Pulse Pulse Resp BP BP Pulse Ox 02/04/23 03:21 98.4 F 57 L 16 144/82 96 02/03/23 23:32 98.3 F 64 18 122/59 95 02/03/23 20:40 97.3 F L 62 18 166/75 97 02/03/23 19:00 57 L 14 112/56 97 02/03/23 18:00 65 18 115/53 97 02/03/23 16:30 66 25 H 142/65 02/03/23 16:00 65 17 177/81 02/03/23 15:30 71 10 L 158/69 02/03/23 15:00 156/143 02/03/23 14:30 71 12 02/03/23 14:00 186/76 02/03/23 13:30 69 15 161/71 97 02/03/23 13:07 97.8 F 60 16 173/70 98 Intake and Output 02/03/23 02/04/23 02/04/23 22:59 06:59 14:59 Output Total 700 Balance -700 Output: Urine 700 Other: Weight 95.254 kg Results CBC & Chem 7: 02/04/23 07:15 02/04/23 07:15 Labs: Abnormal Lab Results - Last 24 Hours (Table) 02/03/23 02/03/23 02/03/23 Range/Units 13:14 13:14 13:14 RBC 3.70 L (4.30-5.90) m/uL Hgb 11.6 L (13.0-17.5) gm/dL Hct 35.1 L (39.0-53.0) % Plt Count 115 L (150-450) k/uL Lymphocytes # 0.6 L (1.0-4.8) k/uL INR 1.2 H (<1.2) Sodium 136 L (137-145) mmol/L BUN 34 H (9-20) mg/dL Creatinine 1.26 H (0.66-1.25) mg/dL Glucose 116 H (74-99) mg/dL POC Glucose (mg/dL) (70-110) mg/dL Magnesium 1.5 L (1.6-2.3) mg/dL 02/03/23 02/04/23 02/04/23 Range/Units 20:42 07:15 07:15 RBC 4.03 L (4.30-5.90) m/uL Hgb 12.3 L (13.0-17.5) gm/dL Hct 38.6 L (39.0-53.0) % Plt Count (150-450) k/uL Lymphocytes # 0.7 L (1.0-4.8) k/uL INR (<1.2) Sodium (137-145) mmol/L BUN 29 H (9-20) mg/dL Creatinine (0.66-1.25) mg/dL Glucose (74-99) mg/dL POC Glucose (mg/dL) 180 H (70-110) mg/dL Magnesium (1.6-2.3) mg/dL Thrombosis Risk Factor Assmnt - Choose All That Apply Any of the Below Risk Factors Present?: Yes Each Factor Represents 1 point: Medical pt on bed rest, Obesity (BMI >25), Varicose veins Other Risk Factors: Yes Each Risk Factor Represents 3 Points: Age 75 years or older Other congenital or acquired thrombophilia - If yes, enter type in comment: No Thrombosis Risk Factor Assessment Total Risk Factor Score: 6 Thrombosis Risk Factor Assessment Level: High Risk
--- NOTE | 2023-02-04 08:30 | P.DS ---
Providers Date of admission: 02/03/23 15:49 Attending physician: Ruddy Allison Consults: 02/03/23 15:47 Consult Physician Urgent Consulting Provider: Selvin Clayton Consult Reason/Comments: Near syncope Do you want consulting provider notified?: Yes Primary care physician: Shanae Allison [facility] Course: REVIEW OF SYSTEMS: CONSTITUTIONAL: No fever, no malaise, no fatigue. HEENT: No recent visual problems or hearing problems. Denied any sore throat. CARDIOVASCULAR: No chest pain, orthopnea, PND, no palpitations, no syncope. PULMONARY: No shortness of breath, no cough, no hemoptysis. GASTROINTESTINAL: No diarrhea, no nausea, no vomiting, no abdominal pain. NEUROLOGICAL: No headaches, no weakness, no numbness. HEMATOLOGICAL: Denies any bleeding or petechiae. GENITOURINARY: Denies any burning micturition, frequency, or urgency. MUSCULOSKELETAL/RHEUMATOLOGICAL: Denies any joint pain, swelling, or any muscle pain. ENDOCRINE: Denies any polyuria or polydipsia. The rest of the 14-point review of systems is negative. PHYSICAL EXAMINATION: GENERAL: The patient is alert and oriented x3, not in any acute distress. Well developed, well nourished. HEENT: Pupils are round and equally reacting to light. EOMI. No scleral icterus. No conjunctival pallor. Normocephalic, atraumatic. No pharyngeal erythema. No thyromegaly. CARDIOVASCULAR: S1 and S2 present. No murmurs, rubs, or gallops. PULMONARY: Chest is clear to auscultation, no wheezing or crackles. ABDOMEN: Soft, nontender, nondistended, normoactive bowel sounds. No palpable organomegaly. MUSCULOSKELETAL: No joint swelling or deformity. EXTREMITIES: No cyanosis, clubbing, or pedal edema. NEUROLOGICAL: Gross neurological examination did not reveal any focal deficits. SKIN: No rashes. Assessment and plan DVT prophylaxis: Plan - Discharge Summary Discharge Rx Participant: No New Discharge Prescriptions: Discontinued hydroCHLOROthiazide [Hydrodiuril] 25 mg PO DAILY #30 tab No Action Vitamin B Complex 1 cap PO DAILY amLODIPine [Norvasc] 5 mg PO HS Losartan [Cozaar] 50 mg PO DAILY allopurinoL [Zyloprim] 100 mg PO DAILY Pioglitazone [Actos] 45 mg PO DAILY glipiZIDE XL [Glucotrol XL] 5 mg PO BID Atorvastatin [Lipitor] 40 mg PO HS carvediloL [Coreg] 3.125 mg PO BID Folic Acid 1 mg PO DAILY #20 tab Empagliflozin [Jardiance] 10 mg PO DAILY Vitamin A 2,400 mcg PO DAILY Vitamin E (Dl,Tocopheryl Acet) [Vitamin E (400 Iu = 180 mg)] 400 unit PO DAILY Discharge Medication List Vitamin B Complex 1 cap PO DAILY 04/15/14 [History] Losartan [Cozaar] 50 mg PO DAILY 03/02/19 [History] amLODIPine [Norvasc] 5 mg PO HS 03/02/19 [History] allopurinoL [Zyloprim] 100 mg PO DAILY 04/05/19 [History] Pioglitazone [Actos] 45 mg PO DAILY 10/05/19 [History] glipiZIDE XL [Glucotrol XL] 5 mg PO BID 10/05/19 [History] Atorvastatin [Lipitor] 40 mg PO HS 05/17/20 [History] carvediloL [Coreg] 3.125 mg PO BID 06/24/20 [History] Folic Acid 1 mg PO DAILY #20 tab 09/22/22 [Rx] Empagliflozin [Jardiance] 10 mg PO DAILY 02/03/23 [History] Vitamin A 2,400 mcg PO DAILY 02/03/23 [History] Vitamin E (Dl,Tocopheryl Acet) [Vitamin E (400 Iu = 180 mg)] 400 unit PO DAILY 02/03/23 [History] Follow up Appointment(s)/Referral(s): Shanae Allison MD [Primary Care Provider] - 3 Days Terry Castillo MD [REFERRING] - 1 Week Discharge Disposition: HOME SELF-CARE
[2023-02-04] MEDS: carvediloL 3.125 MG TAB PO SCH ×2 (08:33→20:34)
[2023-02-04] MEDS: FOLIC ACID 1 MG TAB PO SCH (08:33)
[2023-02-04] MEDS: LOSARTAN 50 MG TAB PO SCH (08:33)
[2023-02-04] MEDS: allopurinoL 100 MG TAB PO SCH (08:33)
[2023-02-04] MEDS ORDERED: NON FORMULARY DRUG (Vitamin B Complex [Vitamin B Complex] 1 EACH Capsule) PO SCH (09:00)
[2023-02-04] MEDS: VITAMIN A 10,000 UNIT (3000 MCG) CAPSULE PO SCH (09:08)
[2023-02-04] MEDS: DAPAGLIFLOZIN PROPANEDIOL 5 MG TABLET PO SCH (09:08)
[2023-02-04] MEDS: VITAMIN E (DL,TOCOPHERYL ACET) 400 UNIT (180 MG) CAP PO SCH (09:09)
[2023-02-04] MEDS: PIOGLITAZONE 45 MG TAB PO SCH (09:09)
[2023-02-04] MEDS ORDERED: MAGNESIUM SULFATE-D5W PMX 1 GM in DEXTROSE/WATER 1 100ML.BAG IVPB ONE ×2 (09:40→11:15)
--- NOTE | 2023-02-04 10:07 | XR ---
EXAMINATION TYPE: XR elbow complete LT DATE OF EXAM: 02/04/2023 COMPARISON: None HISTORY: Fall pain swelling TECHNIQUE: Left elbow is examined in 3 projections FINDINGS: Anterior fat pad is normal. No elevation of posterior fat pad is. Small olecranon spur may be present. Mild diffuse soft tissue swelling at the olecranon may be present. Radius aligns normally with the humerus. No acute fractures or dislocations are evident. Follow up exams can be performed 7 -10 days from acute trauma continued pain. IMPRESSION: 1. No acute osseous abnormality left elbow. 2. There may be some mild diffuse soft tissue swelling over the olecranon.
--- NOTE | 2023-02-04 10:39 | P.GSHP ---
History of Present Illness H&P Date: 02/04/23 CHIEF COMPLAINT: Fall HISTORY OF PRESENT ILLNESS: This is a 82-year-old male who presented to the [facility] after syncopal episode. Patient was picking up his from the salon. He was helping her get into the car when he passed out. Patient does not recall the event. But was told that he got his into the car and then he fell backwards on the cement. EMS was called. Patient reports coming to in the ambulance. Patient had complain of pain in the lower back, the back this head and left elbow. Computed tomography scan of the head and cervical spine shows no acute intracranial process. And a small left posterior parietal scalp hematoma. Remote ischemic injuries to the bilateral parietal lobes, left frontal lobe and left mancera radiata. Patient is sitting up in bed. He is able to move all 4 extremities. He is tolerated diet. She does report 4 days ago having an episode of dizziness from sitting to standing. He has been evaluated by medicine service they have discontinued his hydrochlorothiazide. Patient denies any chest pain or shortness of breath. Patient does report 4 years ago he had a syncopal episode and at that time was found to have coronary disease and required cardiac stent. He denies any abdominal pain. He does complain of left elbow pain. PAST MEDICAL HISTORY: See below PAST SURGICAL HISTORY: See below MEDICATIONS: See below ALLERGIES: See below SOCIAL HISTORY: No illicit drug use. REVIEW OF SYSTEMS: CONSTITUTIONAL: Denies fever or chills. HEENT: Denies blurred vision, vision changes, or eye pain. Denies hemoptysis CARDIOVASCULAR: Denies chest pain or pressure. RESPIRATORY: No shortness of breath. GASTROINTESTINAL: See HPI for pertinent findings HEMATOLOGIC: Denies bleeding disorders. GENITOURINARY: Denies any blood in urine or increased urinary frequency. SKIN: Denies pruitis. Denies rash. PHYSICAL EXAM: VITAL SIGNS: Reviewed GENERAL: Well-developed in no acute distress. HEENT: No sclera icterus. Extraocular movements grossly intact. Moist buccal mucosa. Head is normocephalic. No nasal drainage. Small bruising right posterior aspect of head ABDOMEN: Soft. nondistended. nontender NEUROLOGIC: Alert and oriented. Cranial nerves II through XII grossly intact. Able to move all 4 extremities Extremities: Left elbow with an abrasion and swelling noted. Tender with palpation. Full range of motion. LABORATORY DATA: WBC is 5.3 Hgb 12.3 platelets 150 Sodium is 139 potassium 4.1 creatinine 1.20 Magnesium 1.5 IMAGING: Computed tomography scan of head and cervical spine no acute intracranial process. Nonspecific white matter changes likely secondary to chronic small vessel ischemic disease. Remote ischemic injuries to the bilateral parietal lobes, left frontal lobe and left carona radiata. Small left posterior parietal scalp hematoma. No evidence of cervical spine fracture. Mild to moderate multilevel degenerative disc disease. X-ray lumbar spine no acute process. Mild to moderate degenerative disc disease and facet arthropathy of the lumbar spine Chest x-ray no acute cardiopulmonary disease/process. COPD Elbow x-ray no acute osseous abnormality of the left elbow. There may be some mild diffuse soft tissue swelling over the olecranon ASSESSMENT: 1. Fall with syncopal episode 2. Trauma to the posterior aspect of the head, left elbow and lower back 3. Dehydration 4. Hypomagnesemia PLAN: -X-ray of left elbow ordered due to trauma and pain. No osseous abnormality noted there was discussed use soft tissue swelling -Continue supportive care -Continue IV fluids -Medicine service consulted for medical management. They have discontinued patient's water pill -Replace magnesium -Encouraged patient to increase activity level -Continue regular diet Physician Mold Blower note has been reviewed by physician. Signing provider agrees with the documented findings, assessment, and plan of care. I have personally seen and examined the patient, reviewed the DRAPERY INSPECTOR /PAs history, exam and MDM and agree with the assessment and plan as written. Based on total visit time, I have performed more than 50% of the visit. As above: Patient doing well today. Complain of mild elbow pain. X-ray showed no acute fracture. Family interested in cardiac consult as apparently when EMS arrived his heart rate was in the 30s. We'll consult cardiology at this time. Continue telemetry. Past Medical History Past Medical History: Coronary Artery Disease (CAD), Diabetes Mellitus, Hyperlipidemia, Hypertension Additional Past Medical History / Comment(s): gout, hx c-diff (Jun 2019)., postitive blood stool. History of Any Multi-Drug Resistant Organisms: C-DIFF Date of last positivie culture/infection: stool MDRO Source:: 06/2019 Past Surgical History: Heart Catheterization With Stent, Hernia Repair Additional Past Surgical History / Comment(s): ROZ CAROTID ENDARTERECTOMY,ROZ CATARACTS. COLONOSCOPY. Stent x3 Past Anesthesia/Blood Transfusion Reactions: No Reported Reaction Date of Last Stent Placement:: 04/16/2019 Past Psychological History: No Psychological Hx Reported Smoking Status: Former smoker Past Alcohol Use History: Occasional Additional Past Alcohol Use History / Comment(s): QUIT SMOKING IN 1995, smoked 1ppd from teens Past Drug Use History: None Reported - Past Family History Father Additional Family Medical History / Comment(s): aortic aneurysm Mother Additional Family Medical History / Comment(s): Brain aneurysm Medications and Allergies Home Medications Medication Instructions Recorded Confirmed Type Vitamin B Complex 1 cap PO DAILY 04/15/14 02/03/23 History Losartan [Cozaar] 50 mg PO DAILY 03/02/19 02/03/23 History amLODIPine [Norvasc] 5 mg PO HS 03/02/19 02/03/23 History allopurinoL [Zyloprim] 100 mg PO DAILY 04/05/19 02/03/23 History Pioglitazone [Actos] 45 mg PO DAILY 10/05/19 02/03/23 History glipiZIDE XL [Glucotrol XL] 5 mg PO BID 10/05/19 02/03/23 History Atorvastatin [Lipitor] 40 mg PO HS 05/17/20 02/03/23 History carvediloL [Coreg] 3.125 mg PO BID 06/24/20 02/03/23 History Folic Acid 1 mg PO DAILY #20 tab 09/22/22 02/03/23 Rx Empagliflozin [Jardiance] 10 mg PO DAILY 02/03/23 02/03/23 History Vitamin A 2,400 mcg PO DAILY 02/03/23 02/03/23 History Vitamin E (Dl,Tocopheryl Acet) 400 unit PO DAILY 02/03/23 02/03/23 History [Vitamin E (400 Iu = 180 mg)] Allergies Allergy/AdvReac Type Severity Reaction Status Date / Time metformin AdvReac Diarrhea Verified 02/03/23 17:12 Surgical - Exam Vital Signs Temp Pulse Resp BP Pulse Ox 97.8 F 60 16 173/70 98 02/03/23 13:07 02/03/23 13:07 02/03/23 13:07 02/03/23 13:07 02/03/23 13:07 Results - Labs 02/04/23 07:15 02/04/23 07:15 Abnormal Lab Results - Last 24 Hours (Table) 02/03/23 02/03/23 02/03/23 Range/Units 13:14 13:14 13:14 RBC 3.70 L (4.30-5.90) m/uL Hgb 11.6 L (13.0-17.5) gm/dL Hct 35.1 L (39.0-53.0) % Plt Count 115 L (150-450) k/uL Lymphocytes # 0.6 L (1.0-4.8) k/uL INR 1.2 H (<1.2) Sodium 136 L (137-145) mmol/L BUN 34 H (9-20) mg/dL Creatinine 1.26 H (0.66-1.25) mg/dL Glucose 116 H (74-99) mg/dL POC Glucose (mg/dL) (70-110) mg/dL Magnesium 1.5 L (1.6-2.3) mg/dL 02/03/23 02/04/23 02/04/23 Range/Units 20:42 07:15 07:15 RBC 4.03 L (4.30-5.90) m/uL Hgb 12.3 L (13.0-17.5) gm/dL Hct 38.6 L (39.0-53.0) % Plt Count (150-450) k/uL Lymphocytes # 0.7 L (1.0-4.8) k/uL INR (<1.2) Sodium (137-145) mmol/L BUN 29 H (9-20) mg/dL Creatinine (0.66-1.25) mg/dL Glucose (74-99) mg/dL POC Glucose (mg/dL) 180 H (70-110) mg/dL Magnesium (1.6-2.3) mg/dL Diabetes panel 02/03/23 02/04/23 Range/Units 13:14 07:15 Sodium 136 L 139 (137-145) mmol/L Potassium 4.3 4.1 (3.5-5.1) mmol/L Chloride 103 104 (98-107) mmol/L Carbon Dioxide 27 28 (22-30) mmol/L BUN 34 H 29 H (9-20) mg/dL Creatinine 1.26 H 1.20 (0.66-1.25) mg/dL Glucose 116 H 96 (74-99) mg/dL Calcium 8.8 9.6 (8.4-10.2) mg/dL AST 22 (17-59) U/L ALT 18 (4-49) U/L Alkaline Phosphatase 41 (38-126) U/L Total Protein 6.5 (6.3-8.2) g/dL Albumin 3.8 (3.5-5.0) g/dL Calcium panel 02/03/23 02/04/23 Range/Units 13:14 07:15 Calcium 8.8 9.6 (8.4-10.2) mg/dL Albumin 3.8 (3.5-5.0) g/dL Pituitary panel 02/03/23 02/04/23 Range/Units 13:14 07:15 Sodium 136 L 139 (137-145) mmol/L Potassium 4.3 4.1 (3.5-5.1) mmol/L Chloride 103 104 (98-107) mmol/L Carbon Dioxide 27 28 (22-30) mmol/L BUN 34 H 29 H (9-20) mg/dL Creatinine 1.26 H 1.20 (0.66-1.25) mg/dL Glucose 116 H 96 (74-99) mg/dL Calcium 8.8 9.6 (8.4-10.2) mg/dL Adrenal panel 02/03/23 02/04/23 Range/Units 13:14 07:15 Sodium 136 L 139 (137-145) mmol/L Potassium 4.3 4.1 (3.5-5.1) mmol/L Chloride 103 104 (98-107) mmol/L Carbon Dioxide 27 28 (22-30) mmol/L BUN 34 H 29 H (9-20) mg/dL Creatinine 1.26 H 1.20 (0.66-1.25) mg/dL Glucose 116 H 96 (74-99) mg/dL Calcium 8.8 9.6 (8.4-10.2) mg/dL Total Bilirubin 0.8 (0.2-1.3) mg/dL AST 22 (17-59) U/L ALT 18 (4-49) U/L Alkaline Phosphatase 41 (38-126) U/L Total Protein 6.5 (6.3-8.2) g/dL Albumin 3.8 (3.5-5.0) g/dL
[2023-02-04 11:36] LABS: Glucose,Whole Blood 193 mg/dL (70-110)
[2023-02-04] MEDS: INSULIN ASPART (NovoLOG) 100 UNIT/ML VIAL SQ SCH ×3 (11:44→20:34)
[2023-02-04 16:12] LABS: Glucose,Whole Blood 185 mg/dL (70-110)
[2023-02-04 19:59] LABS: Glucose,Whole Blood 204 mg/dL (70-110)
[2023-02-04] MEDS: amLODIPine 5 MG TAB PO SCH (20:34)
[2023-02-04] MEDS: ATORVASTATIN 40 MG TAB PO SCH (20:34)
[2023-02-05 05:54] LABS: Glucose,Whole Blood 142 mg/dL (70-110)
[2023-02-05] MEDS: INSULIN ASPART (NovoLOG) 100 UNIT/ML VIAL SQ SCH ×4 (06:00→20:03)
--- NOTE | 2023-02-05 06:39 | P.CRDCN ---
History of Present Illness Consult date: 02/05/23 Chief complaint: Syncopal History of present illness: The patient is a pleasant 82-year-old gentleman who sees Dr. 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 The patient was getting into his car when he suddenly lost his consciousness with no prodromal symptoms whatsoever. He did have some injury to the scalp. No symptoms of any chest pain or chest discomfort or shortness of breath or any warmth feeling or any feeling of heart racing or fluttering. He was brought to the hospital by ambulance. The EKG was performed and showed sinus mechanism was held BBB. His previous EKG did not show any evidence of LBBB. He has been maintaining sinus bradycardia with heart rate in the 50s. He was receiving carvedilol which I am going to hold at this point. Also obtaining a TSH and free T4 to rule out thyroid disease. First set of troponin came in to be unremarkable. The rest of the blood work came in to be unremarkable. The chest x-ray showed no acute abnormalities. Computed tomography scan of the brain did not show any acute intracranial process. On examination he does have bilateral carotid scar. He has a right carotid bruit. He has systolic murmur at the right upper sternal border. His heart rat e has been in the 50 Assessment Syncopal episode likely to be cardiac in nature Sinus bradycardia Abnormal EKG with evidence of new LBBB. And no evidence of any chest pain or chest discomfort Carotid atherosclerosis as described above Hypertension Dyslipidemia CAD Valvular heart disease Plan Avoid any AV keiko quyen agents Obtain carotid duplex study Obtain an echocardiogram was Doppler Rule out thyroid disease Hold carvedilol Follow-up with the patient Past Medical History Past Medical History: Coronary Artery Disease (CAD), Diabetes Mellitus, Hype rlipidemia, Hypertension Additional Past Medical History / Comment(s): gout, hx c-diff (Jun 2019)., postitive blood stool. History of Any Multi-Drug Resistant Organisms: C-DIFF Date of last positivie culture/infection: stool MDRO Source:: 06/2019 Past Surgical History: Heart Catheterization With Stent, Hernia Repair Additional Past Surgical History / Comment(s): ROZ CAROTID ENDARTERECTOMY,ROZ CATARACTS. COLONOSCOPY. Stent x3 Past Anesthesia/Blood Transfusion Reactions: No Reported Reaction Date of Last Stent Placement:: 04/16/2019 Past Psychological History: No Psychological Hx Reported Smoking Status: Former smoker Past Alcohol Use History: Occasional Additional Past Alcohol Use History / Comment(s): QUIT SMOKING IN 1995, smoked 1ppd from teens Past Drug Use History: None Reported - Past Family History Father Additional Family Medical History / Comment(s): aortic aneurysm Mother Additional Family Medical History / Comment(s): Brain aneurysm Medications and Allergies Home Medications Medication Instructions Recorded Confirmed Type Vitamin B Complex 1 cap PO DAILY 04/15/14 02/03/23 History Losartan [Cozaar] 50 mg PO DAILY 03/02/19 02/03/23 History amLODIPine [Norvasc] 5 mg PO HS 03/02/19 02/03/23 History allopurinoL [Zyloprim] 100 mg PO DAILY 04/05/19 02/03/23 History Pioglitazone [Actos] 45 mg PO DAILY 10/05/19 02/03/23 History glipiZIDE XL [Glucotrol XL] 5 mg PO BID 10/05/19 02/03/23 History Atorvastatin [Lipitor] 40 mg PO HS 05/17/20 02/03/23 History carvediloL [Coreg] 3.125 mg PO BID 06/24/20 02/03/23 History Folic Acid 1 mg PO DAILY #20 tab 09/22/22 02/03/23 Rx Empagliflozin [Jardiance] 10 mg PO DAILY 02/03/23 02/03/23 History Vitamin A 2,400 mcg PO DAILY 02/03/23 02/03/23 History Vitamin E (Dl,Tocopheryl Acet) 400 unit PO DAILY 02/03/23 02/03/23 History [Vitamin E (400 Iu = 180 mg)] Allergies Allergy/AdvReac Type Severity Reaction Status Date / Time metformin AdvReac Diarrhea Verified 02/03/23 17:12 Physical Exam Vitals: Vital Signs Temp Pulse Resp BP Pulse Ox FiO2 02/05/23 03:09 97.9 F 55 L 18 114/57 96 02/04/23 23:12 98.5 F 60 16 109/51 100 02/04/23 19:49 16 02/04/23 19:24 97.5 F L 57 L 16 116/60 96 02/04/23 15:53 97.8 F 58 L 16 123/61 98 02/04/23 11:32 98 F 55 L 16 127/60 96 02/04/23 09:18 96 21 02/04/23 08:00 97.7 F 64 18 120/73 98 Intake and Output 02/04/23 02/04/23 02/05/23 14:59 22:59 06:59 Intake Total 1134 780 Output Total 300 400 Balance 834 380 Intake: Oral 1134 780 Output: Urine 300 400 Results 02/04/23 07:15 02/04/23 07:15 CBC 02/04/23 Range/Units 07:15 WBC 5.3 (3.8-10.6) k/uL RBC 4.03 L (4.30-5.90) m/uL Hgb 12.3 L (13.0-17.5) gm/dL Hct 38.6 L (39.0-53.0) % Plt Count 150 (150-450) k/uL Comprehensive Metabolic Panel 02/04/23 Range/Units 07:15 Sodium 139 (137-145) mmol/L Potassium 4.1 (3.5-5.1) mmol/L Chloride 104 (98-107) mmol/L Carbon Dioxide 28 (22-30) mmol/L BUN 29 H (9-20) mg/dL Creatinine 1.20 (0.66-1.25) mg/dL Glucose 96 (74-99) mg/dL Calcium 9.6 (8.4-10.2) mg/dL Current Medications Generic Name Dose Route Start Last Admin Trade Name Freq PRN Reason Stop Dose Admin Acetaminophen 650 mg 02/03/23 18:00 Acetaminophen Tab 325 Mg Tab PO Q6HR PRN Mild Pain or Fever >= 100.5 Allopurinol 100 mg 02/04/23 09:00 02/04/23 08:33 Allopurinol 100 Mg Tab PO 100 mg DAILY AYLA Administration Amlodipine Besylate 5 mg 02/04/23 21:00 02/04/23 20:34 Amlodipine 5 Mg Tab PO 5 mg HS AYLA Administration Atorvastatin Calcium 40 mg 02/04/23 21:00 06/16/23 20:34 Atorvastatin 40 Mg Tab PO 40 mg HS AYLA Administration Carvedilol 3.125 mg 02/04/23 09:00 02/04/23 20:34 Carvedilol 3.125 Mg Tab PO 3.125 mg BID AYLA Administration Dapagliflozin 5 mg 02/04/23 09:00 02/04/23 09:08 Dapagliflozin Propanediol 5 Mg Tablet PO 5 mg DAILY AYLA Administration Dextrose/Water 25 ml 02/04/23 08:08 Dextrose 50% Syringe 50 Ml IVP PER PROTOCOL PRN Hypoglycemia Protocol Dextrose/Water 50 ml 02/04/23 08:08 Dextrose 50% Syringe 50 Ml IVP PER PROTOCOL PRN Hypoglycemia Protocol Famotidine 20 mg 02/03/23 21:00 02/04/23 20:34 Famotidine 20 Mg Tab PO 20 mg BID AYLA Administration Folic Acid 1 mg 02/04/23 09:00 02/04/23 08:33 Folic Acid 1 Mg Tab PO 1 mg DAILY AYLA Administration Heparin Sodium (Porcine) 5,000 unit 02/04/23 00:00 02/04/23 23:15 Heparin Sodium,Porcine/Pf 5,000 Unit/0.5 Ml Syringe SQ Not Given Q8HR [facility] Insulin Aspart 0 unit 02/04/23 12:30 02/05/23 06:00 Insulin Aspart (Novolog) 100 Unit/Ml Vial SQ Not Given ACHS [facility] Protocol Losartan Potassium 50 mg 02/04/23 09:00 02/04/23 08:33 Losartan 50 Mg Tab PO 50 mg DAILY AYLA Administration Naloxone HCl 0.2 mg 02/03/23 18:00 Naloxone 0.4 Mg/Ml 1 Ml Vial IV Q2M PRN Opioid Reversal Ondansetron HCl 4 mg 02/03/23 18:00 Ondansetron 4 Mg/2 Ml Vial IVP Q6HR PRN Nausea And Vomiting Pioglitazone HCl 45 mg 02/04/23 09:00 02/04/23 09:09 Pioglitazone 45 Mg Tab PO 45 mg DAILY AYLA Administration Tramadol HCl 50 mg 02/03/23 18:00 Tramadol 50 Mg Tab PO Q6H PRN Moderate Pain (Scale 4 to 6) Vitamin A 3,000 unit 02/04/23 09:00 02/04/23 09:08 Vitamin A 10,000 Unit (3000 Mcg) Capsule PO 3,000 unit DAILY AYLA Administration Vitamin E 400 unit 02/04/23 09:00 02/04/23 09:09 Vitamin E (Dl,Tocopheryl Acet) 400 Unit (180 Mg) Cap PO 400 unit DAILY AYLA Administration Intake and Output 02/04/23 02/04/23 02/05/23 14:59 22:59 06:59 Intake Total 1134 780 Output Total 300 400 Balance 834 380 Intake: Oral 1134 780 Output: Urine 300 400 02/04/23 07:15 02/04/23 07:15
--- NOTE | 2023-02-05 09:02 | US ---
EXAMINATION TYPE: US carotid duplex BILAT DATE OF EXAM: 02/05/2023 COMPARISON: NONE CLINICAL INDICATION: Male, 82 years old with history of eval arterial flow; h/o endarterectomy andry mix twice, known left total occlusion per patient, has carotids scanned at Dr Avelar's office every 6 months TECHNIQUE: Carotid duplex ultrasound examination. Indirect Doppler criteria was utilized. FINDINGS: EXAM MEASUREMENTS: RIGHT: Peak Systolic Velocity (PSV) cm/sec ----- Right CCA: 98.7 ----- Right ICA: 132.0 ----- Right ECA: 67.0 ICA/CCA ratio: 1.3 RIGHT: End Diastole cm/sec ----- Right CCA: 20.0 ----- Right ICA: 25.3 ----- Right ECA: 0.0 LEFT: Peak Systolic Velocity (PSV) cm/sec ----- Left CCA: 45.9, minimal flow detected ----- Left ICA: no flow ----- Left ECA: no flow ICA/CCA ratio: N/A LEFT: End Diastole cm/sec ----- Left CCA: 0.0 ----- Left ICA: no flow ----- Left ECA: no flow VERTEBRALS (direction of flow): Right Vertebral: Antegrade Left Vertebral: not visualized Rhythm: Normal [employer] NOTES: Heterogeneous plaque at bulb on the right with no significant stenosis, total occl usion on the left ICA/ECA, minimal flow seen within CCA IMPRESSION: 1. No flow detected within the left internal carotid artery/external carotid artery or common caroti d artery suggesting occlusion. Consider further evaluation with CTA neck. 2. 50-69% stenosis of the right carotid bifurcation. 3. Nonvisualization of the left vertebral artery. Criteria for Assigning % of Stenosis / Diameter reduction (Estimation based on the indirect measurements of the internal carotid artery velocities (ICA PSV). 1. Normal (no stenosis)=ICA PSV < 125 cm/s: ratio < 2.0: ICA EDV<40 cm/s. 2. Less than 50% stenosis=ICA PSV < 125 cm/s: ratio < 2.0: ICA EDV<40 cm/s. 3. 50 to 69% stenosis=ICA PSV of 125 to 230 cm/s: ration 2.0 ? 4.0: ICA EDV 40-100 cm/s. 4. Greater than 70% stenosis to near occlusion= ICA PSV > 230 cm/s: ratio > 4.0: ICA EDV > 100 cm/s. 5. Near occlusion= ICA PSV velocities may be low or undetectable: variable ratio and ICA EDV. 6. Total occlusion=unable to detect flow.
--- NOTE | 2023-02-05 09:14 | P.PN ---
Subjective Progress Note Date: 02/05/23 Principal diagnosis: Status post fall Patient doing well today. No complaints. He was seen by cardiology. Apparently they discussed possible pacemaker with him. They have ordered additional studies. Objective - Vital Signs Vital signs: Vital Signs Temp 97.9 F 02/05/23 03:09 Pulse 55 L 02/05/23 03:09 Resp 18 02/05/23 03:09 BP 114/57 02/05/23 03:09 Pulse Ox 96 02/05/23 03:09 FiO2 21 02/04/23 09:18 Intake & Output 02/04/23 02/05/23 02/05/23 18:59 06:59 18:59 Intake Total 1914 0 Output Total 700 Balance 1214 0 Intake: Oral 1914 0 Output: Urine 700 - Exam Abdomen: Soft, nontender, nondistended - Labs CBC & Chem 7: 02/04/23 07:15 02/04/23 07:15 Labs: Abnormal Lab Results - Last 24 Hours (Table) 02/04/23 02/04/23 02/04/23 Range/Units 11:34 16:11 19:58 POC Glucose (mg/dL) 193 H 185 H 204 H (70-110) mg/dL 02/05/23 Range/Units 05:53 POC Glucose (mg/dL) 142 H (70-110) mg/dL Assessment and Plan (1) Fall Narrative/Plan: Patient doing well from a trauma point of view. Continue cardiac workup. Will follow. Current Visit: Yes Status: Acute Code(s): W19.XXXA - UNSPECIFIED FALL, INITIAL ENCOUNTER SNOMED Code(s): 3714168
[2023-02-05] MEDS: FOLIC ACID 1 MG TAB PO SCH (09:43)
[2023-02-05] MEDS: allopurinoL 100 MG TAB PO SCH (09:43)
[2023-02-05] MEDS: HEPARIN SODIUM,PORCINE/PF 5,000 UNIT/0.5 ML SYRINGE SQ SCH ×3 (09:43→23:57)
[2023-02-05] MEDS: VITAMIN E (DL,TOCOPHERYL ACET) 400 UNIT (180 MG) CAP PO SCH (09:43)
[2023-02-05] MEDS: PIOGLITAZONE 45 MG TAB PO SCH (09:43)
[2023-02-05] MEDS: FAMOTIDINE 20 MG TAB PO SCH ×2 (09:44→20:03)
[2023-02-05] MEDS: VITAMIN A 10,000 UNIT (3000 MCG) CAPSULE PO SCH (09:44)
[2023-02-05] MEDS: LOSARTAN 50 MG TAB PO SCH (09:44)
[2023-02-05] MEDS: DAPAGLIFLOZIN PROPANEDIOL 5 MG TABLET PO SCH (09:44)
[2023-02-05 09:56] LABS: T4, Free (Free Thyroxine) 1.08 ng/dL (0.78-2.19)
--- NOTE | 2023-02-05 11:38 | P.PN ---
Subjective February 05 2023 Patient is admitted for possible ileus after a syncopal episode. Syncopal episode is believed to be either secondary to bradycardia or hypotension or both. Patient was on hydrochlorothiazide which was discontinued yesterday and cardiologydiscontinued his Coreg today. Patient had a carotid Doppler which showed complete occlusion on one side and patient had moderate disease in the other side although probably not contributing to his syncopal episode. Cardiology recommended monitoring one more night. Patient if patient can use to have bradycardia will need a pacemaker. Patient blood pressure remains on the lower side which is expected to improve with discontinuation of coronary. Patient had a recent echocardiogram showed normal ejection fraction some mild to moderate aortic valvular disease. Constitutional: Denied any fatigue denied any fever. Cardio vascular: denied any chest pain, palpitations Gastrointestinal denied any nausea vomiting Pulmonary: Denied any shortness of breath cough Neurologic denied any new focal deficits All inpatient medications were reviewed and appropriate changes in these medications as dictated in the interval history and assessment and plan. PHYSICAL EXAMINATION: GENERAL: The patient is alert and oriented x3, not in any acute distress. Well developed, well nourished. HEENT: Pupils are round and equally reacting to light. EOMI. No scleral icterus. No conjunctival pallor. Normocephalic, atraumatic. No pharyngeal erythema. No thyromegaly. CARDIOVASCULAR: S1 and S2 present. No murmurs, rubs, or gallops. PULMONARY: Chest is clear to auscultation, no wheezing or crackles. ABDOMEN: Soft, nontender, nondistended, normoactive bowel sounds. No palpable organomegaly. MUSCULOSKELETAL: No joint swelling or deformity. EXTREMITIES: No cyanosis, clubbing, or pedal edema. NEUROLOGICAL: Gross neurological examination did not reveal any focal deficits. SKIN: No rashes. Assessment and plan: -Syncope: Secondary to hypotension. We'll discontinue hydrochlorothiazide patient had a recent echocardiogram results as mentioned above -Hyperlipidemia -Hypertension -Fall all the trauma workup is negative -Hypomagnesemia magnesium was replaced -Chronic kidney disease stage II patient is not a candidate for hydrochlorothiazide -Type 2 diabetes mellitus: Patient resumed on home medications and sliding scale Objective - Vital Signs Vital signs: Vital Signs Temp 97.6 F 02/05/23 08:00 Pulse 61 02/05/23 08:00 Resp 18 02/05/23 08:00 BP 126/58 02/05/23 08:00 Pulse Ox 96 02/05/23 08:00 FiO2 21 02/04/23 09:18 Intake & Output 02/04/23 02/05/23 02/05/23 18:59 06:59 18:59 Intake Total 1914 0 Output Total 700 Balance 1214 0 Intake: Oral 1914 0 Output: Urine 700 - Labs CBC & Chem 7: 02/04/23 07:15 02/04/23 07:15 Labs: Abnormal Lab Results - Last 24 Hours (Table) 02/04/23 02/04/23 02/05/23 Range/Units 16:11 19:58 05:53 POC Glucose (mg/dL) 185 H 204 H 142 H (70-110) mg/dL
[2023-02-05 11:45] LABS: Glucose,Whole Blood 167 mg/dL (70-110)
--- NOTE | 2023-02-05 12:14 | CA ---
Transthoracic Echo Report Name: Anthony Francois Age: 82 Gender: M : 1940 Exam Date: 02/05/2023 08:59 Exam Location: [facility] Ht (in): 69 Wt (lb): 210 Ordering Physician: Javier Gaytan MD ([id number]) Attending/Referring Phys: Behavioral Therapist Kendra Jimenez RDCS Procedure CPT: Indications: evaluate heart function Cardiac Hx: Technical Quality: Fair Contrast 1: Total Dose (mL): Contrast 2: Total Dose (mL): MEASUREMENTS (Male / Female) Normal Values 2D ECHO LV Diastolic Diameter PLAX 5.6 cm 4.2 - 5.9 / 3.9 - 5.3 cm LV Systolic Diameter PLAX 4.5 cm IVS Diastolic Thickness 1.1 cm 0.6 - 1.0 / 0.6 - 0.9 cm LVPW Diastolic Thickness 1.1 cm 0.6 - 1.0 / 0.6 - 0.9 cm LV Relative Wall Thickness 0.4 RV Internal Dim ED PLAX 3.2 cm LVOT Diameter 2.1 cm LA Systolic Diameter LX 4.2 cm 3.0 - 4.0 / 2.7 - 3.8 cm LV Diastolic Volume MOD BP 76.4 cm??? 67 - 155 / 56 - 104 cm??? LV Systolic Volume MOD BP 34.8 cm??? 22 - 58 / 19 - 49 cm??? LV Ejection Fraction MOD BP 54.5 % >= 55 % LV Diastolic Volume MOD 4C 78.6 cm??? LV Systolic Volume MOD 4C 37.8 cm??? LV Ejection Fraction MOD 4C 51.9 % LV Diastolic Length 4C 7.6 cm LV Systolic Length 4C 6.4 cm LV Diastolic Volume MOD 2C 71.8 cm??? LV Systolic Volume MOD 2C 32.9 cm??? LV Ejection Fraction MOD 2C 54.1 % LV Diastolic Length 2C 8.1 cm LV Systolic Length 2C 6.7 cm LA Volume 69.7 cm??? 18 - 58 / 22 - 52 cm??? M-MODE Aortic Root Diameter MM 3.6 cm AV Cusp Separation MM 1.8 cm DOPPLER AV Peak Velocity 294.9 cm/s AV Peak Gradient 34.8 mmHg AV Mean Velocity 199.9 cm/s AV Mean Gradient 18.1 mmHg AV Velocity Time Integral 70.0 cm LVOT Peak Velocity 110.1 cm/s LVOT Peak Gradient 4.9 mmHg AV Area Cont Eq pk 1.3 cm??? MV Peak Velocity 201.4 cm/s MV Peak Gradient 16.2 mmHg MV Mean Velocity 118.6 cm/s MV Mean Gradient 6.4 mmHg MV Velocity Time Integral 80.2 cm MV Area PHT 1.3 cm??? Mitral E Point Velocity 181.9 cm/s Mitral A Point Velocity 153.7 cm/s Mitral E to A Ratio 1.2 MV Deceleration Time 569.5 ms TR Peak Velocity 320.5 cm/s TR Peak Gradient 41.1 mmHg Right Ventricular Systolic Press 45.1 mmHg FINDINGS Left Ventricle Left ventricular ejection fraction is estimated at 50-55 %. Left ventricular cavity size normal. Mildly increased septal wall thickness. Mildly decreased left ventricular ejection fraction. Right Ventricle Normal right ventricular size and function. Moderate pulmonary hypertension. Right Atrium Normal right atrial size. Left Atrium Mildly increased left atrial diameter. Moderately increased left atrial volume. Mildly increased left atrial area. Mitral Valve Moderate thickening/calcification of the anterior mitral valve leaflet. Moderate thickening/calcification of the posterior mitral valve leaflet. Moderate mitral annular calcification. Moderate mitral stenosis with mean gradient of 6.4 mmHg Aortic Valve Trileaflet aortic valve. Aortic valve sclerosis. Mild aortic stenosis with a peak gradient of 35 mmHg and a mean gradient of 18 mmHg. Tricuspid Valve Structurally normal tricuspid valve. Mild tricuspid regurgitation. Pulmonic Valve Structurally normal pulmonic valve. No pulmonic regurgitation. Pericardium Normal pericardium. No pericardial effusion. Aorta Normal size aortic root and proximal ascending aorta. CONCLUSIONS Normal LV systolic function Aortic sclerosis with mild aortic stenosis Mild to moderate mitral stenosis Previewed by: Dr. Javier Gaytan MD (Electronically Signed) Final Date: 05 February 2023 12:13
[2023-02-05 17:02] LABS: Glucose,Whole Blood 158 mg/dL (70-110)
[2023-02-05 19:57] LABS: Glucose,Whole Blood 174 mg/dL (70-110)
[2023-02-05] MEDS: amLODIPine 5 MG TAB PO SCH (20:03)
[2023-02-05] MEDS: ATORVASTATIN 40 MG TAB PO SCH (20:03)
[2023-02-06 06:24] LABS: Glucose,Whole Blood 133 mg/dL (70-110)
[2023-02-06] MEDS: INSULIN ASPART (NovoLOG) 100 UNIT/ML VIAL SQ SCH ×4 (06:37→21:02)
--- NOTE | 2023-02-06 08:24 | P.PN ---
Subjective Progress Note Date: 02/06/23 Principal diagnosis: Syncopal The patient is a pleasant 82-year-old gentleman who sees Dr. 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 The patient was getting into his car when he suddenly lost his consciousness with no prodromal symptoms whatsoever. He did have some injury to the scalp. No symptoms of any chest pain or chest discomfort or shortness of breath or any warmth feeling or any feeling of heart racing or fluttering. He was brought to the hospital by ambulance. The EKG was performed and showed sinus mechanism was held BBB. His previous EKG did not show any evidence of LBBB. He has been maintaining sinus bradycardia with heart rate in the 50s. He was receiving carvedilol which I am going to hold at this point. Also obtaining a TSH and free T4 to rule out thyroid disease. First set of troponin came in to be unremarkable. The rest of the blood work came in to be unremarkable. The chest x-ray showed no acute abnormalities. Computed tomography scan of the brain did not show any acute intracranial process. 02/06/2023 The patient was seen and evaluated this morning. He underwent an echo which revealed normal biventricular dimension and systolic function was no significant valvular abnormalities and also he underwent carotid duplex study which showed occluded left internal carotid artery and intermediate disease involving the right internal carotid artery. During his echo study he did have an episode of severe bradycardia with heart rate in the 20s and he felt funny during that episode. Currently he is not on any AV keiko quyen agents because was stopped the carvedilol yesterday. The patient need to undergo permanent pacemaker. I'm going to speak was Dr. Castillo who sees the patient regularly in the office. Meanwhile continue the current medical regimen and keep the patient nothing by mouth after midnight On examination he does have bilateral carotid scar. He has a right carotid bruit. He has systolic murmur at the right upper sternal border. His heart rate has been in the 50 Assessment Syncopal episode likely to be cardiac in nature Sinus bradycardia Abnormal EKG with evidence of new LBBB. And no evidence of any chest pain or chest discomfort Carotid atherosclerosis as described above Hypertension Dyslipidemia CAD Valvular heart disease Plan Avoid any AV keiko quyen agents Proceed with permanent pacemaker tomorrow morning. Objective - Vital Signs Vital signs: Vital Signs Temp 98.3 F 02/06/23 03:24 Pulse 56 L 02/06/23 03:24 Resp 16 02/06/23 03:24 BP 115/50 02/06/23 03:24 Pulse Ox 94 L 02/06/23 03:24 FiO2 21 02/04/23 09:18 Intake & Output 02/05/23 02/06/23 02/06/23 18:59 06:59 18:59 Intake Total 240 540 Balance 240 540 Intake: Oral 240 540 Other: # Voids 3 - Labs CBC & Chem 7: 02/04/23 07:15 02/04/23 07:15 Labs: Abnormal Lab Results - Last 24 Hours (Table) 02/05/23 02/05/23 02/05/23 Range/Units 11:37 16:41 19:56 POC Glucose (mg/dL) 167 H 158 H 174 H (70-110) mg/dL 02/06/23 Range/Units 06:23 POC Glucose (mg/dL) 133 H (70-110) mg/dL
--- NOTE | 2023-02-06 09:13 | P.PN ---
Subjective Progress Note Date: 02/06/23 Principal diagnosis: Status post fall Patient feels well this morning. Yesterday he had another episode of symptomatic bradycardia. He is scheduled for pacemaker tomorrow. Denies headache. No pains elsewhere. Objective - Vital Signs Vital signs: Vital Signs Temp 98.3 F 02/06/23 03:24 Pulse 56 L 02/06/23 03:24 Resp 16 02/06/23 03:24 BP 115/50 02/06/23 03:24 Pulse Ox 98 02/06/23 08:48 FiO2 21 02/04/23 09:18 Intake & Output 02/05/23 02/06/23 02/06/23 18:59 06:59 18:59 Intake Total 240 540 Balance 240 540 Intake: Oral 240 540 Other: # Voids 3 - Exam Abdomen: Soft, nontender, nondistended - Labs CBC & Chem 7: 02/04/23 07:15 02/04/23 07:15 Labs: Abnormal Lab Results - Last 24 Hours (Table) 02/05/23 02/05/23 02/05/23 Range/Units 11:37 16:41 19:56 POC Glucose (mg/dL) 167 H 158 H 174 H (70-110) mg/dL 02/06/23 Range/Units 06:23 POC Glucose (mg/dL) 133 H (70-110) mg/dL Assessment and Plan (1) Fall Narrative/Plan: Patient doing well from a trauma point of view. Continue diet as tolerated. Continue cardiac workup and management. We'll transfer care to medical services. Current Visit: Yes Status: Acute Code(s): W19.XXXA - UNSPECIFIED FALL, INITIAL ENCOUNTER SNOMED Code(s): 8464580
[2023-02-06] MEDS: allopurinoL 100 MG TAB PO SCH (09:54)
[2023-02-06] MEDS: VITAMIN A 10,000 UNIT (3000 MCG) CAPSULE PO SCH (09:54)
[2023-02-06] MEDS: FOLIC ACID 1 MG TAB PO SCH (09:54)
[2023-02-06] MEDS: FAMOTIDINE 20 MG TAB PO SCH ×2 (09:54→21:02)
[2023-02-06] MEDS: LOSARTAN 50 MG TAB PO SCH (09:54)
[2023-02-06] MEDS: VITAMIN E (DL,TOCOPHERYL ACET) 400 UNIT (180 MG) CAP PO SCH (09:54)
[2023-02-06] MEDS: PIOGLITAZONE 45 MG TAB PO SCH (09:54)
[2023-02-06] MEDS: DAPAGLIFLOZIN PROPANEDIOL 5 MG TABLET PO SCH (09:54)
[2023-02-06] MEDS: HEPARIN SODIUM,PORCINE/PF 5,000 UNIT/0.5 ML SYRINGE SQ SCH ×3 (09:54→23:13)
[2023-02-06 12:12] LABS: Glucose,Whole Blood 148 mg/dL (70-110)
--- NOTE | 2023-02-06 13:02 | P.PN ---
Subjective Progress Note Date: 02/06/23 February 05 2023 Patient is admitted for possible ileus after a syncopal episode. Syncopal episode is believed to be either secondary to bradycardia or hypotension or both. Patient was on hydrochlorothiazide which was discontinued yesterday and cardiologydiscontinued his Coreg today. Patient had a carotid Doppler which showed complete occlusion on one side and patient had moderate disease in the other side although probably not contributing to his syncopal episode. Cardiology recommended monitoring one more night. Patient if patient can use to have bradycardia will need a pacemaker. Patient blood pressure remains on the lower side which is expected to improve with discontinuation of coronary. P atcinthia had a recent echocardiogram showed normal ejection fraction some mild to moderate aortic valvular disease. 02/06/2023 Headedness. Heart rate has improved into the mid 50s patient was taken off of the carvedilol at this time. He did have episode of heart rate in the 20s during echocardiogram for this reason heavy truck mechanic recommend patient to undergo permanent pacemaker implantation which will likely be done tomorrow. Echocardiogram was done reveals normal LV systolic function and aortic sclerosis with mild aortic stenosis and [id number] mitral stenosis. Review of Systems Constitutional: Denied any fatigue denied any fever. Cardio vascular: denied any chest pain, palpitations Gastrointestinal denied any nausea vomiting Pulmonary: Denied any shortness of breath cough Neurologic denied any new focal deficits All inpatient medications were reviewed and appropriate changes in these medications as dictated in the interval history and assessment and plan. PHYSICAL EXAMINATION: GENERAL: The patient is alert and oriented x3, not in any acute distress. Well developed, well nourished. HEENT: Pupils are round and equally reacting to light. EOMI. No scleral icterus. No conjunctival pallor. Normocephalic, atraumatic. No pharyngeal erythema. No thyromegaly. CARDIOVASCULAR: S1 and S2 present. No murmurs, rubs, or gallops. bradycardic. PULMONARY: Chest is clear to auscultation, no wheezing or crackles. ABDOMEN: Soft, nontender, nondistended, normoactive bowel sounds. No palpable organomegaly. MUSCULOSKELETAL: No joint swelling or deformity. EXTREMITIES: No cyanosis, clubbing, or pedal edema. NEUROLOGICAL: Gross neurological examination did not reveal any focal deficits. SKIN: No rashes. Assessment and plan: -Syncope: Secondary to hypotension. We'll discontinue hydrochlorothiazide, patient also bradycardic down into the 20s during echocardiogram and has been taken of carvedilol. -Hyperlipidemia -Hypertension -Fall all the trauma workup is negative -Hypomagnesemia magnesium was replaced -Chronic kidney disease stage II patient is not a candidate for hyd rochlorothiazide -Type 2 diabetes mellitus: Patient resumed on home medications and sliding scale GI prophylaxis DVT prophylaxis Full Code Plan Patient to undergo permanent pacemaker tentatively scheduled for Tuesday. Further recommendations made by cardiology. The impression and plan of care has been dictated by Yana Alfaro, Nurse Practitioner as directed. Dr. Danielito MD I have performed a history and physical examination and medical decision making of this patient, discussed the same with the dictator, and agree with the dictators assessment and plan as written, documented as a scribe. Based on total visit time, I have performed more than 50% of this visit. Objective - Vital Signs Vital signs: Vital Signs Temp 98.3 F 02/06/23 03:24 Pulse 59 L 02/06/23 12:00 Resp 18 02/06/23 12:00 BP 154/63 02/06/23 12:00 Pulse Ox 96 02/06/23 12:00 FiO2 21 02/04/23 09:18 Intake & Output 02/05/23 02/06/23 02/06/23 18:59 06:59 18:59 Intake Total 240 540 240 Balance 240 540 240 Intake: Oral 240 540 240 Other: # Voids 3 - Labs CBC & Chem 7: 02/04/23 07:15 02/04/23 07:15 Labs: Abnormal Lab Results - Last 24 Hours (Table) 02/05/23 02/05/23 02/06/23 Range/Units 16:41 19:56 06:23 POC Glucose (mg/dL) 158 H 174 H 133 H (70-110) mg/dL 02/06/23 Range/Units 12:00 POC Glucose (mg/dL) 148 H (70-110) mg/dL Assessment and Plan Time with Patient: Less than 30
[2023-02-06 16:54] LABS: Glucose,Whole Blood 155 mg/dL (70-110)
[2023-02-06 20:25] LABS: Glucose,Whole Blood 168 mg/dL (70-110)
[2023-02-06] MEDS: amLODIPine 2.5 MG TAB PO SCH (21:02)
[2023-02-06] MEDS: ATORVASTATIN 40 MG TAB PO SCH (21:03)
[2023-02-07 06:09] LABS: Glucose,Whole Blood 138 mg/dL (70-110)
[2023-02-07] MEDS: INSULIN ASPART (NovoLOG) 100 UNIT/ML VIAL SQ SCH ×4 (06:12→20:50)
[2023-02-07] MEDS: allopurinoL 100 MG TAB PO SCH (07:54)
[2023-02-07] MEDS: FOLIC ACID 1 MG TAB PO SCH (07:54)
[2023-02-07] MEDS: FAMOTIDINE 20 MG TAB PO SCH ×2 (07:54→20:50)
[2023-02-07] MEDS: HEPARIN SODIUM,PORCINE/PF 5,000 UNIT/0.5 ML SYRINGE SQ SCH ×2 (07:54→20:50)
[2023-02-07] MEDS: LOSARTAN 50 MG TAB PO SCH (07:54)
[2023-02-07] MEDS: VITAMIN E (DL,TOCOPHERYL ACET) 400 UNIT (180 MG) CAP PO SCH (07:54)
[2023-02-07] MEDS: VITAMIN A 10,000 UNIT (3000 MCG) CAPSULE PO SCH (07:54)
[2023-02-07] MEDS: PIOGLITAZONE 45 MG TAB PO SCH (08:00)
[2023-02-07] MEDS: DAPAGLIFLOZIN PROPANEDIOL 5 MG TABLET PO SCH (08:00)
[2023-02-07] MEDS ORDERED: SODIUM CHLORIDE 0.9% 1,000 ML IV SCH ×4 (08:45)
[2023-02-07] MEDS ORDERED: SODIUM CHLORIDE 0.9% 500 ML 500 ML IV ONE (10:35)
[2023-02-07] MEDS ORDERED: LIDOCAINE 1% INJ 10MG/ML (30 ML VIAL-PF) SQ ONE (10:49)
[2023-02-07] MEDS ORDERED: MIDAZOLAM 2 MG/2 ML VIAL IV ONE (10:49)
--- NOTE | 2023-02-07 10:51 | P.PN ---
Subjective Progress Note Date: 02/07/23 CHIEF COMPLAINT: Fall HISTORY OF PRESENT ILLNESS: Patient has symptomatically bradycardia this morning heart rate down to about 25 lasting for about 1 minute. He reports feeling dizzy at that time. Patient scheduled for temporary pacemaker today and pacemaker tomorrow with cardiology service. Patient denies any headache. Denies any new aches or pains. Denies any abdominal pain. Tolerating diet. Denies any headache. PHYSICAL EXAM: VITAL SIGNS: Reviewed. GENERAL: Well-developed in no acute distress. HEENT: No sclera icterus. Extraocular movements grossly intact. Moist buccal mucosa. Head is normocephalic. Bruising on the posterior right scalp improved. Small bruising on the left posterior scalp with mild tenderness to palpation ABDOMEN: Soft. Nondistended. Nontender. NEUROLOGIC: Alert and oriented. Cranial nerves II through XII grossly intact. Extremities: Left elbow decrease in swelling. Full range of motion. Nontender. ASSESSMENT: 1. Fall with syncopal episode 2. Trauma to the posterior aspect of the head, left elbow and lower back 3. Bradycardia PLAN: -Continue cardiac management of bradycardia -Patient doing well from trauma point of view -Continue diet as tolerated Physician Public Address Servicer note has been reviewed by physician. Signing provider agrees with the documented findings, assessment, and plan of care. I have personally seen and examined the patient, reviewed the COMMUNITY SERVICE PATROL OFFICER /PAs history, exam and MDM and agree with the assessment and plan as written. Based on total visit time, I have performed more than 50% of the visit. As above: Patient had another episode this morning of lightheadedness. Going for pacemaker placement today. We'll transfer service to the medical providers if they are agreeable. Objective - Vital Signs Vital signs: Vital Signs Temp 97.3 F L 02/07/23 08:00 Pulse 65 02/07/23 03:07 Resp 16 02/07/23 08:00 BP 188/77 02/07/23 08:00 Pulse Ox 98 02/07/23 08:00 FiO2 21 02/04/23 09:18 Intake & Output 02/06/23 02/07/23 02/07/23 18:59 06:59 18:59 Intake Total 476 Balance 476 Weight 95.2 kg Intake: Oral 476 Other: # Voids 4 - Labs CBC & Chem 7: 02/04/23 07:15 02/04/23 07:15 Labs: Abnormal Lab Results - Last 24 Hours (Table) 02/06/23 02/06/23 02/06/23 Range/Units 12:00 16:42 20:24 POC Glucose (mg/dL) 148 H 155 H 168 H (70-110) mg/dL 02/07/23 Range/Units 06:08 POC Glucose (mg/dL) 138 H (70-110) mg/dL
[2023-02-07] MEDS ORDERED: fentaNYL (PF) 50 MCG/1 ML VIAL IV ONE (11:00)
[2023-02-07 11:46] LABS: Glucose,Whole Blood 198 mg/dL (70-110)
--- NOTE | 2023-02-07 12:15 | CC ---
CARDIAC CATHETERIZATION REPORT PROCEDURE PERFORMED: Transvenous temporary pacemaker from right femoral venous approach. PERFORMED BY: Dr. Shayna Castillo. ANESTHESIA: Moderate conscious sedation time was 24 minutes. The patient was administered Versed and fentanyl. Oxygen saturation and hemodynamics were monitored closely. CLINICAL INFORMATION: Mr. Anthony Francois is an 82-year-old gentleman with a known history of CAD, multivessel PCI in the past. He also has type 2 diabetes, hypertension, and hyperlipidemia. He came into the hospital with episode of syncope, was found to have long pauses of more than 6 seconds that were witnessed with actual near-syncope this morning at about 8 a.m. He had a lot of P waves without QRS and he also had some episodes where there were just a sinus arrest as well. In view of this, he was advised to have a temporary pacemaker today and a permanent pacemaker tomorrow. The rationale, risks, benefits, and options were explained to the patient and family members. He was brought in for the temporary pacemaker today. PROCEDURE NOTE: Under local anesthesia and strict aseptic precautions, a 6-Swazi introducer was placed in the right femoral vein. A 5-Swazi balloon tipped pacemaker was advanced and positioned in the RV apex. The threshold was less than 0.6 mV. The patient's pacemaker was securely positioned and the sheath was sutured and the pacemaker sleeve was also positioned. The backup rate of 45 beats per minute with a mA of 5.0. The patient will have a permanent pacemaker tomorrow at about 10:30 a.m. Details were discussed with the patient and family. He tolerated the procedure well without complications. MMODL / IJN: [id number] /
[2023-02-07] MEDS: ASPIRIN 81 MG PO SCH (12:23)
[2023-02-07] MEDS: SODIUM CHLORIDE 0.9% 1,000 ML IV SCH ×2 (12:24→23:40)
[2023-02-07 16:35] LABS: Glucose,Whole Blood 198 mg/dL (70-110)
[2023-02-07 20:16] LABS: Glucose,Whole Blood 185 mg/dL (70-110)
[2023-02-07] MEDS: amLODIPine 2.5 MG TAB PO SCH (20:50)
[2023-02-07] MEDS: ATORVASTATIN 40 MG TAB PO SCH (20:50)
--- NOTE | 2023-02-08 04:04 | PN ---
PROGRESS NOTE DATE OF SERVICE: 02/07/2023 SUBJECTIVE: This is an 82-year-old gentleman who was admitted with syncope, also had bradycardia. The patient underwent cardiac catheterization and transvenous temporary pacemaker by Dr. Castillo. No chest pain, no palpitations. Monitored in the ICU. PAST MEDICAL HISTORY: Reviewed. REVIEW OF SYSTEMS: A 14-point review is negative except as mentioned earlier. CURRENT MEDICATIONS: Reviewed include aspirin, rest of the dose and rest of the medications noted. OBJECTIVE: VITAL SIGNS: Pulse is 63, blood pressure 150/63, respirations 16 HEENT: Conjunctivae normal. CARDIOVASCULAR: S1, S2. RESPIRATIONS: A few scattered rhonchi. ABDOMEN: Soft. NERVOUS SYSTEM: Nonfocal. LABORATORY DATA: Noted. ASSESSMENT: 1. Syncope with bradycardia, status post transvenous temporary pacemaker. 2. Hyperlipidemia. 3. Hypertension. 4. Hypomagnesemia. 5. Chronic kidney disease, stage 3. 6. Multiple complex medical issues. RECOMMENDATIONS: Recommended to continue current management, continue symptomatic treatment, closely follow with Cardiology. Continue the pacemaker, monitor in ICU. Recommend to repeat labs. Guarded prognosis. Further recommendations to follow. MMODL / IJN: [id number] / MTDD
[2023-02-08 06:11] LABS: INR 1.1 (<1.2); Partial Thromboplastin Time 28.5 sec (22.0-30.0); Prothrombin Time 11.8 sec (9.0-12.0)
[2023-02-08 06:13] LABS: ALT 18 U/L (4-49); AST 22 U/L (17-59); African American GFR (CKD) 85 (>60 ml/min/1.73 sqM); Albumin 3.7 g/dL (3.5-5.0); Alkaline Phosphatase 50 U/L (38-126); Anion Gap 9 mmol/L; Basophils % (A) 0 %; Blood Urea Nitrogen 26 mg/dL (9-20); Calcium 8.7 mg/dL (8.4-10.2); Carbon Dioxide 22 mmol/L (22-30); Chloride 107 mmol/L (98-107); Eosinophils # (A) 0.1 k/uL (0-0.7); Eosinophils % (A) 3 %; Glucose 125 mg/dL (74-99); HCT 35.9 % (39.0-53.0); HGB 11.6 gm/dL (13.0-17.5); Hypochromasia Slight; Lymphocytes # (A) 0.7 k/uL (1.0-4.8); Lymphocytes % (A) 14 %; MCH 31.4 pg (25.0-35.0); MCHC 32.3 g/dL (31.0-37.0); MCV 97.1 fL (80.0-100.0); Mean Platelet Volume 7.9; Monocytes # (A) 0.3 k/uL (0-1.0); Monocytes % (A) 6 %; Neutrophils % (A) 76 %; Non-African American GFR(CKD) 73 (>60 ml/min/1.73 sqM); Platelet Count 133 k/uL (150-450); Potassium 3.9 mmol/L (3.5-5.1); RDW 15.5 % (11.5-15.5); Sodium 138 mmol/L (137-145); Total Bilirubin 0.7 mg/dL (0.2-1.3); Total Protein 6.4 g/dL (6.3-8.2); WBC 5.3 k/uL (3.8-10.6)
[2023-02-08 06:33] LABS: Glucose,Whole Blood 146 mg/dL (70-110)
[2023-02-08] MEDS: INSULIN ASPART (NovoLOG) 100 UNIT/ML VIAL SQ SCH ×4 (06:42→21:15)
[2023-02-08] MEDS ORDERED: ceFAZolin 1,000 MG in SODIUM CHLORIDE 0.9% IRRIG BTL 250 ML IRRIGATION ONE (07:34)
[2023-02-08] MEDS: ASPIRIN 81 MG PO SCH (08:00)
[2023-02-08] MEDS: allopurinoL 100 MG TAB PO SCH (08:00)
[2023-02-08] MEDS: FAMOTIDINE 20 MG TAB PO SCH ×2 (08:00→21:15)
[2023-02-08] MEDS: LOSARTAN 50 MG TAB PO SCH (08:01)
[2023-02-08] MEDS: FOLIC ACID 1 MG TAB PO SCH (08:01)
[2023-02-08] MEDS: HEPARIN SODIUM,PORCINE/PF 5,000 UNIT/0.5 ML SYRINGE SQ SCH ×2 (08:01→21:15)
[2023-02-08] MEDS: VITAMIN E (DL,TOCOPHERYL ACET) 400 UNIT (180 MG) CAP PO SCH (08:01)
[2023-02-08] MEDS: DAPAGLIFLOZIN PROPANEDIOL 5 MG TABLET PO SCH (08:02)
[2023-02-08] MEDS: PIOGLITAZONE 45 MG TAB PO SCH (08:02)
[2023-02-08] MEDS: VITAMIN A 10,000 UNIT (3000 MCG) CAPSULE PO SCH (08:04)
--- NOTE | 2023-02-08 09:02 | P.PN ---
Subjective Progress Note Date: 02/08/23 The patient is an 82-year-old male who is currently admitted to the hospital with syncope. Initial EKG showed new left bundle branch block. AV keiko blocking agents have been held, however he continued to have episodes of bradycardia in the 20s. The patient underwent TVP placement yesterday with primary floorworker, Dr. STACY Castillo. The patient was interviewed and examined lying comfortably in the ICU bed. He denies any pain or discomfort. No difficulty breathing. GENERAL: Well-appearing, well-nourished and in no acute distress. NECK: Supple without JVD or thyromegaly. Right carotid bruit. LUNGS: Breath sounds clear to auscultation bilaterally. Respiration equal and unlabored. No wheezes, rales or rhonchi. HEART: Regular rate and rhythm. Soft systolic murmur. No rubs or gallops. S1 and S2 heard. EXTREMITIES: Normal range of motion, no edema. No clubbing or cyanosis. Peripheral pulses intact and strong. TELEMETRY: Currently sinus rhythm LABS: WBC 5.3, hemoglobin 11.6, hematocrit 35.9, platelet 133, sodium 138, potassium 3.9, BUN 26, creatinine 0.98, AST 22, ALT 18 IMPRESSION: Syncope and collapse Sinus bradycardia Left bundle branch block Carotid atherosclerosis Hypertension Dyslipidemia Coronary artery disease Valvular heart disease PLAN: Patient is being kept nothing by mouth He will undergo pacemaker implantation with primary floorworker Further recommendations to be based on clinical course I am dictating on behalf of Dr Aquiles Vaughan's history/physical and assess ment/plan. Objective - Vital Signs Vital signs: Vital Signs Temp 97.9 F 02/08/23 04:00 Pulse 74 02/08/23 07:00 Resp 19 02/08/23 07:00 BP 158/63 02/08/23 07:00 Pulse Ox 93 L 02/08/23 07:00 FiO2 21 02/04/23 09:18 Intake & Output 02/07/23 02/08/23 02/08/23 18:59 06:59 18:59 Intake Total 880 935 85 Output Total 800 1200 0 Balance 80 -265 85 Weight 98.6 kg Intake: IV 280 110 10 tvp 80 110 10 Intake, IV Titration 600 825 75 Amount Sodium Chloride 0.9% 1, 600 825 75 000 ml @ 75 mls/hr IV . [id number] [facility] Rx#:[id number] Output: Urine 800 1200 0 Other: Voiding Method Urinal Urinal # Voids 1 - Labs CBC & Chem 7: 02/08/23 04:44 02/08/23 04:44 Labs: Abnormal Lab Results - Last 24 Hours (Table) 02/07/23 02/07/23 02/07/23 Range/Units 11:44 16:33 20:14 RBC (4.30-5.90) m/uL Hgb (13.0-17.5) gm/dL Hct (39.0-53.0) % Plt Count (150-450) k/uL Lymphocytes # (1.0-4.8) k/uL BUN (9-20) mg/dL Glucose (74-99) mg/dL POC Glucose (mg/dL) 198 H 198 H 185 H (70-110) mg/dL 02/08/23 02/08/23 02/08/23 Range/Units 04:44 04:44 06:31 RBC 3.70 L (4.30-5.90) m/uL Hgb 11.6 L (13.0-17.5) gm/dL Hct 35.9 L (39.0-53.0) % Plt Count 133 L (150-450) k/uL Lymphocytes # 0.7 L (1.0-4.8) k/uL BUN 26 H (9-20) mg/dL Glucose 125 H (74-99) mg/dL POC Glucose (mg/dL) 146 H (70-110) mg/dL
[2023-02-08] MEDS ORDERED: IV FLUID CONTINUATION 1,000 ML IV ONE (10:23)
[2023-02-08] MEDS ORDERED: IOPAMIDOL-370 100ML BTL INJ ONE (10:23)
[2023-02-08] MEDS: MIDAZOLAM 2 MG/2 ML VIAL IV ONE ×2 (10:49→11:27)
[2023-02-08] MEDS ORDERED: LIDOCAINE 1% INJ 10MG/ML (20 ML MDV) SQ ONE ×2 (10:55→11:39)
[2023-02-08] MEDS: fentaNYL (PF) 50 MCG/ML 2 ML AMP IV ONE ×2 (11:00→12:29)
[2023-02-08] MEDS ORDERED: SODIUM CHLORIDE 0.9% 1,000 ML IV ONE (12:29)
[2023-02-08] MEDS ORDERED: ACETAMINOPHEN TAB 325 MG TAB PO PRN (13:18)
[2023-02-08] MEDS: SODIUM CHLORIDE 0.9% 1,000 ML IV SCH (13:50)
--- NOTE | 2023-02-08 14:27 | XR ---
EXAMINATION TYPE: XR chest 1V portable DATE OF EXAM: 02/08/2023 2:04 PM COMPARISON: Chest radiographs from 02/03/2023 TECHNIQUE: XR chest 1V portable Frontal view of the chest. CLINICAL INDICATION:Male, 82 years old with history of pacemaker lead placement r/o complications; FINDINGS: Lungs/Pleura: There is no evidence of pleural effusion, focal consolidation, or pneumothorax. Pulmonary vascularity: Unremarkable. Heart/mediastinum: Cardiomediastinal silhouette is unremarkable. Two lead cardiac conduction device o verlying the left hemithorax with lead tips projecting over the right ventricle and right atrium. Musculoskeletal: No acute osseous pathology. IMPRESSION: 1. No acute cardiopulmonary disease/process. 2. Left pacemaker without evidence for complication.
[2023-02-08 17:10] LABS: Glucose,Whole Blood 163 mg/dL (70-110)
[2023-02-08 20:35] LABS: Glucose,Whole Blood 204 mg/dL (70-110)
[2023-02-08] MEDS: amLODIPine 2.5 MG TAB PO SCH (21:15)
[2023-02-08] MEDS: ATORVASTATIN 40 MG TAB PO SCH (21:15)
--- NOTE | 2023-02-09 05:28 | PN ---
PROGRESS NOTE DATE OF SERVICE: 02/08/2023 SUBJECTIVE: This 82-year-old gentleman was admitted after syncope and bradycardia and scheduled to have permanent pacer implantation today. No chest pain, no palpitations, no fever. PHYSICAL EXAMINATION: VITAL SIGNS: Pulse 74, blood pressure 158/60, respirations 19. CHEST: Clear to auscultation. CARDIOVASCULAR: S1, S2. ABDOMEN: Soft. LABORATORY DATA: Reviewed. ASSESSMENT: 1. Syncope, bradycardia, status post transvenous temporary pacemaker for permanent pacemaker implantation. 2. Hyperlipidemia. 3. Hypertension. 4. Hypomagnesemia. 5. Chronic kidney disease, stage 3. 6. Multiple complex medical issues. RECOMMENDATIONS: Recommended to continue current management, continue symptomatic treatment. Closely follow with Cardiology, permanent pacemaker. Further recommendations to follow. MMODL / CELINAN: [id number] /
[2023-02-09 06:52] LABS: Glucose,Whole Blood 162 mg/dL (70-110)
[2023-02-09] MEDS: INSULIN ASPART (NovoLOG) 100 UNIT/ML VIAL SQ SCH ×4 (07:22→20:57)
[2023-02-09] MEDS: HEPARIN SODIUM,PORCINE/PF 5,000 UNIT/0.5 ML SYRINGE SQ SCH ×2 (08:12→21:02)
[2023-02-09] MEDS: FAMOTIDINE 20 MG TAB PO SCH ×2 (08:13→21:02)
[2023-02-09] MEDS: ASPIRIN 81 MG PO SCH (08:13)
[2023-02-09] MEDS: FOLIC ACID 1 MG TAB PO SCH (08:13)
[2023-02-09] MEDS: LOSARTAN 50 MG TAB PO SCH (08:13)
[2023-02-09] MEDS: allopurinoL 100 MG TAB PO SCH (08:13)
[2023-02-09] MEDS: VITAMIN E (DL,TOCOPHERYL ACET) 400 UNIT (180 MG) CAP PO SCH (08:15)
[2023-02-09] MEDS: PIOGLITAZONE 45 MG TAB PO SCH (08:15)
[2023-02-09] MEDS: DAPAGLIFLOZIN PROPANEDIOL 5 MG TABLET PO SCH (08:15)
[2023-02-09] MEDS: VITAMIN A 10,000 UNIT (3000 MCG) CAPSULE PO SCH (08:16)
--- NOTE | 2023-02-09 08:44 | P.PN ---
Subjective Progress Note Date: 02/09/23 The patient is an 82-year-old male who is currently admitted to the hospital with syncope. Initial EKG showed new left bundle branch block. AV keiko blocking agents have been held, however he continued to have episodes of bradycardia in the 20s. The patient underwent TVP placement, followed by permanent pacemaker implantation by primary lining scrubber Dr. STACY Castillo. The patient was interviewed and examined sitting up in the recliner chair. He states he did feel little disoriented after the hour yesterday, but is now back to his baseline. He denies any pain or discomfort currently. No difficulty b reathing. No dizziness when standing. GENERAL: Well-appearing, well-nourished and in no acute distress. NECK: Supple without JVD or thyromegaly. Right carotid bruit. LUNGS: Breath sounds clear to auscultation bilaterally. Respiration equal and unlabored. No wheezes, rales or rhonchi. HEART: Regular rate and rhythm. Soft systolic murmur. No rubs or gallops. S1 and S2 heard. Small amount of shadowing on surgical dressing. No hematoma. EXTREMITIES: Normal range of motion, no edema. No clubbing or cyanosis. Peripheral pulses intact and strong. TELEMETRY: Currently sinus rhythm IMPRESSION: Syncope and collapse Sinus bradycardia Left bundle branch block Carotid atherosclerosis Hypertension Dyslipidemia Coronary artery disease Valvular heart disease PLAN: Increase p.m. dose of amlodipine back to 5 mg Awaiting device interrogation Discharge pending the above I am dictating on behalf of Dr Aquiles Vaughan's history/physical and assessment/plan. Objective - Vital Signs Vital signs: Vital Signs Temp 97.9 F 02/09/23 08:24 Pulse 74 02/09/23 08:24 Resp 16 02/09/23 08:24 BP 138/61 02/09/23 08:24 Pulse Ox 95 02/09/23 08:24 FiO2 21 02/04/23 09:18 Intake & Output 02/08/23 02/09/23 02/09/23 18:59 06:59 18:59 Intake Total 660 100 150 Output Total 450 200 Balance 210 -100 150 Intake: IV 585 100 Sodium Chloride 0.9% 1, 20 000 ml @ 20 mls/hr IV . Q24H [facility] Rx#:[id number] Sodium Chloride 0.9% 1, 225 000 ml @ 75 mls/hr IV . [id number] [facility] Rx#:[id number] ceFAZolin 2 gm In Sodium 50 100 Chloride 0.9% 50 ml @ 100 mls/hr IVPB Q6H [facility] Rx#: [id number] tvp 40 Intake, IV Titration 75 Amount Sodium Chloride 0.9% 1, 75 000 ml @ 75 mls/hr IV . [id number] [facility] Rx#:[id number] Oral 150 Output: Urine 450 200 Other: Voiding Method Urinal Urinal # Voids 1 2 # Bowel Movements 1 - Labs CBC & Chem 7: 02/08/23 04:44 02/08/23 04:44 Labs: Abnormal Lab Results - Last 24 Hours (Table) 02/08/23 02/08/23 02/09/23 Range/Units 16:58 20:34 06:50 POC Glucose (mg/dL) 163 H 204 H 162 H (70-110) mg/dL
--- NOTE | 2023-02-09 08:54 | XR ---
EXAMINATION TYPE: XR chest 2V DATE OF EXAM: 02/09/2023 COMPARISON: 02/03/2023 HISTORY: 82-year-old male lead placement check TECHNIQUE: AP and lateral views FINDINGS: Left anterior chest wall pacemaker generator with right atrial and right ventricular leads. Heart upp er limits of normal in size. Mild hyperinflation and mild interstitial prominence. Unable to exclude a small 1.4 cm left apical pneumothorax. There is some subcutaneous emphysema noted along the lateral left upper to mid chest wall. IMPRESSION: Left anterior chest wall pacemaker generator with right atrial and right ventricular leads. There albino ears to be a small 1.4 cm left apical pneumothorax. Findings called to 2SICU and given to Nurse Jyothir hair at 8:50am.
--- NOTE | 2023-02-09 11:04 | P.PN ---
Subjective Progress Note Date: 02/09/23 CHIEF COMPLAINT: Fall HISTORY OF PRESENT ILLNESS: Patient is status post pacemaker for symptomatic bradycardia. Patient remains in the ICU. Chest x-ray reports a small 1.4 cm left apical pneumothorax. Patient sitting up at bedside chair comfortably. He denies any headaches. Denies any pain in the elbow. Denies any new pains. Afebrile. PHYSICAL EXAM: VITAL SIGNS: Reviewed. GENERAL: Well-developed in no acute distress. ABDOMEN: Soft. Nondistended. Nontender. NEUROLOGIC: Alert and oriented. Cranial nerves II through XII grossly intact. ASSESSMENT: 1. Fall with syncopal episode 2. Trauma to the posterior aspect of the head, left elbow and lower back 3. Bradycardia status post pacemaker PLAN: -Patient doing well from trauma point of view -Continue diet as tolerated Physician Willow Machine Operator note has been reviewed by physician. Signing provider agrees with the documented findings, assessment, and plan of care. Objective - Vital Signs Vital signs: Vital Signs Temp 97.9 F 02/09/23 08:24 Pulse 74 02/09/23 08:24 Resp 16 02/09/23 08:24 BP 138/61 02/09/23 08:24 Pulse Ox 95 02/09/23 08:24 FiO2 21 02/04/23 09:18 Intake & Output 02/08/23 02/09/23 02/09/23 18:59 06:59 18:59 Intake Total 660 100 150 Output Total 450 200 Balance 210 -100 150 Intake: IV 585 100 Sodium Chloride 0.9% 1, 20 000 ml @ 20 mls/hr IV . Q24H [facility] Rx#:[id number] Sodium Chloride 0.9% 1, 225 000 ml @ 75 mls/hr IV . [id number] [facility] Rx#:[id number] ceFAZolin 2 gm In Sodium 50 100 Chloride 0.9% 50 ml @ 100 mls/hr IVPB Q6H [facility] Rx#: [id number] tvp 40 Intake, IV Titration 75 Amount Sodium Chloride 0.9% 1, 75 000 ml @ 75 mls/hr IV . [id number] [facility] Rx#:[id number] Oral 150 Output: Urine 450 200 Other: Voiding Method Urinal Urinal # Voids 1 2 # Bowel Movements 1 - Labs CBC & Chem 7: 02/08/23 04:44 02/08/23 04:44 Labs: Abnormal Lab Results - Last 24 Hours (Table) 02/08/23 02/08/23 02/09/23 Range/Units 16:58 20:34 06:50 POC Glucose (mg/dL) 163 H 204 H 162 H (70-110) mg/dL
[2023-02-09 11:23] LABS: Glucose,Whole Blood 173 mg/dL (70-110)
--- NOTE | 2023-02-09 11:40 | CE ---
CARDIAC ELECTROPHYSIOLOGY REPORT DATE OF SERVICE: 02/08/2023. PROCEDURE PERFORMED: Dual-chamber permanent pacemaker placement from left infraclavicular approach. PERFORMED BY: Dr. Shayna Castillo. ANESTHESIA: Moderate conscious sedation time was 2 hours 15 minutes. CLINICAL INFORMATION: Mr. Anthony Francois is an 82-year-old gentleman with a history of CAD and peripheral vascular disease, status post multivessel PCI in the past. He has presented to the hospital with episode of syncope having pauses of more than 7 to 8 seconds. He was advised permanent pacemaker, and yesterday on the , I placed a temporary pacemaker from right femoral approach and brought him for a permanent pacemaker on the . Risks, benefits, options, and rationale were explained. PROCEDURE NOTE: Under strict aseptic precautions and local anesthesia, an access was obtained into the left axillary vein under fluoroscopic guidance. This was somewhat of a difficult access. I did hit the artery 2 times, but I held pressure. Eventually, I was able to get access under fluoroscopic guidance into the left axillary artery. The puncture was made about 2 inches medial and parallel to the left deltopectoral groove. The incision was then made of about 2-1/2 inches long medial and parallel to the left deltopectoral groove. Dissection was performed up to the fascia level. A pocket was made. There was a lot of oozing. Hemostasis was secured. An additional access was also obtained into the axillary vein under fluoroscopic guidance. Two wires were advanced and positioned in the superior vena cava. A 7-Cameroonian introducer was placed over the guidewire, and through this, a ventricular lead was positioned in the right ventricular apex. The lead position was checked in [place] and [place] projections. The pacemaker thresholds and sensitivities were checked. 10 V pacing was checked. The lead was then secured to the underlying muscle. Over the next guidewire, a 7-Cameroonian introducer was advanced and positioned. The wire was taken out. An atrial lead was advanced and positioned. A good position was achieved. It was difficult to get a good threshold and was also difficult to measure good threshold because atrial pacing was somewhat difficult. However, decent numbers were achieved. The lead was secured to the underlying muscle. 10 V pacing was also checked, and the lead position was checked in [place] and L[place] projections. Subsequently, the leads were connected to the pulse generator, and the pulse generator was also secured in the line of the incision to the underlying muscle. The patient received antibiotic when I made the incision, and also, the pocket was irrigated with antibiotic. The pacemaker pocket was closed in 3 layers. The patient tolerated the procedure well. Chest x-ray immediately after that revealed no significant complication. The patient was then sent to the room in a stable condition, and details were discussed with the patient's and family members. PACEMAKER SETTINGS: The pacemaker was set at a low rate of 55, high rate of 120 with AV paced delay of 180 milliseconds and sensed delay of 150 milliseconds. The pulse generator sheep clipper was [employer], model #W1DR01, serial #[id number]. The atrial lead sheep clipper was Medtronic, model #5076-45, serial #[id number], placed in the right atrial appendage. Right ventricular lead sheep clipper was Medtronic, model #5076-52, serial #[id number], positioned in the right ventricular apex. The right atrial pacing threshold was 2.0 at 0.4 milliseconds. Right ventricular pacing threshold was 0.75 V at 0.4 milliseconds. R waves were 12.0 mV. P waves were 3.5 mV. Right ventricular lead impedance was 608 ohms, and right atrial lead impedance was 817 ohms. The patient tolerated the procedure well without complication. MMODL / IJN: [id number] /
[2023-02-09] MEDS: glipiZIDE 5 MG TAB PO SCH ×2 (12:26→21:04)
[2023-02-09] MEDS: SODIUM CHLORIDE 0.9% 1,000 ML IV SCH (14:18)
--- NOTE | 2023-02-09 14:39 | PN ---
PROGRESS NOTE DATE OF SERVICE: 02/09/2023 SUBJECTIVE: This is an 82-year-old gentleman with syncope and symptomatic bradycardia, had a pacemaker implantation. The chest x-ray done today was reported to have some minimal left apical pneumothorax. No chest pain. No palpitation. PROCEDURE PERFORMED: VITAL SIGNS: Pulse 74, blood pressure 130/68, respirations 16. CHEST: Few scattered rhonchi. ABDOMEN: Soft. NERVOUS SYSTEM: Nonfocal. LABORATORY DATA: Noted. ASSESSMENT: 1. Syncope and symptomatic bradycardia, status post permanent pacemaker implantation. 2. Hyperlipidemia. 3. Hypertension. 4. Hypomagnesemia. 5. Chronic kidney disease, stage 3. 6. Multiple complex medical issues. RECOMMENDATIONS: Recommend to continue current medications. Continue symptomatic treatment. Otherwise, incentive spirometry. Consult Dr. Ruff. Closely follow with Cardiology. Further recommendations to follow. MMENL / CELINAN: [id number] /
[2023-02-09 16:21] LABS: Glucose,Whole Blood 96 mg/dL (70-110)
[2023-02-09 20:30] LABS: Glucose,Whole Blood 120 mg/dL (70-110)
[2023-02-09 20:34] VITALS: RESP 16
[2023-02-09] MEDS ORDERED: amLODIPine 5 MG TAB PO SCH (21:00)
[2023-02-09] MEDS: ATORVASTATIN 40 MG TAB PO SCH (21:02)
[2023-02-10] MEDS: INSULIN ASPART (NovoLOG) 100 UNIT/ML VIAL SQ SCH (06:05)
[2023-02-10 06:06] LABS: Glucose,Whole Blood 111 mg/dL (70-110)
--- NOTE | 2023-02-10 07:42 | XR ---
EXAMINATION TYPE: XR chest 1V portable DATE OF EXAM: 02/10/2023 Comparison: 02/09/2023 Clinical History: 82-year-old male apical pneumothorax Findings: Left anterior chest wall pacemaker generator over the right major and right ventricular leads. There is some residual subcutaneous emphysema near the left axilla. The previous left apical pneumothorax i s no longer identified. Mild interstitial density in the lower lungs probably some strandy atelectasi s. Impression: Left anterior chest wall pacemaker generator with right atrial right ventricular leads. Some residual subcutaneous emphysema remains on the left. The previous left apical pneumothorax is no longer seen.
[2023-02-10 08:35] VITALS: BP 132/62; PULSE 93; TEMP 97.7
[2023-02-10] MEDS: ASPIRIN 81 MG PO SCH (09:08)
[2023-02-10] MEDS: allopurinoL 100 MG TAB PO SCH (09:08)
[2023-02-10] MEDS: LOSARTAN 50 MG TAB PO SCH (09:09)
[2023-02-10] MEDS: FOLIC ACID 1 MG TAB PO SCH (09:09)
[2023-02-10] MEDS: FAMOTIDINE 20 MG TAB PO SCH (09:09)
[2023-02-10] MEDS: HEPARIN SODIUM,PORCINE/PF 5,000 UNIT/0.5 ML SYRINGE SQ SCH (09:09)
[2023-02-10] MEDS: glipiZIDE 5 MG TAB PO SCH (09:09)
[2023-02-10] MEDS: DAPAGLIFLOZIN PROPANEDIOL 5 MG TABLET PO SCH (09:09)
[2023-02-10] MEDS: PIOGLITAZONE 45 MG TAB PO SCH (09:10)
[2023-02-10] MEDS: VITAMIN A 10,000 UNIT (3000 MCG) CAPSULE PO SCH (09:10)
[2023-02-10] MEDS: VITAMIN E (DL,TOCOPHERYL ACET) 400 UNIT (180 MG) CAP PO SCH (09:11)
--- NOTE | 2023-02-10 09:14 | P.PN ---
Subjective Progress Note Date: 02/10/23 The patient is an 82-year-old male who is currently admitted to the hospital with syncope. Initial EKG showed new left bundle branch block. AV keiko blocking agents have been held, however he continued to have episodes of bradycardia in the 20s. The patient underwent TVP placement, followed by permanent pacemaker implantation by primary angle shear set up operator Dr. STACY Castillo. The patient was interviewed and examined sitting up in the recliner chair. He states he did well overnight. He denies any chest pain or chest pressure. Dyspnea or orthopnea. Dizziness or lightheadedness. GENERAL: Well-appearing, well-nourished and in no acute distress. NECK: Supple without JVD or thyromegaly. Right carotid bruit. LUNGS: Breath sounds clear to auscultation bilaterally. Respiration equal and unlabored. No wheezes, rales or rhonchi. HEART: Regular rate and rhythm. Soft systolic murmur. No rubs or gallops. S1 and S2 heard. Small amount of shadowing on surgical dressing. No hematoma. EXTREMITIES: Normal range of motion, no edema. No clubbing or cyanosis. Peripheral pulses intact and strong. TELEMETRY: Currently sinus rhythm IMPRESSION: Syncope and collapse Sinus bradycardia Left bundle branch block Carotid atherosclerosis Hypertension Dyslipidemia Coronary artery disease Valvular heart disease PLAN: Patient to be discharged Follow-up visit with primary angle shear set up operator Dr. STACY Castillo in one week I am dictating on behalf of Dr Aquiles Vaughan's history/physical and assessment/plan. Objective - Vital Signs Vital signs: Vital Signs Temp 97.7 F 02/10/23 08:29 Pulse 93 02/10/23 08:29 Resp 16 02/10/23 08:29 BP 132/62 02/10/23 08:29 Pulse Ox 94 L 02/10/23 08:30 FiO2 21 02/04/23 09:18 Intake & Output 02/09/23 02/10/23 02/10/23 18:59 06:59 18:59 Intake Total 800 100 Output Total 100 550 Balance 700 -450 Intake: Oral 800 100 Output: Urine 100 550 Other: Voiding Method Urinal Urinal - Labs CBC & Chem 7: 02/08/23 04:44 02/08/23 04:44 Labs: Abnormal Lab Results - Last 24 Hours (Table) 02/09/23 02/09/23 02/10/23 Range/Units 11:22 20:28 06:04 POC Glucose (mg/dL) 173 H 120 H 111 H (70-110) mg/dL
[2023-02-10 09:15] VITALS: BMI 32.1
--- NOTE | 2023-02-10 16:14 | P.DS ---
Providers Date of admission: 02/03/23 15:49 Expected date of discharge: 02/09/23 Attending physician: Susi Esteves Consults: 02/03/23 15:47 Consult Physician Urgent Consulting Provider: Selvin Clayton Consult Reason/Comments: Near syncope Do you want consulting provider notified?: Yes 02/04/23 11:50 Consult Physician Urgent Consulting Provider: Veronica Castillo Consult Reason/Comments: syncope, bradycardia Do you want consulting provider notified?: Yes Primary care physician: Shanae Allison Hospital Course: Final diagnosis Syncope with symptomatic bradycardia, status post permanent pacemaker implantation Status post tiny left apical pneumothorax after pacemaker placement, resolved Hyperlipidemia Hypertension Hypomagnesemia, improved Chronic kidney disease stage III Obesity with a BMI of 32.1 Discharge disposition Patient is being discharged in a stable condition with guarded prognosis to home. Patient will follow-up with Dr. Allison in the outpatient setting upon discharge. Patient is to follow-up closely with cardiology as scheduled. Total time taken is greater than 35 minutes. Hospital course This is a 82-year-old male who was recently admitted with syncope and symptomatic bradycardia being evaluated by cardiology. Patient underwent pacemaker implantation with follow-up noted to have a small pneumothorax noted on the left and cardiology recommending monitoring overnight. Repeat chest x- ray today shows some residual subcutaneous emphysema near the left axilla although no pneumothorax is noted. Patient has been cleared by cardiology for discharge with close outpatient follow-up. Patient reports the feeling well and extremely anxious to go home. Patient instructed to take incentive spirometer home and continue using at least 10 times every hour while awake. Patient also instructed to follow-up with primary care provider this week. Please refer to other consultation notes for further HPI. Currently no reports of chest pain, shortness of breath, or palpitations. Patient is afebrile. No reports of nausea or vomiting and patient is tolerating diet. Patient will be discharged home today. Physical exam: Gen: This is a 82-year-old male who is awake, alert and oriented 3, well- developed, well-nourished, obese. HEENT: Head is atraumatic, normocephalic. Pupils equal, round. Sclerae is anicteric. NECK: Supple. No JVD. No lymphadenopathy. No thyromegaly. LUNGS: Diminished breath sounds bilaterally with No wheezes or rhonchi. No intercostal retractions. HEART: Regular rate and rhythm. No murmur. ABDOMEN: Soft. Bowel sounds are present. No masses. No tenderness. EXTREMITIES: No pedal edema. No calf tenderness. NEUROLOGICAL: Patient is awake, alert and oriented x3. Cranial nerves 2 through 12 are grossly intact. Please refer to medication reconciliation sheet for a list of medications. The impression and plan of care has been dictated by Jacqueline Agosto, Nurse Practitioner as directed. Dr. Hans MD I have performed a history and examination and MDM of this patient, discussed the same with the dictator, and agree with the dictator's assessment and plan as written ,documented as a scribe. Based on total visit time, I have performed more than 50% of the visit. Patient Condition at Discharge: Fair Plan - Discharge Summary Discharge Rx Participant: No New Discharge Prescriptions: New Aspirin 81 mg PO DAILY #30 tab Acetaminophen Tab [Tylenol] 650 mg PO Q6HR PRN tab PRN Reason: Mild Pain (Scale 1 To 3) Continue Vitamin B Complex 1 cap PO DAILY amLODIPine [Norvasc] 5 mg PO HS Losartan [Cozaar] 50 mg PO DAILY allopurinoL [Zyloprim] 100 mg PO DAILY Pioglitazone [Actos] 45 mg PO DAILY glipiZIDE XL [Glucotrol XL] 5 mg PO BID Atorvastatin [Lipitor] 40 mg PO HS carvediloL [Coreg] 3.125 mg PO BID Folic Acid 1 mg PO DAILY #20 tab Empagliflozin [Jardiance] 10 mg PO DAILY Vitamin A 2,400 mcg PO DAILY Vitamin E (Dl,Tocopheryl Acet) [Vitamin E (400 Iu = 180 mg)] 400 unit PO DAILY Discontinued hydroCHLOROthiazide [Hydrodiuril] 25 mg PO DAILY #30 tab Discharge Medication List Vitamin B Complex 1 cap PO DAILY 04/15/14 [History] Losartan [Cozaar] 50 mg PO DAILY 03/02/19 [History] amLODIPine [Norvasc] 5 mg PO HS 03/02/19 [History] allopurinoL [Zyloprim] 100 mg PO DAILY 04/05/19 [History] Pioglitazone [Actos] 45 mg PO DAILY 10/05/19 [History] glipiZIDE XL [Glucotrol XL] 5 mg PO BID 10/05/19 [History] Atorvastatin [Lipitor] 40 mg PO HS 05/17/20 [History] carvediloL [Coreg] 3.125 mg PO BID 06/24/20 [History] Folic Acid 1 mg PO DAILY #20 tab 09/22/22 [Rx] Empagliflozin [Jardiance] 10 mg PO DAILY 02/03/23 [History] Vitamin A 2,400 mcg PO DAILY 02/03/23 [History] Vitamin E (Dl,Tocopheryl Acet) [Vitamin E (400 Iu = 180 mg)] 400 unit PO DAILY 02/03/23 [History] Acetaminophen Tab [Tylenol] 650 mg PO Q6HR PRN tab 02/10/23 [Rx] Aspirin 81 mg PO DAILY #30 tab 02/10/23 [Rx] Follow up Appointment(s)/Referral(s): Veronica Castillo MD [STAFF PHYSICIAN] - 02/16/23 2:30 pm Shanae Allison MD [Primary Care Provider] - 02/15/23 9:30 am Patient Instructions/Handouts: Pacemaker (DC) Discharge Disposition: HOME SELF-CARE
--- NOTE | 2023-02-15 08:22 | CDI ---
Documentation Clarification Form Date: 02/15/2023 07:14:00 AM From: Veena Dejesus RN, CCDS Admit Date: 02/03/2023 03:49:00 PM Patient Name: Anthony Francois Visit Number: [id number] Discharge Date: 02/10/2023 12:30:00 PM ATTENTION: The Clinical Documentation Specialists (CDI) and [facility] Coding Staff appreciate your assistance in clarifying documentation. Please respond to the clarification below the line at the bottom and electronically sign. The CDI & [facility] Coding staff will review the response and follow-up if needed. Please note: Queries are made part of the Legal Health Record. If you have any questions, please contact the author of this message via ITS. Dr. Zulema Maxwell Tiny left apical pneumothorax after pacemaker placement and x-ray also shows some subcutaneous emphysema near the left axilla is documented in the progress notes starting on 02/09/2023 and patient had a permanent pacemaker on 02/08/2023. Additional clarification is requested regarding the relationship, if any, that exists between the diagnosis and the procedure. Patients Admitting Diagnosis: Sinus bradycardia Post-Operative Diagnosis: Sinus bradycardia Procedure performed: Dual-chamber permanent pacemaker History/Risk Factors: Coronary artery disease, Diabetes Mellitus, Hyperlipidemia, Hypertension Clinical Indicators: 82-year-old male admit to hospital with syncope. EKG showed new left bundle branch. AV keiko blocking agents have been held. Patient continued to have episodes of bradycardia in the 20s. 02/07: Transvenous temporary pacemaker from right femoral venous approach 02/08 Dual-chamber permanent pacemaker placement from left infraclavical approach. 02/08 CXR: Left pacemaker without evidence of complication. 02/09 CXR: Left anterior chest wall pacemaker generator with right atrial and right ventricular. there appears to be a small 1.4 cm left apical pneumothorax. There is some subcutaneous emphysema noted along the later left upper to mid chest wall. 02/09 VS: 110/52 76 14 94% RA Treatment: ICU/Telemetry monitoring Incentive spirometry per orders CXR per orders What relationship, if any, exists between the diagnosis of minimal left apical pneumothorax and residual subcutaneous emphysema and the procedure: [ ] Minimal left apical pneumothorax and residual subcutaneous emphysema is a complication of surgical procedure. [ x ] Minimal left apical pneumothorax and residual subcutaneous emphysema is an expected outcome of the surgical procedure. [ ] Minimal left apical pneumothorax and residual subcutaneous emphysema is small, not treated & is not a complication of the procedure. [ ] Other please specify ____ [ ] Unable to determine (Template Last Revised: October 2020) Minimal left apical pneumothorax and residual subcutaneous emphysema is an expected outcome of the surgical procedure. SIMONAD
== END 2023-02-10 12:30 | disposition home or self-care (01) | DRG 243 ==
LOC: EC 13:04 → 3SCARD 15:49 → 2SICU 02-07 10:52
PROVIDERS: ADMIT Internal Medicine; ATTEND Internal Medicine
PROC: 5A1213Z Performance of Cardiac Pacing, Intermittent (ICD-10-PCS; 2023-02-07)
PROC: 0JH606Z Insertion of Pacemaker, Dual Chamber into Chest Subcutaneous Tissue and Fascia, Open Approach (ICD-10-PCS; 2023-02-08)
PROC: 02HK0JZ Insertion of Pacemaker Lead into Right Ventricle, Open Approach (ICD-10-PCS; 2023-02-08)
PROC: 02H60JZ Insertion of Pacemaker Lead into Right Atrium, Open Approach (ICD-10-PCS; principal; 2023-02-08 10:30)
DX: I49.5 Sick sinus syndrome (principal); J93.9 Pneumothorax, unspecified; E11.22 Type 2 diabetes mellitus with diabetic chronic kidney disease; E86.0 Dehydration; I95.9 Hypotension, unspecified; I13.10 Hypertensive heart and chronic kidney disease without heart failure, with stage 1 through stage 4 chronic kidney disease, or unspecified chronic kidney disease; I08.0 Rheumatic disorders of both mitral and aortic valves; I70.0 Atherosclerosis of aorta; N18.30 Chronic kidney disease, stage 3 unspecified; I65.23 Occlusion and stenosis of bilateral carotid arteries; Z68.32 Body mass index [BMI] 32.0-32.9, adult; T81.82XA Emphysema (subcutaneous) resulting from a procedure, initial encounter; E66.9 Obesity, unspecified; E78.5 Hyperlipidemia, unspecified; E83.42 Hypomagnesemia; W18.39XA Other fall on same level, initial encounter; Y92.414 Local residential or business street as the place of occurrence of the external cause; M54.50 Low back pain, unspecified; S00.03XA Contusion of scalp, initial encounter; S50.312A Abrasion of left elbow, initial encounter; I44.7 Left bundle-branch block, unspecified; I25.10 Atherosclerotic heart disease of native coronary artery without angina pectoris; M10.9 Gout, unspecified; Z79.84 Long term (current) use of oral hypoglycemic drugs; Z79.899 Other long term (current) drug therapy; Z87.891 Personal history of nicotine dependence; Z95.5 Presence of coronary angioplasty implant and graft; Z86.19 Personal history of other infectious and parasitic diseases; Z88.8 Allergy status to other drugs, medicaments and biological substances
CPT/HCPCS: 33208; 33211; 36415; 70450; 71045; 71046; 72110; 72125; 80048; 80053; 83735; 84439; 84443; 84481; 84484; 85025; 85610; 85730; 93005; 93306; 93880; 94760; 96360; 96361; 99285

== ENCOUNTER 2025-02-08 07:07 | Observation (INO) | payer MEDICARE ==
--- NOTE | 2025-02-08 07:52 | ED ---
General Adult HPI - General Chief complaint: Shortness of Breath Stated complaint: shortness of breath Time Seen by Provider: 02/08/25 07:11 Source: patient, EMS Mode of arrival: EMS Limitations: no limitations - History of Present Illness Initial comments: Dictation was produced using [employer] dictation software. please excuse any grammatical, word or spelling errors. Chief Complaint: 84-year-old male with multiple comorbidities presents with dyspnea x 3 months History of Present Illness: Patient is 84-year-old male brought in by EMS. Patient states he has been dyspneic for 3 months. Today his shortness of breath he reports was significantly worse. Patient denies any history of COPD. He has history of coronary artery disease, dyslipidemia hypertension diabetes. Denies any chest pain. States that he does have a cough that is nonproductive of sputum. States he has remote history of tobacco abuse. Denies any constitutional symptoms. The ROS documented in this emergency department record has been reviewed and confirmed by me. Those systems with pertinent positive or negative responses have been documented in the HPI. All other systems are other negative and/or noncontributory. - Related Data Home Medications Medication Instructions Recorded Confirmed Vitamin B Complex 1 cap PO DAILY 04/15/14 02/03/23 Losartan [Cozaar] 50 mg PO DAILY 03/02/19 02/03/23 amLODIPine [Norvasc] 5 mg PO HS 03/02/19 02/03/23 allopurinoL [Zyloprim] 100 mg PO DAILY 04/05/19 02/03/23 Pioglitazone [Actos] 45 mg PO DAILY 10/05/19 02/03/23 glipiZIDE XL [Glucotrol XL] 5 mg PO BID 10/05/19 02/03/23 Atorvastatin [Lipitor] 40 mg PO HS 05/17/20 02/03/23 carvediloL [Coreg] 3.125 mg PO BID 06/24/20 02/03/23 Empagliflozin [Jardiance] 10 mg PO DAILY 02/03/23 02/03/23 Vitamin A 2,400 mcg PO DAILY 02/03/23 02/03/23 Vitamin E (Dl,Tocopheryl Acet) 400 unit PO DAILY 02/03/23 02/03/23 [Vitamin E (400 Iu = 180 mg)] Previous Rx's Medication Instructions Recorded Folic Acid 1 mg PO DAILY #20 tab 09/22/22 Acetaminophen Tab [Tylenol] 650 mg PO Q6HR PRN tab 02/10/23 Aspirin 81 mg PO DAILY #30 tab 02/10/23 Allergies Allergy/AdvReac Type Severity Reaction Status Date / Time metformin AdvReac Diarrhea Verified 02/08/25 07:19 Review of Systems ROS Statement: Those systems with pertinent positive or pertinent negative responses have been documented in the HPI. ROS Other: All systems not noted in ROS Statement are negative. Past Medical History Past Medical History: Coronary Artery Disease (CAD), Diabetes Mellitus, Hyperlipidemia, Hypertension Additional Past Medical History / Comment(s): gout, hx c-diff (Jun 2019)., postitive blood stool. History of Any Multi-Drug Resistant Organisms: C-DIFF Date of last positivie culture/infection: stool MDRO Source:: 06/2019 Past Surgical History: Heart Catheterization With Stent, Hernia Repair Additional Past Surgical History / Comment(s): ROZ CAROTID ENDARTERECTOMY,ROZ CATARACTS. COLONOSCOPY. Stent x3 Past Anesthesia/Blood Transfusion Reactions: No Reported Reaction Date of Last Stent Placement:: 04/16/2019 Past Psychological History: No Psychological Hx Reported Smoking Status: Former smoker Past Alcohol Use History: Occasional Past Drug Use History: None Reported - Past Family History Father Additional Family Medical History / Comment(s): aortic aneurysm Mother Additional Family Medical History / Comment(s): Brain aneurysm General Exam - General Exam Comments Initial Comments: PHYSICAL EXAM: General Impression: Alert and oriented x3, not in acute distress HEENT: Normocephalic atraumatic, extra-ocular movements intact, pupils equal and reactive to light bilaterally, mucous membranes moist. Cardiovascular: Heart regular rate and rhythm Chest: Mildly dyspneic, diffuse end expiratory wheezing Abdomen: abdomen soft, non-tender, non-distended, no organomegaly Musculoskeletal: Pulses present and equal in all extremities, no peripheral edema Motor: no focal deficits noted Neurological: CN II-XII grossly intact, no focal motor or sensory deficits noted Skin: Intact with no visualized rashes Psych: Normal affect and mood Limitations: no limitations Course Vital Signs 02/08/25 02/08/25 02/08/25 07:14 07:20 07:26 Temperature 98.6 F Pulse Rate 69 69 Respiratory 20 26 H 27 H Rate Blood Pressure 147/56 O2 Sat by Pulse 97 93 L Oximetry 02/08/25 02/08/25 02/08/25 08:48 09:00 09:10 Temperature Pulse Rate 68 69 68 Respiratory Rate Blood Pressure O2 Sat by Pulse Oximetry 02/08/25 02/08/25 09:18 09:22 Temperature Pulse Rate 68 69 Respiratory 31 H Rate Blood Pressure 143/59 O2 Sat by Pulse 99 Oximetry EKG Findings - EKG Comments: EKG Findings:: My EKG interpretation: Ventricular rate 69, sinus rhythm, left bundle branch block, NV 173, QRS 151, QTc 454. No NV prolongation, no QTC prolongation, no ST or T-wave changes noted. EKG compared to February 03, 2023 showing no changes. Overall, this EKG is unremarkable Medical Decision Making - Medical Decision Making Was pt. sent in by a medical professional or institution (, [facility], [employer]ING [employer]AR OFF[employer]ER, urgent care, hospital, or jail...) When possible be specific @ -No Did you speak to anyone other than the patient for history (EMS, parent, family, police, friend...)? What history was obtained from this source @ -No Did you review nursing and triage notes (agree or disagree)? Why? @ -I reviewed and agree with nursing and triage notes Were old charts reviewed (outside hosp., previous admission, EMS record, old EKG, old radiological studies, urgent care reports/EKG's, jail records)? Report findings @ -No old charts were reviewed Differential Diagnosis (chest pain, altered mental status, abdominal pain women, abdominal pain men, vaginal bleeding, musculoskeletal, weakness, fever, dyspnea, syncope, headache, dizziness, GI bleed, back pain, seizure, CVA, palpatations, mental health)? @ -Differential Dyspnea: Coronary syndrome, arrhythmia, tamponade, asthma, COPD, pulmonary embolism, pneumonia, pneumothorax, pulmonary effusion, anaphylaxis, diabetic ketoacidosis, flailed chest, pulmonary contusion, diaphragmatic rupture, anemia, neuromuscular, this is not meant to be an all-inclusive list. EKG interpreted by me (3pts min.). @ -See above X-rays interpreted by me (1pt min.). @ -Chest x-ray shows heart failure CT interpreted by me (1pt min.). @ -None done U/S interpreted by me (1pt. min.). @ -None done What testing was considered but not performed or refused? (CT, X-rays, U/S, labs)? Why? @ -None What meds were considered but not given or refused? Why? @ -None Was smoking cessation discussed for >3mins.? @ -No Were there social determinants of health that impacted care today? How? (Homelessness, low income, unemployed, alcoholism, drug addiction, transportation, low edu. Level, literacy, decrease access to med. care, longterm, rehab)? @ -No Was there de-escalation of care discussed even if they declined (Discuss DNR or withdrawal of care, Hospice)? DNR status @ -No What co-morbidities impacted this encounter? (DM, HTN, Smoking, COPD, CAD, Cancer, CVA, ARF, Chemo, Hep., AIDS, mental health diagnosis, sleep apnea, morbid obesity)? @ -None Was patient admitted / discharged? Hospital course, mention meds given and route, prescriptions, significant lab abnormalities, going to OR and other perti nent info. @ -84-year-old male presents with dyspnea. Vital signs stable. Patient well- appearing does have diffuse wheezing. Laboratory evaluation obtained. Elevated troponin and BNP. X-ray shows heart failure. Viral testing negative. Patient will be admitted consultation cardiology. Case discussed with hospitalist. Patient given Lasix. Did you discuss the management of the patient with other professionals (professionals i.e. , PA, [employer]AR OFFICER, lab, RT, psych nurse, social services designee, pool finisher, te acher, medical officer, bilingual case manager)? Give summary @ -See above Was critical care preformed (if so, how long)? @ -No Undiagnosed new problem with uncertain prognosis? @ -No Drug Therapy requiring intensive monitoring for toxicity (Heparin, Nitro, Insulin, Cardizem)? @ -No Were any procedures done? @ -No Diagnosis/symptom? Acute, or Chronic, or Acute on Chronic? Uncomplicated (without systemic symptoms) or Complicated (systemic symptoms)? @ -Heart failure Side effects of treatment? @ -No Exacerbation, Progression, or Severe Exacerbation? @ -No Poses a threat to life or bodily function? How? (Chest pain, [place], [place], pneumonia, PE, COPD, DKA, ARF, appy, cholecystitis, CVA, Diverticulitis, Homicidal, Suicidal, threat to staff... and all critical care pts) @ -yes - Lab Data Result diagrams: 02/08/25 08:01 02/08/25 08:01 Lab Results 02/08/25 02/08/25 02/08/25 Range/Units 08:01 08:01 08:01 WBC 7.04 (4.50-10.00) 10*3/uL RBC 3.02 L (4.40-5.60) 10*6/uL Hgb 8.8 L (13.0-17.0) g/dL Hct 29.0 L (39.6-50.0) % MCV 96.0 (80.0-97.0) fL MCH 29.1 (27.0-32.0) pg MCHC 30.3 L (32.0-37.0) g/dL Plt Count 216 (140-440) 10*3/uL MPV 9.7 (9.5-12.2) fL Immature Gran % (Auto) 0.4 % Neutrophils % 87.3 % Lymphocytes % 4.7 % Monocytes % 5.4 % Eosinophils % 1.8 % Basophils % 0.4 % Immature Gran # 0.03 (0.00-0.04) 10*3/uL Neutrophils # 6.14 (1.80-7.70) 10*3/uL Lymphocytes # 0.33 L (0.90-5.00) 10*3/uL Monocytes # 0.38 (0.20-1.00) 10*3/uL Eosinophils # 0.13 (0.04-0.35) 10*3/uL Basophils # 0.03 (0.00-0.10) 10*3/uL Sodium 140 (137-145) mmol/L Potassium 4.5 (3.5-5.1) mmol/L Chloride 109 H (98-107) mmol/L Carbon Dioxide 22 (22-30) mmol/L Anion Gap 9 mmol/L BUN 35 H (9-20) mg/dL Creatinine 1.15 (0.66-1.25) mg/dL Est GFR (CKD-EPI)AfAm 69 (>60 ml/min/1.73 sqM) Est GFR (CKD-EPI)NonAf 59 (>60 ml/min/1.73 sqM) Glucose 165 H (74-99) mg/dL Plasma Lactic Acid Riccardo 1.2 (0.7-2.0) mmol/L Calcium 9.1 (8.4-10.2) mg/dL Total Bilirubin 1.3 (0.2-1.3) mg/dL AST 17 (17-59) U/L ALT 13 (4-49) U/L Alkaline Phosphatase 60 (38-126) U/L Troponin I (0.000-0.034) ng/mL NT-Pro-B Natriuret Pep 3020 pg/mL Total Protein 7.0 (6.3-8.2) g/dL Albumin 4.0 (3.5-5.0) g/dL Influenza Type A (PCR) (Not Detectd) Influenza Type B (PCR) (Not Detectd) RSV (PCR) (Not Detectd) SARS-CoV-2 (PCR) (Not Detectd) 02/08/25 02/08/25 Range/Units 08:01 08:44 WBC (4.50-10.00) 10*3/uL RBC (4.40-5.60) 10*6/uL Hgb (13.0-17.0) g/dL Hct (39.6-50.0) % MCV (80.0-97.0) fL MCH (27.0-32.0) pg MCHC (32.0-37.0) g/dL Plt Count (140-440) 10*3/uL MPV (9.5-12.2) fL Immature Gran % (Auto) % Neutrophils % % Lymphocytes % % Monocytes % % Eosinophils % % Basophils % % Immature Gran # (0.00-0.04) 10*3/uL Neutrophils # (1.80-7.70) 10*3/uL Lymphocytes # (0.90-5.00) 10*3/uL Monocytes # (0.20-1.00) 10*3/uL Eosinophils # (0.04-0.35) 10*3/uL Basophils # (0.00-0.10) 10*3/uL Sodium (137-145) mmol/L Potassium (3.5-5.1) mmol/L Chloride (98-107) mmol/L Carbon Dioxide (22-30) mmol/L Anion Gap mmol/L BUN (9-20) mg/dL Creatinine (0.66-1.25) mg/dL Est GFR (CKD-EPI)AfAm (>60 ml/min/1.73 sqM) Est GFR (CKD-EPI)NonAf (>60 ml/min/1.73 sqM) Glucose (74-99) mg/dL Plasma Lactic Acid Riccardo (0.7-2.0) mmol/L Calcium (8.4-10.2) mg/dL Total Bilirubin (0.2-1.3) mg/dL AST (17-59) U/L ALT (4-49) U/L Alkaline Phosphatase (38-126) U/L Troponin I 0.072 H* (0.000-0.034) ng/mL NT-Pro-B Natriuret Pep pg/mL Total Protein (6.3-8.2) g/dL Albumin (3.5-5.0) g/dL Influenza Type A (PCR) Not Detected (Not Detectd) Influenza Type B (PCR) Not Detected (Not Detectd) RSV (PCR) Not Detected (Not Detectd) SARS-CoV-2 (PCR) Not Detected (Not Detectd) Disposition Clinical Impression: Congestive heart failure Disposition: ADMITTED IP TO THIS HOSP Condition: Fair Referrals: Shanae Allison MD [Primary Care Provider] - 1-2 days Decision Time: 10:13
[2025-02-08 08:16] LABS: Basophils # (A) 0.03 10*3/uL (0.00-0.10); Basophils % (A) 0.4 %; Eosinophils # (A) 0.13 10*3/uL (0.04-0.35); Eosinophils % (A) 1.8 %; HGB 8.8 g/dL (13.0-17.0); Lymphocytes # (A) 0.33 10*3/uL (0.90-5.00); Lymphocytes % (A) 4.7 %; MCH 29.1 pg (27.0-32.0); MCHC 30.3 g/dL (32.0-37.0); Mean Platelet Volume 9.7 fL (9.5-12.2); Monocytes # (A) 0.38 10*3/uL (0.20-1.00); Monocytes % (A) 5.4 %; Neutrophils # (A) 6.14 10*3/uL (1.80-7.70); Neutrophils % (A) 87.3 %; Platelet Count 216 10*3/uL (140-440); RBC 3.02 10*6/uL (4.40-5.60); RDW 17.5 % (11.5-14.5); WBC 7.04 10*3/uL (4.50-10.00)
--- NOTE | 2025-02-08 08:35 | XR ---
EXAMINATION TYPE: XR chest 2V DATE OF EXAM: 02/08/2025 8:02 AM COMPARISON: 02/08/2023 CLINICAL INDICATION: Male, 84 years old with history of dyspnea: Shortness of breath TECHNIQUE: XR chest 2V views of the chest are obtained. FINDINGS: Scattered senescent parenchymal changes noted. Hyperinflation compatible with COPD. No evidence for infiltrate. No evidence for atelectasis. Cardiomegaly with pulmonary venous congestion and small effusions compatible with interstitial edema. Mediastinal structures are stable and grossly unremarkable. No evidence for hilar prominence. Degenerative changes dorsal spine. IMPRESSION: 1. Cardiomegaly with pulmonary venous congestion and small effusions compatible with interstitial [place], , 02/08/2025 8:33 AM
[2025-02-08 08:43] LABS: ALT 13 U/L (4-49); AST 17 U/L (17-59); African American GFR (CKD) 69 (>60 ml/min/1.73 sqM); Alkaline Phosphatase 60 U/L (38-126); Anion Gap 9 mmol/L; Blood Urea Nitrogen 35 mg/dL (9-20); Calcium 9.1 mg/dL (8.4-10.2); Carbon Dioxide 22 mmol/L (22-30); Chloride 109 mmol/L (98-107); Glucose 165 mg/dL (74-99); Non-African American GFR(CKD) 59 (>60 ml/min/1.73 sqM); Potassium 4.5 mmol/L (3.5-5.1); Sodium 140 mmol/L (137-145); Total Bilirubin 1.3 mg/dL (0.2-1.3)
[2025-02-08] MEDS: DEXAMETHASONE SOD PHOSPHATE 10 MG/ML 1 ML VIAL IV STA (08:46)
[2025-02-08] MEDS: ALBUTEROL NEBULIZED 2.5 MG/3 ML INHALATION STA (08:48)
[2025-02-08] MEDS: IPRATROPIUM 0.5 MG/2.5 ML NEBU INHALATION STA (08:48)
[2025-02-08 08:53] LABS: NT-Pro-B-Type Natriuretic Pept 3020 pg/mL
[2025-02-08 09:44] LABS: Influenza A Not Detected (Not Detectd); Influenza B Not Detected (Not Detectd); RSV Not Detected (Not Detectd)
[2025-02-08] MEDS: FUROSEMIDE 10 MG/ML 4 ML VIAL IV STA (10:04)
[2025-02-08] MEDS ORDERED: hydrOXYzine HCL 25 MG TAB PO PRN (11:34)
--- NOTE | 2025-02-08 18:00 | P.HPIM ---
History of Present Illness H&P Date: 02/08/25 Chief Complaint: Shortness of breath 84-year-old male, history of coronary artery disease, hypertension, hyperlipidemia, diabetes mellitus, brought in by EMS. Patient states he has been dyspneic for 3 months. Today his shortness of breath he reports was significantly worse. Patient denies any history of COPD. He has history of coronary artery disease, dyslipidemia hypertension diabetes. Denies any chest pain. States that he does have a cough that is nonproductive of sputum. States he has remote history of tobacco abuse. Denies any constitutional symptoms. EKG Findings: Ventricular rate 69, sinus rhythm, left bundle branch block, CT 17 3, QRS 151, QTc 454. No CT prolongation, no QTC prolongation, no ST or T-wave changes noted. EKG compared to February 03, 2023 showing no changes. Chest x-ray reveals pulmonary vascular congestion Blood work reveals WBC of 7.08, hemoglobin of 8.8 and platelet count 216, sodium 140, potassium 4.5, BUN/creatinine of 35/1.15, blood glucose of 165, lactic acid normal at 1.2, troponin of 0.072 and BNP elevated at 3020 -- Viral screen is negative including influenza A and B, RSV PCR and COVID-19 PCR Review of Systems REVIEW OF SYSTEMS: CONSTITUTIONAL: No fever, no malaise, no fatigue. HEENT: No recent visual problems or hearing problems. Denied any sore throat. CARDIOVASCULAR: No chest pain, orthopnea, PND, no palpitations, no syncope. PULMONARY: No shortness of breath, no cough, no hemoptysis. GASTROINTESTINAL: No diarrhea, no nausea, no vomiting, no abdominal pain. NEUROLOGICAL: No headaches, no weakness, no numbness. HEMATOLOGICAL: Denies any bleeding or petechiae. GENITOURINARY: Denies any burning micturition, frequency, or urgency. MUSCULOSKELETAL/RHEUMATOLOGICAL: Denies any joint pain, swelling, or any muscle pain. ENDOCRINE: Denies any polyuria or polydipsia. The rest of the 14-point review of systems is negative. Past Medical History Past Medical History: Coronary Artery Disease (CAD), Diabetes Mellitus, Hyperlipidemia, Hypertension Additional Past Medical History / Comment(s): gout, hx c-diff (Jun 2019)., postitive blood stool. History of Any Multi-Drug Resistant Organisms: C-DIFF Date of last positivie culture/infection: stool MDRO Source:: 06/2019 Past Surgical History: Heart Catheterization With Stent, Hernia Repair Additional Past Surgical History / Comment(s): ROZ CAROTID ENDARTERECTOMY,ROZ CATARACTS. COLONOSCOPY. Stent x3 Past Anesthesia/Blood Transfusion Reactions: No Reported Reaction Date of Last Stent Placement:: 04/16/2019 Past Psychological History: No Psychological Hx Reported Smoking Status: Former smoker Past Alcohol Use History: Occasional Past Drug Use History: None Reported - Past Family History Father Additional Family Medical History / Comment(s): aortic aneurysm Mother Additional Family Medical History / Comment(s): Brain aneurysm Medications and Allergies Home Medications Medication Instructions Recorded Confirmed Type Losartan [Cozaar] 50 mg PO DAILY 03/02/19 02/08/25 History amLODIPine [Norvasc] 5 mg PO HS 03/02/19 02/08/25 History allopurinoL [Zyloprim] 100 mg PO DAILY 04/05/19 02/08/25 History Pioglitazone [Actos] 45 mg PO DAILY 10/05/19 02/08/25 History glipiZIDE XL [Glucotrol XL] 5 mg PO BID 10/05/19 02/08/25 History Atorvastatin [Lipitor] 40 mg PO HS 05/17/20 02/08/25 History Folic Acid 1 mg PO DAILY #20 tab 09/22/22 02/08/25 Rx Cholecalciferol (Vitamin D3) 50 mcg PO DAILY 02/08/25 02/08/25 History [Vitamin D3 (50 Mcg = 2000 Iu)] Hydrocortisone Cream 1 applic TOPICAL DAILY 02/08/25 02/08/25 History [Hydrocortisone 2.5% Cream] Ketoconazole 2% Cream [Nizoral 2%] 1 applic TOPICAL BID 02/08/25 02/08/25 History Metoprolol Tartrate [Lopressor] 50 mg PO BID 02/08/25 02/08/25 History Rivaroxaban [Xarelto] 15 mg PO DAILY 02/08/25 02/08/25 History Triamcinolone 0.1% Ointment 1 applic TOPICAL BID PRN 02/08/25 02/08/25 History [Kenalog 0.1% Ointment] hydrOXYzine HCL [Atarax] 25 mg PO DAILY PRN 02/08/25 02/08/25 History Allergies Allergy/AdvReac Type Severity Reaction Status Date / Time metformin AdvReac Diarrhea Verified 02/08/25 11:05 Physical Exam Vitals: Vital Signs Temp Pulse Resp BP Pulse Ox 02/08/25 10:04 90 30 H 138/53 90 L 02/08/25 09:22 69 02/08/25 09:18 68 31 H 143/59 99 02/08/25 09:10 68 02/08/25 09:00 69 02/08/25 08:48 68 02/08/25 07:26 69 27 H 93 L 02/08/25 07:20 26 H 02/08/25 07:14 98.6 F 69 20 147/56 97 Intake and Output 02/07/25 02/08/25 02/08/25 22:59 06:59 14:59 Other: Weight 90.718 kg General Impression: Alert and oriented x3, not in acute distress HEENT: Normocephalic atraumatic, extra-ocular movements intact, pupils equal and reactive to light bilaterally, mucous membranes moist. Cardiovascular: Heart regular rate and rhythm Chest: Mildly dyspneic, diffuse end expiratory wheezing Abdomen: abdomen soft, non-tender, non-distended, no organomegaly Musculoskeletal: Pulses present and equal in all extremities, no peripheral edema Motor: no focal deficits noted Neurological: CN II-XII grossly intact, no focal motor or sensory deficits noted Skin: Intact with no visualized rashes Psych: Normal affect and mood Results CBC & Chem 7: 02/08/25 08:01 02/08/25 08:01 Labs: Abnormal Lab Results - Last 24 Hours (Table) 02/08/25 02/08/25 02/08/25 Range/Units 08:01 08:01 08:01 RBC 3.02 L (4.40-5.60) 10*6/uL Hgb 8.8 L (13.0-17.0) g/dL Hct 29.0 L (39.6-50.0) % MCHC 30.3 L (32.0-37.0) g/dL Lymphocytes # 0.33 L (0.90-5.00) 10*3/uL Chloride 109 H (98-107) mmol/L BUN 35 H (9-20) mg/dL Glucose 165 H (74-99) mg/dL Troponin I 0.072 H* (0.000-0.034) ng/mL Assessment and Plan Assessment: 1. Acute exacerbation CHF/hypoxia -Chest x-ray was completed in ED reveals a pulmonary vascular congestion - Patient received IV Lasix in ED; will continue with Lasix 40 mg IV every 12 hours - Monitor strict MIGUEL's, daily weights, low-salt and fluid restricted diet - Recommend 2D echo Cardiology is consulted 2. Elevated troponin; likely demand ischemia due to CHF exacerbation/hypoxia -We will continue to trend troponin; cardiology is consulted; await recommendations 3. Hypertension; patient takes Norvasc 5 mg daily, losartan 50 mg daily, Lopressor 50 mg twice daily 4. Hyperlipidemia; total 80 mg p.o. nightly 5. Diabetes mellitus type 2; with home dose of glipizide 5 mg twice daily; will hold active - Monitor Accu-Cheks before every meal and at bedtime with insulin sliding scale 6. Hyperuricemia/gout; continue home dose allopurinol DVT prophylaxis; SCD/Xarelto CODE STATUS; full code
[2025-02-08] MEDS: METOPROLOL TARTRATE 50 MG TAB PO SCH (21:25)
[2025-02-08] MEDS: glipiZIDE 5 MG TAB PO SCH (21:25)
[2025-02-08] MEDS: ATORVASTATIN 40 MG TAB PO SCH (21:25)
[2025-02-08] MEDS: FUROSEMIDE 10 MG/ML 4 ML VIAL IV SCH (22:25)
[2025-02-09 07:19] LABS: HCT 25.8 % (39.6-50.0); HGB 7.8 g/dL (13.0-17.0); Lymphocytes # (A) 0.22 10*3/uL (0.90-5.00); Lymphocytes % (A) 2.7 %; MCH 28.6 pg (27.0-32.0); MCHC 30.2 g/dL (32.0-37.0); MCV 94.5 fL (80.0-97.0); Mean Platelet Volume 10.3 fL (9.5-12.2); Monocytes # (A) 0.44 10*3/uL (0.20-1.00); Monocytes % (A) 5.5 %; Neutrophils # (A) 7.35 10*3/uL (1.80-7.70); Neutrophils % (A) 91.4 %; Platelet Count 210 10*3/uL (140-440); RBC 2.73 10*6/uL (4.40-5.60); RDW 17.5 % (11.5-14.5); WBC 8.04 10*3/uL (4.50-10.00)
[2025-02-09 07:57] LABS: African American GFR (CKD) 63 (>60 ml/min/1.73 sqM); Anion Gap 10 mmol/L; Blood Urea Nitrogen 45 mg/dL (9-20); Calcium 9.1 mg/dL (8.4-10.2); Carbon Dioxide 23 mmol/L (22-30); Chloride 104 mmol/L (98-107); Glucose 281 mg/dL (74-99); Non-African American GFR(CKD) 55 (>60 ml/min/1.73 sqM); Potassium 4.8 mmol/L (3.5-5.1); Sodium 137 mmol/L (137-145)
[2025-02-09] MEDS: LOSARTAN 50 MG TAB PO SCH (08:39)
[2025-02-09] MEDS: RIVAROXABAN 15 MG TAB PO SCH (08:39)
[2025-02-09] MEDS: CHOLECALCIFEROL 25 MCG (1000 IU) TABLET PO SCH (08:39)
[2025-02-09] MEDS: FOLIC ACID 1 MG TAB PO SCH (08:39)
[2025-02-09] MEDS: allopurinoL 100 MG TAB PO SCH (08:40)
[2025-02-09 10:13] LABS: Magnesium 1.6 mg/dL (1.6-2.3)
--- NOTE | 2025-02-09 10:40 | P.CRDCN ---
History of Present Illness Consult date: 02/09/25 History of present illness: HISTORY OF PRESENTING ILLNESS: Patient is known to Dr. Castillo This time presented to the hospital because of 1 to 2 weeks of worsening shortness of breath, increased worsening lower extremity edema. He reports that his shortness of breath is going on for last few months but lately it has got worse. He denies any smoking. He was ex-smoker stopped in 1994. Denies any alcohol use drug use. Does report that occasionally he will use food rich in salt with crackers and chips. He also sees a wound care doctor for lower extremity wounds which appears to be stable venous ulcers. He is wearing compression socks Home cardiac medications Xarelto 15, Lipitor 40, amlodipine 5, losartan 50, metoprolol 50 twice daily, pioglitazone Admission Vitals: 142/57, heart rate 79, repeat 123/65, heart rate 66 Admission Labs: Hb 8.8, BUN 35, creatinine 1.1, troponin 0.07, NT-proBNP 3000, Admission EKG: Sinus rhythm with left bundle branch block Imaging: Chest x-ray shows signs of pulmonary congestion with increase in tissue marking and blunting of costophrenic angles REVIEW OF SYSTEMS: 14 point review of system is negative except what is mentioned above in HPI. PHYSICAL EXAMINATION: Neck: Brisk carotid upstroke, elevated jugular venous distention. Lungs: Clear to auscultation. Heart: Regular rate and rhythm, S1-S2, , systolic murmur audible in the aortic area, radiating to carotids, mild carotid bruit Abdomen: Soft nontender, positive bowel sounds. Extremities: 2+ pitting edema bilateral extremity, small venous ulcers, healing, Neuro: Alert, oritented, no focal deficits. Detailed neuro exam was not performed. ASSESSMENT: # Acute hypoxic respiratory failure # Acute HFpEF exacerbation # Valvular heart disease with mild aortic stenosis, moderate mitral stenosis # Essential hypertension # History of CAD with multiple recent PCI in the past # Status post PPM for symptomatic sick sinus syndrome PLAN: Recommend to stop pioglitazone and do not resume on discharge. Instead consider other antidiabetic medication as this can worsen congestive heart failure Obtain lipid A1c and TSH levels Obtain echocardiogram. If cannot be performed, he is already scheduled for outpatient echo in office. If no recent stress testing consider repeat stress test Continue IV Lasix 40 mg twice daily. Monitor kidney function and electrolytes. Tomorrow discontinue Lasix start Bumex 1 mg p.o. BID for 5 days and thereafter 1 mg daily Continue Xarelto 15 mg for now. No documented atrial fibrillation in past hospital documents. Obtain office record to confirm if patient had history of paroxysmal atrial fibrillation and what is the indication for anticoagulation. Lipitor 40, amlodipine 5, losartan 50 Start [id number] mg, Aldactone 12.5 mg daily Noticed to be iron deficient in the past with low ferritin, high TIBC. Give 1 dose of IV iron and start p.o. iron Low-salt diet, fluid restriction of 1800 cc/day Past Medical History Past Medical History: Coronary Artery Disease (CAD), Diabetes Mellitus, Hyperlipidemia, Hypertension Additional Past Medical History / Comment(s): gout, hx c-diff (Jun 2019)., postitive blood stool. History of Any Multi-Drug Resistant Organisms: C-DIFF Date of last positivie culture/infection: stool MDRO Source:: 06/2019 Past Surgical History: Heart Catheterization With Stent, Hernia Repair Additional Past Surgical History / Comment(s): ROZ CAROTID ENDARTERECTOMY,ROZ CATARACTS. COLONOSCOPY. Stent x3 Past Anesthesia/Blood Transfusion Reactions: No Reported Reaction Date of Last Stent Placement:: 04/16/2019 Past Psychological History: No Psychological Hx Reported Smoking Status: Former smoker Past Alcohol Use History: Occasional Past Drug Use History: None Reported - Past Family History Father Additional Family Medical History / Comment(s): aortic aneurysm Mother Additional Family Medical History / Comment(s): Brain aneurysm Medications and Allergies Home Medications Medication Instructions Recorded Confirmed Type Losartan [Cozaar] 50 mg PO DAILY 03/02/19 02/08/25 History amLODIPine [Norvasc] 5 mg PO HS 03/02/19 02/08/25 History allopurinoL [Zyloprim] 100 mg PO DAILY 04/05/19 02/08/25 History Pioglitazone [Actos] 45 mg PO DAILY 10/05/19 02/08/25 History glipiZIDE XL [Glucotrol XL] 5 mg PO BID 10/05/19 02/08/25 History Atorvastatin [Lipitor] 40 mg PO HS 05/17/20 02/08/25 History Folic Acid 1 mg PO DAILY #20 tab 09/22/22 02/08/25 Rx Cholecalciferol (Vitamin D3) 50 mcg PO DAILY 02/08/25 02/08/25 History [Vitamin D3 (50 Mcg = 2000 Iu)] Hydrocortisone Cream 1 applic TOPICAL DAILY 02/08/25 02/08/25 History [Hydrocortisone 2.5% Cream] Ketoconazole 2% Cream [Nizoral 2%] 1 applic TOPICAL BID 02/08/25 02/08/25 History Metoprolol Tartrate [Lopressor] 50 mg PO BID 02/08/25 02/08/25 History Rivaroxaban [Xarelto] 15 mg PO DAILY 02/08/25 02/08/25 History Triamcinolone 0.1% Ointment 1 applic TOPICAL BID PRN 02/08/25 02/08/25 History [Kenalog 0.1% Ointment] hydrOXYzine HCL [Atarax] 25 mg PO DAILY PRN 02/08/25 02/08/25 History Allergies Allergy/AdvReac Type Severity Reaction Status Date / Time metformin AdvReac Diarrhea Verified 02/08/25 11:05 Physical Exam Vitals: Vital Signs Temp Pulse Resp BP Pulse Ox 02/09/25 08:35 66 16 123/65 96 02/09/25 07:30 62 15 02/09/25 06:56 64 16 132/59 97 02/09/25 01:35 65 16 137/63 94 L 02/08/25 21:28 79 18 142/57 95 02/08/25 18:32 78 16 144/64 93 L 02/08/25 16:43 74 24 144/64 98 02/08/25 15:01 78 28 H 92 L 02/08/25 13:05 98.0 F 76 22 126/59 95 02/08/25 12:15 74 19 138/51 94 L Results 02/09/25 07:10 02/09/25 07:10 CBC 02/09/25 Range/Units 07:10 WBC 8.04 (4.50-10.00) 10*3/uL RBC 2.73 L (4.40-5.60) 10*6/uL Hgb 7.8 L (13.0-17.0) g/dL Hct 25.8 L (39.6-50.0) % Plt Count 210 (140-440) 10*3/uL Comprehensive Metabolic Panel 02/09/25 Range/Units 07:10 Sodium 137 (137-145) mmol/L Potassium 4.8 (3.5-5.1) mmol/L Chloride 104 (98-107) mmol/L Carbon Dioxide 23 (22-30) mmol/L BUN 45 H (9-20) mg/dL Creatinine 1.23 (0.66-1.25) mg/dL Glucose 281 H (74-99) mg/dL Calcium 9.1 (8.4-10.2) mg/dL Current Medications Generic Name Dose Route Start Last Admin Trade Name Yves PRN Reason Stop Dose Admin Allopurinol 100 mg 02/09/25 09:00 02/09/25 08:40 Allopurinol 100 Mg Tab PO 100 mg DAILY AYLA Administration Atorvastatin Calcium 40 mg 02/08/25 21:00 02/08/25 21:25 Atorvastatin 40 Mg Tab PO 40 mg HS AYLA Administration Cholecalciferol 50 mcg 02/09/25 09:00 02/09/25 08:39 Cholecalciferol 25 Mcg (1000 Iu) Tablet PO 50 mcg DAILY AYLA Administration Dapagliflozin 10 mg 02/09/25 10:45 Dapagliflozin Propanediol 10 Mg Tablet PO DAILY AYLA Folic Acid 1 mg 02/09/25 09:00 02/09/25 08:39 Folic Acid 1 Mg Tab PO 1 mg DAILY AYLA Administration Furosemide 40 mg 02/08/25 22:00 02/08/25 22:25 Furosemide 10 Mg/Ml 4 Ml Vial IV 40 mg Q12H AYLA Administration Glipizide 5 mg 02/08/25 21:00 02/09/25 08:39 Glipizide 5 Mg Tab PO 5 mg BID AYLA Administration Hydroxyzine HCl 25 mg 02/08/25 11:34 Hydroxyzine Hcl 25 Mg Tab PO DAILY PRN ITCHING/RASH Ferric Sodium Gluconate 125 mg 110 mls @ 100 mls/hr 02/09/25 10:30 / Sodium Chloride IVPB 02/09/25 11:35 ONCE ONE Losartan Potassium 50 mg 02/09/25 09:00 02/09/25 08:39 Losartan 50 Mg Tab PO 50 mg DAILY AYLA Administration Metoprolol Tartrate 50 mg 02/08/25 21:00 02/09/25 08:39 Metoprolol Tartrate 50 Mg Tab PO 50 mg BID AYLA Administration Pantoprazole Sodium 40 mg 02/09/25 10:45 Pantoprazole 40 Mg/10 Ml Vial IVP BID AYLA Polysaccharide Iron Complex 1 each 02/09/25 10:00 Iron Ps Cmplx/Vit B12/Fa 1 Each Cap PO DAILY [facility] Rivaroxaban 15 mg 02/09/25 09:00 02/09/25 08:39 Rivaroxaban 15 Mg Tab PO 15 mg DAILY [facility] Administration Protocol Spironolactone 12.5 mg 02/09/25 10:45 Spironolactone 25 Mg Tab PO DAILY [facility] 02/09/25 07:10 02/09/25 07:10
[2025-02-09] MEDS: SODIUM FERRIC GLUCONAT-SUCROSE 125 MG in SODIUM CHLORIDE 0.9% 100 ML IVPB ONE (11:37)
[2025-02-09] MEDS: SPIRONOLACTONE 25 MG TAB PO SCH (11:38)
[2025-02-09] MEDS: DAPAGLIFLOZIN PROPANEDIOL 10 MG TABLET PO SCH (11:39)
[2025-02-09] MEDS: IRON PS CMPLX/VIT B12/FA 1 EACH CAP PO SCH (11:39)
[2025-02-09] MEDS: PANTOPRAZOLE 40 MG/10 ML VIAL IVP SCH (11:40)
[2025-02-09 12:12] LABS: HCT 27.1 % (39.6-50.0); HGB 8.2 g/dL (13.0-17.0); MCH 28.8 pg (27.0-32.0); MCHC 30.3 g/dL (32.0-37.0); MCV 95.1 fL (80.0-97.0); Mean Platelet Volume 10.5 fL (9.5-12.2); Platelet Count 231 10*3/uL (140-440); RBC 2.85 10*6/uL (4.40-5.60); RDW 17.4 % (11.5-14.5); WBC 9.29 10*3/uL (4.50-10.00)
--- NOTE | 2025-02-09 14:54 | CA ---
Transthoracic Echo Report Name: Anthony Francois Age: 84 Gender: M : 1940 Exam Date: 02/09/2025 10:42 Exam Location: [facility] Ht (in): 67 Wt (lb): 200 Ordering Physician: Kd Littlejohn MD ([id number]) Attending/Referring Phys: Teletray Operator Amanda Islas RDCS Procedure CPT: Indications: aortic stenosis Cardiac Hx: Technical Quality: Fair Contrast 1: Total Dose (mL): Contrast 2: Total Dose (mL): MEASUREMENTS (Male / Female) Normal Values 2D ECHO LV Diastolic Diameter PLAX 5.0 cm 4.2 - 5.9 / 3.9 - 5.3 cm LV Systolic Diameter PLAX 4.1 cm IVS Diastolic Thickness 1.1 cm 0.6 - 1.0 / 0.6 - 0.9 cm LVPW Diastolic Thickness 1.0 cm 0.6 - 1.0 / 0.6 - 0.9 cm LV Relative Wall Thickness 0.4 RV Internal Dim ED PLAX 3.1 cm LVOT Diameter 1.9 cm LA Systolic Diameter LX 4.8 cm 3.0 - 4.0 / 2.7 - 3.8 cm LV Diastolic Volume MOD BP 78.6 cm??? 67 - 155 / 56 - 104 cm??? LV Systolic Volume MOD BP 39.4 cm??? - 58 / 19 - 49 cm??? LV Ejection Fraction MOD BP 49.9 % >= 55 % LV Cardiac Index MOD BP 1380.1 cm???/min???m??? LV Diastolic Volume MOD 4C 77.3 cm??? LV Systolic Volume MOD 4C 37.9 cm??? LV Ejection Fraction MOD 4C 50.9 % LV Cardiac Index MOD 4C 1387.1 cm???/min???m??? LV Diastolic Length 4C 7.7 cm LV Systolic Length 4C 6.3 cm LV Diastolic Volume MOD 2C 77.7 cm??? LV Systolic Volume MOD 2C 37.0 cm??? LV Ejection Fraction MOD 2C 52.5 % LV Cardiac Index MOD 2C 1437.0 cm???/min???m??? LV Diastolic Length 2C 8.0 cm LV Systolic Length 2C 7.2 cm LA Volume 168.7 cm??? 18 - 58 / 22 - 52 cm??? LA Volume Index 80.3 cm???/m??? 16 - 28 cm???/m??? M-MODE Aortic Root Diameter MM 3.1 cm LA Systolic Diameter MM 4.7 cm LA Ao Ratio MM 1.5 AV Cusp Separation MM 0.6 cm DOPPLER AV Peak Velocity 310.3 cm/s AV Peak Gradient 38.5 mmHg AV Mean Velocity 214.0 cm/s AV Mean Gradient 22.5 mmHg AV Velocity Time Integral 71.3 cm LVOT Peak Velocity 75.5 cm/s LVOT Peak Gradient 2.3 mmHg LVOT Velocity Time Integral 18.0 cm LVOT Stroke Volume 50.3 cm??? LVOT Stroke Volume Index 24.9 ml/m??? LVOT Cardiac Index 1773.8 cm???/min???m??? AV Area Cont Eq vti 0.7 cm??? AV Area Cont Eq pk 0.7 cm??? MV Peak Velocity 236.7 cm/s MV Peak Gradient 22.4 mmHg MV Mean Velocity 119.6 cm/s MV Mean Gradient 7.0 mmHg MV Velocity Time Integral 71.7 cm MV Area PHT 1.7 cm??? MR Peak Velocity 549.3 cm/s MR Peak Gradient 120.7 mmHg Mitral E Point Velocity 197.1 cm/s Mitral A Point Velocity 99.0 cm/s Mitral E to A Ratio 2.0 MV Deceleration Time 446.6 ms TR Peak Velocity 365.9 cm/s TR Peak Gradient 53.5 mmHg Right Atrial Pressure 5.0 mmHg Pulmonary Artery Systolic Pressu 58.5 mmHg Right Ventricular Systolic Press 58.5 mmHg FINDINGS Left Ventricle Left ventricular ejection fraction is estimated at 35-40 %. Mildly increased septal wall thickness. Moderately reduced global left ventricular systolic function. Left ventricular cavity size normal. Right Ventricle Normal right ventricular size and function. Severe pulmonary hypertension. Right ventricular systolic pressure estimated at 59 mmHg. Right Atrium Moderate right atrial dilatation. Catheter/pacemaker wire in the right atrial cavity. Left Atrium Severely increased left atrial volume. Moderately increased left atrial area. Mitral Valve Mitral valve thickened. Moderate mitral stenosis, MV Mean PG 7mmHg. Moderate- to-severe mitral regurgitation. Severe mitral annular calcification. Aortic Valve Aortic valve not well visualized. Moderate to severe aortic stenosis with a peak gradient of 39mmHg and a mean gradient of 23 mmHg. Trace aortic regurgitation. Tricuspid Valve Structurally normal tricuspid valve. Moderate tricuspid regurgitation. No tricuspid stenosis. Pulmonic Valve Structurally normal pulmonic valve. Trace pulmonic regurgitation. No pulmonic stenosis. Pericardium Minimal pericardial effusion (normal variant). Left pleural effusion. Aorta Normal size aortic root and proximal ascending aorta. CONCLUSIONS LVEF 35 to 40% Mild concentric LVH Normal RV size and systolic function. Severe pulmonary hypertension RVSP 59 mmHg Moderate biatrial dilatation. PPM wire noticed in RA and RV Calcified mitral and aortic valve. Mild mitral stenosis with MVA 1.6 cm??? by PHT. Moderate to severe MR Low-flow low gradient aortic stenosis likely in severe range. VTI ratio 0.24, mean gradient 23 mmHg at index stroke-volume of 25 mL/m??? Moderate tricuspid regurgitation Previewed by: Dr Kd Littlejohn (Electronically Signed) Final Date: 09 February 2025 14:53
[2025-02-09] MEDS: BUMETANIDE 1 MG TAB PO SCH (17:34)
[2025-02-10 01:19] LABS: Chol/HDL Ratio 3.45 Ratio; LDL Cholesterol,Calculated 50.9 mg/dL (0.0-131.0)
[2025-02-10 07:27] LABS: Basophils # (A) 0.02 10*3/uL (0.00-0.10); Basophils % (A) 0.2 %; Eosinophils # (A) 0.03 10*3/uL (0.04-0.35); Eosinophils % (A) 0.2 %; HCT 29.2 % (39.6-50.0); HGB 8.8 g/dL (13.0-17.0); Lymphocytes # (A) 0.64 10*3/uL (0.90-5.00); Lymphocytes % (A) 4.9 %; MCH 28.5 pg (27.0-32.0); MCHC 30.1 g/dL (32.0-37.0); MCV 94.5 fL (80.0-97.0); Mean Platelet Volume 10.1 fL (9.5-12.2); Monocytes # (A) 0.84 10*3/uL (0.20-1.00); Monocytes % (A) 6.4 %; Neutrophils # (A) 11.52 10*3/uL (1.80-7.70); Neutrophils % (A) 87.2 %; Platelet Count 274 10*3/uL (140-440); RBC 3.09 10*6/uL (4.40-5.60); RDW 17.4 % (11.5-14.5); WBC 13.19 10*3/uL (4.50-10.00)
[2025-02-10 07:41] VITALS: RESP 18
[2025-02-10 07:57] LABS: African American GFR (CKD) 51 (>60 ml/min/1.73 sqM); Anion Gap 11 mmol/L; Blood Urea Nitrogen 52 mg/dL (9-20); Calcium 9.5 mg/dL (8.4-10.2); Carbon Dioxide 24 mmol/L (22-30); Chloride 103 mmol/L (98-107); Glucose 151 mg/dL (74-99); Non-African American GFR(CKD) 44 (>60 ml/min/1.73 sqM); Potassium 4.5 mmol/L (3.5-5.1); Sodium 138 mmol/L (137-145)
--- NOTE | 2025-02-10 14:13 | P.PN ---
Subjective Progress Note Date: 02/10/25 HISTORY OF PRESENTING ILLNESS: Patient is known to Dr. Castillo This time presented to the hospital because of 1 to 2 weeks of worsening shortness of breath, increased worsening lower extremity edema. He reports that his shortness of breath is going on for last few months but lately it has got worse. He denies any smoking. He was ex-smoker stopped in 1994. Denies any alcohol use drug use. Does report that occasionally he will use food rich in salt with crackers and chips. He also sees a wound care doctor for lower extremity wounds which appears to be stable venous ulcers. He is wearing compression socks Home cardiac medications Xarelto 15, Lipitor 40, amlodipine 5, losartan 50, metoprolol 50 twice daily, pioglitazone Admission Vitals: 142/57, heart rate 79, repeat 123/65, heart rate 66 Admission Labs: Hb 8.8, BUN 35, creatinine 1.1, troponin 0.07, NT-proBNP 3000, Admission EKG: Sinus rhythm with left bundle branch block Imaging: Chest x-ray shows signs of pulmonary congestion with increase in tissue marking and blunting of costophrenic angles Progress note 02/10/2025 Seen and examined at bedside this a.m. EF of 35 to 40%, mild concentric LVH, severe pulmonary hypertension RVSP 59 mmHg, moderate biatrial dilatation, moderate to severe MR, mild mitral stenosis, low-flow low gradient aortic stenosis concerns of possibly in severe range with VTI ratio 0.24 Yesterday creatinine was 1.1, today creatinine is 1.4 Feeling much better, eager to go home, appears euvolemic. Echo shows PHYSICAL EXAMINATION: Neck: Brisk carotid upstroke, elevated jugular venous distention. Lungs: Clear to auscultation. Heart: Regular rate and rhythm, S1-S2, , systolic murmur audible in the aortic area, radiating to carotids, mild carotid bruit Abdomen: Soft nontender, positive bowel sounds. Extremities: 2+ pitting edema bilateral extremity, small venous ulcers, healing, Neuro: Alert, oritented, no focal deficits. Detailed neuro exam was not performed. ASSESSMENT: # Acute hypoxic respiratory failure # Acute HFrEF exacerbation, EF of 35 to 40%. Previously known EF of 40 to 45%. # Valvular heart disease with low-flow low gradient aortic stenosis, VTI ratio 0.24 # Moderate mitral regurgitation, mild mitral stenosis # Essential hypertension # History of CAD with multiple recent PCI in the past # Status post PPM for symptomatic sick sinus syndrome PLAN: Recommend to stop pioglitazone and do not resume on discharge. Instead consider other antidiabetic medication as this can worsen congestive heart failure Continue Bumex 1 mg p.o. daily. Continue Xarelto 15 mg for now. No documented atrial fibrillation in past hospital documents. Obtain office record to confirm if patient had history of paroxysmal atrial fibrillation and what is the indication for anticoagulation. Lipitor 40, amlodipine 5, losartan 50 Start [id number] mg, Aldactone 12.5 mg daily Noticed to be iron deficient in the past with low ferritin, high TIBC. Given 1 dose of IV iron and start p.o. iron Low-salt diet, fluid restriction of 1800 cc/day Consider outpatient low-dose dobutamine stress echo for aortic valve assessment and possible TAVR workup if needed. Repeat labs in 3-4 days Patient is otherwise cleared from cardiovascular standpoint. Objective - Vital Signs Vital signs: Vital Signs Temp 97.6 F 02/10/25 07:40 Pulse 81 02/10/25 07:40 Resp 18 02/10/25 07:40 BP 97/57 02/10/25 07:40 Pulse Ox 93 L 02/10/25 07:40 FiO2 Intake & Output 02/09/25 02/10/25 02/10/25 18:59 06:59 18:59 Intake Total 540 Balance 540 Weight 90.718 kg 90.1 kg Intake: Oral 540 Other: Voiding Method Toilet Toilet # Voids 3 - Labs CBC & Chem 7: 02/10/25 07:13 02/10/25 07:13 Labs: Abnormal Lab Results - Last 24 Hours (Table) 02/09/25 02/10/25 02/10/25 Range/Units 07:10 07:13 07:13 WBC 13.19 H (4.50-10.00) 10*3/uL RBC 3.09 L (4.40-5.60) 10*6/uL Hgb 8.8 L (13.0-17.0) g/dL Hct 29.2 L (39.6-50.0) % MCHC 30.1 L (32.0-37.0) g/dL RDW 17.4 H (11.5-14.5) % Immature Gran # 0.14 H (0.00-0.04) 10*3/uL Neutrophils # 11.52 H (1.80-7.70) 10*3/uL Lymphocytes # 0.64 L (0.90-5.00) 10*3/uL Eosinophils # 0.03 L (0.04-0.35) 10*3/uL BUN 52 H (9-20) mg/dL Creatinine 1.46 H (0.66-1.25) mg/dL Glucose 151 H (74-99) mg/dL HDL Cholesterol 28.40 L (40.00-60.00) mg/dL
[2025-02-10 14:17] VITALS: BP 106/65; PULSE 65; TEMP 97.5
--- NOTE | 2025-02-10 14:58 | P.PN ---
Subjective Progress Note Date: 02/09/25 84-year-old male, history of coronary artery disease, hypertension, hyperlipidemia, diabetes mellitus, brought in by EMS. Patient states he has been dyspneic for 3 months. Today his shortness of breath he reports was significantly worse. Patient denies any history of COPD. He has history of coronary artery disease, dyslipidemia hypertension diabetes. Denies any chest pain. States that he does have a cough that is nonproductive of sputum. States he has remote history of tobacco abuse. Denies any constitutional symptoms. EKG Findings: Ventricular rate 69, sinus rhythm, left bundle branch block, [place] 173, QRS 151, QTc 454. No [place] prolongation, no QTC prolongation, no ST or T-wave changes noted. EKG compared to February 03, 2023 showing no changes. Chest x-ray reveals pulmonary vascular congestion Blood work reveals WBC of 7.08, hemoglobin of 8.8 and platelet count 216, sodium 140, potassium 4.5, BUN/creatinine of 35/1.15, blood glucose of 165, lactic acid normal at 1.2, troponin of 0.072 and BNP elevated at 3020 -- Viral screen is negative including influenza A and B, RSV PCR and COVID-19 PCR Objective - Vital Signs Vital signs: Vital Signs Temp 98.0 F 02/08/25 13:05 Pulse 66 02/09/25 08:35 Resp 16 02/09/25 08:35 BP 123/65 02/09/25 08:35 Pulse Ox 96 02/09/25 08:35 FiO2 Intake & Output 02/08/25 02/09/25 02/09/25 18:59 06:59 18:59 Weight 90.718 kg - Exam General Impression: Alert and oriented x3, not in acute distress HEENT: Normocephalic atraumatic, extra-ocular movements intact, pupils equal and reactive to light bilaterally, mucous membranes moist. Cardiovascular: Heart regular rate and rhythm Chest: Mildly dyspneic, diffuse end expiratory wheezing Abdomen: abdomen soft, non-tender, non-distended, no organomegaly Musculoskeletal: Pulses present and equal in all extremities, no peripheral edema Motor: no focal deficits noted Neurological: CN II-XII grossly intact, no focal motor or sensory deficits noted Skin: Intact with no visualized rashes Psych: Normal affect and mood - Labs CBC & Chem 7: 02/10/25 07:13 02/10/25 07:13 Labs: Abnormal Lab Results - Last 24 Hours (Table) 02/09/25 02/09/25 Range/Units 07:10 07:10 RBC 2.73 L (4.40-5.60) 10*6/uL Hgb 7.8 L (13.0-17.0) g/dL Hct 25.8 L (39.6-50.0) % MCHC 30.2 L (32.0-37.0) g/dL Lymphocytes # 0.22 L (0.90-5.00) 10*3/uL Eosinophils # 0.00 L (0.04-0.35) 10*3/uL BUN 45 H (9-20) mg/dL Glucose 281 H (74-99) mg/dL Assessment and Plan Assessment: 1. Acute exacerbation CHF/hypoxia -Chest x-ray was completed in ED reveals a pulmonary vascular congestion - Patient received IV Lasix in ED; will continue with Lasix 40 mg IV every 12 hours - Monitor strict MIGUEL's, daily weights, low-salt and fluid restricted diet - Recommend 2D echo Cardiology is consulted 2. Elevated troponin; likely demand ischemia due to CHF exacerbation/hypoxia -We will continue to trend troponin; cardiology is consulted; await recommendations 3. Hypertension; patient takes Norvasc 5 mg daily, losartan 50 mg daily, Lopressor 50 mg twice daily 4. Hyperlipidemia; total 80 mg p.o. nightly 5. Diabetes mellitus type 2; with home dose of glipizide 5 mg twice daily; will hold active - Monitor Accu-Cheks before every meal and at bedtime with insulin sliding scale 6. Hyperuricemia/gout; continue home dose allopurinol DVT prophylaxis; SCD/Xarelto CODE STATUS; full code
[2025-02-11] MEDS ORDERED: BUMETANIDE 1 MG TAB PO SCH (09:00)
== END 2025-02-10 15:50 | disposition home or self-care (01) ==
LOC: EC 07:07 → 3SCARD 10:10 → 6NMEDSUR 02-09 20:33
PROVIDERS: ADMIT Hospitalist; ATTEND Hospitalist
DX: I11.0 Hypertensive heart disease with heart failure (principal); I50.21 Acute systolic (congestive) heart failure; J96.01 Acute respiratory failure with hypoxia; M10.9 Gout, unspecified; E11.9 Type 2 diabetes mellitus without complications; I08.0 Rheumatic disorders of both mitral and aortic valves; I25.10 Atherosclerotic heart disease of native coronary artery without angina pectoris; I27.20 Pulmonary hypertension, unspecified; I44.7 Left bundle-branch block, unspecified; I49.5 Sick sinus syndrome; E78.5 Hyperlipidemia, unspecified; Z79.01 Long term (current) use of anticoagulants; Z79.82 Long term (current) use of aspirin; Z79.84 Long term (current) use of oral hypoglycemic drugs; Z79.899 Other long term (current) drug therapy; Z87.891 Personal history of nicotine dependence; Z95.0 Presence of cardiac pacemaker; Z95.5 Presence of coronary angioplasty implant and graft; Z88.8 Allergy status to other drugs, medicaments and biological substances
CPT/HCPCS: 96376 ×3; 96365; 96374; 96375 ×2; 99285; 36415; 94644; 93005; 93306; 83880; 80061; 80053; 80048 ×2; 84443; 83605; 83735; 84484 ×2; 85025 ×3; 85027; 83036; 87636; 71046; G0378 ×3; J1100; J2916; J2470 ×2; J1938

== ENCOUNTER 2025-02-21 09:34 | Day surgery (SDC) | payer MEDICARE ==
[2025-02-20 12:30] VITALS: BMI 30.5
[~2025-02-21 09:34] MED LIST changes: +ALPRAZolam 0.25 MG TAB PO PRN; +ALPRAZolam 0.5 MG TAB PO PRN; +HEPARIN SODIUM,PORCINE (1 ML) 2,500 UNIT in SODIUM CHLORIDE 0.9% 250 ML IRRIGATION PRN; +HEPARIN SODIUM,PORCINE 10,000 UNIT in SODIUM CHLORIDE 0.9% 1,000 ML IRRIGATION PRN; -LACTATED RINGERS 1,000 ML IV SCH; +NITROGLYCERIN SL TABS 0.4 MG TAB SUBLINGUAL PRN
[2025-02-21] MEDS: SODIUM CHLORIDE 0.9% 1,000 ML in EMPTY BAG 1 BAG IV SCH (10:11)
[2025-02-21] MEDS: ASPIRIN 325 MG TAB PO ONE (10:13)
[2025-02-21 10:21] LABS: Glucose,Whole Blood 181 mg/dL (70-110)
[2025-02-21] MEDS: IV FLUID CONTINUATION 1,000 ML IV ONE (10:30)
[2025-02-21 10:45] VITALS: TEMP 97
[2025-02-21] MEDS: LIDOCAINE 1% INJ 10MG/ML (30 ML VIAL-PF) SQ ONE (13:38)
[2025-02-21] MEDS: MIDAZOLAM 2 MG/2 ML VIAL IVP ONE (13:39)
[2025-02-21] MEDS: HEPARIN SODIUM 1,000 UN/ML (10ML VL) IVP ONE (13:39)
[2025-02-21] MEDS: VERAPAMIL 2.5 MG/ML 4 ML VIAL INTRAARTER ONE (13:39)
[2025-02-21] MEDS: fentaNYL (PF) 50 MCG/1 ML VIAL IVP ONE (13:55)
[2025-02-21] MEDS: IOPAMIDOL-370 100ML BTL INJ ONE ×2 (14:22→14:50)
[2025-02-21] MEDS ORDERED: RX INFO: IV CONTRAST WAS GIVEN 1 EACH MISC MISCELLANE PRN (14:38)
--- NOTE | 2025-02-21 14:42 | P.PCN ---
Date of Procedure: 02/21/25 Operative Findings: CARDIAC CATHETERIZATION PERFORMING PHYSICIAN: Javier Gaytan MD, RPVI PROCEDURE PERFORMED: 1. Selective right and left coronary angiogram 2. IVUS and IFR of the left main 3. Ultrasound-guided access of the right radial artery INDICATION: Cardiomyopathy COMPLICATION: None APPROACH: Right radial artery LEVEL OF SEDATION: Moderate with a sedation length of 51 minutes PROCEDURE DESCRIPTION: After obtaining an informed consent, the patient was brought to cardiac company laborer. Local anesthesia was performed using lidocaine subcutaneously. The right radial artery was cannulated using Seldinger technique, under ultrasound guidance, the guidewire passed easily, following that we advanced a 5-Trinidadian sheath dilator assembly, the wire and dilator were removed and sheath was flushed. Following that, 2 mg of verapamil along with 5000 unit heparin were given. Selective right and left coronary angiogram using a 5-Trinidadian JR4 and JL 3.5 catheters. Following that I decided to do an IVUS initially of the left main. Anticoagulation initiated and continued using heparin with continuous ACT monitoring. Subsequently I engaged the left main using JL 3.5 guiding catheter. I wired initially the left main but the wire went to the ramus intermedius. I did attempt doing IVUS but the IVUS would not cross the lesion in the left main. At that point I decided to do an IFR. After zeroing the Dobler wire and equalized in between the Dobler wire and guiding catheter the left main was partially engaged and the wire was advanced to the proximal LAD. iFR was performed and came to be significantly abnormal at 0.64. The procedure was completed there was no complication. SELECTIVE CORONARY ANGIOGRAM: The right coronary artery: Stented in the midportion with mild in-stent restenosis with no evidence of high-grade stenosis Left main: Extremely calcified with a calcified lesion involving the ostial/proximal portion documented to be flow-limiting by Doppler wire. The left circumflex: Large caliber vessel nondominant vessel with no evidence of high-grade stenosis The left anterior descending artery: The stent in the proximal to mid LAD is patent with only mild in-stent restenosis with no evidence of high-grade stenosis CONCLUSION: 1. Severe calcified and eccentric lesion involving the ostial/proximal left main documented to be flow-limiting by Doppler wire 2. Patent stent in both the RCA and LAD POSTPROCEDURE MANAGEMENT: Evaluate the patient for surgery
[2025-02-21] MEDS ORDERED: SODIUM CHLORIDE 0.9% 1,000 ML IV SCH (14:45)
[2025-02-21 15:45] VITALS: RESP 16
[2025-02-21 16:00] VITALS: BP 103/63
[2025-02-21] MEDS: SODIUM CHLORIDE 0.9% 500 ML 500 ML IV ONE (16:45)
[2025-02-21 17:38] VITALS: PULSE 60
== END 2025-02-21 18:35 | disposition home or self-care (01) ==
LOC: CATHCVL 09:34
PROVIDERS: ATTEND Internal Medicine Interventional Cardiology
DX: I25.10 Atherosclerotic heart disease of native coronary artery without angina pectoris (principal); I42.9 Cardiomyopathy, unspecified; I65.23 Occlusion and stenosis of bilateral carotid arteries; I48.0 Paroxysmal atrial fibrillation; Z79.01 Long term (current) use of anticoagulants; Z95.5 Presence of coronary angioplasty implant and graft; Z79.899 Other long term (current) drug therapy
CPT/HCPCS: 99152; 99153; 92978; 93454; 93799; C1769 ×6; C1894; C1751; C1887 ×2; C1753; J2250; J2003; J1644; Q9967; J3010

== ENCOUNTER 2025-03-05 08:39 | Day surgery (SDC) | payer MEDICARE ==
[2025-03-05 09:10] VITALS: RESP 18; TEMP 97.4
[2025-03-05] MEDS: IV FLUID CONTINUATION 1,000 ML IV ONE ×2 (09:11→12:00)
[2025-03-05 09:17] LABS: Glucose,Whole Blood 182 mg/dL (70-110)
[2025-03-05] MEDS: MIDAZOLAM 2 MG/2 ML VIAL IVP ONE ×2 (11:39→11:41)
[2025-03-05] MEDS: fentaNYL (PF) 50 MCG/1 ML VIAL IVP ONE ×2 (11:39)
[2025-03-05] MEDS: BENZOCAINE SPRAY 1 EACH TOPICAL ONE (11:39)
--- NOTE | 2025-03-05 13:07 | P.PCN ---
Date of Procedure: 03/05/25 Operative Findings: TRANSESOPHAGEAL ECHOCARDIOGRAM PRESSURE CONTROLLER: CRISTAL RUSSELL MD, RPVI INDICATION: Aortic stenosis SEDATION: Conscious sedation COMPLICATION: None LEVEL OF SEDATION Moderate to sedation length of 20 minutes PROCEDURE DESCRIPTION: After obtaining an informed consent, the patient was brought to transesophageal echocardiogram room. Pulse oximetry and heart monitors were attached to the patient. The patient throat was sprayed using lidocaine. The patient was turned into left lateral position. After that a bite guard was placed. After an appropriate conscious sedation was initiated, the transesophageal echocardiogram was advanced through a bite guard into the mid esophagus. A 2-D echocardiogram images, color Doppler images, continuous wave images, pulse-wave images, of various cardiac structure were performed. After that the transesophageal echocardiogram probe was advanced into the stomach and fixed to obtain transgastric view was. The probe was brought into the mid esophagus. Inter-atrial septum was interrogated using 2D images, color Doppler images, and then contrast study. After that transesophageal echocardiogram was withdrawn out and upon withdrawing the descending thoracic aorta all the way up to the arch was evaluated. CONCLUSION: 1. Impaired LV function with EF around 40 to 45% 2. Aortic sclerosis with aortic stenosis with a mean gradient of 25 mmHg and aortic valve area by planimetry at 1 cm 3. Thickened mitral valve leaflets with moderate to severe MR and mild MS 4. Biatrial enlargement 5. No pericardial effusion
[2025-03-05 13:28] VITALS: PULSE 60
[2025-03-05 13:29] VITALS: BP 100/52
== END 2025-03-05 13:00 | disposition home or self-care (01) ==
LOC: CATHCVL 08:39
PROVIDERS: ATTEND Internal Medicine Interventional Cardiology
DX: I35.0 Nonrheumatic aortic (valve) stenosis (principal); I48.0 Paroxysmal atrial fibrillation; I25.10 Atherosclerotic heart disease of native coronary artery without angina pectoris; I42.9 Cardiomyopathy, unspecified; I65.23 Occlusion and stenosis of bilateral carotid arteries; Z95.0 Presence of cardiac pacemaker; Z95.5 Presence of coronary angioplasty implant and graft; Z88.8 Allergy status to other drugs, medicaments and biological substances; Z79.01 Long term (current) use of anticoagulants; Z79.899 Other long term (current) drug therapy
CPT/HCPCS: 93312; 93320; 93325; 99152; J2250; J3010